=== PATIENT | female | born 1975 | race African-American/Black ===

== ENCOUNTER 2020-11-08 04:09 | Inpatient (IN) | payer MEDICARE, OTHER ==
[~2020-11-08] VITALS: Ht 165.1 cm; Wt 74.8 kg
[2020-11-08] VITALS (50 sets, daily range): BP systolic 61–110; BP diastolic 24–70
[~2020-11-08 04:09] MED LIST: PREDNISONE20 MG ORAL
[2020-11-08] MEDS ORDERED: Acetaminophen 650 MG SUPP RECTAL ONE (04:30)
[2020-11-08] MEDS ORDERED: Sodium Chloride 2,200 ML IVLG ONE (04:30)
--- NOTE | 2020-11-08 04:38 | Emergency Room Report ---
History of Present Illness General Chief Complaint: Altered Mental Status Source: Patient Present Illness HPI This a 44-year-old female who is a intermediate patient. She has history of multiple sclerosis and chronic pain syndrome. She presents with chief complaint of altered mental status. Onset tonight. Patient was unresponsive. She was very warm to the touch. Unable to get any other history from this patient. She has no cough or congestion. No nausea vomiting or diarrhea. Patient was positive for Covid in August. She was negative for Covid in September and had Covid vaccine already. 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: No COVID-19 Screening: Negative COVID-19 COVID-19 Testing Source: [facility] Patient History Past Medical History: see triage record, old chart reviewed Past Surgical History: other Pertinent Family History: none Social History: Denies: smoking Now: No Immunizations: other Reviewed Nursing Documentation: PMH: Agreed; PSxH: Agreed Nursing Documentation-PMH Hx Hypertension: Yes Hx Asthma: Yes Review of Systems Constitutional: Reports: malaise, weakness All Other Systems: limited - Secondary to condition Physical Exam Vital Signs Date Time Temp Pulse Resp B/P (MAP) Pulse Ox O2 Delivery O2 Flow Rate FiO2 11/08/20 04:12 99.1 126 28 87/52 (64) 98 Room Air Sp02 EP Interpretation: reviewed, normal General Appearance: Chronically Ill, Stupor Head: normocephalic, atraumatic Eyes: bilateral eye PERRL, bilateral eye EOMI ENT: normal pharynx Neck: full range of motion, supple, no meningismus Respiratory: chest non-tender, lungs clear, normal breath sounds Cardiovascular #1: regular rate, rhythm, no murmur Gastrointestinal: normal bowel sounds, non tender, no mass, no organomegaly, no bruit, non-distended Musculoskeletal: no lower extremity edema Psychiatric: other Skin: no rash Procedures Critical Care Time Critical Care Time Critical care is mandated in this patient who presented with sepsis and altered mental status. Patient require my urgent intervention to attenuate the risks of metabolic collapse which may lead to cardiovascular collapse and . Critical care time is 35 minutes excluding any reportable procedure. Critical care time included evaluation, multiple reevaluation, looking at old charts, interpreting laboratory and diagnostic data, discussing case with patient and family and consultants, and charting. Medical Decision Making Diagnostic Impression: Primary Impression: Sepsis Qualified Codes: A41.9 - Sepsis, unspecified organism; R65.20 - Severe sepsis without septic shock; G93.40 - Encephalopathy, unspecified Additional Impressions: Acute metabolic encephalopathy VALERIA (acute kidney injury) Anemia Qualified Codes: D64.9 - Anemia, unspecified UTI (urinary tract infection) Qualified Codes: N30.00 - Acute cystitis without hematuria ER Course This patient presents with altered mental status and fever. Her oxygenation was normal at 100% on room air. She had Covid in August and negative test in September. She also had her Covid vaccine done. This makes Covid less likely to be the cause of infection. Her chest x-ray is clear. CT scans unremarkable. She does have a high white count or lactic acid. Most likely source is urine. That still pending. IV antibiotics and IV fluids given. Patient will be admitted to the hospital. Contacted Dr. Koehler for admission. Urinalysis showed positive nitrites and leukocyte esterase. However only 0-2 WBC and few bacteria. I will go ahead and cover her with antibiotics. EKG Diagnostic Results Troponin ordered: Yes Rate: tachycardiac Rhythm: NSR ST Segments: no acute changes Rhythm Strip Diag. Results EP Interpretation: yes Rate: 120 Rhythm: NSR, no PVC's, no ectopy Chest X-Ray Diagnostic Results Chest X-Ray Diagnostic Results : Chest X-Ray Ordered: Yes # of Views/Limited/Complete: 1 View Indication: Other EP Interpretation: Yes Interpretation: no consolidation, no effusion, no pneumothorax, no acute cardiopulmonary disease Impression: No acute disease Electronically Signed by: Leroy Bird MD CT/MRI/US Diagnostic Results CT/MRI/US Diagnostic Results : Imaging Test Ordered: Ct head Impression Neg per radiologist Last Vital Signs Date Time Temp Pulse Resp B/P (MAP) Pulse Ox O2 Delivery O2 Flow Rate FiO2 11/08/20 04:12 99.1 126 28 87/52 (64) 98 Room Air Status: improved Disposition: ADMITTED INPATIENT Condition: Serious Referrals: ABHI VARGAS MD (PCP) Leroy Bird MD Nov 08, 2020 04:37
[2020-11-08 05:03] LABS: HEMATOCRIT 32.9 % (37.0-47.0); HEMOGLOBIN 9.8 G/DL (12.0-16.0); MEAN CORPUSCULAR VOLUME 89 FL (80-99); PLATELET COUNT 289 K/UL (150-450); RED BLOOD COUNT 3.68 M/UL (4.20-5.40); RED CELL DISTRIBUTION WIDTH 17.7 % (11.6-14.8)
[2020-11-08 05:09] LABS: WHITE BLOOD COUNT 26.3 K/UL (4.8-10.8)
[2020-11-08 05:36] LABS: ALANINE AMINOTRANSFERASE 50 U/L (12-78); ALBUMIN 2.3 G/DL (3.4-5.0); ALBUMIN/GLOBULIN RATIO 0.7 (1.0-2.7); ALKALINE PHOSPHATASE 73 U/L (46-116); ASPARTATE AMINO TRANSFERASE 34 U/L (15-37); BILIRUBIN,TOTAL 0.2 MG/DL (0.2-1.0); BLOOD UREA NITROGEN 48 mg/dL (7-18); CALCIUM 8.4 MG/DL (8.5-10.1); CARBON DIOXIDE 24 MMOL/L (21-32); CKMB < 0.5 NG/ML (0.0-3.6); CREATINE KINASE 14 U/L (26-308); CREATININE 1.6 MG/DL (0.55-1.30)
[2020-11-08 05:43] LABS: CHLORIDE 106 MMOL/L (98-107); POTASSIUM 3.6 MMOL/L (3.5-5.1); SODIUM 142 MMOL/L (136-145)
--- NOTE | 2020-11-08 05:43 | Diagnostic Imaging Report ---
EXAM: CT Head Without Intravenous Contrast CLINICAL HISTORY: AMS TECHNIQUE: Axial computed tomography images of the head/brain without intravenous contrast. CTDI is 53.40 mGy and DLP is 992.10 mGy-cm. One or more of the following dose reduction techniques were used: automated exposure control, adjustment of the mA and/or kV according to patient size, use of iterative reconstruction technique. COMPARISON: No relevant prior studies available. FINDINGS: No acute intracranial hemorrhage. No midline shift or mass effect. The territorial hassan-white matter differentiation is maintained throughout. The ventricles and sulci are commensurate with age. The visualized orbits appear grossly unremarkable. The calvarium is intact. The visualized paranasal sinuses and mastoid air cells are grossly clear. IMPRESSION: No acute intracranial hemorrhage, midline shift, or mass effect.
[2020-11-08] MEDS ORDERED: Cefepime HCl 1 GM in D5W 55 ML IVPB ONE (05:45)
[2020-11-08 05:48] LABS: APPEARANCE,URINE CLEAR; BILIRUBIN, URINE NEGATIVE (NEGATIVE); COLOR,URINE PALE YELLOW; GLUCOSE, URINE (UA) NEGATIVE (NEGATIVE); KETONES,URINE NEGATIVE (NEGATIVE); LEUKOCYTE ESTERASE ,URINE 1+ (NEGATIVE); NITRITE,URINE POSITIVE (NEGATIVE); PH,URINE 6 (4.5-8.0); PROTEIN,URINE 1+ (NEGATIVE); UROBILINOGEN,URINE NORMAL MG/DL (0.0-1.0)
[2020-11-08] MEDS ORDERED: Acetaminophen 650 MG SUPP RECTAL PRN ×2 (06:00→09:15)
[2020-11-08] MEDS ORDERED: Vancomycin 1.5gm/300ml Premix 300 ML IVPB ONE (06:00)
--- NOTE | 2020-11-08 06:12 | Emergency Room Report ---
Sepsis Event Note Evaluation Current Stage of Sepsis: Sepsis Possible Source: Unknown Focused Exam Allergies: Coded Allergies: No Known Allergies (Unverified , 11/08/20) Date Exam Occurred: Nov 08, 2020 Time Exam Occurred: 06:11 Laboratory Studies Laboratory Tests Test 11/08/20 04:30 11/08/20 04:54 Urine Color Pale yellow Urine Appearance Clear Urine pH 6 (4.5-8.0) Urine Specific [place] 1.010 (1.005-1.035) Urine Protein 1+ (NEGATIVE) H Urine Glucose (UA) Negative (NEGATIVE) Urine Ketones Negative (NEGATIVE) Urine Blood 2+ (NEGATIVE) H Urine Nitrite Positive (NEGATIVE) H Urine Bilirubin Negative (NEGATIVE) Urine Urobilinogen Normal MG/DL (0.0-1.0) Urine Leukocyte Esterase 1+ (NEGATIVE) H Urine RBC 2-4 /HPF (0 - 2) H Urine WBC 0-2 /HPF (0 - 2) Urine Squamous Epithelial Cells Few /LPF (NONE/OCC) Urine Bacteria Few /HPF (NONE) White Blood Count 26.3 K/UL (4.8-10.8) *H Red Blood Count 3.68 M/UL (4.20-5.40) L Hemoglobin 9.8 G/DL (12.0-16.0) L Hematocrit 32.9 % (37.0-47.0) L Mean Corpuscular Volume 89 FL (80-99) Mean Corpuscular Hemoglobin 26.7 PG (27.0-31.0) L Mean Corpuscular Hemoglobin Concent 29.8 G/DL (32.0-36.0) L Red Cell Distribution Width 17.7 % (11.6-14.8) H Platelet Count 289 K/UL (150-450) Mean Platelet Volume 7.1 FL (6.5-10.1) Neutrophils (%) (Auto) % (45.0-75.0) Lymphocytes (%) (Auto) % (20.0-45.0) Monocytes (%) (Auto) % (1.0-10.0) Eosinophils (%) (Auto) % (0.0-3.0) Basophils (%) (Auto) % (0.0-2.0) Differential Total Cells Counted 100 Neutrophils % (Manual) 90 % (45-75) H Lymphocytes % (Manual) 5 % (20-45) L Monocytes % (Manual) 2 % (1-10) Eosinophils % (Manual) 0 % (0-3) Basophils % (Manual) 0 % (0-2) Band Neutrophils 3 % (0-8) Platelet Estimate Adequate Platelet Morphology Normal Sodium Level 142 MMOL/L (136-145) Potassium Level 3.6 MMOL/L (3.5-5.1) Chloride Level 106 MMOL/L (98-107) Carbon Dioxide Level 24 MMOL/L (21-32) Blood Urea Nitrogen 48 mg/dL (7-18) H Creatinine 1.6 MG/DL (0.55-1.30) H Estimat Glomerular Filtration Rate 42.4 mL/min (>60) Glucose Level 95 MG/DL (74-106) Lactic Acid Level 3.20 mmol/L (0.4-2.0) H Calcium Level 8.4 MG/DL (8.5-10.1) L Total Bilirubin 0.2 MG/DL (0.2-1.0) Aspartate Amino Transf (AST/SGOT) 34 U/L (15-37) Alanine Aminotransferase (ALT/SGPT) 50 U/L (12-78) Alkaline Phosphatase 73 U/L (46-116) Total Creatine Kinase 14 U/L (26-308) L Creatine Kinase MB < 0.5 NG/ML (0.0-3.6) Creatine Kinase MB Relative Index 3.5 Troponin I 0.002 ng/mL (0.000-0.056) Total Protein 5.7 G/DL (6.4-8.2) L Albumin 2.3 G/DL (3.4-5.0) L Globulin 3.4 g/dL Albumin/Globulin Ratio 0.7 (1.0-2.7) L Vital Signs Last 24 Hour Vital Signs Date Time Temp Pulse Resp B/P (MAP) Pulse Ox O2 Delivery O2 Flow Rate FiO2 11/08/20 05:58 77 16 Room Air 98 11/08/20 04:12 99.1 126 28 87/52 (64) 98 Room Air Respiratory Exam: Clear Cardiovascular Exam: RRR Capillary Refill: Less Than 2 Seconds Peripheral Pulse: Strong Pulse Location: Radial Skin Exam: Normal Tur[place] Leroy Bird MD Nov 08, 2020 06:12
--- NOTE | 2020-11-08 12:25 | Consultation ---
Consult Note Consult Note Asked to eval at the request of Dr Cormier This a 44-year-old female who is a group home patient. She has history of multiple sclerosis and chronic pain syndrome. She presents with chief complaint of altered mental status. Onset tonight. Patient was unresponsive. She was very warm to the touch. Unable to get any other history from this patient. She has no cough or congestion. No nausea vomiting or diarrhea. Patient was positive for Covid in August. She was negative for Covid in September and had Covid vaccine already. 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 GENERAL: Patient is altered, unresponsive, cannot follow commands. HEAD AND NECK: Pupils are equal and reactive to light. Anicteric. Neck was supple. No JVD. LUNGS: Good air entry. No wheezing or rhonchi. Decreased air in the bases. HEART: S1, S2. No murmur or gallops. ABDOMEN: Soft, nondistended, nontender. Positive bowel sounds. EXTREMITIES: No cyanosis, clubbing, or edema. NEUROLOGIC: Very limited secondary to patient's status. Cannot follow commands. However, moving extremities spontaneously. SKIN: No rashes were identified. LABORATORY DATA: On admission from the emergency department ABG, pH of 7.305, pCO2 of 24, pO2 of 71, saturating 93%. WBC of 26, hemoglobin 9.8, hematocrit 32, platelets 289. Sodium 142, potassium 3.6, chloride 106, bicarb 24, BUN 48, creatinine 1.6, GFR is 42, glucose 95. Lactic acid 3.20, repeat 7.20. , 8.4. Total bilirubin of 0.2, AST 32, ALT of 50. First troponin 0.02. Albumin 0.7. UA is +1 protein, +2 blood, positive nitrite, +1 leukocytes, rbc 2.4, leukocyte +1. CT of the brain was done, no acute intracranial hemorrhage, midline shift, or mass effect. . Assessment/Plan Imp: Acute renal failure Sepsis, shock Acute metabolic encephalopathy Anemia UTI Sugg: ICU Pressors Hydrate Monitor renal parameters and electrolytes Anemia work-up Avoid nephrotoxic's Bridger Mari MD Nov 08, 2020 12:25
[2020-11-08] MEDS ORDERED: Lidocaine 1% MPF 10mg/ml 5ml INJ ONE (12:30)
[2020-11-08] MEDS: D5 1/2NS 1,000 ML IV SCH (12:30)
--- NOTE | 2020-11-08 13:16 | Consultation ---
History of Present Illness General Date patient seen: Nov 08, 2020 Reason for Hospitalization: Altered Mental Status Present Illness HPI 44-year-old female who is a [facility] patient with history of multiple sclerosis and chronic pain syndrome presents with chief complaint of altered mental status of onset just prior to admission. Patient was unresponsive. She was very warm to the touch. Unable to get any other history from this patient. She has no cough or congestion. No nausea vomiting or diarrhea. Patient was positive for Covid in August. She was negative for Covid in September and had Covid vaccine already. In emergency room patient identified to have leukocytosis lactic acidosis septic. Given altered status normal exam potential etiology and patient unable to provide information therefore surgical to evaluate assist with care patient seen patient chart reviewed Allergies: Coded Allergies: No Known Allergies (Unverified , 11/08/20) COVID-19 Screening Contact w/high risk pt: No Experienced COVID-19 symptoms?: No Medication History Scheduled Ascorbic Acid* (Ascorbic Acid*), 500 MG ORAL Q12HR, (Reported) Baclofen* (Baclofen*), 10 MG ORAL Q8HR, (Reported) Chlorhexidine Gluconate (Peridex), 15 ML MM BID, (Reported) Clonidine Hcl* (Catapres*), 0.1 MG ORAL EVERY 6 HOURS, (Reported) Docusate Sodium* (Colace*), 100 MG ORAL BID, (Reported) Duloxetine HCl (Duloxetine HCl*), 20 MG PO DAILY, (Reported) Enoxaparin Sodium (Enoxaparin Sodium*), 40 MG SUBQ DAILY, (Reported) Famotidine* (Pepcid 20mg tablet*), 20 MG ORAL Q12HR, (Reported) Gabapentin* (Gabapentin*), 600 MG ORAL Q8HR, (Reported) Multivitamin With Minerals (Multivitamins With Minerals*), 1 TAB ORAL DAILY, (Reported) Prednisone* (Prednisone*), 60 MG ORAL DAILY, (Reported) Tuberculin Ppd (Tubersol), 0.1 ML IDERMAL EVERY 365 DAYS, (Reported) Scheduled PRN Acetaminophen* (Acetaminophen 325MG Tablet*), 650 MG ORAL Q4H PRN for FEVER TEMP (>100.4), (Reported) Acetaminophen* (Acetaminophen 325MG Tablet*), 650 MG ORAL Q4HR PRN for MILD PAIN, (Reported) Diphenhydramine Hcl* (Diphenhydramine Hcl*), 25 MG ORAL Q4HR PRN for Itching, (Reported) Guaifenesin (Sabrina-Tussin), 200 MG PO Q4HR PRN for For Cough, (Reported) Ipratropium/Albuterol Sulfate (Iprat-Albut 0.5-3(2.5) Mg/3 Ml), 3 ML IH Q4HR PRN for SOB/WHEEZING, (Reported) Mag Hydrox/Aluminum Hyd/Simeth (Mylanta Maximum Strength Liq), 30 ML PO DAILY PRN for INDIGESTION, (Reported) Nitroglycerin 0.4MG table* (Nitroglycerin*), 0.4 MG SL .Q5MIN X 3 DOSES PRN for CHEST PAIN, (Reported) Ondansetron* (Zofran*), 4 MG ORAL Q6H PRN for Nausea & Vomiting, (Reported) Tramadol Hcl* (Ultram*), 50 MG ORAL Q6H PRN for MODERATE TO SEVERE PAIN, (Reported) Discontinued Medications Prednisone* (Prednisone*), 20 MG ORAL DAILY, (Reported) Discontinued Reason: Prescription changed Prednisone* (Prednisone*), 10 MG ORAL DAILY, (Reported) Discontinued Reason: Prescription changed Patient History Limited by: medical condition History Provided By: Medical Record, PMD Healthcare decision maker Resuscitation status Advanced Directive on File Past Medical/Surgical History Past Medical/Surgical History: (1) Anemia (2) UTI (urinary tract infection) (3) VALERIA (acute kidney injury) (4) Sepsis (5) Acute metabolic encephalopathy Review of Systems Review of Symptoms General ROS: no weight loss or fever Psychological ROS: no depression or mood changes, no memory loss Ophthalmic ROS: no visual changes or eye irritation ENT ROS: no nasal congestion, hearing loss, dizziness Allergy and Immunology ROS: no allergic symptoms or urticaria Hematological and Lymphatic ROS: no swollen glands, unusual bleeding or bruising Endocrine ROS: no polyuria, polydipsia, weight changes, temperature intolerance Respiratory ROS: no cough, shortness of breath, or wheezing Cardiovascular ROS: no chest pain or dyspnea on exertion Gastrointestinal ROS: denies abdominal pain, bright red blood in stool. Musculoskeletal ROS: no myalgias or arthralgias Neurological ROS: no TIA or stroke symptoms Dermatological ROS: no new or changing skin lesions, rashes or pruritis limited given medical condition Physical Exam Physical Exam Sp02 EP Interpretation: reviewed, normal General Appearance: Chronically Ill, Stupor Head: normocephalic, atraumatic Eyes: bilateral eye PERRL, bilateral eye EOMI ENT: normal pharynx Neck: full range of motion, supple, no meningismus Respiratory: chest non-tender, lungs clear, normal breath sounds Cardiovascular #1: regular rate, rhythm, no murmur Gastrointestinal: normal bowel sounds, non tender, no mass, no organomegaly, no bruit, non-distended Musculoskeletal: no lower extremity edema Psychiatric: other Skin: no rash Last 24 Hour Vital Signs Date Time Temp Pulse Resp B/P (MAP) Pulse Ox O2 Delivery O2 Flow Rate FiO2 11/08/20 10: 103.5 171 30 98/67 100 Room Air 11/08/20 05:58 100.5 77 16 110/68 98 Room Air 11/08/20 05:58 77 16 Room Air 98 11/08/20 05:00 100.5 11/08/20 04:12 99.1 126 28 87/52 (64) 98 Room Air Intake and Output 11/07/20 11/08/20 19:00 07:00 Intake Total 4000 ml Output Total 500 ml Balance 3500 ml Intake Oral 0 ml IV Total 4000 ml Output Urine Total 500 ml # Voids 1 # Bowel Movements 1 Laboratory Tests Test 11/08/20 04:30 11/08/20 04:54 11/08/20 09:01 11/08/20 09:03 Urine Color Pale yellow Urine Appearance Clear Urine pH 6 (4.5-8.0) Urine Specific [place] 1.010 (1.005-1.035) Urine Protein 1+ (NEGATIVE) H Urine Glucose (UA) Negative (NEGATIVE) Urine Ketones Negative (NEGATIVE) Urine Blood 2+ (NEGATIVE) H Urine Nitrite Positive (NEGATIVE) H Urine Bilirubin Negative (NEGATIVE) Urine Urobilinogen Normal MG/DL (0.0-1.0) Urine Leukocyte Esterase 1+ (NEGATIVE) H Urine RBC 2-4 /HPF (0 - 2) H Urine WBC 0-2 /HPF (0 - 2) Urine Squamous Epithelial Cells Few /LPF (NONE/OCC) Urine Bacteria Few /HPF (NONE) White Blood Count 26.3 K/UL (4.8-10.8) *H Red Blood Count 3.68 M/UL (4.20-5.40) L Hemoglobin 9.8 G/DL (12.0-16.0) L Hematocrit 32.9 % (37.0-47.0) L Mean Corpuscular Volume 89 FL (80-99) Mean Corpuscular Hemoglobin 26.7 PG (27.0-31.0) L Mean Corpuscular Hemoglobin Concent 29.8 G/DL (32.0-36.0) L Red Cell Distribution Width 17.7 % (11.6-14.8) H Platelet Count 289 K/UL (150-450) Mean Platelet Volume 7.1 FL (6.5-10.1) Neutrophils (%) (Auto) % (45.0-75.0) Lymphocytes (%) (Auto) % (20.0-45.0) Monocytes (%) (Auto) % (1.0-10.0) Eosinophils (%) (Auto) % (0.0-3.0) Basophils (%) (Auto) % (0.0-2.0) Differential Total Cells Counted 100 Neutrophils % (Manual) 90 % (45-75) H Lymphocytes % (Manual) 5 % (20-45) L Monocytes % (Manual) 2 % (1-10) Eosinophils % (Manual) 0 % (0-3) Basophils % (Manual) 0 % (0-2) Band Neutrophils 3 % (0-8) Platelet Estimate Adequate Platelet Morphology Normal Sodium Level 142 MMOL/L (136-145) Potassium Level 3.6 MMOL/L (3.5-5.1) Chloride Level 106 MMOL/L (98-107) Carbon Dioxide Level 24 MMOL/L (21-32) Blood Urea Nitrogen 48 mg/dL (7-18) H Creatinine 1.6 MG/DL (0.55-1.30) H Estimat Glomerular Filtration Rate 42.4 mL/min (>60) Glucose Level 95 MG/DL (74-106) Lactic Acid Level 3.20 mmol/L (0.4-2.0) H 7.20 mmol/L (0.66-2.22) H Calcium Level 8.4 MG/DL (8.5-10.1) L Total Bilirubin 0.2 MG/DL (0.2-1.0) Aspartate Amino Transf (AST/SGOT) 34 U/L (15-37) Alanine Aminotransferase (ALT/SGPT) 50 U/L (12-78) Alkaline Phosphatase 73 U/L (46-116) Total Creatine Kinase 14 U/L (26-308) L Creatine Kinase MB < 0.5 NG/ML (0.0-3.6) Creatine Kinase MB Relative Index 3.5 Troponin I 0.002 ng/mL (0.000-0.056) Total Protein 5.7 G/DL (6.4-8.2) L Albumin 2.3 G/DL (3.4-5.0) L Globulin 3.4 g/dL Albumin/Globulin Ratio 0.7 (1.0-2.7) L Arterial Blood pH 7.305 (7.350-7.450) Arterial Blood Partial Pressure CO2 24.3 mmHg (35.0-45.0) *L Arterial Blood Partial Pressure O2 71.4 mmHg (75.0-100.0) L Arterial Blood HCO3 11.8 mmol/L (22.0-26.0) *L Arterial Blood Oxygen Saturation 93.4 % (95-100) L Arterial Blood Base Excess -12.8 (-2-2) *L Jose Test Positive Height (Feet): 5 Height (Inches): 5.00 Weight (Pounds): 165 Medications Current Medications Medications (Trade) Dose Ordered Sig/Bunny Route PRN Reason Start Time Stop Time Status Last Admin Dose Admin Acetaminophen (Tylenol) 650 mg PRN PRN RECTAL TEMP>100.5 11/08/20 06:00 Acetaminophen (Tylenol) 650 mg Q4H PRN RECTAL Mild Pain (Pain Scale 1-3) 11/08/20 09:15 12/08/20 09:14 Albumin Human 50 ml @ 50 mls/hr ONCE IV 11/08/20 12:30 11/08/20 15:00 Dextrose/Sodium Chloride 1,000 ml @ 50 mls/hr Q20H IV 11/08/20 12:30 12/08/20 12:29 Metronidazole 100 ml @ 100 mls/hr ONCE ONCE IVPB 11/08/20 12:45 11/08/20 13:44 Norepinephrine Bitartrate 4 mg/ Dextrose 250 ml @ 0 mls/hr Q24H IV 11/08/20 12:30 11/11/20 12:29 Sodium Chloride 1,000 ml @ 999 mls/hr Q1H1M ONCE IV 11/08/20 12:30 11/08/20 13:30 Assessment/Plan Problem List: (1) Anemia ICD Codes: D64.9 - Anemia, unspecified SNOMED: [id number] Qualifiers: Qualified Codes: D64.9 - Anemia, unspecified (2) Sepsis Assessment & Plan: 44-year-old female with altered mental status, lactic acidosis, leukocytosis, sepsis. Vitals currently stable. Abdominal exam mild distention but limited. Will obtain imaging. Labs noted UTI on antibiotics fluid resuscitation trend labs we will follow with examination and recommendations. CT head reviewed. No acute intracranial hemorrhage. No midline shift or mass effect. The territorial hassan-white matter differentiation is maintained throughout. The ventricles and sulci are commensurate with age. The visualized orbits appear grossly unremarkable. The calvarium is intact. The visualized paranasal sinuses and mastoid air cells are grossly clear. ICD Codes: A41.9 - Sepsis, unspecified organism SNOMED: 69717299, [id number] Qualifiers: Qualified Codes: A41.9 - Sepsis, unspecified organism; R65.20 - Severe sepsis without septic shock; G93.40 - Encephalopathy, unspecified (3) UTI (urinary tract infection) ICD Codes: N39.0 - Urinary tract infection, site not specified SNOMED: 70151483 Qualifiers: Qualified Codes: N30.00 - Acute cystitis without hematuria (4) VALERIA (acute kidney injury) ICD Codes: N17.9 - Acute kidney failure, unspecified SNOMED: 53053015, 5750917 (5) Acute metabolic encephalopathy ICD Codes: G93.41 - Metabolic encephalopathy SNOMED: 96127599, [id number] Archie Saavedra Nov 08, 2020 13:16
[2020-11-08] MEDS ORDERED: Lidocaine 1% Plain 30 ml INJ ONE (13:41)
--- NOTE | 2020-11-08 13:54 | History & Physical ---
History and Physical History & Physicial Job # Kris Cormier MD Nov 08, 2020 13:54
[2020-11-08] MEDS ORDERED: Levophed 4mg/4mL Inj IV ONE (14:02)
--- NOTE | 2020-11-08 14:10 | Emergency Room Report ---
Physical Exam Please see the note from Dr. Bird. Also I have multiple addenda on that note with repeat evaluations and treatments initiated by me. Patient with history of multiple sclerosis[facility] Full review of systems unobtainable due to medical condition. Last 24 Hour Vital Signs Date Time Temp Pulse Resp B/P (MAP) Pulse Ox O2 Delivery O2 Flow Rate FiO2 11/08/20 10:21 103.5 171 30 98/67 100 Room Air 11/08/20 05:58 100.5 77 16 110/68 98 Room Air 11/08/20 05:58 77 16 Room Air 98 11/08/20 05:00 100.5 11/08/20 04:12 99.1 126 28 87/52 (64) 98 Room Air Sp02 EP Interpretation: reviewed, normal General Appearance: moderate distress, other - Warm to touch and toxic, Chronically Ill, Stupor Head: normocephalic, atraumatic Eyes: bilateral eye other - Eyes closed ENT: moist mucus membranes Neck: full range of motion, no meningismus Respiratory: lungs clear, normal breath sounds, other - Tachypnea Cardiovascular #1: tachycardia Cardiovascular #2: 2+ radial (R), 2+ femoral (R) Gastrointestinal: non tender - However patient with decreased responsiveness, decreased bowel sounds Rectal: other - Copious light brown stool Genitourinary: other - Duffy Neurologic: other - Lethargic but responds to pain Psychiatric: other - Lethargic Skin: no rash, other - Hot with cold extremities Critical Care Time Critical Care Time Total Critical Care Time: 65 min bedside evaluation and treatment excludes procedures (EKG, CVP). Reason for critical care: Severe sepsis, repeat evaluations, broadening of antibiotics, discussion with admitting physician, treatment of high fever Possible complications: hypotension, hypertension, MA, shock, arrhythmias, metabolic acidosis, end organ damage, respiratory failure. Interventions: Repeat boluses, Tylenol, cooling measures, repeat evaluations, broadening antibiotics, CVP, Levophed Course: Patient was signed out to me by Dr. Bird. Evidence of sepsis. Source not identified. Patient became tachycardic and tachypneic. Repeat temperature was 103.9. Patient was rebolused with fluids. Patient fluid responsive at that time. She remained tachycardic. Patient was having copious bouts of diarrhea. This was sent for C. difficile toxin. In addition antibiotics were broadened including Flagyl. After multiple fluid boluses patient still had bouts of hypotension. Central line was indicated and started. Repeat lactic acid was drawn by me. Blood gas was obtained due to tachypnea. There is evidence of compensated metabolic acidosis however the patient was oxygenating well. No further airway or breathing intervention indicated at that time. Levophed was begun. The patient's mentation was improving. Her temperature also was improved. The patient was upgraded to intensive care unit. The admitting physician came to evaluate the patient and her case was fully discussed. The patient's condition was improved but still critical. Consultations: nursing staff, previous emergency physician, respiratory therapy, admitting physician Performed by: Dr. Leyva Tolerated well condition = critical Central Line Central Line : Consent: Emergent Central Line Lumen: triple Maximal Sterile Barrier Tech: yes cap, yes mask, yes sterile gown, yes sterile gloves, yes large sterile sheet, yes hand hygiene, yes chlorhexidine pr ep Central Line Postion: femoral (R) Anesthesia: Lidocaine US Guided Line?: Yes Vessel visualized with U/S: Right Femoral Vein Ultrasound Findings: Collapsible Vessel, Vessel Patent, Color flow present, Visualize vessel puncture Complications: none Central Line Post Position: sutured, good blood return Attempts: One Patient Tolerated: Well Complications: None Progress 4 ml drawn for repeat lactate Medical Decision Making Diagnostic Impression: Primary Impression: Septic shock Additional Impressions: Anemia Qualified Codes: D64.9 - Anemia, unspecified Acute metabolic encephalopathy VALERIA (acute kidney injury) Diarrhea Qualified Codes: R19.7 - Diarrhea, unspecified Suspect C. difficile colitis Multiple sclerosis Escalating lactic acid ER Course Patient initially with fluid responsive sepsis. However she required multiple boluses. See addenda at the end of Dr. Bird's note. At one point she became febrile and tachycardic. Tylenol was repeated. Cooling measures were instituted. The patient was fully reevaluated by me at that time. The source of the sepsis was not determined initially. However the patient was having multiple bouts of watery and foul-smelling diarrhea. Start flagyl as copious diarrhea. Concern over possible c difficile. Persistent hypotension. Levophed indicated. Central line [address] Cormier 1400 the patient was fully discussed with Dr. Cormier Patient more responsive on Levophed with some vocalization. In addition heart rate although still tachycardic is improving. Her extremities were previously cool and clammy however at transfer to the ICU they were improving. Laboratory Tests Test 11/08/20 04:30 11/08/20 04:54 11/08/20 09:01 11/08/20 09:03 Urine Color Pale yellow Urine Appearance Clear Urine pH 6 (4.5-8.0) Urine Specific [place] 1.010 (1.005-1.035) Urine Protein 1+ (NEGATIVE) H Urine Glucose (UA) Negative (NEGATIVE) Urine Ketones Negative (NEGATIVE) Urine Blood 2+ (NEGATIVE) H Urine Nitrite Positive (NEGATIVE) H Urine Bilirubin Negative (NEGATIVE) Urine Urobilinogen Normal MG/DL (0.0-1.0) Urine Leukocyte Esterase 1+ (NEGATIVE) H Urine RBC 2-4 /HPF (0 - 2) H Urine WBC 0-2 /HPF (0 - 2) Urine Squamous Epithelial Cells Few /LPF (NONE/OCC) Urine Bacteria Few /HPF (NONE) White Blood Count 26.3 K/UL (4.8-10.8) *H Red Blood Count 3.68 M/UL (4.20-5.40) L Hemoglobin 9.8 G/DL (12.0-16.0) L Hematocrit 32.9 % (37.0-47.0) L Mean Corpuscular Volume 89 FL (80-99) Mean Corpuscular Hemoglobin 26.7 PG (27.0-31.0) L Mean Corpuscular Hemoglobin Concent 29.8 G/DL (32.0-36.0) L Red Cell Distribution Width 17.7 % (11.6-14.8) H Platelet Count 289 K/UL (150-450) Mean Platelet Volume 7.1 FL (6.5-10.1) Neutrophils (%) (Auto) % (45.0-75.0) Lymphocytes (%) (Auto) % (20.0-45.0) Monocytes (%) (Auto) % (1.0-10.0) Eosinophils (%) (Auto) % (0.0-3.0) Basophils (%) (Auto) % (0.0-2.0) Differential Total Cells Counted 100 Neutrophils % (Manual) 90 % (45-75) H Lymphocytes % (Manual) 5 % (20-45) L Monocytes % (Manual) 2 % (1-10) Eosinophils % (Manual) 0 % (0-3) Basophils % (Manual) 0 % (0-2) Band Neutrophils 3 % (0-8) Platelet Estimate Adequate Platelet Morphology Normal Sodium Level 142 MMOL/L (136-145) Potassium Level 3.6 MMOL/L (3.5-5.1) Chloride Level 106 MMOL/L (98-107) Carbon Dioxide Level 24 MMOL/L (21-32) Blood Urea Nitrogen 48 mg/dL (7-18) H Creatinine 1.6 MG/DL (0.55-1.30) H Estimated Glomerular Filtration Rate 42.4 mL/min (>60) Glucose Level 95 MG/DL (74-106) Lactic Acid Level 3.20 mmol/L (0.4-2.0) H 7.20 mmol/L (0.66-2.22) H Calcium Level 8.4 MG/DL (8.5-10.1) L Total Bilirubin 0.2 MG/DL (0.2-1.0) Aspartate Amino Transferase (AST) 34 U/L (15-37) Alanine Aminotransferase (ALT) 50 U/L (12-78) Alkaline Phosphatase 73 U/L (46-116) Total Creatine Kinase 14 U/L (26-308) L Creatine Kinase MB < 0.5 NG/ML (0.0-3.6) Creatine Kinase MB Relative Index 3.5 Troponin I 0.002 ng/mL (0.000-0.056) Total Protein 5.7 G/DL (6.4-8.2) L Albumin 2.3 G/DL (3.4-5.0) L Globulin 3.4 g/dL Albumin/Globulin Ratio 0.7 (1.0-2.7) L Arterial Blood pH 7.305 (7.350-7.450) Arterial Blood Partial Pressure CO2 24.3 mmHg (35.0-45.0) *L Arterial Blood Partial Pressure O2 71.4 mmHg (75.0-100.0) L Arterial Blood HCO3 11.8 mmol/L (22.0-26.0) *L Arterial Blood Oxygen Saturation 93.4 % (95-100) L Arterial Blood Base Excess -12.8 (-2-2) *L Jose Test Positive Test 11/08/20 14:00 11/08/20 21:15 Lactic Acid Level 7.20 mmol/L (0.4-2.0) H 11.00 mmol/L (0.4-2.0) H Rhythm Strip Diag. Results EP Interpretation: yes Rhythm: no PVC's, no ectopy, other - Tachycardia Chest X-Ray Diagnostic Results Chest X-Ray Diagnostic Results : Chest X-Ray Ordered: Yes # of Views/Limited/Complete: 1 View Indication: Other EP Interpretation: Yes Interpretation: no consolidation, no effusion, no pneumothorax Impression: No acute disease - Electronically signed by Joaquín Leyva MD CT/MRI/US Diagnostic Results CT/MRI/US Diagnostic Results : Imaging Test Ordered: Head Impression No intracranial pathology Last Vital Signs Date Time Temp Pulse Resp B/P (MAP) Pulse Ox O2 Delivery O2 Flow Rate FiO2 11/08/20 21:41 132 79/53 11/08/20 20:45 23 100 11/08/20 20:00 Room Air 11/08/20 20:00 98.4 11/08/20 05:58 98 Status: improved Disposition: ADMITTED INPATIENT Condition: Critical Referrals: ABHI VARGAS MD (PCP) Joaquín Leyva MD Nov 08, 2020 14:10
[2020-11-08] MEDS ORDERED: ZOFRAN4 M3 ORAL (14:32)
[2020-11-08] MEDS ORDERED: DULOXETINE HCL20 MG PO (14:32)
[2020-11-08] MEDS ORDERED: TRAMADOL HCL50 MG ORAL (14:32)
[2020-11-08] MEDS ORDERED: CATAPRES0.1 MG ORAL (14:32)
[2020-11-08] MEDS ORDERED: MULTIVITAMINS1 EAC8 ORAL (14:32)
[2020-11-08] MEDS ORDERED: ENOXAPARIN40 MG/0.4 SUBQ (14:32)
[2020-11-08] MEDS ORDERED: PREDNISONE20 MG ORAL (14:32)
[2020-11-08] MEDS ORDERED: NITRO0.4 SL (14:32)
[2020-11-08] MEDS ORDERED: MYLANTA MAXIMU355 ML PO (14:32)
[2020-11-08] MEDS ORDERED: ACETAMINOPHEN325 M1 ORAL (14:32)
[2020-11-08] MEDS ORDERED: BACLOFEN10 MG ORAL (14:32)
[2020-11-08] MEDS ORDERED: GABAPENTIN600 MG ORAL (14:32)
[2020-11-08] MEDS ORDERED: FAMOTIDINE20 MG ORAL (14:32)
[2020-11-08] MEDS ORDERED: COLACE100 MG ORAL (14:32)
[2020-11-08] MEDS ORDERED: ASCORBIC ACID500 MG ORAL (14:32)
[2020-11-08] MEDS: Norepinephrine Bitartrate 16 MG in D5W 500ml 550 ML IV SCH (15:48)
[2020-11-08] MEDS: Phenylephrine 50 MG in D5W 245 ML IV SCH ×2 (17:58→21:41)
[2020-11-08] MEDS: Vasopressin 100 UNITS in NS 95 ML IV SCH (19:52)
[2020-11-08] MEDS ORDERED: Meropenem 1 GM in NS 55 ML IVPB SCH (21:00)
[2020-11-08] MEDS: Cefepime HCl 1 GM in D5W 55 ML IVPB SCH (21:38)
[2020-11-08] MEDS: Hydrocortisone 100mg Inj IV SCH (21:38)
[2020-11-08] MEDS: Heparin 5000 units/ml inj SUBQ SCH (21:40)
[2020-11-08] MEDS: traMADol 50mg tab ORAL PRN (22:21)
--- NOTE | 2020-11-08 23:29 | History and Physical Report ---
DATE OF ADMISSION: 11/08/2020 CHIEF COMPLAINT: Altered mental status. HISTORY OF PRESENT ILLNESS: This is a 44-year-old female with past medical history significant for multiple sclerosis due to chronic pain syndrome who presented to the emergency department after was noted to have altered mental status starting last night. Patient was unresponsive, warm to touch, and history is very limited secondary to patient's status. History is mostly taken from the ER chart. No cough or congestion was reported. No nausea, vomiting, or diarrhea. Patient was recently positive COVID-19 in August 2020 and repeat one in September was negative and patient subsequently had a COVID-19 vaccination already. Shortly after initial evaluation in the emergency department, patient was noted to have a blood pressure of 87/52 and subsequently patient was admitted to ICU with septic shock, possible due to the urinary tract infection as well as acute kidney injury and dehydration. PAST MEDICAL HISTORY/PAST SURGICAL HISTORY: As above, history of COVID-19 recovered, multiple sclerosis, chronic pain syndrome. MEDICATIONS: At home, please refer to medication reconciliation. ALLERGIES: No known drug allergies. SOCIAL HISTORY: half-way resident. No smoking, alcohol, or drugs. FAMILY HISTORY: Noncontributory. REVIEW OF SYSTEMS: Very limited secondary to patient's status. No fever or chills. No nausea, vomiting, or diarrhea. Patient has weakness, malaise. PHYSICAL EXAMINATION: VITAL SIGNS: On admission, temperature 99.1, pulse of 126, respirations 28, blood pressure 87/52. GENERAL: Patient is altered, unresponsive, cannot follow commands. HEAD AND NECK: Pupils are equal and reactive to light. Anicteric. Neck was supple. No JVD. LUNGS: Good air entry. No wheezing or rhonchi. Decreased air in the bases. HEART: S1, S2. No murmur or gallops. ABDOMEN: Soft, nondistended, nontender. Positive bowel sounds. EXTREMITIES: No cyanosis, clubbing, or edema. NEUROLOGIC: Very limited secondary to patient's status. Cannot follow commands. However, moving extremities spontaneously. SKIN: No rashes were identified. LABORATORY DATA: On admission from the emergency department ABG, pH of 7.305, pCO2 of 24, pO2 of 71, saturating 93%. WBC of 26, hemoglobin 9.8, hematocrit 32, platelets 289. Sodium 142, potassium 3.6, chloride 106, bicarb 24, BUN 48, creatinine 1.6, GFR is 42, glucose 95. Lactic acid 3.20, repeat 7.20. 8.4. Total bilirubin of 0.2, AST 32, ALT of 50. First troponin 0.02. Albumin 0.7. UA is +1 protein, +2 blood, positive nitrite, +1 leukocytes, rbc 2.4, leukocyte +1. CT of the brain was done, no acute intracranial hemorrhage, midline shift, or mass effect. ASSESSMENT: 1. Septic shock. 2. Sepsis secondary to urinary tract infection. 3. Dehydration and hypokalemia. 4. Altered mental status, most likely secondary to toxic metabolic encephalopathy. 5. Acute kidney injury. 6. Anemia. 7. History of multiple sclerosis. PLAN: Admit patient to ICU. We will start patient on aggressive IV hydration. We will follow up laboratory. DVT prophylaxis with heparin subcutaneous. Follow up with the 2D echo. Code status is Full Code. At this time, broad-spectrum antibiotic with cefepime, Flagyl, and vancomycin. Start patient on hydrocortisone. Start the patient on multiple pressors including neomycin, Levophed, and vasopressor as needed to support the blood pressure. Follow up with Dr. Kline from Pulmonary Critical Care, Dr. Nat Courtney from ID, Dr. Grant from Cardiology, and Dr. Bridger Mari from Nephrology. Kris Cormier M.D. DR: MARVIN JOB#: [id number] CC:
[2020-11-09] VITALS (121 sets, daily range): BP systolic 73–145; BP diastolic 34–117
[2020-11-09] MEDS: Norepinephrine Bitartrate 16 MG in D5W 500ml 550 ML IV SCH ×3 (00:46→20:21)
[2020-11-09 01:19] LABS: HEMATOCRIT 32.8 % (37.0-47.0); HEMOGLOBIN 9.6 G/DL (12.0-16.0); MEAN CORPUSCULAR VOLUME 91 FL (80-99); PLATELET COUNT 192 K/UL (150-450); RED BLOOD COUNT 3.61 M/UL (4.20-5.40); RED CELL DISTRIBUTION WIDTH 18.1 % (11.6-14.8)
[2020-11-09 01:22] LABS: WHITE BLOOD COUNT 57.6 K/UL (4.8-10.8)
[2020-11-09 01:50] LABS: ALANINE AMINOTRANSFERASE 45 U/L (12-78); ALBUMIN 1.9 G/DL (3.4-5.0); ALBUMIN/GLOBULIN RATIO 0.5 (1.0-2.7); ALKALINE PHOSPHATASE 128 U/L (46-116); ANION GAP 18 mmol/L (5-15); ASPARTATE AMINO TRANSFERASE 60 U/L (15-37); BLOOD UREA NITROGEN 48 mg/dL (7-18); CALCIUM 6.4 MG/DL (8.5-10.1); CARBON DIOXIDE 12 MMOL/L (21-32); CHLORIDE 107 MMOL/L (98-107); CHOLESTEROL 125 MG/DL (< 200); CREATININE 2.3 MG/DL (0.55-1.30); FERRITIN 137 NG/ML (8-388); GAMMA GLUTAMYL TRANSPEPTIDASE 128 U/L (5-85); HDL CHOLESTEROL 60 MG/DL (40-60); SODIUM 137 MMOL/L (136-145); TRIGLYCERIDES 240 MG/DL (30-150)
[2020-11-09 02:18] LABS: % IRON SATURATION 3 % (15-50); IRON 8 ug/dL (50-175); TOTAL IRON BINDING CAPACITY 268 ug/dL (250-450)
[2020-11-09] MEDS: D5 1/2NS 1,000 ML IV SCH ×3 (03:54→19:40)
[2020-11-09] MEDS ORDERED: Vancomycin 1gm/D5W 275ml IVPB ONE ×2 (04:00)
[2020-11-09] MEDS: Heparin 5000 units/ml inj SUBQ SCH ×3 (05:09→20:44)
[2020-11-09] MEDS: Hydrocortisone 100mg Inj IV SCH ×3 (05:09→20:43)
[2020-11-09] MEDS: Phenylephrine 100 MG in D5W 240 ML IV SCH ×3 (08:30)
[2020-11-09] MEDS ORDERED: Pantoprazole Inj IVP SCH (09:00)
[2020-11-09] MEDS: Cefepime HCl 1 GM in D5W 55 ML IVPB SCH (09:00)
[2020-11-09] MEDS ORDERED: Sodium Bicarbonate 50ml Carp IV SCH (10:45)
--- NOTE | 2020-11-09 11:59 | Consultation ---
DATE OF CONSULTATION: 11/09/2020 PULMONARY CONSULTATION CONSULTING PHYSICIAN: Travis Kline MD. HISTORY OF PRESENT ILLNESS: This is a 44-year-old female with a history of multiple sclerosis and chronic pain. She is a retirement resident. She was brought from the facility with a complaint of altered mental status. The patient was markedly hypotensive. The patient has a history of being wheelchair-bound. She has full control of her upper extremities, but does not ambulate. The patient has had a COVID-19 vaccination and was even noted to be positive for COVID-19 in August 2020. The patient was admitted to ICU, initially on one pressor. Currently, she is on two pressors. A central line was placed in the right femoral vein. At this time, the patient is on three pressors. She is awake and responsive. She is on nonrebreather mask with ABG showing significant metabolic acidosis, but pO2 is 125. Her list of home medications were reviewed and reconciled in the chart. It is not known that the patient is on prednisone at home. The patient has received broad-spectrum antibiotics. I reviewed her POLST form Full Code. Upon review of outside records, a Duffy catheter was placed. The patient was also found to have copious brown stool as well. REVIEW OF SYSTEMS: Unreliable. PHYSICAL EXAMINATION: GENERAL: Reveals an obese female. HEENT: Unremarkable. LUNGS: Clear breath sounds bilaterally. ABDOMEN: Soft. EXTREMITIES: There is no edema. IMPRESSION: 1. Septic shock. 2. Hypotension. 3. Status post central line placement. 4. Multiple sclerosis. 5. Diarrhea, rule out C. difficile colitis. DISCUSSION: Admit to the hospital. Continue pressors. She has severe metabolic acidosis. We will initiate bicarb supplementation. We will start bicarb drip. Continue broad-spectrum antibiotics. Continue pressors. DVT prophylaxis. We will follow. Travis Kline M.D. DR: TYLER/MARY JOB#: [id number] CC:
--- NOTE | 2020-11-09 12:19 | Nephrology Progress Note ---
Assessment/Plan Problem List: (1) VALERIA (acute kidney injury) (2) Septic shock (3) Multiple sclerosis (4) Acute metabolic encephalopathy (5) Anemia (6) Electrolyte imbalance Assessment Acute renal failure Sepsis, shock Acute metabolic encephalopathy Anemia UTI Plan November 09: Low magnesium replaced. IV iron ordered. Labs reviewed. Albumin bolus given. Serum creatinine higher to 2.3. Continue current management. Patient full code. Previously: ICU Pressors Hydrate Monitor renal parameters and electrolytes Anemia work-up Avoid nephrotoxic's Subjective ROS Limited/Unobtainable: Yes Objective Objective Last 24 Hour Vital Signs Date Time Temp Pulse Resp B/P (MAP) Pulse Ox O2 Delivery O2 Flow Rate FiO2 11/09/20 11:15 117 24 145/117 (126) 11/09/20 11:11 118 23 112/90 (97) 73 11/09/20 11:00 118 21 11/09/20 10:53 112 23 96/78 (84) 41 11/09/20 10:45 115 18 95/80 (85) 11/09/20 10:30 120 24 101/63 (76) 61 11/09/20 10:28 119 24 97/65 (76) 11/09/20 10:00 117 21 77/44 (55) 11/09/20 10:00 117 21 77/44 (55) 11/09/20 09:55 Venturi Mask 14.0 55 11/09/20 09:45 110 23 73/50 (58) 11/09/20 09:30 118 20 88/62 (71) 11/09/20 09:15 115 20 84/59 (67) 11/09/20 09:00 112 21 91/65 (74) 11/09/20 09:00 112 21 11/09/20 08:45 112 24 88/68 (75) 11/09/20 08:30 115 77/49 11/09/20 08:30 104 11 95/78 (84) 11/09/20 08:25 115 8 89/61 (70) 11/09/20 08:15 116 26 76/34 (48) 11/09/20 08:00 129 11/09/20 08:00 120 25 94/61 (72) 87 11/09/20 08:00 Room Air 11/09/20 07:45 117 23 79/66 (70) 11/09/20 07:30 116 23 95/71 (79) 11/09/20 07:30 116 23 95/71 (79) 11/09/20 07:15 118 24 94/67 (76) 11/09/20 07:15 118 24 94/67 (76) 11/09/20 07:00 117 26 93/67 (76) 11/09/20 07:00 117 26 93/67 (76) 11/09/20 06:52 120 26 96/62 (73) 11/09/20 06:45 118 26 76/54 (61) 11/09/20 06:30 115 23 98/68 (78) 100 11/09/20 06:30 115 23 98/68 (78) 100 11/09/20 06:15 114 23 91/68 (76) 11/09/20 06:15 114 23 91/68 (76) 11/09/20 06:00 118 26 11/09/20 06:00 97.7 115 22 88/65 (73) 11/09/20 06:00 115 22 88/65 (73) 11/09/20 05:45 116 22 87/65 (72) 11/09/20 05:45 116 22 87/65 (72) 11/09/20 05:30 117 23 89/61 (70) 11/09/20 05:30 117 23 89/61 (70) 11/09/20 05:15 118 23 92/65 (74) 11/09/20 05:15 118 23 92/65 (74) 11/09/20 05:00 119 24 93/61 (72) 11/09/20 05:00 119 24 93/61 (72) 65 11/09/20 04:15 128 22 85/55 (65) 11/09/20 04:00 100.3 128 23 92/58 (69) 11/09/20 04:00 Room Air 11/09/20 04:00 129 11/09/20 03:45 127 28 113/93 (100) 11/09/20 03:30 126 27 97/62 (74) 11/09/20 03:15 127 28 86/55 (65) 11/09/20 03:00 123 27 89/62 (71) 11/09/20 02:45 124 27 85/62 (70) 11/09/20 02:30 123 26 96/65 (75) 11/09/20 02:15 127 28 87/61 (70) 11/09/20 02:00 127 29 91/54 (66) 11/09/20 01:30 126 27 85/60 (68) 97 11/09/20 01:15 127 28 86/59 (68) 97 11/09/20 01:00 132 21 86/52 (63) 97 11/09/20 01:00 86/52 11/09/20 00:46 89/63 11/09/20 00:45 129 27 89/63 (72) 75 11/09/20 00:30 130 30 94/53 (67) 75 11/09/20 00:29 131 25 80/61 (67) 72 11/09/20 00:15 129 29 87/59 (68) 72 11/09/20 00:00 Room Air 11/09/20 00:00 128 25 86/63 (71) 72 11/09/20 00:00 129 87/59 11/08/20 23:45 127 25 86/65 (72) 11/08/20 23:30 132 28 84/62 (69) 11/08/20 23:15 129 25 75/56 (62) 11/08/20 23:00 131 24 89/59 (69) 11/08/20 22:51 98.4 11/08/20 22:45 130 23 84/62 (69) 11/08/20 22:30 132 23 92/63 (73) 100 11/08/20 22:23 135 26 93/66 (75) 100 11/08/20 22:15 132 23 89/59 (69) 100 11/08/20 22:00 135 30 101/56 (71) 100 11/08/20 21:59 135 29 77/39 (52) 99 11/08/20 21:45 135 26 86/64 (71) 99 11/08/20 21:41 132 79/53 11/08/20 21:34 136 24 79/53 (62) 100 11/08/20 21:30 135 25 71/49 (56) 100 11/08/20 21:16 136 29 79/50 (60) 100 11/08/20 21:15 137 30 79/48 (58) 100 11/08/20 21:00 135 27 92/63 (73) 100 11/08/20 20:45 131 23 86/70 (75) 100 11/08/20 20:30 130 23 81/56 (64) 100 11/08/20 20:15 130 23 85/50 (62) 100 11/08/20 20:08 133 27 82/49 (60) 100 11/08/20 20:00 129 11/08/20 20:00 Room Air 11/08/20 20:00 98.4 131 27 86/53 (64) 100 11/08/20 19:45 131 19 83/57 (66) 100 11/08/20 19:30 130 22 93/50 (64) 100 11/08/20 19:15 126 21 93/49 (64) 100 11/08/20 19:00 126 21 87/55 (66) 100 11/08/20 18:21 125 22 87/44 (58) 100 11/08/20 18:11 125 24 83/44 (57) 100 11/08/20 18:02 126 22 76/51 (59) 100 11/08/20 18:00 76/51 11/08/20 18:00 98.6 126 23 76/47 (57) 100 11/08/20 17:58 128 63/53 11/08/20 17:56 127 23 72/46 (55) 100 11/08/20 17:45 128 23 63/53 (56) 100 11/08/20 17:30 128 22 70/49 (56) 100 11/08/20 17:00 68/42 11/08/20 17:00 130 23 78/43 (55) 98 11/08/20 16:45 130 23 74/40 (51) 98 11/08/20 16:30 130 23 77/42 (54) 99 11/08/20 16:15 129 24 77/25 (42) 98 11/08/20 16:00 77/25 11/08/20 16:00 Room Air 11/08/20 16:00 129 11/08/20 16:00 97.6 129 24 76/40 (52) 98 11/08/20 15:48 72/32 11/08/20 15:45 129 25 72/32 (45) 98 11/08/20 15:30 128 22 67/44 (52) 98 11/08/20 15:22 129 32 73/41 (52) 98 11/08/20 15:17 136 27 78/48 (58) 99 11/08/20 15:15 135 26 81/41 (54) 99 11/08/20 15:14 135 28 76/44 (55) 99 11/08/20 15:10 136 28 71/52 (58) 99 11/08/20 15:08 136 30 62/44 (50) 99 11/08/20 15:07 138 28 62/41 (48) 99 11/08/20 15:05 136 32 61/39 (46) 99 11/08/20 15:03 97.6 136 23 66/24 (38) 99 11/08/20 14:44 Room Air 11/08/20 14:25 99.0 130 20 80/50 100 Room Air Intake and Output 11/08/20 11/09/20 19:00 07:00 Intake Total 725.755 ml 2654.395 ml Output Total 125 ml 505 ml Balance 600.755 ml 2149.395 ml Intake Oral 200 ml 120 ml IV Total 525.755 ml 2534.395 ml Output Urine Total 125 ml 305 ml Stool Total 200 ml # Voids 40 Current Medications Medications (Trade) Dose Ordered Sig/Bunny Route PRN Reason Start Time Stop Time Status Last Admin Dose Admin Acetaminophen (Tylenol) 650 mg PRN PRN RECTAL TEMP>100.5 11/08/20 06:00 Acetaminophen (Tylenol) 650 mg Q4H PRN RECTAL Mild Pain (Pain Scale 1-3) 11/08/20 09:15 12/08/20 09:14 Cefepime HCl 1 gm/ Dextrose 55 ml @ 110 mls/hr EVERY 12 HOURS IVPB 11/08/20 21:00 11/15/20 20:59 11/09/20 09:00 Chlorhexidine Gluconate (Carmen-Hex 2%) 1 applic DAILY@2000 TOPIC 11/09/20 20:00 02/07/21 19:59 Dextrose/Sodium Chloride 1,000 ml @ 125 mls/hr Q8H IV 11/08/20 12:30 12/08/20 12:29 11/09/20 11:21 Heparin Sodium (Porcine) (Heparin 5000 units/ml) 5,000 units EVERY 8 HOURS SUBQ 11/08/20 22:00 12/23/20 21:59 11/09/20 05:09 Hydrocortisone (Solu-CORTEF) 100 mg EVERY 8 HOURS IV 11/08/20 22:00 02/06/21 21:59 11/09/20 05:09 Magnesium Sulfate 100 ml @ 100 mls/hr Q1H IVPB 11/09/20 11:30 11/09/20 13:29 Metronidazole 100 ml @ 100 mls/hr Q12HR IVPB 11/08/20 21:00 11/15/20 20:59 11/09/20 09:00 Norepinephrine Bitartrate 16 mg/ Dextrose 566 ml @ 0 mls/hr Q24H IV 11/08/20 15:15 11/11/20 15:14 11/09/20 00:46 Pantoprazole (Protonix) 40 mg DAILY IVP 11/09/20 09:00 12/09/20 08:59 11/09/20 09:00 Phenylephrine HCl 100 mg/Dextrose 250 ml @ 0 mls/hr Q24H IV 11/09/20 00:15 11/12/20 00:14 11/09/20 08:30 Tramadol HCl (Ultram) 50 mg Q6H PRN ORAL For Pain 11/08/20 22:15 11/15/20 22:14 11/08/20 22:21 Vancomycin HCl ([facility] pharmacy to dose) 1 ea DAILY PRN MISC Per rx protocol 11/08/20 17:45 12/08/20 17:44 Vasopressin 100 units/Sodium Chloride 100 ml @ 0.6 mls/hr Q24H IV 11/08/20 19:30 11/11/20 19:16 11/08/20 19:52 Laboratory Tests 11/08/20 14:00: Lactic Acid Level 7.20H 11/08/20 21:15: Lactic Acid Level 11.00H 11/09/20 00:50: Lactic Acid Level 4.80H, White Blood Count 57.6#*H, Red Blood Count 3.61L, Hemoglobin 9.6L, Hematocrit 32.8L, Mean Corpuscular Volume 91, Mean Corpuscular Hemoglobin 26.7L, Mean Corpuscular Hemoglobin Concent 29.4L, Red Cell Distribution Width 18.1H, Platelet Count 192, Mean Platelet Volume 8.6, Neutrophils (%) (Auto) , Lymphocytes (%) (Auto) , Monocytes (%) (Auto) , Eosinophils (%) (Auto) , Basophils (%) (Auto) , Differential Total Cells Counted 100, Neutrophils % (Manual) 89H, Lymphocytes % (Manual) 4L, Monocytes % (Manual) 2, Eosinophils % (Manual) 0, Basophils % (Manual) 0, Band Neutrophils 5, Platelet Estimate Adequate, Platelet Morphology Normal, Sodium Level 137, Potassium Level 4.0, Chloride Level 107, Carbon Dioxide Level 12L, Anion Gap 18H , Blood Urea Nitrogen 48H, Creatinine 2.3H, Estimat Glomerular Filtration Rate 27.9, Glucose Level 172H, Hemoglobin A1c 5.3, Uric Acid 7.2, Calcium Level 6.4#L , Phosphorus Level 5.0H, Magnesium Level 1.3L, Iron Level 8L, Total Iron Binding Capacity 268, Percent Iron Saturation 3L, Unsaturated Iron Binding 260, Ferritin 137, Total Bilirubin 1.0, Gamma Glutamyl Transpeptidase 128H, Aspartate Amino Transf (AST/SGOT) 60H, Alanine Aminotransferase (ALT/SGPT) 45, Alkaline Phosphatase 128H, Lactate Dehydrogenase 373H, Troponin I 0.231H, C-Reactive Protein, Quantitative 28.8H, Pro-B-Type Natriuretic Peptide [id number], Total Protein 5.4L, Albumin 1.9L, Globulin 3.5, Albumin/Globulin Ratio 0.5L, Triglycerides Level 240H, Cholesterol Level 125, LDL Cholesterol 30, HDL Cholesterol 60, Cholesterol/HDL Ratio 2.1L, Vitamin B12 Level 1406H, Folate 18.3, Thyroid Stimulating Hormone (TSH) 0.661, Cortisol [Pending], Random Vancomycin Level 15.6 11/09/20 01:10: Arterial Blood pH 7.226*L, Arterial Blood Partial Pressure CO2 24.8*L, Arterial Blood Partial Pressure O2 191.7H, Arterial Blood HCO3 10.1*L, Arterial Blood Oxygen Saturation 98.9, Arterial Blood Base Excess -15.9*L, Jose Test Positive 11/09/20 04:40: Lactic Acid Level 8.70H 11/09/20 09:36: Arterial Blood pH 7.198*L, Arterial Blood Partial Pressure CO2 26.3L, Arterial Blood Partial Pressure O2 160.8H, Arterial Blood HCO3 10.0*L, Arterial Blood Oxygen Saturation 98.8, Arterial Blood Base Excess -16.6*L, Jose Test Positive Height (Feet): 5 Height (Inches): 5.00 Weight (Pounds): 165 General Appearance: mild distress Cardiovascular: tachycardia Respiratory/Chest: decreased breath sounds Abdomen: distended Bridger Mari MD Nov 09, 2020 12:19
--- NOTE | 2020-11-09 12:41 | Infectious Diseases Prog Note ---
Assessment/Plan Assessment/Plan Full consult dictated: A) 1) sepsis, shock, gram neg bacteremia 2) ? GI source, urinalysis not c/w uti 3) ? c.diff. 4) fevers, leukocytosis P) 1) vancomycin, meropenem, amikacin, iv flagyl 2) f/u on cultures, labs, chest x-ray, c.diff., kub 3) CT scan abdomen and pelvis once stable to go to CT 4) will f/u 5) thank you Subjective Allergies: Coded Allergies: No Known Allergies (Unverified , 11/08/20) Objective Last 24 Hour Vital Signs Date Time Temp Pulse Resp B/P (MAP) Pulse Ox O2 Delivery O2 Flow Rate FiO2 11/09/20 12:00 Room Air 11/09/20 12:00 119 24 96/64 (75) 87 11/09/20 12:00 129 11/09/20 11:45 118 24 95/82 (86) 92 11/09/20 11:30 120 21 103/75 (84) 11/09/20 11:15 117 24 145/117 (126) 11/09/20 11:15 117 24 145/117 (126) 11/09/20 11:11 118 23 112/90 (97) 73 11/09/20 11:11 118 23 112/90 (97) 73 11/09/20 11:00 118 21 11/09/20 11:00 118 21 11/09/20 10:53 112 23 96/78 (84) 41 11/09/20 10:45 115 18 95/80 (85) 11/09/20 10:30 120 24 101/63 (76) 61 11/09/20 10:28 119 24 97/65 (76) 11/09/20 10:00 117 21 77/44 (55) 11/09/20 10:00 117 21 77/44 (55) 11/09/20 09:55 Venturi Mask 14.0 55 11/09/20 09:45 110 23 73/50 (58) 11/09/20 09:30 118 20 88/62 (71) 11/09/20 09:15 115 20 84/59 (67) 11/09/20 09:00 112 21 91/65 (74) 11/09/20 09:00 112 21 11/09/20 08:45 112 24 88/68 (75) 11/09/20 08:30 115 77/49 11/09/20 08:30 104 11 95/78 (84) 11/09/20 08:25 115 8 89/61 (70) 11/09/20 08:15 116 26 76/34 (48) 11/09/20 08:00 129 11/09/20 08:00 120 25 94/61 (72) 87 11/09/20 08:00 Room Air 11/09/20 07:45 117 23 79/66 (70) 11/09/20 07:30 116 23 95/71 (79) 11/09/20 07:30 116 23 95/71 (79) 11/09/20 07:15 118 24 94/67 (76) 11/09/20 07:15 118 24 94/67 (76) 11/09/20 07:00 117 26 93/67 (76) 11/09/20 07:00 117 26 93/67 (76) 11/09/20 06:52 120 26 96/62 (73) 11/09/20 06:45 118 26 76/54 (61) 11/09/20 06:30 115 23 98/68 (78) 100 11/09/20 06:30 115 23 98/68 (78) 100 11/09/20 06:15 114 23 91/68 (76) 11/09/20 06:15 114 23 91/68 (76) 11/09/20 06:00 118 26 11/09/20 06:00 97.7 115 22 88/65 (73) 11/09/20 06:00 115 22 88/65 (73) 11/09/20 05:45 116 22 87/65 (72) 11/09/20 05:45 116 22 87/65 (72) 11/09/20 05:30 117 23 89/61 (70) 11/09/20 05:30 117 23 89/61 (70) 11/09/20 05:15 118 23 92/65 (74) 11/09/20 05:15 118 23 92/65 (74) 11/09/20 05:00 119 24 93/61 (72) 11/09/20 05:00 119 24 93/61 (72) 65 11/09/20 04:15 128 22 85/55 (65) 11/09/20 04:00 100.3 128 23 92/58 (69) 11/09/20 04:00 Room Air 11/09/20 04:00 129 11/09/20 03:45 127 28 113/93 (100) 11/09/20 03:30 126 27 97/62 (74) 11/09/20 03:15 127 28 86/55 (65) 11/09/20 03:00 123 27 89/62 (71) 11/09/20 02:45 124 27 85/62 (70) 11/09/20 02:30 123 26 96/65 (75) 11/09/20 02:15 127 28 87/61 (70) 11/09/20 02:00 127 29 91/54 (66) 11/09/20 01:30 126 27 85/60 (68) 97 11/09/20 01:15 127 28 86/59 (68) 97 11/09/20 01:00 132 21 86/52 (63) 97 11/09/20 01:00 86/52 11/09/20 00:46 89/63 11/09/20 00:45 129 27 89/63 (72) 75 11/09/20 00:30 130 30 94/53 (67) 75 11/09/20 00:29 131 25 80/61 (67) 72 11/09/20 00:15 129 29 87/59 (68) 72 11/09/20 00:00 Room Air 11/09/20 00:00 128 25 86/63 (71) 72 11/09/20 00:00 129 87/59 11/08/20 23:45 127 25 86/65 (72) 11/08/20 23:30 132 28 84/62 (69) 11/08/20 23:15 129 25 75/56 (62) 11/08/20 23:00 131 24 89/59 (69) 11/08/20 22:51 98.4 11/08/20 22:45 130 23 84/62 (69) 11/08/20 22:30 132 23 92/63 (73) 100 11/08/20 22:23 135 26 93/66 (75) 100 11/08/20 22:15 132 23 89/59 (69) 100 11/08/20 22:00 135 30 101/56 (71) 100 11/08/20 21:59 135 29 77/39 (52) 99 11/08/20 21:45 135 26 86/64 (71) 99 11/08/20 21:41 132 79/53 11/08/20 21:34 136 24 79/53 (62) 100 11/08/20 21:30 135 25 71/49 (56) 100 11/08/20 21:16 136 29 79/50 (60) 100 11/08/20 21:15 137 30 79/48 (58) 100 11/08/20 21:00 135 27 92/63 (73) 100 11/08/20 20:45 131 23 86/70 (75) 100 11/08/20 20:30 130 23 81/56 (64) 100 11/08/20 20:15 130 23 85/50 (62) 100 11/08/20 20:08 133 27 82/49 (60) 100 11/08/20 20:00 129 11/08/20 20:00 Room Air 11/08/20 20:00 98.4 131 27 86/53 (64) 100 11/08/20 19:45 131 19 83/57 (66) 100 11/08/20 19:30 130 22 93/50 (64) 100 11/08/20 19:15 126 21 93/49 (64) 100 11/08/20 19:00 126 21 87/55 (66) 100 11/08/20 18:21 125 22 87/44 (58) 100 11/08/20 18:11 125 24 83/44 (57) 100 11/08/20 18:02 126 22 76/51 (59) 100 11/08/20 18:00 76/51 11/08/20 18:00 98.6 126 23 76/47 (57) 100 11/08/20 17:58 128 63/53 11/08/20 17:56 127 23 72/46 (55) 100 11/08/20 17:45 128 23 63/53 (56) 100 11/08/20 17:30 128 22 70/49 (56) 100 11/08/20 17:00 68/42 11/08/20 17:00 130 23 78/43 (55) 98 11/08/20 16:45 130 23 74/40 (51) 98 11/08/20 16:30 130 23 77/42 (54) 99 11/08/20 16:15 129 24 77/25 (42) 98 11/08/20 16:00 77/25 11/08/20 16:00 Room Air 11/08/20 16:00 129 11/08/20 16:00 97.6 129 24 76/40 (52) 98 11/08/20 15:48 72/32 11/08/20 15:45 129 25 72/32 (45) 98 11/08/20 15:30 128 22 67/44 (52) 98 11/08/20 15:22 129 32 73/41 (52) 98 11/08/20 15:17 136 27 78/48 (58) 99 11/08/20 15:15 135 26 81/41 (54) 99 11/08/20 15:14 135 28 76/44 (55) 99 11/08/20 15:10 136 28 71/52 (58) 99 11/08/20 15:08 136 30 62/44 (50) 99 11/08/20 15:07 138 28 62/41 (48) 99 11/08/20 15:05 136 32 61/39 (46) 99 11/08/20 15:03 97.6 136 23 66/24 (38) 99 11/08/20 14:44 Room Air 11/08/20 14:25 99.0 130 20 80/50 100 Room Air Height (Feet): 5 Height (Inches): 5.00 Weight (Pounds): 165 Microbiology Date/Time Source Procedure Growth Status 11/08/20 14:15 Blood Blood Culture - Preliminary Resulted 11/08/20 14:00 Blood Blood Culture - Preliminary Resulted Laboratory Tests Test 11/08/20 14:00 11/08/20 21:15 11/09/20 00:50 11/09/20 01:10 Lactic Acid Level 7.20 mmol/L (0.4-2.0) H 11.00 mmol/L (0.4-2.0) H 4.80 mmol/L (0.4-2.0) H White Blood Count 57.6 K/UL (4.8-10.8) #*H Red Blood Count 3.61 M/UL (4.20-5.40) L Hemoglobin 9.6 G/DL (12.0-16.0) L Hematocrit 32.8 % (37.0-47.0) L Mean Corpuscular Volume 91 FL (80-99) Mean Corpuscular Hemoglobin 26.7 PG (27.0-31.0) L Mean Corpuscular Hemoglobin Concent 29.4 G/DL (32.0-36.0) L Red Cell Distribution Width 18.1 % (11.6-14.8) H Platelet Count 192 K/UL (150-450) Mean Platelet Volume 8.6 FL (6.5-10.1) Neutrophils (%) (Auto) % (45.0-75.0) Lymphocytes (%) (Auto) % (20.0-45.0) Monocytes (%) (Auto) % (1.0-10.0) Eosinophils (%) (Auto) % (0.0-3.0) Basophils (%) (Auto) % (0.0-2.0) Differential Total Cells Counted 100 Neutrophils % (Manual) 89 % (45-75) H Lymphocytes % (Manual) 4 % (20-45) L Monocytes % (Manual) 2 % (1-10) Eosinophils % (Manual) 0 % (0-3) Basophils % (Manual) 0 % (0-2) Band Neutrophils 5 % (0-8) Platelet Estimate Adequate Platelet Morphology Normal Sodium Level 137 MMOL/L (136-145) Potassium Level 4.0 MMOL/L (3.5-5.1) Chloride Level 107 MMOL/L (98-107) Carbon Dioxide Level 12 MMOL/L (21-32) L Anion Gap 18 mmol/L (5-15) H Blood Urea Nitrogen 48 mg/dL (7-18) H Creatinine 2.3 MG/DL (0.55-1.30) H Estimat Glomerular Filtration Rate 27.9 mL/min (>60) Glucose Level 172 MG/DL (74-106) H Hemoglobin A1c 5.3 % (4.3-6.0) Uric Acid 7.2 MG/DL (2.6-7.2) Calcium Level 6.4 MG/DL (8.5-10.1) #L Phosphorus Level 5.0 MG/DL (2.5-4.9) H Magnesium Level 1.3 MG/DL (1.8-2.4) L Iron Level 8 ug/dL (50-175) L Total Iron Binding Capacity 268 ug/dL (250-450) Percent Iron Saturation 3 % (15-50) L Unsaturated Iron Binding 260 ug/dL (112-346) Ferritin 137 NG/ML (8-388) Total Bilirubin 1.0 MG/DL (0.2-1.0) Gamma Glutamyl Transpeptidase 128 U/L (5-85) H Aspartate Amino Transf (AST/SGOT) 60 U/L (15-37) H Alanine Aminotransferase (ALT/SGPT) 45 U/L (12-78) Alkaline Phosphatase 128 U/L (46-116) H Lactate Dehydrogenase 373 U/L (81-234) H Troponin I 0.231 ng/mL (0.000-0.056) C-Reactive Protein, Quantitative 28.8 mg/dL (0.00-0.90) H Pro-B-Type Natriuretic Peptide 99745 pg/mL (0-125) H Total Protein 5.4 G/DL (6.4-8.2) L Albumin 1.9 G/DL (3.4-5.0) L Globulin 3.5 g/dL Albumin/Globulin Ratio 0.5 (1.0-2.7) L Triglycerides Level 240 MG/DL (30-150) H Cholesterol Level 125 MG/DL (< 200) LDL Cholesterol 30 mg/dL (<100) HDL Cholesterol 60 MG/DL (40-60) Cholesterol/HDL Ratio 2.1 (3.3-4.4) L Vitamin B12 Level 1406 PG/ML (193-986) H Folate 18.3 NG/ML (8.6-58.9) Thyroid Stimulating Hormone (TSH) 0.661 uiU/mL (0.358-3.740) Cortisol Pending Random Vancomycin Level 15.6 ug/mL Arterial Blood pH 7.226 (7.350-7.450) Arterial Blood Partial Pressure CO2 24.8 mmHg (35.0-45.0) *L Arterial Blood Partial Pressure O2 191.7 mmHg (75.0-100.0) H Arterial Blood HCO3 10.1 mmol/L (22.0-26.0) *L Arterial Blood Oxygen Saturation 98.9 % (95-100) Arterial Blood Base Excess -15.9 (-2-2) *L Jose Test Positive Test 11/09/20 04:40 11/09/20 09:36 Lactic Acid Level 8.70 mmol/L (0.66-2.22) H Arterial Blood pH 7.198 (7.350-7.450) Arterial Blood Partial Pressure CO2 26.3 mmHg (35.0-45.0) L Arterial Blood Partial Pressure O2 160.8 mmHg (75.0-100.0) H Arterial Blood HCO3 10.0 mmol/L (22.0-26.0) *L Arterial Blood Oxygen Saturation 98.8 % (95-100) Arterial Blood Base Excess -16.6 (-2-2) *L Jose Test Positive Current Medications Medications (Trade) Dose Ordered Sig/Bunny Route PRN Reason Start Time Stop Time Status Last Admin Dose Admin Acetaminophen (Tylenol) 650 mg PRN PRN RECTAL TEMP>100.5 11/08/20 06:00 Acetaminophen (Tylenol) 650 mg Q4H PRN RECTAL Mild Pain (Pain Scale 1-3) 11/08/20 09:15 12/08/20 09:14 Cefepime HCl 1 gm/ Dextrose 55 ml @ 110 mls/hr EVERY 12 HOURS IVPB 11/08/20 21:00 11/15/20 20:59 11/09/20 09:00 Chlorhexidine Gluconate (Carmen-Hex 2%) 1 applic DAILY@2000 TOPIC 11/09/20 20:00 02/07/21 19:59 Dextrose/Sodium Chloride 1,000 ml @ 125 mls/hr Q8H IV 11/08/20 12:30 12/08/20 12:29 11/09/20 11:21 Heparin Sodium (Porcine) (Heparin 5000 units/ml) 5,000 units EVERY 8 HOURS SUBQ 11/08/20 22:00 12/23/20 21:59 11/09/20 05:09 Hydrocortisone (Solu-CORTEF) 100 mg EVERY 8 HOURS IV 11/08/20 22:00 02/06/21 21:59 11/09/20 05:09 Iron Sucrose 100 mg/Sodium Chloride 60 ml @ 240 mls/hr BEDTIME IVPB 11/10/20 21:00 11/14/20 21:14 Iron Sucrose 200 mg/Sodium Chloride 120 ml @ 240 mls/hr ONCE IVPB 11/09/20 14:00 11/09/20 16:00 Magnesium Sulfate 100 ml @ 100 mls/hr Q1H IVPB 11/09/20 11:30 11/09/20 13:29 Metronidazole 100 ml @ 100 mls/hr Q12HR IVPB 11/08/20 21:00 11/15/20 20:59 11/09/20 09:00 Norepinephrine Bitartrate 16 mg/ Dextrose 566 ml @ 0 mls/hr Q24H IV 11/08/20 15:15 11/11/20 15:14 11/09/20 00:46 Pantoprazole (Protonix) 40 mg Q12HR IVP 11/09/20 21:00 12/09/20 08:59 Phenylephrine HCl 100 mg/Dextrose 250 ml @ 0 mls/hr Q24H IV 11/09/20 00:15 11/12/20 00:14 11/09/20 08:30 Tramadol HCl (Ultram) 50 mg Q6H PRN ORAL For Pain 11/08/20 22:15 11/15/20 22:14 11/08/20 22:21 Vancomycin HCl ([facility] pharmacy to dose) 1 ea DAILY PRN MISC Per rx protocol 11/08/20 17:45 12/08/20 17:44 Vasopressin 100 units/Sodium Chloride 100 ml @ 0.6 mls/hr Q24H IV 11/08/20 19:30 11/11/20 19:16 11/08/20 19:52 Nat Courtney MD Nov 09, 2020 12:41
[2020-11-09] MEDS ORDERED: Amikacin Rx to dose MISC PRN (12:45)
--- NOTE | 2020-11-09 13:19 | Diagnostic Imaging Report ---
Indication: Cough Technique: One view of the chest Comparison: 11/08/2020 Findings: Inspiration is suboptimal, resulting in crowding of the bronchovascular markings. There are new or increased bilateral streaky infiltrates. The pleural spaces are clear. The heart size is normal. Impression: New or increased bilateral streaky infiltrates, suspicious for bilateral pneumonia. Correlate with clinical findings
--- NOTE | 2020-11-09 13:19 | Diagnostic Imaging Report ---
Indication: Shortness of breath Technique: One view of the chest Comparison: none Findings: Lungs and pleural spaces are clear. Heart size is normal. Impression: No acute process
--- NOTE | 2020-11-09 13:19 | Diagnostic Imaging Report ---
Indication: Abdominal pain Technique: Supine view of the abdomen Comparison: none Findings: Gas is seen within the stomach and within a few central mildly dilated small bowel loops. Lack of bowel gas is demonstrated elsewhere. Groundglass opacity of the abdomen raises possibility of ascites There is what appears to be a rectal tube. There is a right groin central venous catheter Impression: Gas-filled stomach and mildly dilated proximal small bowel loops, lack of bowel gas elsewhere. Findings could represent early small bowel obstruction. Correlate with clinical findings, consider CT if clinically indicated. Questionable generalized groundglass abdominal opacity, raises possibility of ascites
--- NOTE | 2020-11-09 13:20 | Internal Med Progress Note ---
Subjective Physician Name Kris Cormier Attending Physician Kris Cormier MD Current Medications Medications (Trade) Dose Ordered Sig/Bunny Route PRN Reason Start Time Stop Time Status Last Admin Dose Admin Acetaminophen (Tylenol) 650 mg PRN PRN RECTAL TEMP>100.5 11/08/20 06:00 Acetaminophen (Tylenol) 650 mg Q4H PRN RECTAL Mild Pain (Pain Scale 1-3) 11/08/20 09:15 12/08/20 09:14 Amikacin Protocol (Amikacin pharmacy to dose) 1 ea DAILY PRN MISC Per rx protocol 11/09/20 12:45 12/09/20 12:44 Amikacin Sulfate 1000 mg/Sodium Chloride 114 ml @ 114 mls/hr Q48H IV 11/09/20 17:00 11/16/20 16:59 Chlorhexidine Gluconate (Carmen-Hex 2%) 1 applic DAILY@2000 TOPIC 11/09/20 20:00 02/07/21 19:59 Dextrose/Sodium Chloride 1,000 ml @ 125 mls/hr Q8H IV 11/08/20 12:30 12/08/20 12:29 11/09/20 11:21 Heparin Sodium (Porcine) (Heparin 5000 units/ml) 5,000 units EVERY 8 HOURS SUBQ 11/08/20 22:00 12/23/20 21:59 11/09/20 05:09 Hydrocortisone (Solu-CORTEF) 100 mg EVERY 8 HOURS IV 11/08/20 22:00 02/06/21 21:59 11/09/20 05:09 Iron Sucrose 100 mg/Sodium Chloride 60 ml @ 240 mls/hr BEDTIME IVPB 11/10/20 21:00 11/14/20 21:14 Iron Sucrose 200 mg/Sodium Chloride 120 ml @ 240 mls/hr ONCE IVPB 11/09/20 14:00 11/09/20 16:00 Magnesium Sulfate 100 ml @ 100 mls/hr Q1H IVPB 11/09/20 11:30 11/09/20 13:29 11/09/20 12:37 Meropenem 1 gm/ Sodium Chloride 100 ml @ 200 mls/hr Q12H IVPB 11/09/20 16:00 11/14/20 15:59 Metronidazole 100 ml @ 100 mls/hr Q8HR IVPB 11/09/20 14:00 11/16/20 13:59 Norepinephrine Bitartrate 16 mg/ Dextrose 566 ml @ 0 mls/hr Q24H IV 11/08/20 15:15 11/11/20 15:14 11/09/20 00:46 Pantoprazole (Protonix) 40 mg Q12HR IVP 11/09/20 21:00 12/09/20 08:59 Phenylephrine HCl 100 mg/Dextrose 250 ml @ 0 mls/hr Q24H IV 11/09/20 00:15 11/12/20 00:14 11/09/20 08:30 Tramadol HCl (Ultram) 50 mg Q6H PRN ORAL For Pain 11/08/20 22:15 11/15/20 22:14 11/08/20 22:21 Vancomycin HCl ([facility] pharmacy to dose) 1 ea DAILY PRN MISC Per rx protocol 11/08/20 17:45 12/08/20 17:44 Vasopressin 100 units/Sodium Chloride 100 ml @ 0.6 mls/hr Q24H IV 11/08/20 19:30 11/11/20 19:16 11/08/20 19:52 Allergies: Coded Allergies: No Known Allergies (Unverified , 11/08/20) Subjective In MICU, More responsive but still alter, on multiple pressors, WBC: 57.6, Cr: 2.3 worsening renal function, Mg.1.3. Objective Last Vital Signs Date Time Temp Pulse Resp B/P (MAP) Pulse Ox O2 Delivery O2 Flow Rate FiO2 11/09/20 12:00 Room Air 11/09/20 12:00 119 24 96/64 (75) 87 11/09/20 09:55 14.0 55 11/09/20 06:00 97.7 Laboratory Tests Test 11/08/20 14:00 11/08/20 21:15 11/09/20 00:50 11/09/20 01:10 Lactic Acid Level 7.20 mmol/L (0.4-2.0) H 11.00 mmol/L (0.4-2.0) H 4.80 mmol/L (0.4-2.0) H White Blood Count 57.6 K/UL (4.8-10.8) #*H Red Blood Count 3.61 M/UL (4.20-5.40) L Hemoglobin 9.6 G/DL (12.0-16.0) L Hematocrit 32.8 % (37.0-47.0) L Mean Corpuscular Volume 91 FL (80-99) Mean Corpuscular Hemoglobin 26.7 PG (27.0-31.0) L Mean Corpuscular Hemoglobin Concent 29.4 G/DL (32.0-36.0) L Red Cell Distribution Width 18.1 % (11.6-14.8) H Platelet Count 192 K/UL (150-450) Mean Platelet Volume 8.6 FL (6.5-10.1) Neutrophils (%) (Auto) % (45.0-75.0) Lymphocytes (%) (Auto) % (20.0-45.0) Monocytes (%) (Auto) % (1.0-10.0) Eosinophils (%) (Auto) % (0.0-3.0) Basophils (%) (Auto) % (0.0-2.0) Differential Total Cells Counted 100 Neutrophils % (Manual) 89 % (45-75) H Lymphocytes % (Manual) 4 % (20-45) L Monocytes % (Manual) 2 % (1-10) Eosinophils % (Manual) 0 % (0-3) Basophils % (Manual) 0 % (0-2) Band Neutrophils 5 % (0-8) Platelet Estimate Adequate Platelet Morphology Normal Sodium Level 137 MMOL/L (136-145) Potassium Level 4.0 MMOL/L (3.5-5.1) Chloride Level 107 MMOL/L (98-107) Carbon Dioxide Level 12 MMOL/L (21-32) L Anion Gap 18 mmol/L (5-15) H Blood Urea Nitrogen 48 mg/dL (7-18) H Creatinine 2.3 MG/DL (0.55-1.30) H Estimat Glomerular Filtration Rate 27.9 mL/min (>60) Glucose Level 172 MG/DL (74-106) H Hemoglobin A1c 5.3 % (4.3-6.0) Uric Acid 7.2 MG/DL (2.6-7.2) Calcium Level 6.4 MG/DL (8.5-10.1) #L Phosphorus Level 5.0 MG/DL (2.5-4.9) H Magnesium Level 1.3 MG/DL (1.8-2.4) L Iron Level 8 ug/dL (50-175) L Total Iron Binding Capacity 268 ug/dL (250-450) Percent Iron Saturation 3 % (15-50) L Unsaturated Iron Binding 260 ug/dL (112-346) Ferritin 137 NG/ML (8-388) Total Bilirubin 1.0 MG/DL (0.2-1.0) Gamma Glutamyl Transpeptidase 128 U/L (5-85) H Aspartate Amino Transf (AST/SGOT) 60 U/L (15-37) H Alanine Aminotransferase (ALT/SGPT) 45 U/L (12-78) Alkaline Phosphatase 128 U/L (46-116) H Lactate Dehydrogenase 373 U/L (81-234) H Troponin I 0.231 ng/mL (0.000-0.056) C-Reactive Protein, Quantitative 28.8 mg/dL (0.00-0.90) H Pro-B-Type Natriuretic Peptide 06978 pg/mL (0-125) H Total Protein 5.4 G/DL (6.4-8.2) L Albumin 1.9 G/DL (3.4-5.0) L Globulin 3.5 g/dL Albumin/Globulin Ratio 0.5 (1.0-2.7) L Triglycerides Level 240 MG/DL (30-150) H Cholesterol Level 125 MG/DL (< 200) LDL Cholesterol 30 mg/dL (<100) HDL Cholesterol 60 MG/DL (40-60) Cholesterol/HDL Ratio 2.1 (3.3-4.4) L Vitamin B12 Level 1406 PG/ML (193-986) H Folate 18.3 NG/ML (8.6-58.9) Thyroid Stimulating Hormone (TSH) 0.661 uiU/mL (0.358-3.740) Cortisol Pending Random Vancomycin Level 15.6 ug/mL Arterial Blood pH 7.226 (7.350-7.450) Arterial Blood Partial Pressure CO2 24.8 mmHg (35.0-45.0) *L Arterial Blood Partial Pressure O2 191.7 mmHg (75.0-100.0) H Arterial Blood HCO3 10.1 mmol/L (22.0-26.0) *L Arterial Blood Oxygen Saturation 98.9 % (95-100) Arterial Blood Base Excess -15.9 (-2-2) *L Jose Test Positive Test 11/09/20 04:40 11/09/20 09:36 Lactic Acid Level 8.70 mmol/L (0.66-2.22) H Arterial Blood pH 7.198 (7.350-7.450) Arterial Blood Partial Pressure CO2 26.3 mmHg (35.0-45.0) L Arterial Blood Partial Pressure O2 160.8 mmHg (75.0-100.0) H Arterial Blood HCO3 10.0 mmol/L (22.0-26.0) *L Arterial Blood Oxygen Saturation 98.8 % (95-100) Arterial Blood Base Excess -16.6 (-2-2) *L Jose Test Positive Microbiology Date/Time Source Procedure Growth Status 11/08/20 14:15 Blood Blood Culture - Preliminary Resulted 11/08/20 14:00 Blood Blood Culture - Preliminary Resulted Intake and Output 11/08/20 11/09/20 19:00 07:00 Intake Total 725.755 ml 2654.395 ml Output Total 125 ml 505 ml Balance 600.755 ml 2149.395 ml Intake Oral 200 ml 120 ml IV Total 525.755 ml 2534.395 ml Output Urine Total 125 ml 305 ml Stool Total 200 ml # Voids 40 Objective GENERAL: altered but more responsive than yesterday, Follow up with simple commands. HEAD AND NECK: Pupils are equal and reactive to light. Anicteric. Neck was supple. No JVD. LUNGS: Fair inspiratory affords, No wheezing or rhonchi. Decreased air in the bases. HEART: S1, S2 RR. No murmur or gallops. ABDOMEN: Soft, nondistended, nontender. Positive bowel sounds, Obesity. EXTREMITIES: No cyanosis, clubbing, +2 LE's edema. NEUROLOGIC: Very limited secondary to patient's status. Moving upper extremities but unable to move lower extremities. SKIN: No rashes were identified. Assessment/Plan Assessment/Plan 1. Septic shock. 2. Sepsis secondary to urinary tract infection, but can not R/O intraabdominal infection yet. 3. Dehydration and hypokalemia. 4. Altered mental status, most likely secondary to toxic metabolic encephalopathy. 5. Acute kidney injury. 6. Anemia. 7. History of multiple sclerosis. PLAN: In ICU. IV hydration. Monitor laboratory and cultures. DVT prophylaxis: heparin subcutaneous. 2D echo. Code status: Full Code. Abx: Meropenem IV, Flagyl, and Amikacin On hydrocortisone IV. Pressors: Phenylephrine , Levophed, and Vasopressor Dr. Kline from [facility], Dr. Nat Courtney from ID, Dr. Grant from Cardiology, and Dr. Bridger Mari from Nephrology. Kris Cormier MD Nov 09, 2020 13:20
[2020-11-09] MEDS ORDERED: Iron Sucrose 200 MG in NS 110 ML IVPB SCH (14:00)
--- NOTE | 2020-11-09 14:50 | Cardiology Report ---
APPROVED REPORT EXAM: Two-dimensional and M-mode echocardiogram with Doppler and color Doppler. INDICATION Altered LOC M-Mode DIMENSIONS IVSd0.9 (0.7-1.1cm)Left Atrium (MM)3.6 (1.6-4.0cm) LVDd5.5 (3.5-5.6cm)Aortic Root2.3 (2.0-3.7cm) PWd0.8 (0.7-1.1cm)Aortic Cusp Exc.1.6 (1.5-2.0cm) IVSs1.2 cmEPSS0.6 (>1.0cm) LVDs4.6 (2.5-4.0cm) PWs1.2 cm Other Information Technically limited study due to pt's combative and strong resistance. <Conclusion> Normal left ventricular chamber size, systolic function and wall motion to extent visualized. Left ventricular ejection fraction estimated to be 50-55 %. No evidence of left ventricular hypertrophy. No evidence of pericardial effusion. All other cardiac chamber sizes are within normal limits. Focal aortic valve sclerosis with adequate cusp excursion. Thickened mitral valve leaflets with normal excursion. Mitral annulus and aortic root calcification. Normal pulmonic valve structure. Normal tricuspid valve structure. IVC dilated at 2.6 cm with slight physiologic collapse suggestive of increased RA pressure. A color flow and spectral Doppler study was performed and revealed: Trace aortic regurgitation. Mild mitral regurgitation. Mitral inflow indicate normal left ventricular diastolic function. Mild tricuspid regurgitation. Tricuspid systolic velocities suggests peak right ventricular systolic pressure of 31 mmHg. No pulmonic regurgitation present.
[2020-11-09] MEDS ORDERED: ACETAMINOPHEN325 M1 ORAL (15:01)
[2020-11-09] MEDS ORDERED: DIPHENHYDRAMINE25 M1 ORAL (15:02)
[2020-11-09] MEDS ORDERED: PREDNISONE10 MG ORAL (15:10)
[2020-11-09] MEDS ORDERED: TUBERSOL (PPD)0.1 ML IDERMAL (15:15)
[2020-11-09] MEDS ORDERED: IPRAT-ALBUT 0.5-3 ML IH (15:19)
[2020-11-09] MEDS ORDERED: PERIDEX15 ML MM (15:19)
[2020-11-09] MEDS ORDERED: GERI-TUSSI100 MG/5 M PO (15:19)
[2020-11-09] MEDS ORDERED: Amikacin 1,000 MG in NS 110 ML IV SCH (17:00)
--- NOTE | 2020-11-09 18:37 | Surgery Progress Note ---
Surgery Progress Note Subjective Additional Comments more alert and responsive today comfortable appearing no n/v labs noted abd exam same kub noted Objective Last 24 Hour Vital Signs Date Time Temp Pulse Resp B/P (MAP) Pulse Ox O2 Delivery O2 Flow Rate FiO2 11/09/20 16:15 128 23 110/61 (77) 11/09/20 16:12 129 25 114/62 (79) 91 11/09/20 16:00 128 11/09/20 16:00 Room Air 11/09/20 16:00 127 24 116/66 (83) 11/09/20 16:00 129 11/09/20 15:45 124 21 118/76 (90) 11/09/20 15:30 127 23 122/94 (103) 88 11/09/20 15:30 129 26 118/76 (90) 88 11/09/20 15:15 124 25 119/65 (83) 11/09/20 15:00 123 24 108/71 (83) 11/09/20 15:00 120 26 101/77 (85) 11/09/20 14:45 120 24 118/76 (90) 11/09/20 14:30 120 26 101/77 (85) 11/09/20 14:30 120 26 101/77 (85) 11/09/20 14:15 120 24 114/59 (77) 87 11/09/20 14:15 120 24 114/59 (77) 87 11/09/20 14:00 107 23 104/78 (87) 11/09/20 14:00 107 23 104/78 (87) 11/09/20 13:45 116 25 101/70 (80) 11/09/20 13:30 116 22 85/66 (72) 11/09/20 13:15 117 24 99/76 (84) 87 11/09/20 13:00 118 23 101/75 (84) 81 11/09/20 13:00 118 23 101/75 (84) 81 11/09/20 12:45 118 19 102/82 (89) 88 11/09/20 12:45 118 19 102/82 (89) 88 11/09/20 12:30 119 27 101/85 (90) 93 11/09/20 12:30 119 27 101/85 (90) 93 11/09/20 12:15 118 26 91/49 (63) 88 11/09/20 12:15 118 26 91/49 (63) 88 11/09/20 12:00 Room Air 11/09/20 12:00 119 24 96/64 (75) 87 11/09/20 12:00 119 24 96/64 (75) 87 11/09/20 12:00 119 24 96/64 (75) 87 11/09/20 12:00 129 11/09/20 11:45 118 24 95/82 (86) 92 11/09/20 11:45 99/63 11/09/20 11:30 120 21 103/75 (84) 11/09/20 11:15 117 24 145/117 (126) 11/09/20 11:15 117 24 145/117 (126) 11/09/20 11:11 118 23 112/90 (97) 73 11/09/20 11:11 118 23 112/90 (97) 73 11/09/20 11:00 118 21 11/09/20 11:00 118 21 11/09/20 10:53 112 23 96/78 (84) 41 11/09/20 10:45 115 18 95/80 (85) 11/09/20 10:30 120 24 101/63 (76) 61 11/09/20 10:28 119 24 97/65 (76) 11/09/20 10:00 117 21 77/44 (55) 11/09/20 10:00 117 21 77/44 (55) 11/09/20 09:55 Venturi Mask 14.0 55 11/09/20 09:45 110 23 73/50 (58) 11/09/20 09:30 118 20 88/62 (71) 11/09/20 09:15 115 20 84/59 (67) 11/09/20 09:00 112 21 91/65 (74) 11/09/20 09:00 112 21 11/09/20 08:45 112 24 88/68 (75) 11/09/20 08:30 115 77/49 11/09/20 08:30 104 11 95/78 (84) 11/09/20 08:25 115 8 89/61 (70) 11/09/20 08:15 116 26 76/34 (48) 11/09/20 08:00 129 11/09/20 08:00 120 25 94/61 (72) 87 11/09/20 08:00 Room Air 11/09/20 07:45 117 23 79/66 (70) 11/09/20 07:30 116 23 95/71 (79) 11/09/20 07:30 116 23 95/71 (79) 11/09/20 07:15 118 24 94/67 (76) 11/09/20 07:15 118 24 94/67 (76) 11/09/20 07:00 117 26 93/67 (76) 11/09/20 07:00 117 26 93/67 (76) 11/09/20 06:52 120 26 96/62 (73) 11/09/20 06:45 118 26 76/54 (61) 11/09/20 06:30 115 23 98/68 (78) 100 11/09/20 06:30 115 23 98/68 (78) 100 11/09/20 06:15 114 23 91/68 (76) 11/09/20 06:15 114 23 91/68 (76) 11/09/20 06:00 118 26 11/09/20 06:00 97.7 115 22 88/65 (73) 11/09/20 06:00 115 22 88/65 (73) 11/09/20 05:45 116 22 87/65 (72) 11/09/20 05:45 116 22 87/65 (72) 11/09/20 05:30 117 23 89/61 (70) 11/09/20 05:30 117 23 89/61 (70) 11/09/20 05:15 118 23 92/65 (74) 11/09/20 05:15 118 23 92/65 (74) 11/09/20 05:00 119 24 93/61 (72) 11/09/20 05:00 119 24 93/61 (72) 65 11/09/20 04:15 128 22 85/55 (65) 11/09/20 04:00 100.3 128 23 92/58 (69) 11/09/20 04:00 Room Air 11/09/20 04:00 129 11/09/20 03:45 127 28 113/93 (100) 11/09/20 03:30 126 27 97/62 (74) 11/09/20 03:15 127 28 86/55 (65) 11/09/20 03:00 123 27 89/62 (71) 11/09/20 02:45 124 27 85/62 (70) 11/09/20 02:30 123 26 96/65 (75) 11/09/20 02:15 127 28 87/61 (70) 11/09/20 02:00 127 29 91/54 (66) 11/09/20 01:30 126 27 85/60 (68) 97 11/09/20 01:15 127 28 86/59 (68) 97 11/09/20 01:00 132 21 86/52 (63) 97 11/09/20 01:00 86/52 11/09/20 00:46 89/63 11/09/20 00:45 129 27 89/63 (72) 75 11/09/20 00:30 130 30 94/53 (67) 75 11/09/20 00:29 131 25 80/61 (67) 72 11/09/20 00:15 129 29 87/59 (68) 72 11/09/20 00:00 Room Air 11/09/20 00:00 128 25 86/63 (71) 72 11/09/20 00:00 129 87/59 11/08/20 23:45 127 25 86/65 (72) 11/08/20 23:30 132 28 84/62 (69) 11/08/20 23:15 129 25 75/56 (62) 11/08/20 23:00 131 24 89/59 (69) 11/08/20 22:51 98.4 11/08/20 22:45 130 23 84/62 (69) 11/08/20 22:30 132 23 92/63 (73) 100 11/08/20 22:23 135 26 93/66 (75) 100 11/08/20 22:15 132 23 89/59 (69) 100 11/08/20 22:00 135 30 101/56 (71) 100 11/08/20 21:59 135 29 77/39 (52) 99 11/08/20 21:45 135 26 86/64 (71) 99 11/08/20 21:41 132 79/53 11/08/20 21:34 136 24 79/53 (62) 100 11/08/20 21:30 135 25 71/49 (56) 100 11/08/20 21:16 136 29 79/50 (60) 100 11/08/20 21:15 137 30 79/48 (58) 100 11/08/20 21:00 135 27 92/63 (73) 100 11/08/20 20:45 131 23 86/70 (75) 100 11/08/20 20:30 130 23 81/56 (64) 100 11/08/20 20:15 130 23 85/50 (62) 100 11/08/20 20:08 133 27 82/49 (60) 100 11/08/20 20:00 129 11/08/20 20:00 Room Air 11/08/20 20:00 98.4 131 27 86/53 (64) 100 11/08/20 19:45 131 19 83/57 (66) 100 11/08/20 19:30 130 22 93/50 (64) 100 11/08/20 19:15 126 21 93/49 (64) 100 11/08/20 19:00 126 21 87/55 (66) 100 I&O Intake and Output 11/08/20 11/09/20 19:00 07:00 Intake Total 725.755 ml 2654.395 ml Output Total 125 ml 505 ml Balance 600.755 ml 2149.395 ml Intake Oral 200 ml 120 ml IV Total 525.755 ml 2534.395 ml Output Urine Total 125 ml 305 ml Stool Total 200 ml # Voids 40 Dressing: saturated Cardiovascular: RSR Respiratory: decreased breath sounds Abdomen: soft, non-tender, present bowel sounds, non-distended Extremities: no edema, no tenderness, no cyanosis Laboratory Tests Test 11/08/20 21:15 11/09/20 00:50 11/09/20 01:10 11/09/20 04:40 Lactic Acid Level 11.00 mmol/L (0.4-2.0) H 4.80 mmol/L (0.4-2.0) H 8.70 mmol/L (0.66-2.22) H White Blood Count 57.6 K/UL (4.8-10.8) #*H Red Blood Count 3.61 M/UL (4.20-5.40) L Hemoglobin 9.6 G/DL (12.0-16.0) L Hematocrit 32.8 % (37.0-47.0) L Mean Corpuscular Volume 91 FL (80-99) Mean Corpuscular Hemoglobin 26.7 PG (27.0-31.0) L Mean Corpuscular Hemoglobin Concent 29.4 G/DL (32.0-36.0) L Red Cell Distribution Width 18.1 % (11.6-14.8) H Platelet Count 192 K/UL (150-450) Mean Platelet Volume 8.6 FL (6.5-10.1) Neutrophils (%) (Auto) % (45.0-75.0) Lymphocytes (%) (Auto) % (20.0-45.0) Monocytes (%) (Auto) % (1.0-10.0) Eosinophils (%) (Auto) % (0.0-3.0) Basophils (%) (Auto) % (0.0-2.0) Differential Total Cells Counted 100 Neutrophils % (Manual) 89 % (45-75) H Lymphocytes % (Manual) 4 % (20-45) L Monocytes % (Manual) 2 % (1-10) Eosinophils % (Manual) 0 % (0-3) Basophils % (Manual) 0 % (0-2) Band Neutrophils 5 % (0-8) Platelet Estimate Adequate Platelet Morphology Normal Sodium Level 137 MMOL/L (136-145) Potassium Level 4.0 MMOL/L (3.5-5.1) Chloride Level 107 MMOL/L (98-107) Carbon Dioxide Level 12 MMOL/L (21-32) L Anion Gap 18 mmol/L (5-15) H Blood Urea Nitrogen 48 mg/dL (7-18) H Creatinine 2.3 MG/DL (0.55-1.30) H Estimat Glomerular Filtration Rate 27.9 mL/min (>60) Glucose Level 172 MG/DL (74-106) H Hemoglobin A1c 5.3 % (4.3-6.0) Uric Acid 7.2 MG/DL (2.6-7.2) Calcium Level 6.4 MG/DL (8.5-10.1) #L Phosphorus Level 5.0 MG/DL (2.5-4.9) H Magnesium Level 1.3 MG/DL (1.8-2.4) L Iron Level 8 ug/dL (50-175) L Total Iron Binding Capacity 268 ug/dL (250-450) Percent Iron Saturation 3 % (15-50) L Unsaturated Iron Binding 260 ug/dL (112-346) Ferritin 137 NG/ML (8-388) Total Bilirubin 1.0 MG/DL (0.2-1.0) Gamma Glutamyl Transpeptidase 128 U/L (5-85) H Aspartate Amino Transf (AST/SGOT) 60 U/L (15-37) H Alanine Aminotransferase (ALT/SGPT) 45 U/L (12-78) Alkaline Phosphatase 128 U/L (46-116) H Lactate Dehydrogenase 373 U/L (81-234) H Troponin I 0.231 ng/mL (0.000-0.056) C-Reactive Protein, Quantitative 28.8 mg/dL (0.00-0.90) H Pro-B-Type Natriuretic Peptide 50345 pg/mL (0-125) H Total Protein 5.4 G/DL (6.4-8.2) L Albumin 1.9 G/DL (3.4-5.0) L Globulin 3.5 g/dL Albumin/Globulin Ratio 0.5 (1.0-2.7) L Triglycerides Level 240 MG/DL (30-150) H Cholesterol Level 125 MG/DL (< 200) LDL Cholesterol 30 mg/dL (<100) HDL Cholesterol 60 MG/DL (40-60) Cholesterol/HDL Ratio 2.1 (3.3-4.4) L Vitamin B12 Level 1406 PG/ML (193-986) H Folate 18.3 NG/ML (8.6-58.9) Thyroid Stimulating Hormone (TSH) 0.661 uiU/mL (0.358-3.740) Cortisol Pending Random Vancomycin Level 15.6 ug/mL Arterial Blood pH 7.226 (7.350-7.450) Arterial Blood Partial Pressure CO2 24.8 mmHg (35.0-45.0) *L Arterial Blood Partial Pressure O2 191.7 mmHg (75.0-100.0) H Arterial Blood HCO3 10.1 mmol/L (22.0-26.0) *L Arterial Blood Oxygen Saturation 98.9 % (95-100) Arterial Blood Base Excess -15.9 (-2-2) *L Jose Test Positive Test 11/09/20 09:36 Arterial Blood pH 7.198 (7.350-7.450) Arterial Blood Partial Pressure CO2 26.3 mmHg (35.0-45.0) L Arterial Blood Partial Pressure O2 160.8 mmHg (75.0-100.0) H Arterial Blood HCO3 10.0 mmol/L (22.0-26.0) *L Arterial Blood Oxygen Saturation 98.8 % (95-100) Arterial Blood Base Excess -16.6 (-2-2) *L Jose Test Positive Plan Problems: (1) Anemia (2) Sepsis Assessment & Plan: 44-year-old female with altered mental status, lactic acidosis, leukocytosis, sepsis. Vitals currently stable. Abdominal exam mild distention but limited. Will obtain imaging. Labs noted UTI on antibiotics fluid resuscitation trend labs we will follow with examination and recommendations. CT head reviewed. kub noted likely ileus will monitor Gas is seen within the stomach and within a few central mildly dilated small bowel loops. Lack of bowel gas is demonstrated elsewhere. Groundglass opacity of the abdomen raises possibility of ascites There is what appears to be a rectal tube. There is a right groin central venous catheter Impression: Gas-filled stomach and mildly dilated proximal small bowel loops, lack of bowel gas elsewhere. Findings could represent early small bowel obstruction. Correlate with clinical findings, consider CT if clinically indicated. Questionable generalized groundglass abdominal opacity, raises possibility of ascites No acute intracranial hemorrhage. No midline shift or mass effect. The territorial hassan-white matter differentiation is maintained throughout. The ventricles and sulci are commensurate with age. The visualized orbits appear grossly unremarkable. The calvarium is intact. The visualized paranasal sinuses and mastoid air cells are grossly clear. (3) UTI (urinary tract infection) (4) VALERIA (acute kidney injury) (5) Acute metabolic encephalopathy Archie Saavedra Nov 09, 2020 18:37
--- NOTE | 2020-11-09 19:18 | Cardiology Progress Note ---
Assessment/Plan Assessment/Plan [id number] bacteremic gnr setic shock lactic acidosis irondef anemia abn torp due to demand adn arf arf pressor abx bolus of ns Objective Last 24 Hour Vital Signs Date Time Temp Pulse Resp B/P (MAP) Pulse Ox O2 Delivery O2 Flow Rate FiO2 11/09/20 18:00 105 21 108/65 (79) 97 11/09/20 17:30 108 23 108/72 (84) 97 11/09/20 17:00 105 23 108/50 (69) 97 11/09/20 16:15 128 23 110/61 (77) 11/09/20 16:12 129 25 114/62 (79) 91 11/09/20 16:00 128 11/09/20 16:00 Room Air 11/09/20 16:00 127 24 116/66 (83) 11/09/20 16:00 129 11/09/20 15:45 124 21 118/76 (90) 11/09/20 15:30 127 23 122/94 (103) 88 11/09/20 15:30 129 26 118/76 (90) 88 11/09/20 15:15 124 25 119/65 (83) 11/09/20 15:00 123 24 108/71 (83) 11/09/20 15:00 120 26 101/77 (85) 11/09/20 14:45 120 24 118/76 (90) 11/09/20 14:30 120 26 101/77 (85) 11/09/20 14:30 120 26 101/77 (85) 11/09/20 14:15 120 24 114/59 (77) 87 11/09/20 14:15 120 24 114/59 (77) 87 11/09/20 14:00 107 23 104/78 (87) 11/09/20 14:00 107 23 104/78 (87) 11/09/20 13:45 116 25 101/70 (80) 11/09/20 13:30 116 22 85/66 (72) 11/09/20 13:15 117 24 99/76 (84) 87 11/09/20 13:00 118 23 101/75 (84) 81 11/09/20 13:00 118 23 101/75 (84) 81 11/09/20 12:45 118 19 102/82 (89) 88 11/09/20 12:45 118 19 102/82 (89) 88 11/09/20 12:30 119 27 101/85 (90) 93 11/09/20 12:30 119 27 101/85 (90) 93 11/09/20 12:15 118 26 91/49 (63) 88 11/09/20 12:15 118 26 91/49 (63) 88 11/09/20 12:00 Room Air 11/09/20 12:00 119 24 96/64 (75) 87 11/09/20 12:00 119 24 96/64 (75) 87 11/09/20 12:00 119 24 96/64 (75) 87 11/09/20 12:00 129 11/09/20 11:45 118 24 95/82 (86) 92 11/09/20 11:45 99/63 11/09/20 11:30 120 21 103/75 (84) 11/09/20 11:15 117 24 145/117 (126) 11/09/20 11:15 117 24 145/117 (126) 11/09/20 11:11 118 23 112/90 (97) 73 11/09/20 11:11 118 23 112/90 (97) 73 11/09/20 11:00 118 21 11/09/20 11:00 118 21 11/09/20 10:53 112 23 96/78 (84) 41 11/09/20 10:45 115 18 95/80 (85) 11/09/20 10:30 120 24 101/63 (76) 61 11/09/20 10:28 119 24 97/65 (76) 11/09/20 10:00 117 21 77/44 (55) 11/09/20 10:00 117 21 77/44 (55) 11/09/20 09:55 Venturi Mask 14.0 55 11/09/20 09:45 110 23 73/50 (58) 11/09/20 09:30 118 20 88/62 (71) 11/09/20 09:15 115 20 84/59 (67) 11/09/20 09:00 112 21 91/65 (74) 11/09/20 09:00 112 21 11/09/20 08:45 112 24 88/68 (75) 11/09/20 08:30 115 77/49 11/09/20 08:30 104 11 95/78 (84) 11/09/20 08:25 115 8 89/61 (70) 11/09/20 08:15 116 26 76/34 (48) 11/09/20 08:00 129 11/09/20 08:00 120 25 94/61 (72) 87 11/09/20 08:00 Room Air 11/09/20 07:45 117 23 79/66 (70) 11/09/20 07:30 116 23 95/71 (79) 11/09/20 07:30 116 23 95/71 (79) 11/09/20 07:15 118 24 94/67 (76) 11/09/20 07:15 118 24 94/67 (76) 11/09/20 07:00 117 26 93/67 (76) 11/09/20 07:00 117 26 93/67 (76) 11/09/20 06:52 120 26 96/62 (73) 11/09/20 06:45 118 26 76/54 (61) 11/09/20 06:30 115 23 98/68 (78) 100 11/09/20 06:30 115 23 98/68 (78) 100 11/09/20 06:15 114 23 91/68 (76) 11/09/20 06:15 114 23 91/68 (76) 11/09/20 06:00 118 26 11/09/20 06:00 97.7 115 22 88/65 (73) 11/09/20 06:00 115 22 88/65 (73) 11/09/20 05:45 116 22 87/65 (72) 11/09/20 05:45 116 22 87/65 (72) 11/09/20 05:30 117 23 89/61 (70) 11/09/20 05:30 117 23 89/61 (70) 11/09/20 05:15 118 23 92/65 (74) 11/09/20 05:15 118 23 92/65 (74) 11/09/20 05:00 119 24 93/61 (72) 11/09/20 05:00 119 24 93/61 (72) 65 11/09/20 04:15 128 22 85/55 (65) 11/09/20 04:00 100.3 128 23 92/58 (69) 11/09/20 04:00 Room Air 11/09/20 04:00 129 11/09/20 03:45 127 28 113/93 (100) 11/09/20 03:30 126 27 97/62 (74) 11/09/20 03:15 127 28 86/55 (65) 11/09/20 03:00 123 27 89/62 (71) 11/09/20 02:45 124 27 85/62 (70) 11/09/20 02:30 123 26 96/65 (75) 11/09/20 02:15 127 28 87/61 (70) 11/09/20 02:00 127 29 91/54 (66) 11/09/20 01:30 126 27 85/60 (68) 97 11/09/20 01:15 127 28 86/59 (68) 97 11/09/20 01:00 132 21 86/52 (63) 97 11/09/20 01:00 86/52 11/09/20 00:46 89/63 11/09/20 00:45 129 27 89/63 (72) 75 11/09/20 00:30 130 30 94/53 (67) 75 11/09/20 00:29 131 25 80/61 (67) 72 11/09/20 00:15 129 29 87/59 (68) 72 11/09/20 00:00 Room Air 11/09/20 00:00 128 25 86/63 (71) 72 11/09/20 00:00 129 87/59 11/08/20 23:45 127 25 86/65 (72) 11/08/20 23:30 132 28 84/62 (69) 11/08/20 23:15 129 25 75/56 (62) 11/08/20 23:00 131 24 89/59 (69) 11/08/20 22:51 98.4 11/08/20 22:45 130 23 84/62 (69) 11/08/20 22:30 132 23 92/63 (73) 100 11/08/20 22:23 135 26 93/66 (75) 100 11/08/20 22:15 132 23 89/59 (69) 100 11/08/20 22:00 135 30 101/56 (71) 100 11/08/20 21:59 135 29 77/39 (52) 99 11/08/20 21:45 135 26 86/64 (71) 99 11/08/20 21:41 132 79/53 11/08/20 21:34 136 24 79/53 (62) 100 11/08/20 21:30 135 25 71/49 (56) 100 11/08/20 21:16 136 29 79/50 (60) 100 11/08/20 21:15 137 30 79/48 (58) 100 11/08/20 21:00 135 27 92/63 (73) 100 11/08/20 20:45 131 23 86/70 (75) 100 11/08/20 20:30 130 23 81/56 (64) 100 11/08/20 20:15 130 23 85/50 (62) 100 11/08/20 20:08 133 27 82/49 (60) 100 11/08/20 20:00 129 11/08/20 20:00 Room Air 11/08/20 20:00 98.4 131 27 86/53 (64) 100 11/08/20 19:45 131 19 83/57 (66) 100 11/08/20 19:30 130 22 93/50 (64) 100 Intake and Output 11/08/20 11/09/20 19:00 07:00 Intake Total 725.755 ml 2654.395 ml Output Total 125 ml 505 ml Balance 600.755 ml 2149.395 ml Intake Oral 200 ml 120 ml IV Total 525.755 ml 2534.395 ml Output Urine Total 125 ml 305 ml Stool Total 200 ml # Voids 40 Laboratory Tests Test 11/08/20 21:15 11/09/20 00:50 11/09/20 01:10 11/09/20 04:40 Lactic Acid Level 11.00 mmol/L (0.4-2.0) H 4.80 mmol/L (0.4-2.0) H 8.70 mmol/L (0.66-2.22) H White Blood Count 57.6 K/UL (4.8-10.8) #*H Red Blood Count 3.61 M/UL (4.20-5.40) L Hemoglobin 9.6 G/DL (12.0-16.0) L Hematocrit 32.8 % (37.0-47.0) L Mean Corpuscular Volume 91 FL (80-99) Mean Corpuscular Hemoglobin 26.7 PG (27.0-31.0) L Mean Corpuscular Hemoglobin Concent 29.4 G/DL (32.0-36.0) L Red Cell Distribution Width 18.1 % (11.6-14.8) H Platelet Count 192 K/UL (150-450) Mean Platelet Volume 8.6 FL (6.5-10.1) Neutrophils (%) (Auto) % (45.0-75.0) Lymphocytes (%) (Auto) % (20.0-45.0) Monocytes (%) (Auto) % (1.0-10.0) Eosinophils (%) (Auto) % (0.0-3.0) Basophils (%) (Auto) % (0.0-2.0) Differential Total Cells Counted 100 Neutrophils % (Manual) 89 % (45-75) H Lymphocytes % (Manual) 4 % (20-45) L Monocytes % (Manual) 2 % (1-10) Eosinophils % (Manual) 0 % (0-3) Basophils % (Manual) 0 % (0-2) Band Neutrophils 5 % (0-8) Platelet Estimate Adequate Platelet Morphology Normal Sodium Level 137 MMOL/L (136-145) Potassium Level 4.0 MMOL/L (3.5-5.1) Chloride Level 107 MMOL/L (98-107) Carbon Dioxide Level 12 MMOL/L (21-32) L Anion Gap 18 mmol/L (5-15) H Blood Urea Nitrogen 48 mg/dL (7-18) H Creatinine 2.3 MG/DL (0.55-1.30) H Estimat Glomerular Filtration Rate 27.9 mL/min (>60) Glucose Level 172 MG/DL (74-106) H Hemoglobin A1c 5.3 % (4.3-6.0) Uric Acid 7.2 MG/DL (2.6-7.2) Calcium Level 6.4 MG/DL (8.5-10.1) #L Phosphorus Level 5.0 MG/DL (2.5-4.9) H Magnesium Level 1.3 MG/DL (1.8-2.4) L Iron Level 8 ug/dL (50-175) L Total Iron Binding Capacity 268 ug/dL (250-450) Percent Iron Saturation 3 % (15-50) L Unsaturated Iron Binding 260 ug/dL (112-346) Ferritin 137 NG/ML (8-388) Total Bilirubin 1.0 MG/DL (0.2-1.0) Gamma Glutamyl Transpeptidase 128 U/L (5-85) H Aspartate Amino Transf (AST/SGOT) 60 U/L (15-37) H Alanine Aminotransferase (ALT/SGPT) 45 U/L (12-78) Alkaline Phosphatase 128 U/L (46-116) H Lactate Dehydrogenase 373 U/L (81-234) H Troponin I 0.231 ng/mL (0.000-0.056) C-Reactive Protein, Quantitative 28.8 mg/dL (0.00-0.90) H Pro-B-Type Natriuretic Peptide 63188 pg/mL (0-125) H Total Protein 5.4 G/DL (6.4-8.2) L Albumin 1.9 G/DL (3.4-5.0) L Globulin 3.5 g/dL Albumin/Globulin Ratio 0.5 (1.0-2.7) L Triglycerides Level 240 MG/DL (30-150) H Cholesterol Level 125 MG/DL (< 200) LDL Cholesterol 30 mg/dL (<100) HDL Cholesterol 60 MG/DL (40-60) Cholesterol/HDL Ratio 2.1 (3.3-4.4) L Vitamin B12 Level 1406 PG/ML (193-986) H Folate 18.3 NG/ML (8.6-58.9) Thyroid Stimulating Hormone (TSH) 0.661 uiU/mL (0.358-3.740) Cortisol Pending Random Vancomycin Level 15.6 ug/mL Arterial Blood pH 7.226 (7.350-7.450) Arterial Blood Partial Pressure CO2 24.8 mmHg (35.0-45.0) *L Arterial Blood Partial Pressure O2 191.7 mmHg (75.0-100.0) H Arterial Blood HCO3 10.1 mmol/L (22.0-26.0) *L Arterial Blood Oxygen Saturation 98.9 % (95-100) Arterial Blood Base Excess -15.9 (-2-2) *L Jose Test Positive Test 11/09/20 09:36 Arterial Blood pH 7.198 (7.350-7.450) Arterial Blood Partial Pressure CO2 26.3 mmHg (35.0-45.0) L Arterial Blood Partial Pressure O2 160.8 mmHg (75.0-100.0) H Arterial Blood HCO3 10.0 mmol/L (22.0-26.0) *L Arterial Blood Oxygen Saturation 98.8 % (95-100) Arterial Blood Base Excess -16.6 (-2-2) *L Ojse Test Positive Microbiology Date/Time Source Procedure Growth Status 11/08/20 14:15 Blood Blood Culture - Preliminary Gram Negative Domo Resulted 11/08/20 14:00 Blood Blood Culture - Preliminary Gram Negative Domo Resulted 11/08/20 04:49 Nasal Nares MRSA Culture - Final NO METHICILLIN RESISTANT STAPH AUREUS... Complete Neno Grant MD Nov 09, 2020 19:18
[2020-11-09] MEDS: traMADol 50mg tab ORAL PRN (19:27)
[2020-11-09] MEDS ORDERED: NS 250 ML IVPB ONE (19:30)
[2020-11-09] MEDS: Vasopressin 100 UNITS in NS 95 ML IV SCH (19:30)
[2020-11-09] MEDS ORDERED: Albuterol/Ipratropium 3ml neb HHN SCH (20:30)
[2020-11-09] MEDS: Pantoprazole Inj IVP SCH (20:43)
[2020-11-09] MEDS: Dyna-Hex 2% Top Sol 2oz TOPIC SCH (20:44)
[2020-11-10] VITALS (82 sets, daily range): BP systolic 95–124; BP diastolic 51–76
[2020-11-10] MEDS: D5 1/2NS 1,000 ML IV SCH ×2 (04:46→11:26)
[2020-11-10] MEDS: Norepinephrine Bitartrate 16 MG in D5W 500ml 550 ML IV SCH (04:48)
[2020-11-10 05:13] LABS: HEMATOCRIT 28.1 % (37.0-47.0); HEMOGLOBIN 8.7 G/DL (12.0-16.0); MEAN CORPUSCULAR VOLUME 89 FL (80-99); PLATELET COUNT 92 K/UL (150-450); RED BLOOD COUNT 3.14 M/UL (4.20-5.40); RED CELL DISTRIBUTION WIDTH 18.3 % (11.6-14.8)
[2020-11-10] MEDS ORDERED: Acetaminophen 650mg/20.3ml NG PRN (05:15)
[2020-11-10] MEDS: Hydrocortisone 100mg Inj IV SCH ×3 (05:19→20:15)
[2020-11-10] MEDS: Heparin 5000 units/ml inj SUBQ SCH ×3 (05:20→20:16)
[2020-11-10 05:38] LABS: WHITE BLOOD COUNT 55.8 K/UL (4.8-10.8)
[2020-11-10 05:52] LABS: ALANINE AMINOTRANSFERASE 38 U/L (12-78); ALBUMIN/GLOBULIN RATIO 0.6 (1.0-2.7); ALKALINE PHOSPHATASE 176 U/L (46-116); ANION GAP 16 mmol/L (5-15); ASPARTATE AMINO TRANSFERASE 47 U/L (15-37); BILIRUBIN,TOTAL 1.9 MG/DL (0.2-1.0); BLOOD UREA NITROGEN 43 mg/dL (7-18); CALCIUM 6.3 MG/DL (8.5-10.1); CARBON DIOXIDE 14 MMOL/L (21-32); CHLORIDE 106 MMOL/L (98-107); PHOSPHORUS 6.4 MG/DL (2.5-4.9); POTASSIUM 3.5 MMOL/L (3.5-5.1); SODIUM 136 MMOL/L (136-145)
[2020-11-10 06:03] LABS: BILIRUBIN,DIRECT 1.5 MG/DL (0.0-0.3)
--- NOTE | 2020-11-10 07:29 | Consultation ---
DATE OF CONSULTATION: 11/09/2020 CARDIOLOGY CONSULTATION CONSULTING PHYSICIAN: Neno Grant MD REFERRING PHYSICIAN: Kris Cormier MD REASON FOR REFERRAL: Hypertension. HISTORY OF PRESENT ILLNESS: This is a very unfortunate 44-year-old female who is a resident of a convalescent facility with history of multiple sclerosis and chronic pain syndrome. The patient is noted to be more altered than before and was felt to be very warm to touch and reportedly had COVID in August 2019. In either case, the patient went to the hospital and the history is that the patient was negative for COVID in September and had a COVID vaccine already. She presents because of altered mentation as well as fevers. In the emergency room, she had bouts of significant diarrhea and was hypotensive and required intravenous fluid administration. Stool samples have been sent for C. diff already. Given that the patient had a drop in her blood pressure requiring several boluses in the emergency room and subsequently transferred to the ICU, she was placed on pressors and eventually 2 pressors have been started. The patient is being septic and found to be today. PAST MEDICAL HISTORY: Positive for history of COVID-19, history of multiple sclerosis, protein-calorie malnutrition, essential hypertension, depression, gastroesophageal reflux disease, generalized weakness, muscle atrophy, and chronic pain syndrome. ALLERGIES: Patient is not allergic to any medications. MEDICATIONS: Her medications at [facility] are listed as follows: Tylenol, she is on baclofen, vitamin C, clonidine every 6 hours as needed for hypertension, Benadryl, Colace, Cymbalta, Lovenox 40 mg daily, Pepcid 20 mg, gabapentin 600 mg every 8 hours, DuoNeb treatment. She received some prednisone therapy back in September and . It is not clear to me why she has been on steroid therapy, but appears actually probably because of multiple sclerosis. Nevertheless, she is otherwise not noted to have any other major issues. She has been having diarrhea as mentioned above. PHYSICAL EXAMINATION: As per the emergency room physician, the patient chronically appeared stuporous range of motion. She is able to move her head from [id number]. CHEST: Apparently . Normal breath sounds. CARDIOVASCULAR: Regular rhythm. Tachycardic. ABDOMEN: Soft, nontender. No masses. No organomegaly. LABORATORY AND DIAGNOSTIC DATA: White count of 26,000 up to 57,000 with hemoglobin 9.6 and platelet count of 192. The pH is 7.198, pCO2 of 26, pO2 of 106, bicarb of 10, and oxygen saturation of 98%. Her troponin of 0.231 earlier today. Lactic acid of 8.7 and cortisol level was pending. LDH is 373. Sodium 137, potassium 4.0, chloride 107, bicarb 12, BUN of 48, creatinine 2.3, and glucose of 172. A1c of 7.3. Phosphorus of 5, magnesium of 1.3, iron of saturation. Liver function tests are relatively normal. CRP of 28. ProBNP of 29,000. Albumin of 5.4. Total cholesterol 125 with LDL of 38, HDL of 60. TSH is 0.66. Vitamin B12 of 1400. Urinalysis 2 to 4 rbc's, 0 to 2 wbc's. IMAGING: Chest x-ray was performed and shows new increased bilateral streaky infiltrates, suspicious for bilateral pneumonia. An abdominal x-ray performed with gas-filled stomach with a mildly dilated proximal loops of bowel. Concern about possible early small bowel obstruction was being raised. An echocardiogram was performed showing ejection fraction of 50 to 55%. No significant valvular regurgitation and tricuspid with PA pressure of 31. The patient's electrocardiogram shows sinus tachycardia at a rate of 135, no significant ST or T-wave abnormalities otherwise. ASSESSMENT AND PLAN: 1. Septic shock. 2. Bacteremia, gram-negative rods. 3. Renal failure. 4. Lactic acidosis. 5. Renal failure, probably acute. 6. Profound iron deficiency. 7. Leukemoid reaction. 8. Anemia. Dr. Cormier, patient was seen in cardiac consultation. The patient's cardiac function appears to be okay. EKG does show any ST or T-wave abnormalities. Patient is septic and leukemoid reaction suggestive of sepsis syndrome. The etiology of that being worked up. Infectious Disease antibiotics were restarted. Patient should be treated with a course of IV fluids as well as pressors as needed. Her most recent blood pressure of 108/65 with heart rates as well as 105. Her last temperature of 100.3 earlier today at 4 o'clock in the morning. Pressors will be continued and further cardiac enzymes will be ordered as well as EKG for tomorrow morning. However, I suspect that any abnormality in the cardiac enzymes at this point related to demand and renal insufficiency rather than an acute coronary syndrome. As such, I do not favor administration of any antiplatelet agents. Pressors will be continued as needed titrated down as necessary post hydration. The IV fluids that the patient is receiving at this time includes albumin and D5 one-half NS at 125 mL an hour. A bolus of 500 mL of normal saline was administered in hopes of possibly titrating of her pressors. Neno Grant M.D. DR: KATHERINE JOB#: [id number] CC:
--- NOTE | 2020-11-10 09:27 | Diagnostic Imaging Report ---
EXAM: XR Abdomen, 2 Views CLINICAL HISTORY: NGT TECHNIQUE: Frontal view of the abdomen/pelvis with upright view of the abdomen. COMPARISON: No relevant prior studies available. FINDINGS: Intraperitoneal space: No free air. Gastrointestinal tract: The bowel gas pattern is nonspecific. No obstruction is identified. Bones/joints: Unremarkable. Tubes, lines and devices: There is a placement of an NG tube with its tip in the region of the first portion of the duodenum. This should be withdrawn approximately 9 cm. IMPRESSION: There is a placement of an NG tube with its tip in the region of the first portion of the duodenum. This should be withdrawn approximately 9 cm.
[2020-11-10] MEDS: Pantoprazole Inj IVP SCH ×2 (09:59→20:15)
--- NOTE | 2020-11-10 10:10 | Pulmonology Progress Note ---
Subjective ROS Limited/Unobtainable: Yes Interval Events: Saturating well on low flow O2 Constitutional: Reports: no symptoms HEENT: Repors: no symptoms Respiratory: Reports: no symptoms Cardiovascular: Reports: no symptoms Gastrointestinal/Abdominal: Reports: no symptoms Allergies: Coded Allergies: No Known Allergies (Unverified , 11/08/20) Objective Last 24 Hour Vital Signs Date Time Temp Pulse Resp B/P (MAP) Pulse Ox O2 Delivery O2 Flow Rate FiO2 11/10/20 09:00 97/53 11/10/20 08:45 118 30 97 11/10/20 08:30 114 28 108/57 (74) 96 11/10/20 08:15 115 31 96 11/10/20 08:00 100.9 115 29 108/59 (75) 96 11/10/20 08:00 103/62 11/10/20 08:00 114 11/10/20 07:45 114 29 96 11/10/20 07:30 115 30 103/59 (74) 95 11/10/20 07:15 115 30 95 11/10/20 07:00 107/58 11/10/20 07:00 115 30 107/58 (74) 95 11/10/20 06:15 28 104/58 (73) 94 11/10/20 06:00 115 29 102/59 (73) 95 11/10/20 06:00 102/59 11/10/20 05:45 Nasal Cannula 2.0 11/10/20 05:45 116 29 106/61 (76) 94 11/10/20 05:30 116 28 95/59 (71) 95 11/10/20 05:15 115 29 110/57 (74) 94 11/10/20 05:00 115 30 115/61 (79) 89 11/10/20 05:00 115/61 11/10/20 04:48 113/64 11/10/20 04:45 115 31 113/64 (80) 89 11/10/20 04:30 115 30 115/62 (79) 89 11/10/20 04:15 114 29 104/63 (77) 89 11/10/20 04:00 115 11/10/20 04:00 101.7 114 29 110/62 (78) 90 11/10/20 04:00 Nasal Cannula 2.0 2/13/21 04:00 110/62 11/10/20 03:30 115 29 114/62 (79) 91 11/10/20 03:00 115/63 11/10/20 03:00 115 30 115/63 (80) 92 11/10/20 02:30 114 29 115/65 (82) 11/10/20 02:15 114 29 115/66 (82) 11/10/20 02:00 112/70 11/10/20 02:00 111 29 114/66 (82) 95 11/10/20 01:55 110 29 115/65 (82) 97 11/10/20 01:50 106 29 112/65 (81) 96 11/10/20 01:45 106 29 110/62 (78) 95 11/10/20 01:40 105 29 114/58 (76) 95 11/10/20 01:35 104 28 117/59 (78) 96 11/10/20 01:30 104 29 110/64 (79) 97 11/10/20 01:25 102 28 111/64 (80) 96 11/10/20 01:20 103 28 114/67 (83) 95 11/10/20 01:15 102 28 115/66 (82) 95 11/10/20 01:10 102 29 111/64 (80) 96 11/10/20 01:05 102 29 112/63 (79) 100 11/10/20 01:00 114/67 11/10/20 01:00 102 29 113/62 (79) 97 11/10/20 00:45 102 29 116/63 (80) 99 11/10/20 00:40 102 27 117/61 (79) 96 11/10/20 00:35 102 29 120/60 (80) 97 11/10/20 00:30 102 28 112/65 (81) 90 11/10/20 00:25 102 29 117/61 (79) 95 11/10/20 00:20 101 27 112/65 (81) 95 11/10/20 00:15 102 27 118/64 (82) 94 11/10/20 00:10 101 29 113/66 (82) 96 11/10/20 00:05 102 28 110/62 (78) 97 11/10/20 00:00 99.2 101 28 115/62 (79) 92 11/10/20 00:00 115/68 11/10/20 00:00 114 11/10/20 00:00 Room Air 11/09/20 23:55 103 28 121/62 (81) 94 11/09/20 23:50 103 27 119/63 (81) 100 11/09/20 23:45 102 27 117/67 (84) 97 11/09/20 23:40 102 28 116/71 (86) 98 11/09/20 23:35 101 29 120/64 (82) 100 11/09/20 23:30 102 27 119/67 (84) 93 11/09/20 23:25 102 26 116/65 (82) 95 11/09/20 23:20 102 28 118/65 (82) 94 11/09/20 23:15 102 28 114/64 (81) 95 11/09/20 23:10 102 27 118/70 (86) 11/09/20 23:05 102 27 116/65 (82) 11/09/20 23:00 116/62 11/09/20 23:00 102 26 116/62 (80) 96 11/09/20 22:55 101 26 116/64 (81) 11/09/20 22:50 102 27 116/63 (80) 11/09/20 22:45 102 27 113/65 (81) 52 11/09/20 22:40 102 28 114/60 (78) 11/09/20 22:35 102 27 114/65 (81) 94 11/09/20 22:30 102 27 113/62 (79) 11/09/20 22:25 102 27 114/63 (80) 99 11/09/20 22:20 101 27 115/64 (81) 11/09/20 22:15 102 26 112/63 (79) 11/09/20 22:10 102 26 112/64 (80) 11/09/20 22:05 102 26 114/61 (78) 11/09/20 22:00 102 27 115/65 (82) 11/09/20 22:00 115/65 11/09/20 21:55 102 26 115/66 (82) 95 11/09/20 21:50 102 25 113/64 (80) 98 11/09/20 21:45 102 26 112/69 (83) 96 11/09/20 21:40 103 26 115/67 (83) 97 11/09/20 21:35 102 27 115/64 (81) 95 11/09/20 21:30 101 25 116/64 (81) 96 11/09/20 21:25 102 25 114/62 (79) 96 11/09/20 21:20 103 25 114/62 (79) 98 11/09/20 21:15 102 26 116/63 (80) 94 11/09/20 21:00 107/66 11/09/20 21:00 102 25 107/66 (80) 96 11/09/20 20:55 103 24 106/65 (79) 96 11/09/20 20:50 103 25 109/65 (80) 96 11/09/20 20:45 102 25 107/60 (76) 98 11/09/20 20:40 102 24 99/56 (70) 94 11/09/20 20:35 102 25 101/56 (71) 94 11/09/20 20:31 92 22 100 Room Air 21 88 24 96 11/09/20 20:30 103 24 93/58 (70) 94 11/09/20 20:25 103 24 91/55 (67) 93 11/09/20 20:21 91/53 11/09/20 20:20 103 24 91/53 (66) 92 11/09/20 20:15 104 25 101/57 (72) 92 11/09/20 20:10 105 25 100/57 (71) 93 11/09/20 20:05 106 25 110/58 (75) 92 11/09/20 20:04 Room Air 21 11/09/20 20:00 99.1 106 24 119/59 (79) 93 11/09/20 20:00 119/59 11/09/20 20:00 116 11/09/20 20:00 Room Air 11/09/20 19:45 106 22 118/69 (85) 91 11/09/20 19:30 106 23 120/68 (85) 92 11/09/20 19:15 105 21 121/69 (86) 92 11/09/20 19:00 103 24 118/64 (82) 95 11/09/20 18:00 105 21 108/65 (79) 97 11/09/20 17:30 108 23 108/72 (84) 97 11/09/20 17:00 105 23 108/50 (69) 97 11/09/20 16:15 128 23 110/61 (77) 11/09/20 16:12 129 25 114/62 (79) 91 11/09/20 16:00 128 11/09/20 16:00 Room Air 11/09/20 16:00 127 24 116/66 (83) 11/09/20 16:00 129 11/09/20 15:45 124 21 118/76 (90) 11/09/20 15:30 127 23 122/94 (103) 88 11/09/20 15:30 129 26 118/76 (90) 88 11/09/20 15:15 124 25 119/65 (83) 11/09/20 15:00 123 24 108/71 (83) 11/09/20 15:00 120 26 101/77 (85) 11/09/20 14:45 120 24 118/76 (90) 11/09/20 14:30 120 26 101/77 (85) 11/09/20 14:30 120 26 101/77 (85) 11/09/20 14:15 120 24 114/59 (77) 87 11/09/20 14:15 120 24 114/59 (77) 87 11/09/20 14:00 107 23 104/78 (87) 11/09/20 14:00 107 23 104/78 (87) 11/09/20 13:45 116 25 101/70 (80) 11/09/20 13:30 116 22 85/66 (72) 11/09/20 13:15 117 24 99/76 (84) 87 11/09/20 13:00 118 23 101/75 (84) 81 11/09/20 13:00 118 23 101/75 (84) 81 11/09/20 12:45 118 19 102/82 (89) 88 11/09/20 12:45 118 19 102/82 (89) 88 11/09/20 12:30 119 27 101/85 (90) 93 11/09/20 12:30 119 27 101/85 (90) 93 11/09/20 12:15 118 26 91/49 (63) 88 11/09/20 12:15 118 26 91/49 (63) 88 11/09/20 12:00 Room Air 11/09/20 12:00 119 24 96/64 (75) 87 11/09/20 12:00 119 24 96/64 (75) 87 11/09/20 12:00 119 24 96/64 (75) 87 11/09/20 12:00 129 11/09/20 11:45 118 24 95/82 (86) 92 11/09/20 11:45 99/63 11/09/20 11:30 120 21 103/75 (84) 11/09/20 11:15 117 24 145/117 (126) 11/09/20 11:15 117 24 145/117 (126) 11/09/20 11:11 118 23 112/90 (97) 73 11/09/20 11:11 118 23 112/90 (97) 73 11/09/20 11:00 118 21 11/09/20 11:00 118 21 11/09/20 10:53 112 23 96/78 (84) 41 11/09/20 10:45 115 18 95/80 (85) 11/09/20 10:30 120 24 101/63 (76) 61 11/09/20 10:28 119 24 97/65 (76) Intake and Output 11/09/20 11/10/20 19:00 07:00 Intake Total 2911.070 ml 1991.836 ml Output Total 1920 ml 2115 ml Balance 991.070 ml -123.164 ml IV Total 2911.070 ml 1991.836 ml Output Urine Total 1920 ml 1515 ml Stool Total 300 ml Gastric Drainage Total 300 ml # Bowel Movements 11 General Appearance: WD/WN HEENT: normocephalic Respiratory: chest wall non-tender Cardiovascular: normal peripheral pulses Abdomen: soft, non tender Microbiology Date/Time Source Procedure Growth Status 11/09/20 23:45 Stool Clostridium difficile Toxin Assay - Final Complete 11/08/20 14:15 Blood Blood Culture - Preliminary Gram Negative Domo Resulted 11/08/20 14:00 Blood Blood Culture - Preliminary Gram Negative Domo Resulted 11/08/20 04:49 Nasal Nares MRSA Culture - Final NO METHICILLIN RESISTANT STAPH AUREUS... Complete Laboratory Tests 11/10/20 05:00: White Blood Count 55.8*H, Red Blood Count 3.14L, Hemoglobin 8.7L, Hematocrit 28.1L, Mean Corpuscular Volume 89, Mean Corpuscular Hemoglobin 27.7, Mean Corpuscular Hemoglobin Concent 30.9L, Red Cell Distribution Width 18.3H, Platelet Count 92#L, Mean Platelet Volume 9.3, Neutrophils (%) (Auto) , Lymphocytes (%) (Auto) , Monocytes (%) (Auto) , Eosinophils (%) (Auto) , Basophils (%) (Auto) , Differential Total Cells Counted 100, Neutrophils % (Manual) 89H, Lymphocytes % (Manual) 1L, Monocytes % (Manual) 5, Eosinophils % (Manual) 0, Basophils % (Manual) 0, Band Neutrophils 5, Platelet Estimate DecreasedL, Platelet Morphology Normal, Hypochromasia 1+, Anisocytosis 1+, Sodium Level 136, Potassium Level 3.5, Chloride Level 106, Carbon Dioxide Level 14L, Anion Gap 16H, Blood Urea Nitrogen 43H, Creatinine 2.0H, Estimat Glomerular Filtration Rate 32.8, Glucose Level 116H, Lactic Acid Level 2.60H, Uric Acid 7.7H, Calcium Level 6.3L, Phosphorus Level 6.4H, Magnesium Level 1.9, Total Bilirubin 1.9H, Direct Bilirubin 1.5H, Aspartate Amino Transf (AST/SGOT) 47H, Alanine Aminotransferase (ALT/SGPT) 38, Alkaline Phosphatase 176H, Troponin I 0.483H, C-Reactive Protein, Quantitative 39.9H, Pro-B-Type Natriuretic Peptide > 41014R, Total Protein 5.6L, Albumin 2.0L, Globulin 3.6, Albumin/Globulin Ratio 0.6L, Vitamin D 25-Hydroxy [Pending], 25-Hydroxy Vitamin D2 [Pending], 25- Hydroxy Vitamin D3 [Pending], Random Amikacin Level [Pending] 11/10/20 07:51: Arterial Blood pH 7.214*L, Arterial Blood Partial Pressure CO2 33.8L, Arterial Blood Partial Pressure O2 70.2L, Arterial Blood HCO3 13.3*L, Arterial Blood Oxygen Saturation 92.1L, Arterial Blood Base Excess -13.4*L, Jose Test Positive Current Medications Medications (Trade) Dose Ordered Sig/Bunny Route PRN Reason Start Time Stop Time Status Last Admin Dose Admin Acetaminophen (Tylenol) 650 mg PRN PRN RECTAL TEMP>100.5 11/08/20 06:00 Acetaminophen (Tylenol) 650 mg Q4H PRN NG Temp >100.5 11/10/20 05:15 12/10/20 05:14 11/10/20 05:21 Acetaminophen (Tylenol) 650 mg Q4H PRN RECTAL Mild Pain (Pain Scale 1-3) 11/08/20 09:15 12/08/20 09:14 Amikacin Protocol (Amikacin pharmacy to dose) 1 ea DAILY PRN MISC Per rx protocol 11/09/20 12:45 12/09/20 12:44 Amikacin Sulfate 1000 mg/Sodium Chloride 114 ml @ 114 mls/hr Q48H IV 11/09/20 17:00 11/16/20 16:59 11/09/20 19:46 Barium Sulfate (Readi-Cat 2) 450 ml NOW PRN ORAL Radiology Procedure 11/09/20 18:45 11/11/20 18:44 Chlorhexidine Gluconate (Carmen-Hex 2%) 1 applic DAILY@2000 TOPIC 11/09/20 20:00 02/07/21 19:59 11/09/20 20:44 Dextrose/Sodium Chloride 1,000 ml @ 125 mls/hr Q8H IV 11/08/20 12:30 12/08/20 12:29 11/10/20 04:46 Heparin Sodium (Porcine) (Heparin 5000 units/ml) 5,000 units EVERY 8 HOURS SUBQ 11/08/20 22:00 12/23/20 21:59 11/10/20 05:20 Hydrocortisone (Solu-CORTEF) 100 mg EVERY 8 HOURS IV 11/08/20 22:00 02/06/21 21:59 11/10/20 05:19 Iron Sucrose 100 mg/Sodium Chloride 60 ml @ 240 mls/hr BEDTIME IVPB 11/10/20 21:00 11/14/20 21:14 Meropenem 1 gm/ Sodium Chloride 100 ml @ 200 mls/hr Q12H IVPB 11/09/20 16:00 11/14/20 15:59 11/10/20 04:48 Metronidazole 100 ml @ 100 mls/hr Q8HR IVPB 11/09/20 14:00 11/16/20 13:59 11/10/20 05:19 Norepinephrine Bitartrate 16 mg/ Dextrose 566 ml @ 0 mls/hr Q24H IV 11/08/20 15:15 11/11/20 15:14 11/10/20 04:48 Pantoprazole (Protonix) 40 mg Q12HR IVP 11/09/20 21:00 12/09/20 08:59 11/10/20 09:59 Phenylephrine HCl 100 mg/Dextrose 250 ml @ 0 mls/hr Q24H IV 11/09/20 00:15 11/12/20 00:14 11/09/20 08:30 Tramadol HCl (Ultram) 50 mg Q6H PRN ORAL For Pain 11/08/20 22:15 11/15/20 22:14 11/09/20 19:27 Vancomycin HCl (Vanco pharmacy to dose) 1 ea DAILY PRN MISC Per rx protocol 11/08/20 17:45 12/08/20 17:44 Vasopressin 100 units/Sodium Chloride 100 ml @ 0.6 mls/hr Q24H IV 11/08/20 19:30 11/11/20 19:16 11/08/20 19:52 Assessment/Plan Assessment/Plan IMPRESSION: 1. Septic shock. 2. Hypotension. 3. Status post central line placement. 4. Multiple sclerosis. 5. Diarrhea, rule out C. difficile colitis. DISCUSSION: Continue pressors. Continue bicarb supplementation. Continue broad-spectrum antibiotics. Continue pressors. DVT prophylaxis. Susan Vigil Omar Syed MD Nov 10, 2020 10:10
--- NOTE | 2020-11-10 11:22 | Diagnostic Imaging Report ---
EXAM: XR Abdomen, 1 View CLINICAL HISTORY: NGT TECHNIQUE: Frontal supine view of the abdomen/pelvis. COMPARISON: No relevant prior studies available. FINDINGS: Lower thorax: Suspect bilateral pleural effusions. Retrocardiac atelectasis/consolidation. Gastrointestinal tract: Unremarkable. Bones/joints: No acute fracture. Tubes, lines and devices: Enteric tube in the stomach. Other findings: 11/10/20 at 1049. IMPRESSION: Enteric tube in the stomach.
[2020-11-10] MEDS: Sodium Bicarbonate 50 ML in D5W 1000ml 1,000 ML IV SCH (11:47)
--- NOTE | 2020-11-10 12:37 | Surgery Progress Note ---
Surgery Progress Note Subjective Additional Comments wbc unchanged abd exam stable lactic acid decreased Objective Last 24 Hour Vital Signs Date Time Temp Pulse Resp B/P (MAP) Pulse Ox O2 Delivery O2 Flow Rate FiO2 11/10/20 10:20 117 28 101/55 (70) 98 11/10/20 10:00 114 28 101/52 (68) 97 11/10/20 10:00 116 28 99/55 (70) 100 11/10/20 09:30 117 28 101/55 (70) 97 11/10/20 09:30 116 30 99/51 (67) 98 11/10/20 09:00 117 29 102/53 (69) 96 11/10/20 09:00 97/53 11/10/20 08:45 118 30 97 11/10/20 08:30 114 28 108/57 (74) 96 11/10/20 08:15 115 31 96 11/10/20 08:00 100.9 115 29 108/59 (75) 96 11/10/20 08:00 103/62 11/10/20 08:00 114 11/10/20 07:45 114 29 96 11/10/20 07:30 115 30 103/59 (74) 95 11/10/20 07:15 115 30 95 11/10/20 07:00 107/58 11/10/20 07:00 115 30 107/58 (74) 95 11/10/20 06:15 28 104/58 (73) 94 11/10/20 06:00 115 29 102/59 (73) 95 11/10/20 06:00 102/59 11/10/20 05:45 Nasal Cannula 2.0 11/10/20 05:45 116 29 106/61 (76) 94 11/10/20 05:30 116 28 95/59 (71) 95 11/10/20 05:15 115 29 110/57 (74) 94 11/10/20 05:00 115 30 115/61 (79) 89 11/10/20 05:00 115/61 11/10/20 04:48 113/64 11/10/20 04:45 115 31 113/64 (80) 89 11/10/20 04:30 115 30 115/62 (79) 89 11/10/20 04:15 114 29 104/63 (77) 89 11/10/20 04:00 115 11/10/20 04:00 101.7 114 29 110/62 (78) 90 11/10/20 04:00 Nasal Cannula 2.0 11/10/20 04:00 110/62 11/10/20 03:30 115 29 114/62 (79) 91 11/10/20 03:00 115/63 11/10/20 03:00 115 30 115/63 (80) 92 11/10/20 02:30 114 29 115/65 (82) 11/10/20 02:15 114 29 115/66 (82) 11/10/20 02:00 112/70 11/10/20 02:00 111 29 114/66 (82) 95 11/10/20 01:55 110 29 115/65 (82) 97 11/10/20 01:50 106 29 112/65 (81) 96 11/10/20 01:45 106 29 110/62 (78) 95 11/10/20 01:40 105 29 114/58 (76) 95 11/10/20 01:35 104 28 117/59 (78) 96 11/10/20 01:30 104 29 110/64 (79) 97 11/10/20 01:25 102 28 111/64 (80) 96 11/10/20 01:20 103 28 114/67 (83) 95 11/10/20 01:15 102 28 115/66 (82) 95 11/10/20 01:10 102 29 111/64 (80) 96 11/10/20 01:05 102 29 112/63 (79) 100 11/10/20 01:00 114/67 11/10/20 01:00 102 29 113/62 (79) 97 11/10/20 00:45 102 29 116/63 (80) 99 11/10/20 00:40 102 27 117/61 (79) 96 11/10/20 00:35 102 29 120/60 (80) 97 11/10/20 00:30 102 28 112/65 (81) 90 11/10/20 00:25 102 29 117/61 (79) 95 11/10/20 00:20 101 27 112/65 (81) 95 11/10/20 00:15 102 27 118/64 (82) 94 11/10/20 00:10 101 29 113/66 (82) 96 11/10/20 00:05 102 28 110/62 (78) 97 11/10/20 00:00 99.2 101 28 115/62 (79) 92 11/10/20 00:00 115/68 11/10/20 00:00 114 11/10/20 00:00 Room Air 11/09/20 23:55 103 28 121/62 (81) 94 11/09/20 23:50 103 27 119/63 (81) 100 11/09/20 23:45 102 27 117/67 (84) 97 11/09/20 23:40 102 28 116/71 (86) 98 11/09/20 23:35 101 29 120/64 (82) 100 11/09/20 23:30 102 27 119/67 (84) 93 11/09/20 23:25 102 26 116/65 (82) 95 11/09/20 23:20 102 28 118/65 (82) 94 11/09/20 23:15 102 28 114/64 (81) 95 11/09/20 23:10 102 27 118/70 (86) 11/09/20 23:05 102 27 116/65 (82) 11/09/20 23:00 116/62 11/09/20 23:00 102 26 116/62 (80) 96 11/09/20 22:55 101 26 116/64 (81) 11/09/20 22:50 102 27 116/63 (80) 11/09/20 22:45 102 27 113/65 (81) 52 11/09/20 22:40 102 28 114/60 (78) 11/09/20 22:35 102 27 114/65 (81) 94 11/09/20 22:30 102 27 113/62 (79) 11/09/20 22:25 102 27 114/63 (80) 99 11/09/20 22:20 101 27 115/64 (81) 11/09/20 22:15 102 26 112/63 (79) 11/09/20 22:10 102 26 112/64 (80) 11/09/20 22:05 102 26 114/61 (78) 11/09/20 22:00 102 27 115/65 (82) 11/09/20 22:00 115/65 11/09/20 21:55 102 26 115/66 (82) 95 2/12/21 21:50 102 25 113/64 (80) 98 11/09/20 21:45 102 26 112/69 (83) 96 11/09/20 21:40 103 26 115/67 (83) 97 11/09/20 21:35 102 27 115/64 (81) 95 11/09/20 21:30 101 25 116/64 (81) 96 11/09/20 21:25 102 25 114/62 (79) 96 11/09/20 21:20 103 25 114/62 (79) 98 11/09/20 21:15 102 26 116/63 (80) 94 11/09/20 21:00 107/66 11/09/20 21:00 102 25 107/66 (80) 96 11/09/20 20:55 103 24 106/65 (79) 96 11/09/20 20:50 103 25 109/65 (80) 96 11/09/20 20:45 102 25 107/60 (76) 98 11/09/20 20:40 102 24 99/56 (70) 94 11/09/20 20:35 102 25 101/56 (71) 94 11/09/20 20:31 92 22 100 Room Air 21 88 24 96 11/09/20 20:30 103 24 93/58 (70) 94 11/09/20 20:25 103 24 91/55 (67) 93 11/09/20 20:21 91/53 11/09/20 20:20 103 24 91/53 (66) 92 11/09/20 20:15 104 25 101/57 (72) 92 11/09/20 20:10 105 25 100/57 (71) 93 11/09/20 20:05 106 25 110/58 (75) 92 11/09/20 20:04 Room Air 21 11/09/20 20:00 99.1 106 24 119/59 (79) 93 11/09/20 20:00 119/59 11/09/20 20:00 116 11/09/20 20:00 Room Air 11/09/20 19:45 106 22 118/69 (85) 91 11/09/20 19:30 106 23 120/68 (85) 92 11/09/20 19:15 105 21 121/69 (86) 92 11/09/20 19:00 103 24 118/64 (82) 95 11/09/20 18:00 105 21 108/65 (79) 97 11/09/20 17:30 108 23 108/72 (84) 97 11/09/20 17:00 105 23 108/50 (69) 97 11/09/20 16:15 128 23 110/61 (77) 11/09/20 16:12 129 25 114/62 (79) 91 11/09/20 16:00 128 11/09/20 16:00 Room Air 11/09/20 16:00 127 24 116/66 (83) 11/09/20 16:00 129 11/09/20 15:45 124 21 118/76 (90) 11/09/20 15:30 127 23 122/94 (103) 88 11/09/20 15:30 129 26 118/76 (90) 88 11/09/20 15:15 124 25 119/65 (83) 11/09/20 15:00 123 24 108/71 (83) 11/09/20 15:00 120 26 101/77 (85) 11/09/20 14:45 120 24 118/76 (90) 11/09/20 14:30 120 26 101/77 (85) 11/09/20 14:30 120 26 101/77 (85) 11/09/20 14:15 120 24 114/59 (77) 87 11/09/20 14:15 120 24 114/59 (77) 87 11/09/20 14:00 107 23 104/78 (87) 11/09/20 14:00 107 23 104/78 (87) 11/09/20 13:45 116 25 101/70 (80) 11/09/20 13:30 116 22 85/66 (72) 11/09/20 13:15 117 24 99/76 (84) 87 11/09/20 13:00 118 23 101/75 (84) 81 11/09/20 13:00 118 23 101/75 (84) 81 11/09/20 12:45 118 19 102/82 (89) 88 11/09/20 12:45 118 19 102/82 (89) 88 I&O Intake and Output 0 11/09/20 11/10/20 19:00 07:00 Intake Total 2911.070 ml 1991.836 ml Output Total 1920 ml 2115 ml Balance 991.070 ml -123.164 ml IV Total 2911.070 ml 1991.836 ml Output Urine Total 1920 ml 1515 ml Stool Total 300 ml Gastric Drainage Total 300 ml # Bowel Movements 11 Cardiovascular: RSR Respiratory: decreased breath sounds Abdomen: soft, distended, non-tender Extremities: no edema, no tenderness, no cyanosis Laboratory Tests Test 11/10/20 05:00 11/10/20 07:51 White Blood Count 55.8 K/UL (4.8-10.8) *H Red Blood Count 3.14 M/UL (4.20-5.40) L Hemoglobin 8.7 G/DL (12.0-16.0) L Hematocrit 28.1 % (37.0-47.0) L Mean Corpuscular Volume 89 FL (80-99) Mean Corpuscular Hemoglobin 27.7 PG (27.0-31.0) Mean Corpuscular Hemoglobin Concent 30.9 G/DL (32.0-36.0) L Red Cell Distribution Width 18.3 % (11.6-14.8) H Platelet Count 92 K/UL (150-450) #L Mean Platelet Volume 9.3 FL (6.5-10.1) Neutrophils (%) (Auto) % (45.0-75.0) Lymphocytes (%) (Auto) % (20.0-45.0) Monocytes (%) (Auto) % (1.0-10.0) Eosinophils (%) (Auto) % (0.0-3.0) Basophils (%) (Auto) % (0.0-2.0) Differential Total Cells Counted 100 Neutrophils % (Manual) 89 % (45-75) H Lymphocytes % (Manual) 1 % (20-45) L Monocytes % (Manual) 5 % (1-10) Eosinophils % (Manual) 0 % (0-3) Basophils % (Manual) 0 % (0-2) Band Neutrophils 5 % (0-8) Platelet Estimate Decreased L Platelet Morphology Normal Hypochromasia 1+ Anisocytosis 1+ Sodium Level 136 MMOL/L (136-145) Potassium Level 3.5 MMOL/L (3.5-5.1) Chloride Level 106 MMOL/L (98-107) Carbon Dioxide Level 14 MMOL/L (21-32) L Anion Gap 16 mmol/L (5-15) H Blood Urea Nitrogen 43 mg/dL (7-18) H Creatinine 2.0 MG/DL (0.55-1.30) H Estimat Glomerular Filtration Rate 32.8 mL/min (>60) Glucose Level 116 MG/DL (74-106) H Lactic Acid Level 2.60 mmol/L (0.4-2.0) H Uric Acid 7.7 MG/DL (2.6-7.2) H Calcium Level 6.3 MG/DL (8.5-10.1) L Phosphorus Level 6.4 MG/DL (2.5-4.9) H Magnesium Level 1.9 MG/DL (1.8-2.4) Total Bilirubin 1.9 MG/DL (0.2-1.0) H Direct Bilirubin 1.5 MG/DL (0.0-0.3) H Aspartate Amino Transf (AST/SGOT) 47 U/L (15-37) H Alanine Aminotransferase (ALT/SGPT) 38 U/L (12-78) Alkaline Phosphatase 176 U/L (46-116) H Troponin I 0.483 ng/mL (0.000-0.056) C-Reactive Protein, Quantitative 39.9 mg/dL (0.00-0.90) H Pro-B-Type Natriuretic Peptide > 36548 pg/mL (0-125) H Total Protein 5.6 G/DL (6.4-8.2) L Albumin 2.0 G/DL (3.4-5.0) L Globulin 3.6 g/dL Albumin/Globulin Ratio 0.6 (1.0-2.7) L Vitamin D 25-Hydroxy Pending 25-Hydroxy Vitamin D2 Pending 25-Hydroxy Vitamin D3 Pending Random Amikacin Level Pending Arterial Blood pH 7.214 (7.350-7.450) Arterial Blood Partial Pressure CO2 33.8 mmHg (35.0-45.0) L Arterial Blood Partial Pressure O2 70.2 mmHg (75.0-100.0) L Arterial Blood HCO3 13.3 mmol/L (22.0-26.0) *L Arterial Blood Oxygen Saturation 92.1 % (95-100) L Arterial Blood Base Excess -13.4 (-2-2) *L Jose Test Positive Plan Problems: (1) Anemia (2) Sepsis Assessment & Plan: 44-year-old female with altered mental status, lactic acidosis, leukocytosis, sepsis. Vitals currently stable. Abdominal exam mild distention but limited. Will obtain imaging. Labs noted UTI on antibiotics fluid resuscitation trend labs we will follow with examination and recommendations. CT head reviewed. No acute intracranial hemorrhage. No midline shift or mass effect. The territorial hassan-white matter differentiation is maintained throughout. The ventricles and sulci are commensurate with age. The visualized orbits appear grossly unremarkable. The calvarium is intact. The visualized paranasal sinuses and mastoid air cells are grossly clear. (3) UTI (urinary tract infection) (4) VALERIA (acute kidney injury) (5) Acute metabolic encephalopathy Archie Saavedra Nov 10, 2020 12:37
--- NOTE | 2020-11-10 12:38 | Nephrology Progress Note ---
Assessment/Plan Problem List: (1) VALERIA (acute kidney injury) (2) Septic shock (3) Multiple sclerosis (4) Acute metabolic encephalopathy (5) Anemia (6) Electrolyte imbalance Assessment Acute renal failure Sepsis, shock Acute metabolic encephalopathy Anemia UTI Plan November 10 labs reviewed. Serum creatinine 2. Patient more lethargic today. NG tube and feeding through NG to be initiated. Patient full code. Continue to monitor renal parameters. November 09: Low magnesium replaced. IV iron ordered. Labs reviewed. Albumin bolus given. Serum creatinine higher to 2.3. Continue current management. Patient full code. Previously: ICU Pressors Hydrate Monitor renal parameters and electrolytes Anemia work-up Avoid nephrotoxic's Subjective ROS Limited/Unobtainable: Yes Objective Objective Last 24 Hour Vital Signs Date Time Temp Pulse Resp B/P (MAP) Pulse Ox O2 Delivery O2 Flow Rate FiO2 11/10/20 10:20 117 28 101/55 (70) 98 11/10/20 10:00 114 28 101/52 (68) 97 11/10/20 10:00 116 28 99/55 (70) 100 11/10/20 09:30 117 28 101/55 (70) 97 11/10/20 09:30 116 30 99/51 (67) 98 11/10/20 09:00 117 29 102/53 (69) 96 11/10/20 09:00 97/53 11/10/20 08:45 118 30 97 11/10/20 08:30 114 28 108/57 (74) 96 11/10/20 08:15 115 31 96 11/10/20 08:00 100.9 115 29 108/59 (75) 96 11/10/20 08:00 103/62 11/10/20 08:00 114 11/10/20 07:45 114 29 96 11/10/20 07:30 115 30 103/59 (74) 95 11/10/20 07:15 115 30 95 11/10/20 07:00 107/58 11/10/20 07:00 115 30 107/58 (74) 95 11/10/20 06:15 28 104/58 (73) 94 11/10/20 06:00 115 29 102/59 (73) 95 11/10/20 06:00 102/59 11/10/20 05:45 Nasal Cannula 2.0 11/10/20 05:45 116 29 106/61 (76) 94 11/10/20 05:30 116 28 95/59 (71) 95 11/10/20 05:15 115 29 110/57 (74) 94 11/10/20 05:00 115 30 115/61 (79) 89 11/10/20 05:00 115/61 11/10/20 04:48 113/64 11/10/20 04:45 115 31 113/64 (80) 89 11/10/20 04:30 115 30 115/62 (79) 89 11/10/20 04:15 114 29 104/63 (77) 89 11/10/20 04:00 115 11/10/20 04:00 101.7 114 29 110/62 (78) 90 11/10/20 04:00 Nasal Cannula 2.0 11/10/20 04:00 110/62 11/10/20 03:30 115 29 114/62 (79) 91 11/10/20 03:00 115/63 11/10/20 03:00 115 30 115/63 (80) 92 11/10/20 02:30 114 29 115/65 (82) 11/10/20 02:15 114 29 115/66 (82) 11/10/20 02:00 112/70 11/10/20 02:00 111 29 114/66 (82) 95 11/10/20 01:55 110 29 115/65 (82) 97 11/10/20 01:50 106 29 112/65 (81) 96 11/10/20 01:45 106 29 110/62 (78) 95 11/10/20 01:40 105 29 114/58 (76) 95 11/10/20 01:35 104 28 117/59 (78) 96 11/10/20 01:30 104 29 110/64 (79) 97 11/10/20 01:25 102 28 111/64 (80) 96 11/10/20 01:20 103 28 114/67 (83) 95 11/10/20 01:15 102 28 115/66 (82) 95 11/10/20 01:10 102 29 111/64 (80) 96 11/10/20 01:05 102 29 112/63 (79) 100 11/10/20 01:00 114/67 11/10/20 01:00 102 29 113/62 (79) 97 11/10/20 00:45 102 29 116/63 (80) 99 11/10/20 00:40 102 27 117/61 (79) 96 11/10/20 00:35 102 29 120/60 (80) 97 11/10/20 00:30 102 28 112/65 (81) 90 11/10/20 00:25 102 29 117/61 (79) 95 11/10/20 00:20 101 27 112/65 (81) 95 11/10/20 00:15 102 27 118/64 (82) 94 11/10/20 00:10 101 29 113/66 (82) 96 11/10/20 00:05 102 28 110/62 (78) 97 11/10/20 00:00 99.2 101 28 115/62 (79) 92 11/10/20 00:00 115/68 11/10/20 00:00 114 11/10/20 00:00 Room Air 11/09/20 23:55 103 28 121/62 (81) 94 11/09/20 23:50 103 27 119/63 (81) 100 11/09/20 23:45 102 27 117/67 (84) 97 11/09/20 23:40 102 28 116/71 (86) 98 11/09/20 23:35 101 29 120/64 (82) 100 11/09/20 23:30 102 27 119/67 (84) 93 11/09/20 23:25 102 26 116/65 (82) 95 11/09/20 23:20 102 28 118/65 (82) 94 11/09/20 23:15 102 28 114/64 (81) 95 11/09/20 23:10 102 27 118/70 (86) 11/09/20 23:05 102 27 116/65 (82) 11/09/20 23:00 116/62 11/09/20 23:00 102 26 116/62 (80) 96 11/09/20 22:55 101 26 116/64 (81) 11/09/20 22:50 102 27 116/63 (80) 11/09/20 22:45 102 27 113/65 (81) 52 11/09/20 22:40 102 28 114/60 (78) 11/09/20 22:35 102 27 114/65 (81) 94 11/09/20 22:30 102 27 113/62 (79) 11/09/20 22:25 102 27 114/63 (80) 99 11/09/20 22:20 101 27 115/64 (81) 11/09/20 22:15 102 26 112/63 (79) 11/09/20 22:10 102 26 112/64 (80) 11/09/20 22:05 102 26 114/61 (78) 11/09/20 22:00 102 27 115/65 (82) 11/09/20 22:00 115/65 11/09/20 21:55 102 26 115/66 (82) 95 11/09/20 21:50 102 25 113/64 (80) 98 11/09/20 21:45 102 26 112/69 (83) 96 11/09/20 21:40 103 26 115/67 (83) 97 11/09/20 21:35 102 27 115/64 (81) 95 11/09/20 21:30 101 25 116/64 (81) 96 11/09/20 21:25 102 25 114/62 (79) 96 11/09/20 21:20 103 25 114/62 (79) 98 11/09/20 21:15 102 26 116/63 (80) 94 11/09/20 21:00 107/66 11/09/20 21:00 102 25 107/66 (80) 96 11/09/20 20:55 103 24 106/65 (79) 96 11/09/20 20:50 103 25 109/65 (80) 96 11/09/20 20:45 102 25 107/60 (76) 98 11/09/20 20:40 102 24 99/56 (70) 94 11/09/20 20:35 102 25 101/56 (71) 94 11/09/20 20:31 92 22 100 Room Air 21 88 24 96 11/09/20 20:30 103 24 93/58 (70) 94 11/09/20 20:25 103 24 91/55 (67) 93 11/09/20 20:21 91/53 11/09/20 20:20 103 24 91/53 (66) 92 11/09/20 20:15 104 25 101/57 (72) 92 11/09/20 20:10 105 25 100/57 (71) 93 11/09/20 20:05 106 25 110/58 (75) 92 11/09/20 20:04 Room Air 21 11/09/20 20:00 99.1 106 24 119/59 (79) 93 11/09/20 20:00 119/59 11/09/20 20:00 116 11/09/20 20:00 Room Air 11/09/20 19:45 106 22 118/69 (85) 91 11/09/20 19:30 106 23 120/68 (85) 92 11/09/20 19:15 105 21 121/69 (86) 92 11/09/20 19:00 103 24 118/64 (82) 95 11/09/20 18:00 105 21 108/65 (79) 97 11/09/20 17:30 108 23 108/72 (84) 97 11/09/20 17:00 105 23 108/50 (69) 97 11/09/20 16:15 128 23 110/61 (77) 11/09/20 16:12 129 25 114/62 (79) 91 11/09/20 16:00 128 11/09/20 16:00 Room Air 11/09/20 16:00 127 24 116/66 (83) 11/09/20 16:00 129 11/09/20 15:45 124 21 118/76 (90) 11/09/20 15:30 127 23 122/94 (103) 88 11/09/20 15:30 129 26 118/76 (90) 88 11/09/20 15:15 124 25 119/65 (83) 11/09/20 15:00 123 24 108/71 (83) 11/09/20 15:00 120 26 101/77 (85) 11/09/20 14:45 120 24 118/76 (90) 11/09/20 14:30 120 26 101/77 (85) 11/09/20 14:30 120 26 101/77 (85) 11/09/20 14:15 120 24 114/59 (77) 87 11/09/20 14:15 120 24 114/59 (77) 87 11/09/20 14:00 107 23 104/78 (87) 11/09/20 14:00 107 23 104/78 (87) 11/09/20 13:45 116 25 101/70 (80) 11/09/20 13:30 116 22 85/66 (72) 11/09/20 13:15 117 24 99/76 (84) 87 11/09/20 13:00 118 23 101/75 (84) 81 11/09/20 13:00 118 23 101/75 (84) 81 11/09/20 12:45 118 19 102/82 (89) 88 11/09/20 12:45 118 19 102/82 (89) 88 Intake and Output 11/09/20 11/10/20 19:00 07:00 Intake Total 2911.070 ml 1991.836 ml Output Total 1920 ml 2115 ml Balance 991.070 ml -123.164 ml IV Total 2911.070 ml 1991.836 ml Output Urine Total 1920 ml 1515 ml Stool Total 300 ml Gastric Drainage Total 300 ml # Bowel Movements 11 Current Medications Medications (Trade) Dose Ordered Sig/Bunny Route PRN Reason Start Time Stop Time Status Last Admin Dose Admin Acetaminophen (Tylenol) 650 mg PRN PRN RECTAL TEMP>100.5 11/08/20 06:00 Acetaminophen (Tylenol) 650 mg Q4H PRN NG Temp >100.5 11/10/20 05:15 12/10/20 05:14 11/10/20 05:21 Acetaminophen (Tylenol) 650 mg Q4H PRN RECTAL Mild Pain (Pain Scale 1-3) 11/08/20 09:15 12/08/20 09:14 Amikacin Protocol (Amikacin pharmacy to dose) 1 ea DAILY PRN MISC Per rx protocol 11/09/20 12:45 12/09/20 12:44 Amikacin Sulfate 1000 mg/Sodium Chloride 114 ml @ 114 mls/hr Q48H IV 11/09/20 17:00 11/16/20 16:59 11/09/20 19:46 Barium Sulfate (Readi-Cat 2) 450 ml NOW PRN ORAL Radiology Procedure 11/09/20 18:45 11/11/20 18:44 Chlorhexidine Gluconate (Carmen-Hex 2%) 1 applic DAILY@2000 TOPIC 11/09/20 20:00 02/07/21 19:59 11/09/20 20:44 Heparin Sodium (Porcine) (Heparin 5000 units/ml) 5,000 units EVERY 8 HOURS SUBQ 11/08/20 22:00 12/23/20 21:59 11/10/20 05:20 Hydrocortisone (Solu-CORTEF) 100 mg EVERY 8 HOURS IV 11/08/20 22:00 02/06/21 21:59 11/10/20 05:19 Iron Sucrose 100 mg/Sodium Chloride 60 ml @ 240 mls/hr BEDTIME IVPB 11/10/20 21:00 11/14/20 21:14 Meropenem 1 gm/ Sodium Chloride 100 ml @ 200 mls/hr Q12H IVPB 11/09/20 16:00 11/14/20 15:59 11/10/20 04:48 Metronidazole 100 ml @ 100 mls/hr Q8HR IVPB 11/09/20 14:00 11/16/20 13:59 11/10/20 05:19 Norepinephrine Bitartrate 16 mg/ Dextrose 566 ml @ 0 mls/hr Q24H IV 11/08/20 15:15 11/11/20 15:14 11/10/20 04:48 Pantoprazole (Protonix) 40 mg Q12HR IVP 11/09/20 21:00 12/09/20 08:59 11/10/20 09:59 Phenylephrine HCl 100 mg/Dextrose 250 ml @ 0 mls/hr Q24H IV 11/09/20 00:15 11/12/20 00:14 11/09/20 08:30 Sodium Bicarbonate 50 ml/ Dextrose 1,050 ml @ 50 mls/hr Q21H IV 11/10/20 12:00 12/10/20 11:59 11/10/20 11:47 Tramadol HCl (Ultram) 50 mg Q6H PRN ORAL For Pain 11/08/20 22:15 11/15/20 22:14 11/09/20 19:27 Vancomycin HCl (Vanco pharmacy to dose) 1 ea DAILY PRN MISC Per rx protocol 11/08/20 17:45 12/08/20 17:44 Vasopressin 100 units/Sodium Chloride 100 ml @ 0.6 mls/hr Q24H IV 11/08/20 19:30 11/11/20 19:16 11/08/20 19:52 Laboratory Tests 11/10/20 05:00: White Blood Count 55.8*H, Red Blood Count 3.14L, Hemoglobin 8.7L, Hematocrit 28.1L, Mean Corpuscular Volume 89, Mean Corpuscular Hemoglobin 27.7, Mean Corpuscular Hemoglobin Concent 30.9L, Red Cell Distribution Width 18.3H, Platelet Count 92#L, Mean Platelet Volume 9.3, Neutrophils (%) (Auto) , Lymphocytes (%) (Auto) , Monocytes (%) (Auto) , Eosinophils (%) (Auto) , Basophils (%) (Auto) , Differential Total Cells Counted 100, Neutrophils % (Manual) 89H, Lymphocytes % (Manual) 1L, Monocytes % (Manual) 5, Eosinophils % (Manual) 0, Basophils % (Manual) 0, Band Neutrophils 5, Platelet Estimate DecreasedL, Platelet Morphology Normal, Hypochromasia 1+, Anisocytosis 1+, Sodium Level 136, Potassium Level 3.5, Chloride Level 106, Carbon Dioxide Level 14L, Anion Gap 16H, Blood Urea Nitrogen 43H, Creatinine 2.0H, Estimat Glomerular Filtration Rate 32.8, Glucose Level 116H, Lactic Acid Level 2.60H, Uric Acid 7.7H, Calcium Level 6.3L, Phosphorus Level 6.4H, Magnesium Level 1.9, Total Bilirubin 1.9H, Direct Bilirubin 1.5H, Aspartate Amino Transf (AST/SGOT) 47H, Alanine Aminotransferase (ALT/SGPT) 38, Alkaline Phosphatase 176H, Troponin I 0.483H, C-Reactive Protein, Quantitative 39.9H, Pro-B-Type Natriuretic Peptide > [id number], Total Protein 5.6L, Albumin 2.0L, Globulin 3.6, Albumin/Globulin Ratio 0.6L, Vitamin D 25-Hydroxy [Pending], 25-Hydroxy Vitamin D2 [Pending], 25- Hydroxy Vitamin D3 [Pending], Random Amikacin Level [Pending] 11/10/20 07:51: Arterial Blood pH 7.214*L, Arterial Blood Partial Pressure CO2 33.8L, Arterial Blood Partial Pressure O2 70.2L, Arterial Blood HCO3 13.3*L, Arterial Blood Oxygen Saturation 92.1L, Arterial Blood Base Excess -13.4*L, Jose Test Positive Height (Feet): 5 Height (Inches): 5.00 Weight (Pounds): 165 General Appearance: no apparent distress, lethargic Cardiovascular: tachycardia Respiratory/Chest: decreased breath sounds Abdomen: distended Bridger Mari MD Nov 10, 2020 12:38
--- NOTE | 2020-11-10 14:14 | Diagnostic Imaging Report ---
EXAM: CT Abdomen and Pelvis Without Intravenous Contrast CLINICAL HISTORY: ABD DIST TECHNIQUE: Axial computed tomography images of the abdomen and pelvis without intravenous contrast. CTDI is 12.60 mGy and DLP is 704.20 mGy-cm. One or more of the following dose reduction techniques were used: automated exposure control, adjustment of the mA and/or kV according to patient size, use of iterative reconstruction technique. COMPARISON: No relevant prior studies available. FINDINGS: Limitations: Limited noncontrast study. Lung bases: Bibasilar consolidation. Pleural space: Bilateral pleural effusions. ABDOMEN: Liver: Unremarkable Gallbladder and bile ducts: Cholelithiasis and nonspecific gallbladder wall edema in light of the third spacing. Pancreas: Stranding around the pancreas, could be from pancreatitis or the third spacing. Correlate with amylase or lipase values as clinically appropriate. Spleen: Unremarkable. Adrenals: Unremarkable. Kidneys and ureters: Right nephrolithiasis. Stomach and bowel: Nonspecific bowel gas pattern. Nonspecific thickening of the GI tract in light of the third spacing. PELVIS: Appendix: No findings to suggest acute appendicitis. Bladder: Duffy catheter. Reproductive: Exophytic fibroid versus complex left adnexal lesion measuring approximately 4.1 cm. Subperitoneal space: Presacral edema. ABDOMEN and PELVIS: Intraperitoneal space: Edema throughout the peritoneal cavity. Small amounts of fluid in the peritoneal cavity. Bones/joints: No acute fracture. Soft tissues: Anasarca Vasculature: Unremarkable. No abdominal aortic aneurysm. Lymph nodes: No enlarged lymph nodes. Tubes, lines and devices: Rectal tube. Right femoral central line. Enteric tube in the stomach. IMPRESSION: 1. Cholelithiasis and nonspecific gallbladder wall edema in light of the third spacing. 2. Nonspecific bowel gas pattern.
[2020-11-10] MEDS ORDERED: D5W IV SCH (17:00)
[2020-11-10] MEDS ORDERED: AMIKACIN IV SCH (17:00)
--- NOTE | 2020-11-10 17:03 | Internal Med Progress Note ---
Subjective Date of Service: Nov 10, 2020 Physician Name Jad Sarabai Attending Physician Kris Cormier MD Current Medications Medications (Trade) Dose Ordered Sig/Bunny Route PRN Reason Start Time Stop Time Status Last Admin Dose Admin Acetaminophen (Tylenol) 650 mg PRN PRN RECTAL TEMP>100.5 11/08/20 06:00 Acetaminophen (Tylenol) 650 mg Q4H PRN NG Temp >100.5 11/10/20 05:15 12/10/20 05:14 11/10/20 05:21 Acetaminophen (Tylenol) 650 mg Q4H PRN RECTAL Mild Pain (Pain Scale 1-3) 11/08/20 09:15 12/08/20 09:14 Amikacin Protocol (Amikacin pharmacy to dose) 1 ea DAILY PRN MISC Per rx protocol 11/09/20 12:45 12/09/20 12:44 Amikacin Sulfate 350 mg/Dextrose 51.4 ml @ 102.8 mls/ hr Q12H IV 11/10/20 17:00 11/17/20 16:59 Barium Sulfate (Readi-Cat 2) 450 ml NOW PRN ORAL Radiology Procedure 11/09/20 18:45 11/11/20 18:44 Chlorhexidine Gluconate (Carmen-Hex 2%) 1 applic DAILY@2000 TOPIC 11/09/20 20:00 02/07/21 19:59 11/09/20 20:44 Heparin Sodium (Porcine) (Heparin 5000 units/ml) 5,000 units EVERY 8 HOURS SUBQ 11/08/20 22:00 12/23/20 21:59 11/10/20 05:20 Hydrocortisone (Solu-CORTEF) 100 mg EVERY 8 HOURS IV 11/08/20 22:00 02/06/21 21:59 11/10/20 14:54 Iron Sucrose 100 mg/Sodium Chloride 60 ml @ 240 mls/hr BEDTIME IVPB 11/10/20 21:00 11/14/20 21:14 Meropenem 1 gm/ Sodium Chloride 100 ml @ 200 mls/hr Q12H IVPB 11/09/20 16:00 11/14/20 15:59 11/10/20 16:19 Metronidazole 100 ml @ 100 mls/hr Q8HR IVPB 11/09/20 14:00 11/16/20 13:59 11/10/20 14:53 Norepinephrine Bitartrate 16 mg/ Dextrose 566 ml @ 0 mls/hr Q24H IV 11/08/20 15:15 11/11/20 15:14 11/10/20 04:48 Pantoprazole (Protonix) 40 mg Q12HR IVP 11/09/20 21:00 12/09/20 08:59 11/10/20 09:59 Phenylephrine HCl 100 mg/Dextrose 250 ml @ 0 mls/hr Q24H IV 11/09/20 00:15 11/12/20 00:14 11/09/20 08:30 Sodium Bicarbonate 50 ml/ Dextrose 1,050 ml @ 50 mls/hr Q21H IV 11/10/20 12:00 12/10/20 11:59 11/10/20 11:47 Tramadol HCl (Ultram) 50 mg Q6H PRN ORAL For Pain 11/08/20 22:15 11/15/20 22:14 11/09/20 19:27 Vancomycin HCl ([facility] pharmacy to dose) 1 ea DAILY PRN MISC Per rx protocol 11/08/20 17:45 12/08/20 17:44 Vasopressin 100 units/Sodium Chloride 100 ml @ 0.6 mls/hr Q24H IV 11/08/20 19:30 11/11/20 19:16 11/08/20 19:52 Allergies: Coded Allergies: No Known Allergies (Unverified , 11/08/20) ROS Limited/Unobtainable: Yes Subjective 44 YO F admitted with altered mental status. Now sepsis. Cover for Int Med-DR Cormier. ICU Objective Last Vital Signs Date Time Temp Pulse Resp B/P (MAP) Pulse Ox O2 Delivery O2 Flow Rate FiO2 11/10/20 16:30 115 28 113/72 (86) 98 11/10/20 16:00 98.6 11/10/20 16:00 Nasal Cannula 2.0 11/09/20 20:31 21 Laboratory Tests Test 11/10/20 05:00 11/10/20 07:51 11/10/20 12:44 White Blood Count 55.8 K/UL (4.8-10.8) *H Red Blood Count 3.14 M/UL (4.20-5.40) L Hemoglobin 8.7 G/DL (12.0-16.0) L Hematocrit 28.1 % (37.0-47.0) L Mean Corpuscular Volume 89 FL (80-99) Mean Corpuscular Hemoglobin 27.7 PG (27.0-31.0) Mean Corpuscular Hemoglobin Concent 30.9 G/DL (32.0-36.0) L Red Cell Distribution Width 18.3 % (11.6-14.8) H Platelet Count 92 K/UL (150-450) #L Mean Platelet Volume 9.3 FL (6.5-10.1) Neutrophils (%) (Auto) % (45.0-75.0) Lymphocytes (%) (Auto) % (20.0-45.0) Monocytes (%) (Auto) % (1.0-10.0) Eosinophils (%) (Auto) % (0.0-3.0) Basophils (%) (Auto) % (0.0-2.0) Differential Total Cells Counted 100 Neutrophils % (Manual) 89 % (45-75) H Lymphocytes % (Manual) 1 % (20-45) L Monocytes % (Manual) 5 % (1-10) Eosinophils % (Manual) 0 % (0-3) Basophils % (Manual) 0 % (0-2) Band Neutrophils 5 % (0-8) Platelet Estimate Decreased L Platelet Morphology Normal Hypochromasia 1+ Anisocytosis 1+ Sodium Level 136 MMOL/L (136-145) Potassium Level 3.5 MMOL/L (3.5-5.1) Chloride Level 106 MMOL/L (98-107) Carbon Dioxide Level 14 MMOL/L (21-32) L Anion Gap 16 mmol/L (5-15) H Blood Urea Nitrogen 43 mg/dL (7-18) H Creatinine 2.0 MG/DL (0.55-1.30) H Estimat Glomerular Filtration Rate 32.8 mL/min (>60) Glucose Level 116 MG/DL (74-106) H Lactic Acid Level 2.60 mmol/L (0.4-2.0) H 3.00 mmol/L (0.66-2.22) H Uric Acid 7.7 MG/DL (2.6-7.2) H Calcium Level 6.3 MG/DL (8.5-10.1) L Phosphorus Level 6.4 MG/DL (2.5-4.9) H Magnesium Level 1.9 MG/DL (1.8-2.4) Total Bilirubin 1.9 MG/DL (0.2-1.0) H Direct Bilirubin 1.5 MG/DL (0.0-0.3) H Aspartate Amino Transf (AST/SGOT) 47 U/L (15-37) H Alanine Aminotransferase (ALT/SGPT) 38 U/L (12-78) Alkaline Phosphatase 176 U/L (46-116) H Troponin I 0.483 ng/mL (0.000-0.056) C-Reactive Protein, Quantitative 39.9 mg/dL (0.00-0.90) H Pro-B-Type Natriuretic Peptide > 01102 pg/mL (0-125) H Total Protein 5.6 G/DL (6.4-8.2) L Albumin 2.0 G/DL (3.4-5.0) L Globulin 3.6 g/dL Albumin/Globulin Ratio 0.6 (1.0-2.7) L Vitamin D 25-Hydroxy Pending 25-Hydroxy Vitamin D2 Pending 25-Hydroxy Vitamin D3 Pending Random Amikacin Level 20.8 MG/L Arterial Blood pH 7.214 (7.350-7.450) Arterial Blood Partial Pressure CO2 33.8 mmHg (35.0-45.0) L Arterial Blood Partial Pressure O2 70.2 mmHg (75.0-100.0) L Arterial Blood HCO3 13.3 mmol/L (22.0-26.0) *L Arterial Blood Oxygen Saturation 92.1 % (95-100) L Arterial Blood Base Excess -13.4 (-2-2) *L Jose Test Positive Microbiology Date/Time Source Procedure Growth Status 11/09/20 23:45 Stool Clostridium difficile Toxin Assay - Final Complete 11/08/20 14:15 Blood Blood Culture - Final Escherichia Coli - Esbl Complete 11/08/20 14:00 Blood Blood Culture - Final Escherichia Coli - Esbl Complete 11/08/20 04:49 Nasal Nares MRSA Culture - Final NO METHICILLIN RESISTANT STAPH AUREUS... Complete 11/08/20 04:30 Nasopharynx Coronavirus COVID-19 PCR ([facility]) - Final Complete Intake and Output 11/09/20 11/10/20 19:00 07:00 Intake Total 2911.070 ml 1991.836 ml Output Total 1920 ml 2115 ml Balance 991.070 ml -123.164 ml IV Total 2911.070 ml 1991.836 ml Output Urine Total 1920 ml 1515 ml Stool Total 300 ml Gastric Drainage Total 300 ml # Bowel Movements 11 Objective PHYSICAL EXAMINATION: GENERAL: Patient is altered, unresponsive, cannot follow commands. HEAD AND NECK: Pupils are equal and reactive to light. Anicteric. Neck was supple. No JVD. LUNGS: Good air entry. No wheezing or rhonchi. Decreased air in the bases. HEART: S1, S2. No murmur or gallops. ABDOMEN: Soft, nondistended, nontender. Positive bowel sounds. EXTREMITIES: No cyanosis, clubbing, or edema. NEUROLOGIC: Very limited secondary to patient's status. Cannot follow commands. However, moving extremities spontaneously. SKIN: No rashes were identified. Assessment/Plan Assessment/Plan Assessment/Plan Assessment/Plan 1. Septic shock=ESBL E. coli 2. Sepsis secondary to urinary tract infection, but can not R/O intraabdominal infection yet. 3. Dehydration and hypokalemia. 4. Altered mental status, most likely secondary to toxic metabolic encephalopathy. 5. Acute kidney injury. 6. Anemia. 7. History of multiple sclerosis. PLAN: In ICU. IV hydration. Monitor laboratory and cultures. DVT prophylaxis: heparin subcutaneous. 2D echo. Code status: Full Code. Abx: Meropenem IV, Flagyl, and Amikacin On hydrocortisone IV. Pressors: Phenylephrine , Levophed, and Vasopressor Dr. Kline from [facility], Dr. Nat Courtney from ID, Dr. Grant from Cardiology, and Dr. Bridger Mari from Nephrology. Jad Sarabia MD Nov 10, 2020 17:03
--- NOTE | 2020-11-10 17:06 | Cardiology Progress Note ---
Assessment/Plan Assessment/Plan sepsis, elevated WBC, ? ci dif? or perforation Subjective Subjective the patient is lethargic Objective Last 24 Hour Vital Signs Date Time Temp Pulse Resp B/P (MAP) Pulse Ox O2 Delivery O2 Flow Rate FiO2 11/10/20 16:30 115 28 113/72 (86) 98 11/10/20 16:00 115 11/10/20 16:00 113/72 11/10/20 16:00 98.6 113 28 116/70 (85) 98 113 11/10/20 16:00 Nasal Cannula 2.0 11/10/20 15:30 112 27 114/70 (85) 98 112 11/10/20 15:00 116 26 115/70 (85) 98 116 11/10/20 15:00 116/72 11/10/20 14:30 118 28 118/69 (85) 98 118 11/10/20 14:00 113/64 11/10/20 14:00 125 28 113/64 (80) 99 11/10/20 13:50 114/58 (76) 11/10/20 13:00 115/67 11/10/20 13:00 113 29 117/69 (85) 100 11/10/20 12:30 112 28 113/65 (81) 100 11/10/20 12:00 113 11/10/20 12:00 121/70 11/10/20 12:00 99.0 111 29 110/68 (82) 100 11/10/20 12:00 114 27 117/69 (85) 100 11/10/20 12:00 Nasal Cannula 2.0 11/10/20 11:30 116 30 115/68 (84) 100 11/10/20 11:00 116 24 118/68 (85) 100 11/10/20 11:00 118/68 11/10/20 10:30 116 28 105/55 (72) 99 11/10/20 10:20 117 28 101/55 (70) 98 11/10/20 10:00 114 28 101/52 (68) 97 11/10/20 10:00 98/55 11/10/20 10:00 116 28 99/55 (70) 100 11/10/20 09:30 117 28 101/55 (70) 97 11/10/20 09:30 116 30 99/51 (67) 98 11/10/20 09:00 117 29 102/53 (69) 96 11/10/20 09:00 97/53 11/10/20 08:45 118 30 97 11/10/20 08:30 114 28 108/57 (74) 96 11/10/20 08:15 115 31 96 11/10/20 08:00 100.9 115 29 108/59 (75) 96 11/10/20 08:00 103/62 11/10/20 08:00 Nasal Cannula 2.0 11/10/20 08:00 114 11/10/20 07:45 114 29 96 11/10/20 07:30 115 30 103/59 (74) 95 11/10/20 07:15 115 30 95 11/10/20 07:00 107/58 11/10/20 07:00 115 30 107/58 (74) 95 11/10/20 06:15 28 104/58 (73) 94 11/10/20 06:00 115 29 102/59 (73) 95 11/10/20 06:00 102/59 11/10/20 05:45 Nasal Cannula 2.0 11/10/20 05:45 116 29 106/61 (76) 94 11/10/20 05:30 116 28 95/59 (71) 95 11/10/20 05:15 115 29 110/57 (74) 94 11/10/20 05:00 115 30 115/61 (79) 89 11/10/20 05:00 115/61 11/10/20 04:48 113/64 11/10/20 04:45 115 31 113/64 (80) 89 11/10/20 04:30 115 30 115/62 (79) 89 11/10/20 04:15 114 29 104/63 (77) 89 11/10/20 04:00 115 11/10/20 04:00 101.7 114 29 110/62 (78) 90 11/10/20 04:00 Nasal Cannula 2.0 11/10/20 04:00 110/62 11/10/20 03:30 115 29 114/62 (79) 91 11/10/20 03:00 115/63 11/10/20 03:00 115 30 115/63 (80) 92 11/10/20 02:30 114 29 115/65 (82) 11/10/20 02:15 114 29 115/66 (82) 11/10/20 02:00 112/70 11/10/20 02:00 111 29 114/66 (82) 95 11/10/20 01:55 110 29 115/65 (82) 97 11/10/20 01:50 106 29 112/65 (81) 96 11/10/20 01:45 106 29 110/62 (78) 95 11/10/20 01:40 105 29 114/58 (76) 95 11/10/20 01:35 104 28 117/59 (78) 96 11/10/20 01:30 104 29 110/64 (79) 97 11/10/20 01:25 102 28 111/64 (80) 96 11/10/20 01:20 103 28 114/67 (83) 95 11/10/20 01:15 102 28 115/66 (82) 95 11/10/20 01:10 102 29 111/64 (80) 96 11/10/20 01:05 102 29 112/63 (79) 100 11/10/20 01:00 114/67 11/10/20 01:00 102 29 113/62 (79) 97 11/10/20 00:45 102 29 116/63 (80) 99 11/10/20 00:40 102 27 117/61 (79) 96 11/10/20 00:35 102 29 120/60 (80) 97 11/10/20 00:30 102 28 112/65 (81) 90 11/10/20 00:25 102 29 117/61 (79) 95 11/10/20 00:20 101 27 112/65 (81) 95 11/10/20 00:15 102 27 118/64 (82) 94 11/10/20 00:10 101 29 113/66 (82) 96 11/10/20 00:05 102 28 110/62 (78) 97 11/10/20 00:00 99.2 101 28 115/62 (79) 92 11/10/20 00:00 115/68 11/10/20 00:00 114 11/10/20 00:00 Room Air 11/09/20 23:55 103 28 121/62 (81) 94 11/09/20 23:50 103 27 119/63 (81) 100 11/09/20 23:45 102 27 117/67 (84) 97 11/09/20 23:40 102 28 116/71 (86) 98 11/09/20 23:35 101 29 120/64 (82) 100 11/09/20 23:30 102 27 119/67 (84) 93 11/09/20 23:25 102 26 116/65 (82) 95 11/09/20 23:20 102 28 118/65 (82) 94 11/09/20 23:15 102 28 114/64 (81) 95 11/09/20 23:10 102 27 118/70 (86) 11/09/20 23:05 102 27 116/65 (82) 11/09/20 23:00 116/62 11/09/20 23:00 102 26 116/62 (80) 96 11/09/20 22:55 101 26 116/64 (81) 11/09/20 22:50 102 27 116/63 (80) 11/09/20 22:45 102 27 113/65 (81) 52 11/09/20 22:40 102 28 114/60 (78) 11/09/20 22:35 102 27 114/65 (81) 94 11/09/20 22:30 102 27 113/62 (79) 11/09/20 22:25 102 27 114/63 (80) 99 11/09/20 22:20 101 27 115/64 (81) 11/09/20 22:15 102 26 112/63 (79) 11/09/20 22:10 102 26 112/64 (80) 11/09/20 22:05 102 26 114/61 (78) 11/09/20 22:00 102 27 115/65 (82) 11/09/20 22:00 115/65 11/09/20 21:55 102 26 115/66 (82) 95 11/09/20 21:50 102 25 113/64 (80) 98 11/09/20 21:45 102 26 112/69 (83) 96 11/09/20 21:40 103 26 115/67 (83) 97 11/09/20 21:35 102 27 115/64 (81) 95 11/09/20 21:30 101 25 116/64 (81) 96 11/09/20 21:25 102 25 114/62 (79) 96 11/09/20 21:20 103 25 114/62 (79) 98 11/09/20 21:15 102 26 116/63 (80) 94 11/09/20 21:00 107/66 11/09/20 21:00 102 25 107/66 (80) 96 11/09/20 20:55 103 24 106/65 (79) 96 11/09/20 20:50 103 25 109/65 (80) 96 11/09/20 20:45 102 25 107/60 (76) 98 11/09/20 20:40 102 24 99/56 (70) 94 11/09/20 20:35 102 25 101/56 (71) 94 11/09/20 20:31 92 22 100 Room Air 21 88 24 96 11/09/20 20:30 103 24 93/58 (70) 94 11/09/20 20:25 103 24 91/55 (67) 93 11/09/20 20:21 91/53 11/09/20 20:20 103 24 91/53 (66) 92 11/09/20 20:15 104 25 101/57 (72) 92 11/09/20 20:10 105 25 100/57 (71) 93 11/09/20 20:05 106 25 110/58 (75) 92 11/09/20 20:04 Room Air 21 11/09/20 20:00 99.1 106 24 119/59 (79) 93 11/09/20 20:00 119/59 11/09/20 20:00 116 11/09/20 20:00 Room Air 11/09/20 19:45 106 22 118/69 (85) 91 11/09/20 19:30 106 23 120/68 (85) 92 11/09/20 19:15 105 21 121/69 (86) 92 11/09/20 19:00 103 24 118/64 (82) 95 11/09/20 18:00 105 21 108/65 (79) 97 11/09/20 17:30 108 23 108/72 (84) 97 General Appearance: other - in severe distress looks very ill EENT: PERRL/EOMI Neck: supple Cardiovascular: regular rhythm, systolic murmur Respiratory/Chest: rhonchi - left Abdomen: distended, rebound Intake and Output 11/09/20 11/10/20 19:00 07:00 Intake Total 2911.070 ml 1991.836 ml Output Total 1920 ml 2115 ml Balance 991.070 ml -123.164 ml IV Total 2911.070 ml 1991.836 ml Output Urine Total 1920 ml 1515 ml Stool Total 300 ml Gastric Drainage Total 300 ml # Bowel Movements 11 Laboratory Tests Test 11/10/20 05:00 11/10/20 07:51 11/10/20 12:44 White Blood Count 55.8 K/UL (4.8-10.8) *H Red Blood Count 3.14 M/UL (4.20-5.40) L Hemoglobin 8.7 G/DL (12.0-16.0) L Hematocrit 28.1 % (37.0-47.0) L Mean Corpuscular Volume 89 FL (80-99) Mean Corpuscular Hemoglobin 27.7 PG (27.0-31.0) Mean Corpuscular Hemoglobin Concent 30.9 G/DL (32.0-36.0) L Red Cell Distribution Width 18.3 % (11.6-14.8) H Platelet Count 92 K/UL (150-450) #L Mean Platelet Volume 9.3 FL (6.5-10.1) Neutrophils (%) (Auto) % (45.0-75.0) Lymphocytes (%) (Auto) % (20.0-45.0) Monocytes (%) (Auto) % (1.0-10.0) Eosinophils (%) (Auto) % (0.0-3.0) Basophils (%) (Auto) % (0.0-2.0) Differential Total Cells Counted 100 Neutrophils % (Manual) 89 % (45-75) H Lymphocytes % (Manual) 1 % (20-45) L Monocytes % (Manual) 5 % (1-10) Eosinophils % (Manual) 0 % (0-3) Basophils % (Manual) 0 % (0-2) Band Neutrophils 5 % (0-8) Platelet Estimate Decreased L Platelet Morphology Normal Hypochromasia 1+ Anisocytosis 1+ Sodium Level 136 MMOL/L (136-145) Potassium Level 3.5 MMOL/L (3.5-5.1) Chloride Level 106 MMOL/L (98-107) Carbon Dioxide Level 14 MMOL/L (21-32) L Anion Gap 16 mmol/L (5-15) H Blood Urea Nitrogen 43 mg/dL (7-18) H Creatinine 2.0 MG/DL (0.55-1.30) H Estimat Glomerular Filtration Rate 32.8 mL/min (>60) Glucose Level 116 MG/DL (74-106) H Lactic Acid Level 2.60 mmol/L (0.4-2.0) H 3.00 mmol/L (0.66-2.22) H Uric Acid 7.7 MG/DL (2.6-7.2) H Calcium Level 6.3 MG/DL (8.5-10.1) L Phosphorus Level 6.4 MG/DL (2.5-4.9) H Magnesium Level 1.9 MG/DL (1.8-2.4) Total Bilirubin 1.9 MG/DL (0.2-1.0) H Direct Bilirubin 1.5 MG/DL (0.0-0.3) H Aspartate Amino Transf (AST/SGOT) 47 U/L (15-37) H Alanine Aminotransferase (ALT/SGPT) 38 U/L (12-78) Alkaline Phosphatase 176 U/L (46-116) H Troponin I 0.483 ng/mL (0.000-0.056) C-Reactive Protein, Quantitative 39.9 mg/dL (0.00-0.90) H Pro-B-Type Natriuretic Peptide > 65849 pg/mL (0-125) H Total Protein 5.6 G/DL (6.4-8.2) L Albumin 2.0 G/DL (3.4-5.0) L Globulin 3.6 g/dL Albumin/Globulin Ratio 0.6 (1.0-2.7) L Vitamin D 25-Hydroxy Pending 25-Hydroxy Vitamin D2 Pending 25-Hydroxy Vitamin D3 Pending Random Amikacin Level 20.8 MG/L Arterial Blood pH 7.214 (7.350-7.450) Arterial Blood Partial Pressure CO2 33.8 mmHg (35.0-45.0) L Arterial Blood Partial Pressure O2 70.2 mmHg (75.0-100.0) L Arterial Blood HCO3 13.3 mmol/L (22.0-26.0) *L Arterial Blood Oxygen Saturation 92.1 % (95-100) L Arterial Blood Base Excess -13.4 (-2-2) *L Jose Test Positive Microbiology Date/Time Source Procedure Growth Status 11/09/20 23:45 Stool Clostridium difficile Toxin Assay - Final Complete 11/08/20 14:15 Blood Blood Culture - Final Escherichia Coli - Esbl Complete 11/08/20 14:00 Blood Blood Culture - Final Escherichia Coli - Esbl Complete 11/08/20 04:49 Nasal Nares MRSA Culture - Final NO METHICILLIN RESISTANT STAPH AUREUS... Complete 11/08/20 04:30 Nasopharynx Coronavirus COVID-19 PCR ([facility]) - Final Complete Jessica Lema MD Nov 10, 2020 17:06
[2020-11-10] MEDS: Vasopressin 100 UNITS in NS 95 ML IV SCH (19:30)
--- NOTE | 2020-11-10 19:30 | Infectious Diseases Prog Note ---
Assessment/Plan Assessment/Plan Full consult dictated: A) 1) sepsis, shock, e.coli bacteremia 2) ? GI source, urinalysis not c/w uti, ? cholecystitis, CT abdomen noted 3) covid-19 + with pna, ? HCAP/CAP pna, hypoxia 4) fevers, leukocytosis, sirs, VALERIA 5) c.diff. - negative P) 1) vancomycin, meropenem, on steroids, not a good candidate for remdesivir with VALERIA - cr - 2.0 2) f/u on cultures, labs, chest x-ray 3) abdominal US, surgery f/u 4) will f/u 5) icu care Subjective Allergies: Coded Allergies: No Known Allergies (Unverified , 11/08/20) Objective Last 24 Hour Vital Signs Date Time Temp Pulse Resp B/P (MAP) Pulse Ox O2 Delivery O2 Flow Rate FiO2 11/10/20 18:30 112 28 108/64 (79) 100 11/10/20 18:00 115 27 117/72 (87) 99 11/10/20 17:30 117/72 11/10/20 17:30 114 29 112/72 (85) 99 11/10/20 17:00 112/72 11/10/20 17:00 114 31 112/72 (85) 98 11/10/20 16:30 115 28 113/72 (86) 98 11/10/20 16:30 113/72 11/10/20 16:00 115 11/10/20 16:00 113/72 11/10/20 16:00 98.6 113 28 116/70 (85) 98 113 11/10/20 16:00 Nasal Cannula 2.0 11/10/20 15:30 112 27 114/70 (85) 98 112 11/10/20 15:00 116 26 115/70 (85) 98 116 11/10/20 15:00 116/72 11/10/20 14:30 118 28 118/69 (85) 98 118 11/10/20 14:00 113/64 11/10/20 14:00 125 28 113/64 (80) 99 11/10/20 13:50 114/58 (76) 11/10/20 13:00 115/67 11/10/20 13:00 113 29 117/69 (85) 100 2/13/21 12:30 112 28 113/65 (81) 100 11/10/20 12:00 113 11/10/20 12:00 121/70 11/10/20 12:00 99.0 111 29 110/68 (82) 100 11/10/20 12:00 114 27 117/69 (85) 100 11/10/20 12:00 Nasal Cannula 2.0 11/10/20 11:30 116 30 115/68 (84) 100 11/10/20 11:00 116 24 118/68 (85) 100 11/10/20 11:00 118/68 11/10/20 10:30 116 28 105/55 (72) 99 11/10/20 10:20 117 28 101/55 (70) 98 11/10/20 10:00 114 28 101/52 (68) 97 11/10/20 10:00 98/55 11/10/20 10:00 116 28 99/55 (70) 100 11/10/20 09:30 117 28 101/55 (70) 97 11/10/20 09:30 116 30 99/51 (67) 98 11/10/20 09:00 117 29 102/53 (69) 96 11/10/20 09:00 97/53 11/10/20 08:45 118 30 97 11/10/20 08:30 114 28 108/57 (74) 96 11/10/20 08:15 115 31 96 11/10/20 08:00 100.9 115 29 108/59 (75) 96 11/10/20 08:00 103/62 11/10/20 08:00 Nasal Cannula 2.0 11/10/20 08:00 114 11/10/20 07:45 114 29 96 11/10/20 07:30 115 30 103/59 (74) 95 11/10/20 07:15 115 30 95 11/10/20 07:00 107/58 11/10/20 07:00 115 30 107/58 (74) 95 11/10/20 06:15 28 104/58 (73) 94 11/10/20 06:00 115 29 102/59 (73) 95 11/10/20 06:00 102/59 11/10/20 05:45 Nasal Cannula 2.0 11/10/20 05:45 116 29 106/61 (76) 94 11/10/20 05:30 116 28 95/59 (71) 95 11/10/20 05:15 115 29 110/57 (74) 94 11/10/20 05:00 115 30 115/61 (79) 89 11/10/20 05:00 115/61 11/10/20 04:48 113/64 11/10/20 04:45 115 31 113/64 (80) 89 11/10/20 04:30 115 30 115/62 (79) 89 11/10/20 04:15 114 29 104/63 (77) 89 11/10/20 04:00 115 11/10/20 04:00 101.7 114 29 110/62 (78) 90 11/10/20 04:00 Nasal Cannula 2.0 11/10/20 04:00 110/62 11/10/20 03:30 115 29 114/62 (79) 91 11/10/20 03:00 115/63 11/10/20 03:00 115 30 115/63 (80) 92 11/10/20 02:30 114 29 115/65 (82) 11/10/20 02:15 114 29 115/66 (82) 11/10/20 02:00 112/70 11/10/20 02:00 111 29 114/66 (82) 95 11/10/20 01:55 110 29 115/65 (82) 97 11/10/20 01:50 106 29 112/65 (81) 96 11/10/20 01:45 106 29 110/62 (78) 95 11/10/20 01:40 105 29 114/58 (76) 95 11/10/20 01:35 104 28 117/59 (78) 96 11/10/20 01:30 104 29 110/64 (79) 97 11/10/20 01:25 102 28 111/64 (80) 96 11/10/20 01:20 103 28 114/67 (83) 95 11/10/20 01:15 102 28 115/66 (82) 95 11/10/20 01:10 102 29 111/64 (80) 96 11/10/20 01:05 102 29 112/63 (79) 100 11/10/20 01:00 114/67 11/10/20 01:00 102 29 113/62 (79) 97 11/10/20 00:45 102 29 116/63 (80) 99 11/10/20 00:40 102 27 117/61 (79) 96 11/10/20 00:35 102 29 120/60 (80) 97 11/10/20 00:30 102 28 112/65 (81) 90 11/10/20 00:25 102 29 117/61 (79) 95 11/10/20 00:20 101 27 112/65 (81) 95 11/10/20 00:15 102 27 118/64 (82) 94 11/10/20 00:10 101 29 113/66 (82) 96 11/10/20 00:05 102 28 110/62 (78) 97 11/10/20 00:00 99.2 101 28 115/62 (79) 92 11/10/20 00:00 115/68 11/10/20 00:00 114 11/10/20 00:00 Room Air 11/09/20 23:55 103 28 121/62 (81) 94 11/09/20 23:50 103 27 119/63 (81) 100 11/09/20 23:45 102 27 117/67 (84) 97 11/09/20 23:40 102 28 116/71 (86) 98 11/09/20 23:35 101 29 120/64 (82) 100 11/09/20 23:30 102 27 119/67 (84) 93 11/09/20 23:25 102 26 116/65 (82) 95 11/09/20 23:20 102 28 118/65 (82) 94 11/09/20 23:15 102 28 114/64 (81) 95 11/09/20 23:10 102 27 118/70 (86) 11/09/20 23:05 102 27 116/65 (82) 11/09/20 23:00 116/62 11/09/20 23:00 102 26 116/62 (80) 96 11/09/20 22:55 101 26 116/64 (81) 11/09/20 22:50 102 27 116/63 (80) 11/09/20 22:45 102 27 113/65 (81) 52 11/09/20 22:40 102 28 114/60 (78) 11/09/20 22:35 102 27 114/65 (81) 94 11/09/20 22:30 102 27 113/62 (79) 11/09/20 22:25 102 27 114/63 (80) 99 11/09/20 22:20 101 27 115/64 (81) 11/09/20 22:15 102 26 112/63 (79) 11/09/20 22:10 102 26 112/64 (80) 11/09/20 22:05 102 26 114/61 (78) 11/09/20 22:00 102 27 115/65 (82) 11/09/20 22:00 115/65 11/09/20 21:55 102 26 115/66 (82) 95 11/09/20 21:50 102 25 113/64 (80) 98 11/09/20 21:45 102 26 112/69 (83) 96 11/09/20 21:40 103 26 115/67 (83) 97 11/09/20 21:35 102 27 115/64 (81) 95 11/09/20 21:30 101 25 116/64 (81) 96 11/09/20 21:25 102 25 114/62 (79) 96 11/09/20 21:20 103 25 114/62 (79) 98 11/09/20 21:15 102 26 116/63 (80) 94 11/09/20 21:00 107/66 11/09/20 21:00 102 25 107/66 (80) 96 11/09/20 20:55 103 24 106/65 (79) 96 11/09/20 20:50 103 25 109/65 (80) 96 11/09/20 20:45 102 25 107/60 (76) 98 11/09/20 20:40 102 24 99/56 (70) 94 11/09/20 20:35 102 25 101/56 (71) 94 11/09/20 20:31 92 22 100 Room Air 21 88 24 96 11/09/20 20:30 103 24 93/58 (70) 94 11/09/20 20:25 103 24 91/55 (67) 93 11/09/20 20:21 91/53 11/09/20 20:20 103 24 91/53 (66) 92 11/09/20 20:15 104 25 101/57 (72) 92 11/09/20 20:10 105 25 100/57 (71) 93 11/09/20 20:05 106 25 110/58 (75) 92 11/09/20 20:04 Room Air 21 11/09/20 20:00 99.1 106 24 119/59 (79) 93 11/09/20 20:00 119/59 11/09/20 20:00 116 11/09/20 20:00 Room Air 11/09/20 19:45 106 22 118/69 (85) 91 11/09/20 19:30 106 23 120/68 (85) 92 Height (Feet): 5 Height (Inches): 5.00 Weight (Pounds): 165 Microbiology Date/Time Source Procedure Growth Status 11/09/20 23:45 Stool Clostridium difficile Toxin Assay - Final Complete 11/08/20 14:15 Blood Blood Culture - Final Escherichia Coli - Esbl Complete 11/08/20 14:00 Blood Blood Culture - Final Escherichia Coli - Esbl Complete 11/08/20 04:49 Nasal Nares MRSA Culture - Final NO METHICILLIN RESISTANT STAPH AUREUS... Complete 11/08/20 04:30 Nasopharynx Coronavirus COVID-19 PCR (VANIA) - Final Complete Laboratory Tests Test 11/10/20 05:00 11/10/20 07:51 11/10/20 12:44 White Blood Count 55.8 K/UL (4.8-10.8) *H Red Blood Count 3.14 M/UL (4.20-5.40) L Hemoglobin 8.7 G/DL (12.0-16.0) L Hematocrit 28.1 % (37.0-47.0) L Mean Corpuscular Volume 89 FL (80-99) Mean Corpuscular Hemoglobin 27.7 PG (27.0-31.0) Mean Corpuscular Hemoglobin Concent 30.9 G/DL (32.0-36.0) L Red Cell Distribution Width 18.3 % (11.6-14.8) H Platelet Count 92 K/UL (150-450) #L Mean Platelet Volume 9.3 FL (6.5-10.1) Neutrophils (%) (Auto) % (45.0-75.0) Lymphocytes (%) (Auto) % (20.0-45.0) Monocytes (%) (Auto) % (1.0-10.0) Eosinophils (%) (Auto) % (0.0-3.0) Basophils (%) (Auto) % (0.0-2.0) Differential Total Cells Counted 100 Neutrophils % (Manual) 89 % (45-75) H Lymphocytes % (Manual) 1 % (20-45) L Monocytes % (Manual) 5 % (1-10) Eosinophils % (Manual) 0 % (0-3) Basophils % (Manual) 0 % (0-2) Band Neutrophils 5 % (0-8) Platelet Estimate Decreased L Platelet Morphology Normal Hypochromasia 1+ Anisocytosis 1+ Sodium Level 136 MMOL/L (136-145) Potassium Level 3.5 MMOL/L (3.5-5.1) Chloride Level 106 MMOL/L (98-107) Carbon Dioxide Level 14 MMOL/L (21-32) L Anion Gap 16 mmol/L (5-15) H Blood Urea Nitrogen 43 mg/dL (7-18) H Creatinine 2.0 MG/DL (0.55-1.30) H Estimat Glomerular Filtration Rate 32.8 mL/min (>60) Glucose Level 116 MG/DL (74-106) H Lactic Acid Level 2.60 mmol/L (0.4-2.0) H 3.00 mmol/L (0.66-2.22) H Uric Acid 7.7 MG/DL (2.6-7.2) H Calcium Level 6.3 MG/DL (8.5-10.1) L Phosphorus Level 6.4 MG/DL (2.5-4.9) H Magnesium Level 1.9 MG/DL (1.8-2.4) Total Bilirubin 1.9 MG/DL (0.2-1.0) H Direct Bilirubin 1.5 MG/DL (0.0-0.3) H Aspartate Amino Transf (AST/SGOT) 47 U/L (15-37) H Alanine Aminotransferase (ALT/SGPT) 38 U/L (12-78) Alkaline Phosphatase 176 U/L (46-116) H Troponin I 0.483 ng/mL (0.000-0.056) C-Reactive Protein, Quantitative 39.9 mg/dL (0.00-0.90) H Pro-B-Type Natriuretic Peptide > 80348 pg/mL (0-125) H Total Protein 5.6 G/DL (6.4-8.2) L Albumin 2.0 G/DL (3.4-5.0) L Globulin 3.6 g/dL Albumin/Globulin Ratio 0.6 (1.0-2.7) L Vitamin D 25-Hydroxy Pending 25-Hydroxy Vitamin D2 Pending 25-Hydroxy Vitamin D3 Pending Random Amikacin Level 20.8 MG/L Arterial Blood pH 7.214 (7.350-7.450) Arterial Blood Partial Pressure CO2 33.8 mmHg (35.0-45.0) L Arterial Blood Partial Pressure O2 70.2 mmHg (75.0-100.0) L Arterial Blood HCO3 13.3 mmol/L (22.0-26.0) *L Arterial Blood Oxygen Saturation 92.1 % (95-100) L Arterial Blood Base Excess -13.4 (-2-2) *L Jose Test Positive Current Medications Medications (Trade) Dose Ordered Sig/Bunny Route PRN Reason Start Time Stop Time Status Last Admin Dose Admin Acetaminophen (Tylenol) 650 mg PRN PRN RECTAL TEMP>100.5 11/08/20 06:00 Acetaminophen (Tylenol) 650 mg Q4H PRN NG Temp >100.5 11/10/20 05:15 12/10/20 05:14 11/10/20 05:21 Acetaminophen (Tylenol) 650 mg Q4H PRN RECTAL Mild Pain (Pain Scale 1-3) 11/08/20 09:15 12/08/20 09:14 Amikacin Protocol (Amikacin pharmacy to dose) 1 ea DAILY PRN MISC Per rx protocol 11/09/20 12:45 12/09/20 12:44 Amikacin Sulfate 350 mg/Dextrose 51.4 ml @ 102.8 mls/ hr Q12H IV 11/10/20 17:00 11/17/20 16:59 11/10/20 17:41 Barium Sulfate (Readi-Cat 2) 450 ml NOW PRN ORAL Radiology Procedure 11/09/20 18:45 11/11/20 18:44 Chlorhexidine Gluconate (Carmen-Hex 2%) 1 applic DAILY@2000 TOPIC 11/09/20 20:00 02/07/21 19:59 11/09/20 20:44 Heparin Sodium (Porcine) (Heparin 5000 units/ml) 5,000 units EVERY 8 HOURS SUBQ 11/08/20 22:00 12/23/20 21:59 11/10/20 05:20 Hydrocortisone (Solu-CORTEF) 100 mg EVERY 8 HOURS IV 11/08/20 22:00 02/06/21 21:59 11/10/20 14:54 Iron Sucrose 100 mg/Sodium Chloride 60 ml @ 240 mls/hr BEDTIME IVPB 11/10/20 21:00 11/14/20 21:14 Meropenem 1 gm/ Sodium Chloride 100 ml @ 200 mls/hr Q12H IVPB 11/09/20 16:00 11/14/20 15:59 11/10/20 16:19 Metronidazole 100 ml @ 100 mls/hr Q8HR IVPB 11/09/20 14:00 11/16/20 13:59 11/10/20 14:53 Norepinephrine Bitartrate 16 mg/ Dextrose 566 ml @ 0 mls/hr Q24H IV 11/08/20 15:15 11/11/20 15:14 11/10/20 04:48 Pantoprazole (Protonix) 40 mg Q12HR IVP 11/09/20 21:00 12/09/20 08:59 11/10/20 09:59 Phenylephrine HCl 100 mg/Dextrose 250 ml @ 0 mls/hr Q24H IV 11/09/20 00:15 11/12/20 00:14 11/09/20 08:30 Sodium Bicarbonate 50 ml/ Dextrose 1,050 ml @ 50 mls/hr Q21H IV 11/10/20 12:00 12/10/20 11:59 11/10/20 11:47 Tramadol HCl (Ultram) 50 mg Q6H PRN ORAL For Pain 11/08/20 22:15 11/15/20 22:14 11/09/20 19:27 Vancomycin HCl (Vanco pharmacy to dose) 1 ea DAILY PRN MISC Per rx protocol 11/08/20 17:45 12/08/20 17:44 Vasopressin 100 units/Sodium Chloride 100 ml @ 0.6 mls/hr Q24H IV 11/08/20 19:30 11/11/20 19:16 11/08/20 19:52 Nat Courtney MD Nov 10, 2020 19:30
[2020-11-10] MEDS: traMADol 50mg tab ORAL PRN (20:00)
[2020-11-10] MEDS: Dyna-Hex 2% Top Sol 2oz TOPIC SCH (20:15)
[2020-11-10] MEDS: Iron Sucrose 100 MG in NS 55 ML IVPB SCH (20:15)
[2020-11-10] MEDS: Doxycycline Hyclate 100 MG in D5W 110 ML IV SCH (20:16)
--- NOTE | 2020-11-10 22:29 | Consultation ---
DATE OF CONSULTATION: 11/10/2020 INFECTIOUS DISEASE CONSULTATION CONSULTING PHYSICIAN: Nat Courtney MD ATTENDING PHYSICIAN: Kris Cormier MD REFERRING PHYSICIAN: Kris Cormier MD REASON FOR CONSULTATION: E. coli bacteremia, septic shock, leukocytosis, fevers, COVID-19 infection, pneumonia, hypoxia, possible cholecystitis, and biliary sepsis. CHIEF COMPLAINT: The patient's chief complaint coming in the hospital is septic shock, pneumonia, and shortness of breath. HISTORY OF PRESENT ILLNESS: This is a 44-year-old female who has a history of multiple sclerosis. The patient presented to [facility] with septic shock. The patient was noted to have altered mental status and was unresponsive. I believe the patient comes from [facility], I believe [facility]. The patient's workup shows that she has E coli bacteremia and ESBL. The patient's C. diff is negative. White count was as high as 57,000. COVID nasopharyngeal molecular testing was positive or COVID testing was positive. The patient on chest x-ray has pneumonia. Initial one was negative; however, followup chest x-ray shows bilateral infiltrates. The patient is high risk for aspiration healthcare-acquired pneumonia versus community-acquired pneumonia. I saw the patient yesterday and put on multiple antibiotics including meropenem, amikacin, and vancomycin. The patient will be continued on meropenem, vanco, and the patient is on steroids. The patient also has acute renal failure, limited use of remdesivir at this time. The patient currently is in COVID isolation. The patient's urinalysis is unremarkable for UTI. CT scan of the abdomen and pelvis was noted and will be discussed. REVIEW OF SYSTEMS: CONSTITUTIONAL: The patient was on pressors yesterday. She was febrile on admission. She is not a very good historian because of her sepsis. Otherwise, she is in COVID isolation. Generalized fatigue. Weakness noted. Fevers on admission. She was on pressors yesterday, not on pressors. She is currently not on a vent. HEAD AND NECK: No obvious head pain and neck pain. CARDIAC: No pressors. GASTROINTESTINAL: No nausea, vomiting, or diarrhea. GENITOURINARY: She has a Duffy. PULMONARY: Mild shortness of breath with cough, congestion. SKIN: No rash. EXTREMITIES: No leg or joint pain that is obvious. NEUROLOGIC: No seizure activity. PAST MEDICAL HISTORY: The patient has a past medical history of multiple sclerosis, hypertension, acute kidney injury, anemia, and as discussed COVID infection in August and has had vaccinations. Consider COVID recovered in the past. ALLERGIES: The patient has no known drug allergies. No antibiotic allergies. SOCIAL HISTORY: Negative for smoking, alcohol, or drug abuse. FAMILY HISTORY: Negative for tuberculosis or cancer. MEDICATIONS: Upon reviewing the MAR, she is on following medications. She was on amikacin, which I discontinued. She is currently on vanco and meropenem. She is also on steroids. Other medications, she on IV fluids. She was on Flagyl that was discontinued. I am going to start her on doxycycline. She was on pressors and tramadol. She is on hydrocortisone. She was on vasopressin, I believe it was discontinued; norepinephrine, discontinued; acetaminophen; and antibiotics. Currently we will place her on vanco, meropenem, and doxycycline, and again she is on steroids. Outside medications were noted and reconciliated. PHYSICAL EXAMINATION: VITAL SIGNS: Currently temperature 98.6, pulse rate 112, respiratory 28, blood pressure 108/64, and saturation 100% on 2 liters. She was on pressors. She is off pressors. Her maximum temperature was 103.5. GENERAL: Weak, responsive. HEAD AND NECK: Oral exam, no thrush. Eye exam, no icterus. Normocephalic. Neck is supple. No JVD. HEART: Regular. No obvious gallop or murmur. ABDOMEN: Soft. Positive bowel sounds. Some distention. No rebound. LUNGS: Bilateral rhonchi and rales. SKIN: No rash or dermatitis. MUSCULOSKELETAL: No effusions. Legs are without cellulitis. PERIPHERAL VASCULAR: No cyanosis or gangrene. GENITOURINARY: She has a Duffy. Urine is clear. LINE SITES: Without phlebitis. NEUROLOGIC: Generalized weakness and responsive. LABORATORY DATA: Laboratory data as follows: White count 55.8 and hemoglobin 8.7. White count yesterday 57.6. Creatinine 2.0. LFTs were noted. AST 47, ALT 38, total bilirubin 1.9, alkaline phosphatase 176. Lactic acid as high as 11.0, now 3.0. MRSA screen negative. COVID testing positive by nasopharyngeal molecular testing. C. diff negative. Blood cultures with ESBL E. coli. The ESBL E. coli and blood cultures sensitive to meropenem. IMAGING STUDIES: Initial chest x-ray showed no acute disease. Followup chest x-ray showed new increased bilateral streaky infiltrates. CT scan of the abdomen and pelvis showed cholelithiasis with nonspecific gallbladder wall edema. ASSESSMENT AND PLAN: 1. The patient has septic shock. Most likely reason for septic shock is E. coli bacteremia. The patient has severe sepsis with elevated white count over 50,000, fevers, SIRS criteria. With regard to the source of the E. coli bacteremia, it is unclear at this time. UA with leukocyte esterase negative with only 1+ leukocyte esterase, 0 to 2 white cells. Nitrite was positive. Unclear if biliary source such as cholecystitis even though it is not clear on CT scan and pelvis with abdominal ultrasound. Again, the patient could have UTI with positive nitrite and positive leukocyte esterase. At this time, the patient also could have aspiration healthcare-acquired pneumonia versus community-acquired pneumonia. We will continue antibiotics, vanco, and meropenem for MRSA and gram-negative coverage. Continue doxycycline for atypical coverage. Continue vanco and meropenem and doxycycline for E. coli bacteremia, possible aspiration healthcare-acquired pneumonia versus community-acquired pneumonia, for possible cholecystitis, for possible UTI, for septic shock, leukocytosis, and fevers secondary to E. coli bacteremia. Continue antibiotics. Check cultures, labs, chest x-ray. Check surveillance blood cultures. Check urine culture. 2. COVID infection in the past. The patient has positive COVID testing at this time. The patient is on steroids. Not a candidate for remdesivir, especially she has had old COVID and in addition, she has elevated creatinine. Continue steroids for now. Continue COVID isolation. Monitor the patient's hypoxia. Check followup labs and chest x-ray. Continue proper PPE and isolation for COVID infection. 3. Multiple sclerosis. 4. Weakness. 5. Acute kidney injury, elevated creatinine. 6. Hypertension. 7. Anemia. 8. Steroids. 9. No history of diabetes. 10. Continue treatment with primary consultants. 11. No known drug allergies. 12. Social history negative. 13. Family history is noncontributory. 14. MAR is noted. 15. Case was discussed with RN. 16. ICU care. 17. Skin care protocol. 18. Currently off pressors. 19. No vent currently. Nat Courtney M.D. DR: Marcus JOB#: [id number] CC:
[2020-11-10] MEDS: Phenylephrine 100 MG in D5W 240 ML IV SCH (23:16)
[2020-11-11] VITALS (69 sets, daily range): BP systolic 112–153; BP diastolic 71–105
[2020-11-11] MEDS: Heparin 5000 units/ml inj SUBQ SCH ×2 (05:34→14:00)
[2020-11-11] MEDS: Hydrocortisone 100mg Inj IV SCH ×3 (05:34→21:20)
[2020-11-11 06:57] LABS: HEMATOCRIT 26.5 % (37.0-47.0); MEAN CORPUSCULAR VOLUME 87 FL (80-99); PLATELET COUNT 58 K/UL (150-450); RED BLOOD COUNT 3.03 M/UL (4.20-5.40); RED CELL DISTRIBUTION WIDTH 17.9 % (11.6-14.8)
[2020-11-11 07:09] LABS: WHITE BLOOD COUNT 40.9 K/UL (4.8-10.8)
[2020-11-11 07:31] LABS: AMYLASE 60 U/L (25-115)
[2020-11-11 07:37] LABS: ALBUMIN 1.9 G/DL (3.4-5.0); ALBUMIN/GLOBULIN RATIO 0.5 (1.0-2.7); BILIRUBIN,TOTAL 1.8 MG/DL (0.2-1.0); CREATININE 1.9 MG/DL (0.55-1.30)
[2020-11-11 07:48] LABS: POTASSIUM 2.4 MMOL/L (3.5-5.1)
[2020-11-11 07:49] LABS: BILIRUBIN,DIRECT 1.3 MG/DL (0.0-0.3)
--- NOTE | 2020-11-11 08:00 | Pulmonology Progress Note ---
Subjective ROS Limited/Unobtainable: Yes Interval Events: Saturating well on low flow O2 Constitutional: Reports: no symptoms HEENT: Repors: no symptoms Respiratory: Reports: no symptoms Cardiovascular: Reports: no symptoms Gastrointestinal/Abdominal: Reports: no symptoms Allergies: Coded Allergies: No Known Allergies (Unverified , 11/08/20) Objective Last 24 Hour Vital Signs Date Time Temp Pulse Resp B/P (MAP) Pulse Ox O2 Delivery O2 Flow Rate FiO2 11/11/20 06:30 102 29 112/74 (87) 100 11/11/20 06:15 102 26 115/74 (88) 100 11/11/20 06:00 105 27 118/78 (91) 100 11/11/20 05:45 106 24 116/71 (86) 99 11/11/20 05:30 107 39 115/75 (88) 100 11/11/20 05:15 109 29 116/83 (94) 100 11/11/20 05:00 110 26 121/73 (89) 100 11/11/20 04:45 116 26 131/84 (100) 97 11/11/20 04:30 107 28 126/81 (96) 97 11/11/20 04:15 107 26 121/79 (93) 91 11/11/20 04:00 Nasal Cannula 2.0 11/11/20 04:00 98.2 103 25 123/82 (96) 96 11/11/20 03:45 109 11/11/20 03:45 109 28 125/78 (94) 94 11/11/20 03:30 108 27 130/77 (94) 97 11/11/20 03:15 107 27 127/76 (93) 94 11/11/20 03:00 105 24 125/79 (94) 96 11/11/20 02:45 104 25 122/78 (93) 99 11/11/20 02:30 107 26 125/77 (93) 99 11/11/20 02:15 103 26 123/78 (93) 100 11/11/20 02:00 108 27 120/86 (97) 100 11/11/20 01:45 107 26 112/87 (95) 99 11/11/20 01:30 108 27 120/80 (93) 98 11/11/20 01:15 109 26 120/78 (92) 98 11/11/20 01:00 111 30 125/81 (96) 97 11/11/20 00:45 112 29 125/75 (92) 98 11/11/20 00:30 113 27 124/78 (93) 97 11/11/20 00:15 114 26 129/78 (95) 96 11/11/20 00:00 Nasal Cannula 2.0 11/11/20 00:00 98.0 111 23 119/75 (90) 99 11/10/20 23:45 109 28 116/75 (89) 99 11/10/20 23:30 108 26 114/71 (85) 100 11/10/20 23:16 105 115/72 11/10/20 23:15 106 25 115/72 (86) 100 11/10/20 23:13 105 11/10/20 23:00 106 27 117/72 (87) 99 11/10/20 22:45 105 25 108/72 (84) 99 11/10/20 22:30 107 28 117/73 (88) 99 11/10/20 22:15 109 28 115/73 (87) 99 11/10/20 22:00 109 27 124/76 (92) 98 11/10/20 21:45 25 114/74 (87) 99 11/10/20 21:30 25 116/70 (85) 98 11/10/20 21:15 24 119/68 (85) 99 11/10/20 21:00 28 112/71 (85) 99 11/10/20 20:45 26 119/71 (87) 100 11/10/20 20:30 25 108/64 (79) 100 11/10/20 20:15 26 108/65 (79) 100 11/10/20 20:00 Nasal Cannula 2.0 11/10/20 20:00 98.0 27 119/65 (83) 100 11/10/20 19:45 26 106/65 (79) 100 11/10/20 19:30 26 112/63 (79) 100 11/10/20 19:21 110 11/10/20 19:15 25 107/60 (76) 100 11/10/20 19:00 26 103/62 (76) 100 11/10/20 18:30 112 28 108/64 (79) 100 11/10/20 18:00 115 27 117/72 (87) 99 11/10/20 17:30 117/72 11/10/20 17:30 114 29 112/72 (85) 99 11/10/20 17:00 112/72 11/10/20 17:00 114 31 112/72 (85) 98 11/10/20 16:30 115 28 113/72 (86) 98 11/10/20 16:30 113/72 11/10/20 16:00 115 11/10/20 16:00 113/72 11/10/20 16:00 98.6 113 28 116/70 (85) 98 113 11/10/20 16:00 Nasal Cannula 2.0 11/10/20 15:30 112 27 114/70 (85) 98 112 11/10/20 15:00 116 26 115/70 (85) 98 116 11/10/20 15:00 116/72 11/10/20 14:30 118 28 118/69 (85) 98 118 11/10/20 14:00 113/64 11/10/20 14:00 125 28 113/64 (80) 99 11/10/20 13:50 114/58 (76) 11/10/20 13:00 115/67 11/10/20 13:00 113 29 117/69 (85) 100 11/10/20 12:30 112 28 113/65 (81) 100 11/10/20 12:00 113 11/10/20 12:00 121/70 11/10/20 12:00 99.0 111 29 110/68 (82) 100 11/10/20 12:00 114 27 117/69 (85) 100 11/10/20 12:00 Nasal Cannula 2.0 11/10/20 11:30 116 30 115/68 (84) 100 11/10/20 11:00 116 24 118/68 (85) 100 11/10/20 11:00 118/68 11/10/20 10:30 116 28 105/55 (72) 99 11/10/20 10:20 117 28 101/55 (70) 98 11/10/20 10:00 114 28 101/52 (68) 97 11/10/20 10:00 98/55 11/10/20 10:00 116 28 99/55 (70) 100 11/10/20 09:30 117 28 101/55 (70) 97 11/10/20 09:30 116 30 99/51 (67) 98 11/10/20 09:00 117 29 102/53 (69) 96 11/10/20 09:00 97/53 11/10/20 08:45 118 30 97 11/10/20 08:30 114 28 108/57 (74) 96 11/10/20 08:15 115 31 96 11/10/20 08:00 100.9 115 29 108/59 (75) 96 11/10/20 08:00 103/62 11/10/20 08:00 Nasal Cannula 2.0 11/10/20 08:00 114 Intake and Output 11/10/20 11/11/20 19:00 07:00 Intake Total 1249.680 ml 895 ml Output Total 2800 ml 1385 ml Balance -1550.320 ml -490 ml Intake Oral 400 ml IV Total 789.680 ml 550 ml Tube Feeding 60 ml 345 ml Output Urine Total 2400 ml 1385 ml Stool Total 400 ml # Bowel Movements 4 15 General Appearance: WD/WN HEENT: normocephalic Respiratory: chest wall non-tender Cardiovascular: normal peripheral pulses Abdomen: soft, non tender Microbiology Date/Time Source Procedure Growth Status 11/10/20 05:09 Blood Blood Culture - Preliminary Resulted 11/10/20 05:00 Blood Blood Culture - Preliminary Resulted 11/09/20 23:45 Stool Clostridium difficile Toxin Assay - Final Complete 11/08/20 14:15 Blood Blood Culture - Final Escherichia Coli - Esbl Complete 11/08/20 14:00 Blood Blood Culture - Final Escherichia Coli - Esbl Complete Laboratory Tests 11/10/20 12:44: Lactic Acid Level 3.00H 11/11/20 05:45: Lactic Acid Level 2.00, White Blood Count 40.9*H, Red Blood Count 3.03L, Hemoglobin 8.0L, Hematocrit 26.5L, Mean Corpuscular Volume 87, Mean Corpuscular Hemoglobin 26.2L, Mean Corpuscular Hemoglobin Concent 30.0L, Red Cell Distribution Width 17.9H, Platelet Count 58L, Mean Platelet Volume 12.5H, Neutrophils (%) (Auto) , Lymphocytes (%) (Auto) , Monocytes (%) (Auto) , Eosinophils (%) (Auto) , Basophils (%) (Auto) , Neutrophils % (Manual) [Pending], Lymphocytes % (Manual) [Pending], Platelet Estimate [Pending], Platelet Morphology [Pending], Erythrocyte Sedimentation Rate [Pending], Sodium Level 144, Potassium Level 2.4*L, Chloride Level 110H, Carbon Dioxide Level 17L, Anion Gap 17H, Blood Urea Nitrogen 38H, Creatinine 1.9H, Estimat Glomerular Filtration Rate 34.8, Glucose Level 87, Uric Acid [Pending], Calcium Level 7.0L, Phosphorus Level 5.0H, Magnesium Level 1.9, Total Bilirubin 1.8H, Direct Bilirubin 1.3H, Aspartate Amino Transf (AST/SGOT) 48H, Alanine Aminotransferase (ALT/SGPT) 40, Alkaline Phosphatase 228H, C-Reactive Protein, Quantitative 37.2H , Pro-B-Type Natriuretic Peptide > 78477P, Total Protein 5.8L, Albumin 1.9L, Globulin 3.9, Albumin/Globulin Ratio 0.5L, Amylase Level 60, Lipase 160, Random Vancomycin Level 11.6 Current Medications Medications (Trade) Dose Ordered Sig/Bunny Route PRN Reason Start Time Stop Time Status Last Admin Dose Admin Acetaminophen (Tylenol) 650 mg PRN PRN RECTAL TEMP>100.5 11/08/20 06:00 Acetaminophen (Tylenol) 650 mg Q4H PRN NG Temp >100.5 11/10/20 05:15 12/10/20 05:14 11/10/20 05:21 Acetaminophen (Tylenol) 650 mg Q4H PRN RECTAL Mild Pain (Pain Scale 1-3) 11/08/20 09:15 12/08/20 09:14 Barium Sulfate (Readi-Cat 2) 450 ml NOW PRN ORAL Radiology Procedure 11/09/20 18:45 11/11/20 18:44 Chlorhexidine Gluconate (Carmen-Hex 2%) 1 applic DAILY@2000 TOPIC 11/09/20 20:00 02/07/21 19:59 11/10/20 20:15 Dextrose (Dextrose 50%) 25 ml Q30M PRN IV Hypoglycemia 11/10/20 23:45 02/08/21 23:44 Dextrose (Dextrose 50%) 50 ml Q30M PRN IV Hypoglycemia 11/10/20 23:45 02/08/21 23:44 Doxycycline Hyclate 100 mg/ Dextrose 110 ml @ 110 mls/hr Q12HR IV 11/10/20 21:00 11/17/20 20:59 11/10/20 20:16 Heparin Sodium (Porcine) (Heparin 5000 units/ml) 5,000 units EVERY 8 HOURS SUBQ 11/08/20 22:00 12/23/20 21:59 11/10/20 05:20 Hydrocortisone (Solu-CORTEF) 100 mg EVERY 8 HOURS IV 11/08/20 22:00 02/06/21 21:59 11/11/20 05:34 Iron Sucrose 100 mg/Sodium Chloride 60 ml @ 240 mls/hr BEDTIME IVPB 11/10/20 21:00 11/14/20 21:14 11/10/20 20:15 Meropenem 1 gm/ Sodium Chloride 100 ml @ 200 mls/hr Q12H IVPB 11/09/20 16:00 11/14/20 15:59 11/11/20 04:20 Norepinephrine Bitartrate 16 mg/ Dextrose 566 ml @ 0 mls/hr Q24H IV 11/08/20 15:15 11/11/20 15:14 11/10/20 04:48 Pantoprazole (Protonix) 40 mg Q12HR IVP 11/09/20 21:00 12/09/20 08:59 11/10/20 20:15 Phenylephrine HCl 100 mg/Dextrose 250 ml @ 0 mls/hr Q24H IV 11/09/20 00:15 11/12/20 00:14 11/09/20 08:30 Sodium Bicarbonate 50 ml/ Dextrose 1,050 ml @ 50 mls/hr Q21H IV 11/10/20 12:00 12/10/20 11:59 11/10/20 11:47 Tramadol HCl (Ultram) 50 mg Q6H PRN ORAL For Pain 11/08/20 22:15 11/15/20 22:14 11/10/20 20:00 Vancomycin HCl ([facility] pharmacy to dose) 1 ea DAILY PRN MISC Per rx protocol 11/08/20 17:45 12/08/20 17:44 Vancomycin HCl 1 gm/Sodium Chloride 275 ml @ 183.708 mls/hr ONCE ONCE IVPB 11/11/20 10:00 11/11/20 11:29 Vasopressin 100 units/Sodium Chloride 100 ml @ 0.6 mls/hr Q24H IV 11/08/20 19:30 11/11/20 19:16 11/08/20 19:52 Assessment/Plan Assessment/Plan IMPRESSION: 1. Septic shock. 2. Hypotension. 3. Status post central line placement. 4. Multiple sclerosis. 5. Diarrhea, ruled out for C. difficile colitis. 6. E. coli bacteremia; on Meropenem DISCUSSION: Continue pressors. Continue bicarb supplementation. Continue broad-spectrum antibiotics. Continue pressors. DVT prophylaxis. Travis Kline M.D. Travis Kline MD Nov 11, 2020 08:00
--- NOTE | 2020-11-11 08:20 | Diagnostic Imaging Report ---
EXAM: XR Abdomen CLINICAL HISTORY: F/U TECHNIQUE: Frontal view of the abdomen/pelvis. COMPARISON: November 10, 2020 FINDINGS: The distal tip of the enteric tube and first side-port well within the stomach. Gaseous distention of bowel loops in the abdomen and pelvis. Suboptimal evaluation for free air on this supine radiograph. Suspected small bilateral pleural effusions. Distal tip of right groin central vascular catheter projected over the sacroiliac joint. IMPRESSION: Distal tip of enteric tube within stomach. Suboptimal evaluation for free air on this supine radiograph. Distended bowel loops, obstructive process not excluded. Consider CT followup as indicated.
[2020-11-11] MEDS: Pantoprazole Inj IVP SCH ×2 (08:29→21:20)
[2020-11-11] MEDS: Doxycycline Hyclate 100 MG in D5W 110 ML IV SCH ×2 (08:29→21:21)
[2020-11-11] MEDS: Sodium Bicarbonate 50 ML in D5W 1000ml 1,000 ML IV SCH (08:29)
[2020-11-11] MEDS ORDERED: Vancomycin 1 GM in NS 275 ML IVPB ONE (10:00)
--- NOTE | 2020-11-11 11:04 | Surgery Progress Note ---
Surgery Progress Note Subjective Symptoms: improved, pain absent, voiding well, passing flatus Additional Comments doing well. no complaints no n/v comfortable responsive denies abd pain Objective Last 24 Hour Vital Signs Date Time Temp Pulse Resp B/P (MAP) Pulse Ox O2 Delivery O2 Flow Rate FiO2 11/11/20 10:30 108 22 126/71 (89) 100 11/11/20 10:00 109 26 119/76 (90) 100 11/11/20 09:30 105 27 114/73 (87) 99 11/11/20 09:00 106 23 115/75 (88) 98 11/11/20 08:30 110 17 117/73 (88) 96 11/11/20 08:00 110 11/11/20 08:00 Nasal Cannula 2.0 11/11/20 08:00 98.4 110 24 114/75 (88) 95 11/11/20 07:30 108 24 120/74 (89) 100 11/11/20 07:00 104 26 120/76 (91) 100 11/11/20 06:30 102 29 112/74 (87) 100 11/11/20 06:15 102 26 115/74 (88) 100 11/11/20 06:00 105 27 118/78 (91) 100 11/11/20 05:45 106 24 116/71 (86) 99 11/11/20 05:30 107 39 115/75 (88) 100 11/11/20 05:15 109 29 116/83 (94) 100 11/11/20 05:00 110 26 121/73 (89) 100 11/11/20 04:45 116 26 131/84 (100) 97 11/11/20 04:30 107 28 126/81 (96) 97 11/11/20 04:15 107 26 121/79 (93) 91 11/11/20 04:00 Nasal Cannula 2.0 11/11/20 04:00 98.2 103 25 123/82 (96) 96 11/11/20 03:45 109 11/11/20 03:45 109 28 125/78 (94) 94 11/11/20 03:30 108 27 130/77 (94) 97 11/11/20 03:15 107 27 127/76 (93) 94 11/11/20 03:00 105 24 125/79 (94) 96 11/11/20 02:45 104 25 122/78 (93) 99 11/11/20 02:30 107 26 125/77 (93) 99 11/11/20 02:15 103 26 123/78 (93) 100 11/11/20 02:00 108 27 120/86 (97) 100 11/11/20 01:45 107 26 112/87 (95) 99 11/11/20 01:30 108 27 120/80 (93) 98 11/11/20 01:15 109 26 120/78 (92) 98 11/11/20 01:00 111 30 125/81 (96) 97 11/11/20 00:45 112 29 125/75 (92) 98 11/11/20 00:30 113 27 124/78 (93) 97 11/11/20 00:15 114 26 129/78 (95) 96 11/11/20 00:00 Nasal Cannula 2.0 11/11/20 00:00 98.0 111 23 119/75 (90) 99 11/10/20 23:45 109 28 116/75 (89) 99 11/10/20 23:30 108 26 114/71 (85) 100 11/10/20 23:16 105 115/72 11/10/20 23:15 106 25 115/72 (86) 100 11/10/20 23:13 105 11/10/20 23:00 106 27 117/72 (87) 99 11/10/20 22:45 105 25 108/72 (84) 99 11/10/20 22:30 107 28 117/73 (88) 99 11/10/20 22:15 109 28 115/73 (87) 99 11/10/20 22:00 109 27 124/76 (92) 98 11/10/20 21:45 25 114/74 (87) 99 11/10/20 21:30 25 116/70 (85) 98 11/10/20 21:15 24 119/68 (85) 99 11/10/20 21:00 28 112/71 (85) 99 11/10/20 20:45 26 119/71 (87) 100 11/10/20 20:30 25 108/64 (79) 100 11/10/20 20:15 26 108/65 (79) 100 11/10/20 20:00 Nasal Cannula 2.0 11/10/20 20:00 98.0 27 119/65 (83) 100 11/10/20 19:45 26 106/65 (79) 100 11/10/20 19:30 26 112/63 (79) 100 11/10/20 19:21 110 11/10/20 19:15 25 107/60 (76) 100 11/10/20 19:00 26 103/62 (76) 100 11/10/20 18:30 112 28 108/64 (79) 100 11/10/20 18:00 115 27 117/72 (87) 99 11/10/20 17:30 117/72 11/10/20 17:30 114 29 112/72 (85) 99 11/10/20 17:00 112/72 11/10/20 17:00 114 31 112/72 (85) 98 11/10/20 16:30 115 28 113/72 (86) 98 11/10/20 16:30 113/72 11/10/20 16:00 115 11/10/20 16:00 113/72 11/10/20 16:00 98.6 113 28 116/70 (85) 98 113 11/10/20 16:00 Nasal Cannula 2.0 11/10/20 15:30 112 27 114/70 (85) 98 112 11/10/20 15:00 116 26 115/70 (85) 98 116 11/10/20 15:00 116/72 11/10/20 14:30 118 28 118/69 (85) 98 118 11/10/20 14:00 113/64 11/10/20 14:00 125 28 113/64 (80) 99 11/10/20 13:50 114/58 (76) 11/10/20 13:00 115/67 11/10/20 13:00 113 29 117/69 (85) 100 11/10/20 12:30 112 28 113/65 (81) 100 11/10/20 12:00 113 11/10/20 12:00 121/70 11/10/20 12:00 99.0 111 29 110/68 (82) 100 11/10/20 12:00 114 27 117/69 (85) 100 11/10/20 12:00 Nasal Cannula 2.0 11/10/20 11:30 116 30 115/68 (84) 100 I&O Intake and Output 11/10/20 11/11/20 19:00 07:00 Intake Total 1249.680 ml 975 ml Output Total 2800 ml 1585 ml Balance -1550.320 ml -610 ml Intake Oral 400 ml IV Total 789.680 ml 600 ml Tube Feeding 60 ml 375 ml Output Urine Total 2400 ml 1585 ml Stool Total 400 ml # Bowel Movements 4 15 Dressing: dry Wound: clean Cardiovascular: RSR Respiratory: clear Abdomen: soft, flat, non-tender, present bowel sounds Extremities: no edema, no tenderness, no cyanosis Laboratory Tests Test 11/10/20 12:44 11/11/20 05:45 11/11/20 08:16 Lactic Acid Level 3.00 mmol/L (0.66-2.22) H 2.00 mmol/L (0.4-2.0) White Blood Count 40.9 K/UL (4.8-10.8) *H Red Blood Count 3.03 M/UL (4.20-5.40) L Hemoglobin 8.0 G/DL (12.0-16.0) L Hematocrit 26.5 % (37.0-47.0) L Mean Corpuscular Volume 87 FL (80-99) Mean Corpuscular Hemoglobin 26.2 PG (27.0-31.0) L Mean Corpuscular Hemoglobin Concent 30.0 G/DL (32.0-36.0) L Red Cell Distribution Width 17.9 % (11.6-14.8) H Platelet Count 58 K/UL (150-450) L Mean Platelet Volume 12.5 FL (6.5-10.1) H Neutrophils (%) (Auto) % (45.0-75.0) Lymphocytes (%) (Auto) % (20.0-45.0) Monocytes (%) (Auto) % (1.0-10.0) Eosinophils (%) (Auto) % (0.0-3.0) Basophils (%) (Auto) % (0.0-2.0) Differential Total Cells Counted 100 Neutrophils % (Manual) 92 % (45-75) H Lymphocytes % (Manual) 2 % (20-45) L Monocytes % (Manual) 1 % (1-10) Eosinophils % (Manual) 0 % (0-3) Basophils % (Manual) 0 % (0-2) Band Neutrophils 5 % (0-8) Platelet Estimate Decreased L Platelet Morphology Normal Hypochromasia 1+ Anisocytosis 1+ Erythrocyte Sedimentation Rate 120 MM/HR (0-20) H Sodium Level 144 MMOL/L (136-145) Potassium Level 2.4 MMOL/L (3.5-5.1) *L Chloride Level 110 MMOL/L (98-107) H Carbon Dioxide Level 17 MMOL/L (21-32) L Anion Gap 17 mmol/L (5-15) H Blood Urea Nitrogen 38 mg/dL (7-18) H Creatinine 1.9 MG/DL (0.55-1.30) H Estimat Glomerular Filtration Rate 34.8 mL/min (>60) Glucose Level 87 MG/DL (74-106) Uric Acid 8.7 MG/DL (2.6-7.2) H Calcium Level 7.0 MG/DL (8.5-10.1) L Phosphorus Level 5.0 MG/DL (2.5-4.9) H Magnesium Level 1.9 MG/DL (1.8-2.4) Total Bilirubin 1.8 MG/DL (0.2-1.0) H Direct Bilirubin 1.3 MG/DL (0.0-0.3) H Aspartate Amino Transf (AST/SGOT) 48 U/L (15-37) H Alanine Aminotransferase (ALT/SGPT) 40 U/L (12-78) Alkaline Phosphatase 228 U/L (46-116) H C-Reactive Protein, Quantitative 37.2 mg/dL (0.00-0.90) H Pro-B-Type Natriuretic Peptide > 95256 pg/mL (0-125) H Total Protein 5.8 G/DL (6.4-8.2) L Albumin 1.9 G/DL (3.4-5.0) L Globulin 3.9 g/dL Albumin/Globulin Ratio 0.5 (1.0-2.7) L Amylase Level 60 U/L (25-115) Lipase 160 U/L (73-393) Random Vancomycin Level 11.6 ug/mL Arterial Blood pH 7.359 (7.350-7.450) Arterial Blood Partial Pressure CO2 28.1 mmHg (35.0-45.0) L Arterial Blood Partial Pressure O2 64.1 mmHg (75.0-100.0) L Arterial Blood HCO3 15.5 mmol/L (22.0-26.0) *L Arterial Blood Oxygen Saturation 92.4 % (95-100) L Arterial Blood Base Excess -8.9 (-2-2) L Jose Test Positive Plan Problems: (1) Anemia (2) Sepsis Assessment & Plan: 44-year-old female with altered mental status, lactic acidosis, leukocytosis, sepsis. Vitals currently stable. Abdominal exam mild distention but limited. Will obtain imaging. Labs noted UTI on antibiotics fluid resuscitation trend labs we will follow with examination and recommendations. CT head reviewed. much improved now responsive states well no abd symptoms okay for diet labs noted exam stable diet as tolerated trend labs iv fluids No acute intracranial hemorrhage. No midline shift or mass effect. The territorial hassan-white matter differentiation is maintained throughout. The ventricles and sulci are commensurate with age. The visualized orbits appear grossly unremarkable. The calvarium is intact. The visualized paranasal sinuses and mastoid air cells are grossly clear. (3) UTI (urinary tract infection) (4) VALERIA (acute kidney injury) (5) Acute metabolic encephalopathy Archie Saavedra Nov 11, 2020 11:04
--- NOTE | 2020-11-11 14:00 | Nephrology Progress Note ---
Assessment/Plan Problem List: (1) VALERIA (acute kidney injury) (2) Septic shock (3) Multiple sclerosis (4) Acute metabolic encephalopathy (5) Anemia (6) Electrolyte imbalance Assessment Acute renal failure Sepsis, shock Acute metabolic encephalopathy Anemia UTI Plan November 11: Labs reviewed. Low potassium replaced. Serum creatinine 1.9. Patient full code. On nasal cannula. Discussed with RN. Continue per consultants. Continue to monitor renal parameters November 10 labs reviewed. Serum creatinine 2. Patient more lethargic today. NG tube and feeding through NG to be initiated. Patient full code. Continue to monitor renal parameters. November 09: Low magnesium replaced. IV iron ordered. Labs reviewed. Albumin bolus given. Serum creatinine higher to 2.3. Continue current management. Patient full code. Previously: ICU Pressors Hydrate Monitor renal parameters and electrolytes Anemia work-up Avoid nephrotoxic's Subjective ROS Limited/Unobtainable: Yes Constitutional: Reports: malaise Objective Objective Last 24 Hour Vital Signs Date Time Temp Pulse Resp B/P (MAP) Pulse Ox O2 Delivery O2 Flow Rate FiO2 11/11/20 13:30 107 4 125/77 (93) 100 11/11/20 13:00 108 28 120/77 (91) 100 11/11/20 12:30 108 30 123/76 (92) 99 11/11/20 12:00 98.6 108 27 120/77 (91) 100 11/11/20 12:00 Nasal Cannula 2.0 11/11/20 12:00 108 11/11/20 11:30 107 29 126/89 (101) 99 11/11/20 11:00 109 30 120/77 (91) 100 11/11/20 10:30 108 22 126/71 (89) 100 11/11/20 10:00 109 26 119/76 (90) 100 11/11/20 09:30 105 27 114/73 (87) 99 11/11/20 09:00 106 23 115/75 (88) 98 11/11/20 08:30 110 17 117/73 (88) 96 11/11/20 08:00 110 11/11/20 08:00 Nasal Cannula 2.0 11/11/20 08:00 98.4 110 24 114/75 (88) 95 11/11/20 07:30 108 24 120/74 (89) 100 11/11/20 07:00 104 26 120/76 (91) 100 11/11/20 06:30 102 29 112/74 (87) 100 11/11/20 06:15 102 26 115/74 (88) 100 11/11/20 06:00 105 27 118/78 (91) 100 11/11/20 05:45 106 24 116/71 (86) 99 11/11/20 05:30 107 39 115/75 (88) 100 11/11/20 05:15 109 29 116/83 (94) 100 11/11/20 05:00 110 26 121/73 (89) 100 11/11/20 04:45 116 26 131/84 (100) 97 11/11/20 04:30 107 28 126/81 (96) 97 11/11/20 04:15 107 26 121/79 (93) 91 11/11/20 04:00 Nasal Cannula 2.0 11/11/20 04:00 98.2 103 25 123/82 (96) 96 11/11/20 03:45 109 11/11/20 03:45 109 28 125/78 (94) 94 11/11/20 03:30 108 27 130/77 (94) 97 11/11/20 03:15 107 27 127/76 (93) 94 11/11/20 03:00 105 24 125/79 (94) 96 11/11/20 02:45 104 25 122/78 (93) 99 11/11/20 02:30 107 26 125/77 (93) 99 11/11/20 02:15 103 26 123/78 (93) 100 11/11/20 02:00 108 27 120/86 (97) 100 11/11/20 01:45 107 26 112/87 (95) 99 11/11/20 01:30 108 27 120/80 (93) 98 11/11/20 01:15 109 26 120/78 (92) 98 11/11/20 01:00 111 30 125/81 (96) 97 11/11/20 00:45 112 29 125/75 (92) 98 11/11/20 00:30 113 27 124/78 (93) 97 11/11/20 00:15 114 26 129/78 (95) 96 11/11/20 00:00 Nasal Cannula 2.0 11/11/20 00:00 98.0 111 23 119/75 (90) 99 11/10/20 23:45 109 28 116/75 (89) 99 11/10/20 23:30 108 26 114/71 (85) 100 11/10/20 23:16 105 115/72 11/10/20 23:15 106 25 115/72 (86) 100 11/10/20 23:13 105 11/10/20 23:00 106 27 117/72 (87) 99 11/10/20 22:45 105 25 108/72 (84) 99 11/10/20 22:30 107 28 117/73 (88) 99 11/10/20 22:15 109 28 115/73 (87) 99 11/10/20 22:00 109 27 124/76 (92) 98 11/10/20 21:45 25 114/74 (87) 99 11/10/20 21:30 25 116/70 (85) 98 11/10/20 21:15 24 119/68 (85) 99 11/10/20 21:00 28 112/71 (85) 99 11/10/20 20:45 26 119/71 (87) 100 11/10/20 20:30 25 108/64 (79) 100 11/10/20 20:15 26 108/65 (79) 100 11/10/20 20:00 Nasal Cannula 2.0 11/10/20 20:00 98.0 27 119/65 (83) 100 11/10/20 19:45 26 106/65 (79) 100 11/10/20 19:30 26 112/63 (79) 100 11/10/20 19:21 110 11/10/20 19:15 25 107/60 (76) 100 11/10/20 19:00 26 103/62 (76) 100 11/10/20 18:30 112 28 108/64 (79) 100 11/10/20 18:00 115 27 117/72 (87) 99 11/10/20 17:30 117/72 11/10/20 17:30 114 29 112/72 (85) 99 11/10/20 17:00 112/72 11/10/20 17:00 114 31 112/72 (85) 98 11/10/20 16:30 115 28 113/72 (86) 98 11/10/20 16:30 113/72 11/10/20 16:00 115 11/10/20 16:00 113/72 11/10/20 16:00 98.6 113 28 116/70 (85) 98 113 11/10/20 16:00 Nasal Cannula 2.0 11/10/20 15:30 112 27 114/70 (85) 98 112 11/10/20 15:00 116 26 115/70 (85) 98 116 11/10/20 15:00 116/72 11/10/20 14:30 118 28 118/69 (85) 98 118 11/10/20 14:00 113/64 11/10/20 14:00 125 28 113/64 (80) 99 Intake and Output 11/10/20 11/11/20 19:00 07:00 Intake Total 1249.680 ml 975 ml Output Total 2800 ml 1585 ml Balance -1550.320 ml -610 ml Intake Oral 400 ml IV Total 789.680 ml 600 ml Tube Feeding 60 ml 375 ml Output Urine Total 2400 ml 1585 ml Stool Total 400 ml # Bowel Movements 4 15 Current Medications Medications (Trade) Dose Ordered Sig/Bunny Route PRN Reason Start Time Stop Time Status Last Admin Dose Admin Acetaminophen (Tylenol) 650 mg Q4H PRN NG Temp >100.5 11/10/20 05:15 12/10/20 05:14 11/10/20 05:21 Barium Sulfate (Readi-Cat 2) 450 ml NOW PRN ORAL Radiology Procedure 11/09/20 18:45 11/11/20 18:44 Chlorhexidine Gluconate (Carmen-Hex 2%) 1 applic DAILY@2000 TOPIC 11/09/20 20:00 02/07/21 19:59 11/10/20 20:15 Dextrose (Dextrose 50%) 25 ml Q30M PRN IV Hypoglycemia 11/10/20 23:45 02/08/21 23:44 Dextrose (Dextrose 50%) 50 ml Q30M PRN IV Hypoglycemia 11/10/20 23:45 02/08/21 23:44 Doxycycline Hyclate 100 mg/ Dextrose 110 ml @ 110 mls/hr Q12HR IV 11/10/20 21:00 11/17/20 20:59 11/11/20 08:29 Heparin Sodium (Porcine) (Heparin 5000 units/ml) 5,000 units EVERY 8 HOURS SUBQ 11/08/20 22:00 12/23/20 21:59 11/10/20 05:20 Hydrocortisone (Solu-CORTEF) 100 mg EVERY 8 HOURS IV 11/08/20 22:00 02/06/21 21:59 11/11/20 05:34 Iron Sucrose 100 mg/Sodium Chloride 60 ml @ 240 mls/hr BEDTIME IVPB 11/10/20 21:00 11/14/20 21:14 11/10/20 20:15 Meropenem 1 gm/ Sodium Chloride 100 ml @ 200 mls/hr Q12H IVPB 11/09/20 16:00 11/14/20 15:59 11/11/20 04:20 Norepinephrine Bitartrate 16 mg/ Dextrose 566 ml @ 0 mls/hr Q24H IV 11/08/20 15:15 11/11/20 15:14 11/10/20 04:48 Pantoprazole (Protonix) 40 mg Q12HR IVP 11/09/20 21:00 12/09/20 08:59 11/11/20 08:29 Phenylephrine HCl 100 mg/Dextrose 250 ml @ 0 mls/hr Q24H IV 11/09/20 00:15 11/12/20 00:14 11/09/20 08:30 Potassium Chloride 100 ml @ 50 mls/hr Q2HR IVPB 11/11/20 14:00 11/11/20 17:59 Sodium Bicarbonate 50 ml/ Dextrose 1,050 ml @ 50 mls/hr Q21H IV 11/10/20 12:00 12/10/20 11:59 11/11/20 08:29 Sodium Citrate (Bicitra) 30 ml EVERY 6 HOURS NG 11/11/20 18:00 12/11/20 17:59 Tramadol HCl (Ultram) 50 mg Q6H PRN ORAL For Pain 11/08/20 22:15 11/15/20 22:14 11/10/20 20:00 Vancomycin HCl ([facility] pharmacy to dose) 1 ea DAILY PRN MISC Per rx protocol 11/08/20 17:45 12/08/20 17:44 Vasopressin 100 units/Sodium Chloride 100 ml @ 0.6 mls/hr Q24H IV 11/08/20 19:30 11/11/20 19:16 11/08/20 19:52 Laboratory Tests 11/11/20 05:45: White Blood Count 40.9*H, Red Blood Count 3.03L, Hemoglobin 8.0L, Hematocrit 26.5L, Mean Corpuscular Volume 87, Mean Corpuscular Hemoglobin 26.2L, Mean Corpuscular Hemoglobin Concent 30.0L, Red Cell Distribution Width 17.9H, Platelet Count 58L, Mean Platelet Volume 12.5H, Neutrophils (%) (Auto) , Lymphocytes (%) (Auto) , Monocytes (%) (Auto) , Eosinophils (%) (Auto) , Basophils (%) (Auto) , Differential Total Cells Counted 100, Neutrophils % (Manual) 92H, Lymphocytes % (Manual) 2L, Monocytes % (Manual) 1, Eosinophils % (Manual) 0, Basophils % (Manual) 0, Band Neutrophils 5, Platelet Estimate DecreasedL, Platelet Morphology Normal, Hypochromasia 1+, Anisocytosis 1+, Erythrocyte Sedimentation Rate 120H, Sodium Level 144, Potassium Level 2.4*L, Chloride Level 110H, Carbon Dioxide Level 17L, Anion Gap 17H, Blood Urea Nitrogen 38H, Creatinine 1.9H, Estimat Glomerular Filtration Rate 34.8, Glucose Level 87, Lactic Acid Level 2.00, Uric Acid 8.7H, Calcium Level 7.0L, Phosphorus Level 5.0H, Magnesium Level 1.9, Total Bilirubin 1.8H, Direct Bilirubin 1.3H, Aspartate Amino Transf (AST/SGOT) 48H, Alanine Aminotransferase (ALT/SGPT) 40, Alkaline Phosphatase 228H, C-Reactive Protein, Quantitative 37.2H, Pro-B-Type Natriuretic Peptide > [id number], Total Protein 5.8L, Albumin 1.9L, Globulin 3.9, Albumin/Globulin Ratio 0.5L, Amylase Level 60, Lipase 160, Random Vancomycin Level 11.6 11/11/20 08:16: Arterial Blood pH 7.359, Arterial Blood Partial Pressure CO2 28.1L, Arterial Blood Partial Pressure O2 64.1L, Arterial Blood HCO3 15.5*L, Arterial Blood Oxygen Saturation 92.4L, Arterial Blood Base Excess -8.9L, Jose Test Positive Height (Feet): 5 Height (Inches): 5.00 Weight (Pounds): 165 General Appearance: no apparent distress, lethargic Cardiovascular: tachycardia Respiratory/Chest: decreased breath sounds Abdomen: distended Fouladian,Bridger MD Nov 11, 2020 14:00
--- NOTE | 2020-11-11 15:25 | Internal Med Progress Note ---
Subjective Date of Service: Nov 11, 2020 Physician Name SarabiaJad Attending Physician Kris Cormier MD Current Medications Medications (Trade) Dose Ordered Sig/Bunny Route PRN Reason Start Time Stop Time Status Last Admin Dose Admin Acetaminophen (Tylenol) 650 mg Q4H PRN NG Temp >100.5 11/10/20 05:15 12/10/20 05:14 11/10/20 05:21 Barium Sulfate (Readi-Cat 2) 450 ml NOW PRN ORAL Radiology Procedure 11/09/20 18:45 11/11/20 18:44 Chlorhexidine Gluconate (Carmen-Hex 2%) 1 applic DAILY@2000 TOPIC 11/09/20 20:00 02/07/21 19:59 11/10/20 20:15 Dextrose (Dextrose 50%) 25 ml Q30M PRN IV Hypoglycemia 11/10/20 23:45 02/08/21 23:44 Dextrose (Dextrose 50%) 50 ml Q30M PRN IV Hypoglycemia 11/10/20 23:45 02/08/21 23:44 Dextrose/ Electrolytes 1,000 ml @ 75 mls/hr [id number] IV 11/11/20 15:00 12/11/20 14:59 Doxycycline Hyclate 100 mg/ Dextrose 110 ml @ 110 mls/hr Q12HR IV 11/10/20 21:00 11/17/20 20:59 11/11/20 08:29 Heparin Sodium (Porcine) (Heparin 5000 units/ml) 5,000 units EVERY 8 HOURS SUBQ 11/08/20 22:00 12/23/20 21:59 11/10/20 05:20 Hydrocortisone (Solu-CORTEF) 100 mg EVERY 8 HOURS IV 11/08/20 22:00 02/06/21 21:59 11/11/20 13:59 Iron Sucrose 100 mg/Sodium Chloride 60 ml @ 240 mls/hr BEDTIME IVPB 11/10/20 21:00 11/14/20 21:14 11/10/20 20:15 Meropenem 1 gm/ Sodium Chloride 100 ml @ 200 mls/hr Q12H IVPB 11/09/20 16:00 11/14/20 15:59 11/11/20 04:20 Pantoprazole (Protonix) 40 mg Q12HR IVP 11/09/20 21:00 12/09/20 08:59 11/11/20 08:29 Phenylephrine HCl 100 mg/Dextrose 250 ml @ 0 mls/hr Q24H IV 11/09/20 00:15 11/12/20 00:14 11/09/20 08:30 Potassium Chloride 100 ml @ 50 mls/hr Q2HR IVPB 11/11/20 14:00 11/11/20 17:59 11/11/20 14:00 Sodium Citrate (Bicitra) 30 ml EVERY 6 HOURS NG 11/11/20 18:00 12/11/20 17:59 Tramadol HCl (Ultram) 50 mg Q6H PRN ORAL For Pain 11/08/20 22:15 11/15/20 22:14 11/10/20 20:00 Vancomycin HCl ([facility] pharmacy to dose) 1 ea DAILY PRN MISC Per rx protocol 11/08/20 17:45 12/08/20 17:44 Vasopressin 100 units/Sodium Chloride 100 ml @ 0.6 mls/hr Q24H IV 11/08/20 19:30 11/11/20 19:16 11/08/20 19:52 Allergies: Coded Allergies: No Known Allergies (Unverified , 11/08/20) ROS Limited/Unobtainable: No Constitutional: Reports: no symptoms HEENT: Reports: no symptoms Cardiovascular: Reports: no symptoms Respiratory: Reports: no symptoms Gastrointestinal/Abdominal: Reports: no symptoms Genitourinary: Reports: no symptoms Neurologic/Psychiatric: Reports: no symptoms Subjective 44 YO F admitted with altered mental status. Now sepsis. Cover for Int Kody-DR Cormier. ICU Objective Last Vital Signs Date Time Temp Pulse Resp B/P (MAP) Pulse Ox O2 Delivery O2 Flow Rate FiO2 11/11/20 14:00 107 25 125/77 (93) 99 11/11/20 12:00 98.6 11/11/20 12:00 Nasal Cannula 2.0 11/09/20 20:31 21 Laboratory Tests Test 11/11/20 05:45 11/11/20 08:16 White Blood Count 40.9 K/UL (4.8-10.8) *H Red Blood Count 3.03 M/UL (4.20-5.40) L Hemoglobin 8.0 G/DL (12.0-16.0) L Hematocrit 26.5 % (37.0-47.0) L Mean Corpuscular Volume 87 FL (80-99) Mean Corpuscular Hemoglobin 26.2 PG (27.0-31.0) L Mean Corpuscular Hemoglobin Concent 30.0 G/DL (32.0-36.0) L Red Cell Distribution Width 17.9 % (11.6-14.8) H Platelet Count 58 K/UL (150-450) L Mean Platelet Volume 12.5 FL (6.5-10.1) H Neutrophils (%) (Auto) % (45.0-75.0) Lymphocytes (%) (Auto) % (20.0-45.0) Monocytes (%) (Auto) % (1.0-10.0) Eosinophils (%) (Auto) % (0.0-3.0) Basophils (%) (Auto) % (0.0-2.0) Differential Total Cells Counted 100 Neutrophils % (Manual) 92 % (45-75) H Lymphocytes % (Manual) 2 % (20-45) L Monocytes % (Manual) 1 % (1-10) Eosinophils % (Manual) 0 % (0-3) Basophils % (Manual) 0 % (0-2) Band Neutrophils 5 % (0-8) Platelet Estimate Decreased L Platelet Morphology Normal Hypochromasia 1+ Anisocytosis 1+ Erythrocyte Sedimentation Rate 120 MM/HR (0-20) H Sodium Level 144 MMOL/L (136-145) Potassium Level 2.4 MMOL/L (3.5-5.1) *L Chloride Level 110 MMOL/L (98-107) H Carbon Dioxide Level 17 MMOL/L (21-32) L Anion Gap 17 mmol/L (5-15) H Blood Urea Nitrogen 38 mg/dL (7-18) H Creatinine 1.9 MG/DL (0.55-1.30) H Estimat Glomerular Filtration Rate 34.8 mL/min (>60) Glucose Level 87 MG/DL (74-106) Lactic Acid Level 2.00 mmol/L (0.4-2.0) Uric Acid 8.7 MG/DL (2.6-7.2) H Calcium Level 7.0 MG/DL (8.5-10.1) L Phosphorus Level 5.0 MG/DL (2.5-4.9) H Magnesium Level 1.9 MG/DL (1.8-2.4) Total Bilirubin 1.8 MG/DL (0.2-1.0) H Direct Bilirubin 1.3 MG/DL (0.0-0.3) H Aspartate Amino Transf (AST/SGOT) 48 U/L (15-37) H Alanine Aminotransferase (ALT/SGPT) 40 U/L (12-78) Alkaline Phosphatase 228 U/L (46-116) H C-Reactive Protein, Quantitative 37.2 mg/dL (0.00-0.90) H Pro-B-Type Natriuretic Peptide > 48546 pg/mL (0-125) H Total Protein 5.8 G/DL (6.4-8.2) L Albumin 1.9 G/DL (3.4-5.0) L Globulin 3.9 g/dL Albumin/Globulin Ratio 0.5 (1.0-2.7) L Amylase Level 60 U/L (25-115) Lipase 160 U/L (73-393) Random Vancomycin Level 11.6 ug/mL Arterial Blood pH 7.359 (7.350-7.450) Arterial Blood Partial Pressure CO2 28.1 mmHg (35.0-45.0) L Arterial Blood Partial Pressure O2 64.1 mmHg (75.0-100.0) L Arterial Blood HCO3 15.5 mmol/L (22.0-26.0) *L Arterial Blood Oxygen Saturation 92.4 % (95-100) L Arterial Blood Base Excess -8.9 (-2-2) L Jose Test Positive Microbiology Date/Time Source Procedure Growth Status 11/10/20 05:09 Blood Blood Culture - Preliminary Resulted 11/10/20 05:00 Blood Blood Culture - Preliminary Resulted 11/09/20 23:45 Stool Clostridium difficile Toxin Assay - Final Complete Intake and Output 11/10/20 11/11/20 19:00 07:00 Intake Total 1249.680 ml 975 ml Output Total 2800 ml 1585 ml Balance -1550.320 ml -610 ml Intake Oral 400 ml IV Total 789.680 ml 600 ml Tube Feeding 60 ml 375 ml Output Urine Total 2400 ml 1585 ml Stool Total 400 ml # Bowel Movements 4 15 Objective PHYSICAL EXAMINATION: GENERAL: Patient is altered, unresponsive, cannot follow commands. HEAD AND NECK: Pupils are equal and reactive to light. Anicteric. Neck was supple. No JVD. LUNGS: Good air entry. No wheezing or rhonchi. Decreased air in the bases. HEART: S1, S2. No murmur or gallops. ABDOMEN: Soft, nondistended, nontender. Positive bowel sounds. EXTREMITIES: No cyanosis, clubbing, or edema. NEUROLOGIC: Very limited secondary to patient's status. Cannot follow commands. However, moving extremities spontaneously. SKIN: No rashes were identified. Assessment/Plan Assessment/Plan Assessment/Plan Assessment/Plan 1. Septic shock=ESBL E. coli 2. Sepsis secondary to urinary tract infection, but can not R/O intraabdominal infection yet. 3. Dehydration and hypokalemia. 4. Altered mental status, most likely secondary to toxic metabolic encephalopathy. 5. Acute kidney injury. 6. Anemia. 7. History of multiple sclerosis. 8. COVID 19 pos-H/O COVID POS in Aug 2020. Repeat testing 11/08/20=positive. ?repeat infection? PLAN: In ICU. IV hydration. Monitor laboratory and cultures. DVT prophylaxis: heparin subcutaneous. 2D echo. Code status: Full Code. Abx: Meropenem IV, Flagyl, and Amikacin On hydrocortisone IV. Pressors: Phenylephrine , Levophed, and Vasopressor Dr. Kline from [facility], Dr. Nat Courtney from ID, Dr. Grant from Cardiology Dr. Bridger Mari from Nephrology. Repeat COVID 19 ?false positive? Jad Sarabia MD Nov 11, 2020 15:25
[2020-11-11] MEDS: D5 1/2NS w/KCl 40meq 1000ml 1,000 ML IV SCH (15:32)
[2020-11-11] MEDS: Sodium Citrate 30ml NG SCH (18:06)
--- NOTE | 2020-11-11 20:06 | Cardiology Progress Note ---
Assessment/Plan Assessment/Plan the patient has severely distended abdomen, her issues are not cardiac, d/w ICU team Subjective Subjective the patient is lethargic Objective Last 24 Hour Vital Signs Date Time Temp Pulse Resp B/P (MAP) Pulse Ox O2 Delivery O2 Flow Rate FiO2 11/11/20 18:00 108 34 135/83 (100) 100 11/11/20 17:00 104 31 124/79 (94) 100 11/11/20 16:30 107 31 129/77 (94) 100 11/11/20 16:00 Nasal Cannula 2.0 11/11/20 16:00 107 11/11/20 16:00 97.9 104 30 127/76 (93) 99 11/11/20 15:30 107 27 125/80 (95) 99 11/11/20 15:00 105 30 121/77 (92) 99 11/11/20 14:30 106 27 122/76 (91) 100 11/11/20 14:00 107 25 125/77 (93) 99 11/11/20 13:30 107 4 125/77 (93) 100 11/11/20 13:00 108 28 120/77 (91) 100 11/11/20 12:30 108 30 123/76 (92) 99 11/11/20 12:00 98.6 108 27 120/77 (91) 100 11/11/20 12:00 Nasal Cannula 2.0 11/11/20 12:00 108 11/11/20 11:30 107 29 126/89 (101) 99 11/11/20 11:00 109 30 120/77 (91) 100 11/11/20 10:30 108 22 126/71 (89) 100 11/11/20 10:00 109 26 119/76 (90) 100 11/11/20 09:30 105 27 114/73 (87) 99 11/11/20 09:00 106 23 115/75 (88) 98 11/11/20 08:30 110 17 117/73 (88) 96 11/11/20 08:00 110 11/11/20 08:00 Nasal Cannula 2.0 11/11/20 08:00 98.4 110 24 114/75 (88) 95 11/11/20 07:30 108 24 120/74 (89) 100 11/11/20 07:00 104 26 120/76 (91) 100 11/11/20 06:30 102 29 112/74 (87) 100 11/11/20 06:15 102 26 115/74 (88) 100 11/11/20 06:00 105 27 118/78 (91) 100 11/11/20 05:45 106 24 116/71 (86) 99 11/11/20 05:30 107 39 115/75 (88) 100 11/11/20 05:15 109 29 116/83 (94) 100 11/11/20 05:00 110 26 121/73 (89) 100 11/11/20 04:45 116 26 131/84 (100) 97 11/11/20 04:30 107 28 126/81 (96) 97 11/11/20 04:15 107 26 121/79 (93) 91 11/11/20 04:00 Nasal Cannula 2.0 11/11/20 04:00 98.2 103 25 123/82 (96) 96 11/11/20 03:45 109 11/11/20 03:45 109 28 125/78 (94) 94 11/11/20 03:30 108 27 130/77 (94) 97 11/11/20 03:15 107 27 127/76 (93) 94 11/11/20 03:00 105 24 125/79 (94) 96 11/11/20 02:45 104 25 122/78 (93) 99 11/11/20 02:30 107 26 125/77 (93) 99 11/11/20 02:15 103 26 123/78 (93) 100 11/11/20 02:00 108 27 120/86 (97) 100 11/11/20 01:45 107 26 112/87 (95) 99 11/11/20 01:30 108 27 120/80 (93) 98 11/11/20 01:15 109 26 120/78 (92) 98 11/11/20 01:00 111 30 125/81 (96) 97 11/11/20 00:45 112 29 125/75 (92) 98 11/11/20 00:30 113 27 124/78 (93) 97 11/11/20 00:15 114 26 129/78 (95) 96 11/11/20 00:00 Nasal Cannula 2.0 11/11/20 00:00 98.0 111 23 119/75 (90) 99 11/10/20 23:45 109 28 116/75 (89) 99 11/10/20 23:30 108 26 114/71 (85) 100 11/10/20 23:16 105 115/72 11/10/20 23:15 106 25 115/72 (86) 100 11/10/20 23:13 105 11/10/20 23:00 106 27 117/72 (87) 99 11/10/20 22:45 105 25 108/72 (84) 99 11/10/20 22:30 107 28 117/73 (88) 99 11/10/20 22:15 109 28 115/73 (87) 99 11/10/20 22:00 109 27 124/76 (92) 98 11/10/20 21:45 25 114/74 (87) 99 11/10/20 21:30 25 116/70 (85) 98 11/10/20 21:15 24 119/68 (85) 99 11/10/20 21:00 28 112/71 (85) 99 11/10/20 20:45 26 119/71 (87) 100 11/10/20 20:30 25 108/64 (79) 100 11/10/20 20:15 26 108/65 (79) 100 General Appearance: other - looks very ill EENT: PERRL/EOMI Rhythm: ST Cardiovascular: tachycardia, systolic murmur Respiratory/Chest: decreased breath sounds Abdomen: hypoactive bowel sounds, distended, guarding Extremities: other Intake and Output 11/10/20 11/11/20 19:00 07:00 Intake Total 1249.680 ml 975 ml Output Total 2800 ml 1585 ml Balance -1550.320 ml -610 ml Intake Oral 400 ml IV Total 789.680 ml 600 ml Tube Feeding 60 ml 375 ml Output Urine Total 2400 ml 1585 ml Stool Total 400 ml # Bowel Movements 4 15 Laboratory Tests Test 11/11/20 05:45 11/11/20 08:16 White Blood Count 40.9 K/UL (4.8-10.8) *H Red Blood Count 3.03 M/UL (4.20-5.40) L Hemoglobin 8.0 G/DL (12.0-16.0) L Hematocrit 26.5 % (37.0-47.0) L Mean Corpuscular Volume 87 FL (80-99) Mean Corpuscular Hemoglobin 26.2 PG (27.0-31.0) L Mean Corpuscular Hemoglobin Concent 30.0 G/DL (32.0-36.0) L Red Cell Distribution Width 17.9 % (11.6-14.8) H Platelet Count 58 K/UL (150-450) L Mean Platelet Volume 12.5 FL (6.5-10.1) H Neutrophils (%) (Auto) % (45.0-75.0) Lymphocytes (%) (Auto) % (20.0-45.0) Monocytes (%) (Auto) % (1.0-10.0) Eosinophils (%) (Auto) % (0.0-3.0) Basophils (%) (Auto) % (0.0-2.0) Differential Total Cells Counted 100 Neutrophils % (Manual) 92 % (45-75) H Lymphocytes % (Manual) 2 % (20-45) L Monocytes % (Manual) 1 % (1-10) Eosinophils % (Manual) 0 % (0-3) Basophils % (Manual) 0 % (0-2) Band Neutrophils 5 % (0-8) Platelet Estimate Decreased L Platelet Morphology Normal Hypochromasia 1+ Anisocytosis 1+ Erythrocyte Sedimentation Rate 120 MM/HR (0-20) H Sodium Level 144 MMOL/L (136-145) Potassium Level 2.4 MMOL/L (3.5-5.1) *L Chloride Level 110 MMOL/L (98-107) H Carbon Dioxide Level 17 MMOL/L (21-32) L Anion Gap 17 mmol/L (5-15) H Blood Urea Nitrogen 38 mg/dL (7-18) H Creatinine 1.9 MG/DL (0.55-1.30) H Estimat Glomerular Filtration Rate 34.8 mL/min (>60) Glucose Level 87 MG/DL (74-106) Lactic Acid Level 2.00 mmol/L (0.4-2.0) Uric Acid 8.7 MG/DL (2.6-7.2) H Calcium Level 7.0 MG/DL (8.5-10.1) L Phosphorus Level 5.0 MG/DL (2.5-4.9) H Magnesium Level 1.9 MG/DL (1.8-2.4) Total Bilirubin 1.8 MG/DL (0.2-1.0) H Direct Bilirubin 1.3 MG/DL (0.0-0.3) H Aspartate Amino Transf (AST/SGOT) 48 U/L (15-37) H Alanine Aminotransferase (ALT/SGPT) 40 U/L (12-78) Alkaline Phosphatase 228 U/L (46-116) H C-Reactive Protein, Quantitative 37.2 mg/dL (0.00-0.90) H Pro-B-Type Natriuretic Peptide > 31386 pg/mL (0-125) H Total Protein 5.8 G/DL (6.4-8.2) L Albumin 1.9 G/DL (3.4-5.0) L Globulin 3.9 g/dL Albumin/Globulin Ratio 0.5 (1.0-2.7) L Amylase Level 60 U/L (25-115) Lipase 160 U/L (73-393) Random Vancomycin Level 11.6 ug/mL Arterial Blood pH 7.359 (7.350-7.450) Arterial Blood Partial Pressure CO2 28.1 mmHg (35.0-45.0) L Arterial Blood Partial Pressure O2 64.1 mmHg (75.0-100.0) L Arterial Blood HCO3 15.5 mmol/L (22.0-26.0) *L Arterial Blood Oxygen Saturation 92.4 % (95-100) L Arterial Blood Base Excess -8.9 (-2-2) L Jose Test Positive Microbiology Date/Time Source Procedure Growth Status 11/10/20 05:09 Blood Blood Culture - Preliminary Resulted 11/10/20 05:00 Blood Blood Culture - Preliminary Gram Negative Domo Resulted 11/09/20 23:45 Stool Clostridium difficile Toxin Assay - Final Complete Jessica Lema MD Nov 11, 2020 20:06
[2020-11-11] MEDS: Iron Sucrose 100 MG in NS 55 ML IVPB SCH (21:20)
[2020-11-11] MEDS: Dyna-Hex 2% Top Sol 2oz TOPIC SCH (21:21)
[2020-11-12] VITALS (42 sets, daily range): BP systolic 119–137; BP diastolic 63–91
[2020-11-12] MEDS: Sodium Citrate 30ml NG SCH ×4 (00:05→17:43)
[2020-11-12] MEDS: D5 1/2NS w/KCl 40meq 1000ml 1,000 ML IV SCH ×2 (04:16→17:43)
[2020-11-12] MEDS: Hydrocortisone 100mg Inj IV SCH ×3 (05:28→22:29)
[2020-11-12 06:54] LABS: HEMOGLOBIN 7.7 G/DL (12.0-16.0); MEAN CORPUSCULAR VOLUME 86 FL (80-99); PLATELET COUNT 48 K/UL (150-450); RED CELL DISTRIBUTION WIDTH 17.6 % (11.6-14.8)
[2020-11-12 07:00] LABS: WHITE BLOOD COUNT 40.9 K/UL (4.8-10.8)
[2020-11-12 07:38] LABS: AMMONIA 20 umol/L (11-32)
[2020-11-12 07:45] LABS: ALANINE AMINOTRANSFERASE 33 U/L (12-78); ALBUMIN 1.7 G/DL (3.4-5.0); ALBUMIN/GLOBULIN RATIO 0.4 (1.0-2.7); ALKALINE PHOSPHATASE 167 U/L (46-116); ANION GAP 15 mmol/L (5-15); ASPARTATE AMINO TRANSFERASE 27 U/L (15-37); BILIRUBIN,TOTAL 0.8 MG/DL (0.2-1.0); BLOOD UREA NITROGEN 34 mg/dL (7-18); CALCIUM 7.5 MG/DL (8.5-10.1); CARBON DIOXIDE 18 MMOL/L (21-32); CHLORIDE 116 MMOL/L (98-107); CREATININE 1.6 MG/DL (0.55-1.30); PHOSPHORUS 2.2 MG/DL (2.5-4.9); SODIUM 149 MMOL/L (136-145)
[2020-11-12 07:46] LABS: POTASSIUM 2.2 MMOL/L (3.5-5.1)
[2020-11-12] MEDS: Doxycycline Hyclate 100 MG in D5W 110 ML IV SCH ×2 (09:10→20:35)
[2020-11-12] MEDS: Pantoprazole Inj IVP SCH ×2 (09:10→20:35)
[2020-11-12] MEDS ORDERED: Potassium Phosphate 20 MM in NS 275 ML IV SCH (10:00)
--- NOTE | 2020-11-12 10:36 | Cardiology Progress Note ---
Assessment/Plan Assessment/Plan 1. Septic shock. 2. Bacteremia, gram-negative rods. 3. Renal failure/ hypokalemic 4. Lactic acidosis. 5. Renal failure, probably acute. 6. Profound iron deficiency. 7. Leukemoid reaction. 8. Anemia. 9. Covid 19 infection 10. abnormal trop demand vs covid related 11. Thrombocytopenia wbc still sig elevated but improved bcx remain + desptie abx, id following ct noted surgery following echo showed normal lv systolic function will repeat ekg and trop in am off anticoagulation du to profound thrombocytopenia bp seems fine and is afebrile no new xray to day tele reviewed: sinus cv seem stable Subjective Subjective per rn Pt more alert this am and requested to drink some juice. Patient drank apple juice and orange juice without difficulties, however, did require a bit of time to catch her breath in between containers. VSS will continue to monitor the patient. Pt remains stable. Requested the TV be turned on. Obliged patient. She remains confused and unable to answer simple questions. Continues to be repetitive in her statements. Patient does not follow simple commands of "open your legs" so this RN can assess Rectal tube and clear for output. Rectal tube remains in place and is draining stool at this time. Will continue to monitor. Objective Last 24 Hour Vital Signs Date Time Temp Pulse Resp B/P (MAP) Pulse Ox O2 Delivery O2 Flow Rate FiO2 11/12/20 08:00 88 11/12/20 08:00 Room Air 11/12/20 08:00 98.0 91 29 122/74 (90) 100 11/12/20 07:00 92 29 131/78 (95) 100 11/12/20 06:00 97.8 96 34 130/72 (91) 99 11/12/20 05:45 94 33 135/82 (99) 91 11/12/20 05:30 96 33 129/76 (93) 100 11/12/20 05:15 95 32 128/73 (91) 99 11/12/20 05:00 95 30 125/73 (90) 100 11/12/20 04:45 107 30 127/63 (84) 92 11/12/20 04:30 101 32 136/78 (97) 99 11/12/20 04:15 99.0 87 27 126/72 (90) 100 11/12/20 04:00 89 27 125/77 (93) 100 11/12/20 04:00 Room Air 11/12/20 03:56 80 11/12/20 03:45 94 28 129/78 (95) 99 11/12/20 03:30 93 28 128/73 (91) 99 11/12/20 03:15 87 26 127/72 (90) 100 11/12/20 03:00 95 27 125/79 (94) 100 11/12/20 02:45 92 28 132/77 (95) 99 11/12/20 02:30 93 27 131/77 (95) 99 11/12/20 02:15 88 26 132/77 (95) 100 11/12/20 02:00 90 26 129/77 (94) 100 11/12/20 01:45 102 32 128/77 (94) 100 11/12/20 01:30 106 29 134/91 (105) 99 11/12/20 01:15 100 29 130/77 (94) 100 11/12/20 01:00 101 32 129/75 (93) 100 11/12/20 00:45 104 29 137/77 (97) 100 11/12/20 00:30 98 29 128/81 (97) 100 11/12/20 00:15 101 30 128/79 (95) 100 11/12/20 00:00 Nasal Cannula 2.0 11/12/20 00:00 98.6 104 28 134/84 (101) 100 11/11/20 23:48 108 11/11/20 23:45 101 26 153/81 (105) 100 11/11/20 23:30 100 26 132/74 (93) 100 11/11/20 23:15 100 25 129/76 (93) 100 11/11/20 23:00 102 26 129/85 (100) 100 11/11/20 22:45 102 26 130/74 (92) 100 11/11/20 22:30 102 25 130/76 (94) 100 11/11/20 22:15 102 26 135/78 (97) 100 11/11/20 22:00 101 28 132/74 (93) 100 11/11/20 21:45 103 28 133/81 (98) 100 11/11/20 21:30 104 29 138/83 (101) 100 11/11/20 21:15 104 30 134/78 (96) 100 11/11/20 21:00 106 31 133/82 (99) 100 11/11/20 20:45 105 32 137/105 (116) 100 11/11/20 20:30 106 32 132/84 (100) 100 11/11/20 20:15 107 33 134/84 (101) 100 11/11/20 20:00 Nasal Cannula 2.0 11/11/20 20:00 98.7 108 31 142/86 (104) 100 11/11/20 19:45 102 27 138/82 (100) 100 11/11/20 19:35 99 11/11/20 19:30 101 26 136/82 (100) 100 11/11/20 19:15 103 29 136/84 (101) 100 11/11/20 19:00 107 30 135/82 (99) 100 11/11/20 18:00 108 34 135/83 (100) 100 11/11/20 17:00 104 31 124/79 (94) 100 11/11/20 16:30 107 31 129/77 (94) 100 11/11/20 16:00 Nasal Cannula 2.0 11/11/20 16:00 107 11/11/20 16:00 97.9 104 30 127/76 (93) 99 11/11/20 15:30 107 27 125/80 (95) 99 11/11/20 15:00 105 30 121/77 (92) 99 11/11/20 14:30 106 27 122/76 (91) 100 11/11/20 14:00 107 25 125/77 (93) 99 11/11/20 13:30 107 4 125/77 (93) 100 11/11/20 13:00 108 28 120/77 (91) 100 11/11/20 12:30 108 30 123/76 (92) 99 11/11/20 12:00 98.6 108 27 120/77 (91) 100 11/11/20 12:00 Nasal Cannula 2.0 11/11/20 12:00 108 11/11/20 11:30 107 29 126/89 (101) 99 11/11/20 11:00 109 30 120/77 (91) 100 General Appearance: no apparent distress, patient on isolation, isolation precautions Extremities: no swelling Intake and Output 11/11/20 11/12/20 19:00 07:00 Intake Total 1122 ml 1785 ml Output Total 1550 ml 1060 ml Balance -428 ml 725 ml Intake Oral 350 ml Free Water 150 ml 250 ml IV Total 612 ml 825 ml Tube Feeding 360 ml 360 ml Output Urine Total 1510 ml 960 ml Stool Total 40 ml 100 ml # Bowel Movements 3 3 Laboratory Tests Test 11/12/20 06:11 White Blood Count 40.9 K/UL (4.8-10.8) *H Red Blood Count 2.90 M/UL (4.20-5.40) L Hemoglobin 7.7 G/DL (12.0-16.0) L Hematocrit 25.0 % (37.0-47.0) L Mean Corpuscular Volume 86 FL (80-99) Mean Corpuscular Hemoglobin 26.5 PG (27.0-31.0) L Mean Corpuscular Hemoglobin Concent 30.7 G/DL (32.0-36.0) L Red Cell Distribution Width 17.6 % (11.6-14.8) H Platelet Count 48 K/UL (150-450) L Mean Platelet Volume 10.0 FL (6.5-10.1) Neutrophils (%) (Auto) % (45.0-75.0) Lymphocytes (%) (Auto) % (20.0-45.0) Monocytes (%) (Auto) % (1.0-10.0) Eosinophils (%) (Auto) % (0.0-3.0) Basophils (%) (Auto) % (0.0-2.0) Differential Total Cells Counted 100 Neutrophils % (Manual) 89 % (45-75) H Lymphocytes % (Manual) 1 % (20-45) L Monocytes % (Manual) 3 % (1-10) Eosinophils % (Manual) 0 % (0-3) Basophils % (Manual) 0 % (0-2) Band Neutrophils 7 % (0-8) Platelet Estimate Decreased L Platelet Morphology Normal Hypochromasia 1+ Anisocytosis 1+ Schistocytes Rare Sodium Level 149 MMOL/L (136-145) H Potassium Level 2.2 MMOL/L (3.5-5.1) *L Chloride Level 116 MMOL/L (98-107) H Carbon Dioxide Level 18 MMOL/L (21-32) L Anion Gap 15 mmol/L (5-15) Blood Urea Nitrogen 34 mg/dL (7-18) H Creatinine 1.6 MG/DL (0.55-1.30) H Estimat Glomerular Filtration Rate 42.4 mL/min (>60) Glucose Level 121 MG/DL (74-106) H Uric Acid 8.6 MG/DL (2.6-7.2) H Calcium Level 7.5 MG/DL (8.5-10.1) L Phosphorus Level 2.2 MG/DL (2.5-4.9) L Magnesium Level 1.9 MG/DL (1.8-2.4) Total Bilirubin 0.8 MG/DL (0.2-1.0) Aspartate Amino Transf (AST/SGOT) 27 U/L (15-37) Alanine Aminotransferase (ALT/SGPT) 33 U/L (12-78) Alkaline Phosphatase 167 U/L (46-116) H Ammonia 20 umol/L (11-32) C-Reactive Protein, Quantitative 32.1 mg/dL (0.00-0.90) H Pro-B-Type Natriuretic Peptide > 09145 pg/mL (0-125) H Total Protein 5.5 G/DL (6.4-8.2) L Albumin 1.7 G/DL (3.4-5.0) L Globulin 3.8 g/dL Albumin/Globulin Ratio 0.4 (1.0-2.7) L Microbiology Date/Time Source Procedure Growth Status 11/10/20 05:09 Blood Blood Culture - Final Escherichia Coli Complete 11/10/20 05:00 Blood Blood Culture - Final Escherichia Coli Complete 11/09/20 23:45 Stool Clostridium difficile Toxin Assay - Final Complete Objective pt with acute covid infection , inorder tominimize chance of tranmission examination is limited to observation form outside the room and review of other physician notes who may have seen pt Neno Grant MD Nov 12, 2020 10:36
--- NOTE | 2020-11-12 10:45 | Pulmonology Progress Note ---
Subjective ROS Limited/Unobtainable: No Interval Events: Saturating well on low flow O2 Constitutional: Reports: no symptoms HEENT: Repors: no symptoms Respiratory: Reports: no symptoms Cardiovascular: Reports: no symptoms Gastrointestinal/Abdominal: Reports: no symptoms Allergies: Coded Allergies: No Known Allergies (Unverified , 11/08/20) Objective Last 24 Hour Vital Signs Date Time Temp Pulse Resp B/P (MAP) Pulse Ox O2 Delivery O2 Flow Rate FiO2 11/12/20 08:00 88 11/12/20 08:00 Room Air 11/12/20 08:00 98.0 91 29 122/74 (90) 100 11/12/20 07:00 92 29 131/78 (95) 100 11/12/20 06:00 97.8 96 34 130/72 (91) 99 11/12/20 05:45 94 33 135/82 (99) 91 11/12/20 05:30 96 33 129/76 (93) 100 11/12/20 05:15 95 32 128/73 (91) 99 11/12/20 05:00 95 30 125/73 (90) 100 11/12/20 04:45 107 30 127/63 (84) 92 11/12/20 04:30 101 32 136/78 (97) 99 11/12/20 04:15 99.0 87 27 126/72 (90) 100 11/12/20 04:00 89 27 125/77 (93) 100 11/12/20 04:00 Room Air 11/12/20 03:56 80 11/12/20 03:45 94 28 129/78 (95) 99 11/12/20 03:30 93 28 128/73 (91) 99 11/12/20 03:15 87 26 127/72 (90) 100 11/12/20 03:00 95 27 125/79 (94) 100 11/12/20 02:45 92 28 132/77 (95) 99 11/12/20 02:30 93 27 131/77 (95) 99 11/12/20 02:15 88 26 132/77 (95) 100 11/12/20 02:00 90 26 129/77 (94) 100 11/12/20 01:45 102 32 128/77 (94) 100 11/12/20 01:30 106 29 134/91 (105) 99 11/12/20 01:15 100 29 130/77 (94) 100 11/12/20 01:00 101 32 129/75 (93) 100 11/12/20 00:45 104 29 137/77 (97) 100 11/12/20 00:30 98 29 128/81 (97) 100 11/12/20 00:15 101 30 128/79 (95) 100 11/12/20 00:00 Nasal Cannula 2.0 11/12/20 00:00 98.6 104 28 134/84 (101) 100 11/11/20 23:48 108 11/11/20 23:45 101 26 153/81 (105) 100 11/11/20 23:30 100 26 132/74 (93) 100 11/11/20 23:15 100 25 129/76 (93) 100 11/11/20 23:00 102 26 129/85 (100) 100 11/11/20 22:45 102 26 130/74 (92) 100 11/11/20 22:30 102 25 130/76 (94) 100 11/11/20 22:15 102 26 135/78 (97) 100 11/11/20 22:00 101 28 132/74 (93) 100 11/11/20 21:45 103 28 133/81 (98) 100 11/11/20 21:30 104 29 138/83 (101) 100 11/11/20 21:15 104 30 134/78 (96) 100 11/11/20 21:00 106 31 133/82 (99) 100 11/11/20 20:45 105 32 137/105 (116) 100 11/11/20 20:30 106 32 132/84 (100) 100 11/11/20 20:15 107 33 134/84 (101) 100 11/11/20 20:00 Nasal Cannula 2.0 11/11/20 20:00 98.7 108 31 142/86 (104) 100 11/11/20 19:45 102 27 138/82 (100) 100 11/11/20 19:35 99 11/11/20 19:30 101 26 136/82 (100) 100 11/11/20 19:15 103 29 136/84 (101) 100 11/11/20 19:00 107 30 135/82 (99) 100 11/11/20 18:00 108 34 135/83 (100) 100 11/11/20 17:00 104 31 124/79 (94) 100 11/11/20 16:30 107 31 129/77 (94) 100 11/11/20 16:00 Nasal Cannula 2.0 11/11/20 16:00 107 11/11/20 16:00 97.9 104 30 127/76 (93) 99 11/11/20 15:30 107 27 125/80 (95) 99 11/11/20 15:00 105 30 121/77 (92) 99 11/11/20 14:30 106 27 122/76 (91) 100 11/11/20 14:00 107 25 125/77 (93) 99 11/11/20 13:30 107 4 125/77 (93) 100 11/11/20 13:00 108 28 120/77 (91) 100 11/11/20 12:30 108 30 123/76 (92) 99 11/11/20 12:00 98.6 108 27 120/77 (91) 100 11/11/20 12:00 Nasal Cannula 2.0 11/11/20 12:00 108 11/11/20 11:30 107 29 126/89 (101) 99 11/11/20 11:00 109 30 120/77 (91) 100 Intake and Output 11/11/20 11/12/20 19:00 07:00 Intake Total 1122 ml 1785 ml Output Total 1550 ml 1060 ml Balance -428 ml 725 ml Intake Oral 350 ml Free Water 150 ml 250 ml IV Total 612 ml 825 ml Tube Feeding 360 ml 360 ml Output Urine Total 1510 ml 960 ml Stool Total 40 ml 100 ml # Bowel Movements 3 3 General Appearance: WD/WN HEENT: normocephalic Respiratory: chest wall non-tender Cardiovascular: normal peripheral pulses Abdomen: soft, non tender Microbiology Date/Time Source Procedure Growth Status 11/10/20 05:09 Blood Blood Culture - Final Escherichia Coli Complete 11/10/20 05:00 Blood Blood Culture - Final Escherichia Coli Complete 11/09/20 23:45 Stool Clostridium difficile Toxin Assay - Final Complete Laboratory Tests 11/12/20 06:11: White Blood Count 40.9*H, Red Blood Count 2.90L, Hemoglobin 7.7L, Hematocrit 25.0L, Mean Corpuscular Volume 86, Mean Corpuscular Hemoglobin 26.5L, Mean Corpuscular Hemoglobin Concent 30.7L, Red Cell Distribution Width 17.6H, Platelet Count 48L, Mean Platelet Volume 10.0, Neutrophils (%) (Auto) , Lymphocytes (%) (Auto) , Monocytes (%) (Auto) , Eosinophils (%) (Auto) , Basophils (%) (Auto) , Differential Total Cells Counted 100, Neutrophils % (Manual) 89H, Lymphocytes % (Manual) 1L, Monocytes % (Manual) 3, Eosinophils % (Manual) 0, Basophils % (Manual) 0, Band Neutrophils 7, Platelet Estimate DecreasedL, Platelet Morphology Normal, Hypochromasia 1+, Anisocytosis 1+, Schistocytes Rare, Sodium Level 149H, Potassium Level 2.2*L, Chloride Level 116H , Carbon Dioxide Level 18L, Anion Gap 15, Blood Urea Nitrogen 34H, Creatinine 1.6H, Estimat Glomerular Filtration Rate 42.4, Glucose Level 121H, Uric Acid 8.6H, Calcium Level 7.5L, Phosphorus Level 2.2L, Magnesium Level 1.9, Total Bilirubin 0.8, Aspartate Amino Transf (AST/SGOT) 27, Alanine Aminotransferase (ALT/SGPT) 33, Alkaline Phosphatase 167H, Ammonia 20, C-Reactive Protein, Quantitative 32.1H, Pro-B-Type Natriuretic Peptide > 88260S, Total Protein 5.5L, Albumin 1.7L, Globulin 3.8, Albumin/Globulin Ratio 0.4L Current Medications Medications (Trade) Dose Ordered Sig/Bunny Route PRN Reason Start Time Stop Time Status Last Admin Dose Admin Acetaminophen (Tylenol) 650 mg Q4H PRN NG Temp >100.5 11/10/20 05:15 12/10/20 05:14 11/10/20 05:21 Chlorhexidine Gluconate (Carmen-Hex 2%) 1 applic DAILY@2000 TOPIC 11/09/20 20:00 02/07/21 19:59 11/11/20 21:21 Dextrose (Dextrose 50%) 25 ml Q30M PRN IV Hypoglycemia 11/10/20 23:45 02/08/21 23:44 Dextrose (Dextrose 50%) 50 ml Q30M PRN IV Hypoglycemia 11/10/20 23:45 02/08/21 23:44 Dextrose/ Electrolytes 1,000 ml @ 75 mls/hr [id number] IV 11/11/20 15:00 12/11/20 14:59 11/12/20 04:16 Doxycycline Hyclate 100 mg/ Dextrose 110 ml @ 110 mls/hr Q12HR IV 11/10/20 21:00 11/17/20 20:59 11/12/20 09:10 Hydrocortisone (Solu-CORTEF) 100 mg EVERY 8 HOURS IV 11/08/20 22:00 02/06/21 21:59 11/12/20 05:28 Iron Sucrose 100 mg/Sodium Chloride 60 ml @ 240 mls/hr BEDTIME IVPB 11/10/20 21:00 11/14/20 21:14 11/11/20 21:20 Meropenem 1 gm/ Sodium Chloride 100 ml @ 200 mls/hr Q12H IVPB 11/09/20 16:00 11/14/20 15:59 11/12/20 04:15 Pantoprazole (Protonix) 40 mg Q12HR IVP 11/09/20 21:00 12/09/20 08:59 11/12/20 09:10 Potassium Phosphate 20 mm/ Sodium Chloride 281.6667 ml @ 46.944 m... ONCE IV 11/12/20 10:00 11/12/20 11:00 11/12/20 10:27 Potassium Chloride 100 ml @ 100 mls/hr Q1H IVPB 11/12/20 09:30 11/12/20 15:29 11/12/20 10:26 Sodium Citrate (Bicitra) 30 ml EVERY 6 HOURS NG 11/11/20 18:00 12/11/20 17:59 11/12/20 05:28 Tramadol HCl (Ultram) 50 mg Q6H PRN ORAL For Pain 11/08/20 22:15 11/15/20 22:14 11/10/20 20:00 Vancomycin HCl ([facility] pharmacy to dose) 1 ea DAILY PRN MISC Per rx protocol 11/08/20 17:45 12/08/20 17:44 Assessment/Plan Assessment/Plan IMPRESSION: 1. Septic shock. Resolved 2. Hypotension. 3. Status post central line placement. 4. Multiple sclerosis. 5. Diarrhea, ruled out for C. difficile colitis. 6. E. coli bacteremia; on Meropenem DISCUSSION: Now off pressors. Will dc bicarb supplementation. Continue broad-spectrum antibiotics. DVT prophylaxis. Susan Vigil Omar Syed MD Nov 12, 2020 10:45
--- NOTE | 2020-11-12 11:53 | Nephrology Progress Note ---
Assessment/Plan Problem List: (1) VALERIA (acute kidney injury) (2) Septic shock (3) Multiple sclerosis (4) Acute metabolic encephalopathy (5) Anemia (6) Electrolyte imbalance Assessment Acute renal failure Sepsis, shock Acute metabolic encephalopathy Anemia UTI Plan November 12: Labs reviewed. Potassium 2.2, replacement ordered. Serum creatinine down to 1.6. Discussed with RN. Continue per consultants. Renal parameters. November 11: Labs reviewed. Low potassium replaced. Serum creatinine 1.9. Patient full code. On nasal cannula. Discussed with RN. Continue per consultants. Continue to monitor renal parameters November 10 labs reviewed. Serum creatinine 2. Patient more lethargic today. NG tube and feeding through NG to be initiated. Patient full code. Continue to monitor renal parameters. November 09: Low magnesium replaced. IV iron ordered. Labs reviewed. Albumin bolus given. Serum creatinine higher to 2.3. Continue current management. Patient full code. Previously: ICU Pressors Hydrate Monitor renal parameters and electrolytes Anemia work-up Avoid nephrotoxic's Subjective ROS Limited/Unobtainable: No Constitutional: Reports: malaise, weakness Objective Objective Last 24 Hour Vital Signs Date Time Temp Pulse Resp B/P (MAP) Pulse Ox O2 Delivery O2 Flow Rate FiO2 11/12/20 11:00 73 28 131/79 (96) 100 11/12/20 10:00 90 31 128/75 (92) 100 11/12/20 09:00 99 32 135/83 (100) 99 11/12/20 08:00 88 11/12/20 08:00 Room Air 11/12/20 08:00 98.0 91 29 122/74 (90) 100 11/12/20 07:00 92 29 131/78 (95) 100 11/12/20 06:00 97.8 96 34 130/72 (91) 99 11/12/20 05:45 94 33 135/82 (99) 91 11/12/20 05:30 96 33 129/76 (93) 100 11/12/20 05:15 95 32 128/73 (91) 99 11/12/20 05:00 95 30 125/73 (90) 100 11/12/20 04:45 107 30 127/63 (84) 92 11/12/20 04:30 101 32 136/78 (97) 99 11/12/20 04:15 99.0 87 27 126/72 (90) 100 11/12/20 04:00 89 27 125/77 (93) 100 11/12/20 04:00 Room Air 11/12/20 03:56 80 11/12/20 03:45 94 28 129/78 (95) 99 11/12/20 03:30 93 28 128/73 (91) 99 11/12/20 03:15 87 26 127/72 (90) 100 11/12/20 03:00 95 27 125/79 (94) 100 11/12/20 02:45 92 28 132/77 (95) 99 11/12/20 02:30 93 27 131/77 (95) 99 11/12/20 02:15 88 26 132/77 (95) 100 11/12/20 02:00 90 26 129/77 (94) 100 11/12/20 01:45 102 32 128/77 (94) 100 11/12/20 01:30 106 29 134/91 (105) 99 11/12/20 01:15 100 29 130/77 (94) 100 11/12/20 01:00 101 32 129/75 (93) 100 11/12/20 00:45 104 29 137/77 (97) 100 11/12/20 00:30 98 29 128/81 (97) 100 11/12/20 00:15 101 30 128/79 (95) 100 11/12/20 00:00 Nasal Cannula 2.0 11/12/20 00:00 98.6 104 28 134/84 (101) 100 11/11/20 23:48 108 11/11/20 23:45 101 26 153/81 (105) 100 11/11/20 23:30 100 26 132/74 (93) 100 11/11/20 23:15 100 25 129/76 (93) 100 11/11/20 23:00 102 26 129/85 (100) 100 11/11/20 22:45 102 26 130/74 (92) 100 11/11/20 22:30 102 25 130/76 (94) 100 11/11/20 22:15 102 26 135/78 (97) 100 11/11/20 22:00 101 28 132/74 (93) 100 11/11/20 21:45 103 28 133/81 (98) 100 11/11/20 21:30 104 29 138/83 (101) 100 11/11/20 21:15 104 30 134/78 (96) 100 11/11/20 21:00 106 31 133/82 (99) 100 11/11/20 20:45 105 32 137/105 (116) 100 11/11/20 20:30 106 32 132/84 (100) 100 11/11/20 20:15 107 33 134/84 (101) 100 11/11/20 20:00 Nasal Cannula 2.0 11/11/20 20:00 98.7 108 31 142/86 (104) 100 11/11/20 19:45 102 27 138/82 (100) 100 11/11/20 19:35 99 11/11/20 19:30 101 26 136/82 (100) 100 11/11/20 19:15 103 29 136/84 (101) 100 11/11/20 19:00 107 30 135/82 (99) 100 11/11/20 18:00 108 34 135/83 (100) 100 11/11/20 17:00 104 31 124/79 (94) 100 11/11/20 16:30 107 31 129/77 (94) 100 11/11/20 16:00 Nasal Cannula 2.0 11/11/20 16:00 107 11/11/20 16:00 97.9 104 30 127/76 (93) 99 11/11/20 15:30 107 27 125/80 (95) 99 11/11/20 15:00 105 30 121/77 (92) 99 11/11/20 14:30 106 27 122/76 (91) 100 11/11/20 14:00 107 25 125/77 (93) 99 11/11/20 13:30 107 4 125/77 (93) 100 11/11/20 13:00 108 28 120/77 (91) 100 11/11/20 12:30 108 30 123/76 (92) 99 11/11/20 12:00 98.6 108 27 120/77 (91) 100 11/11/20 12:00 Nasal Cannula 2.0 11/11/20 12:00 108 Intake and Output 11/11/20 11/12/20 19:00 07:00 Intake Total 1122 ml 1860 ml Output Total 1550 ml 1060 ml Balance -428 ml 800 ml Intake Oral 350 ml Free Water 150 ml 250 ml IV Total 612 ml 900 ml Tube Feeding 360 ml 360 ml Output Urine Total 1510 ml 960 ml Stool Total 40 ml 100 ml # Bowel Movements 3 3 Current Medications Medications (Trade) Dose Ordered Sig/Bunny Route PRN Reason Start Time Stop Time Status Last Admin Dose Admin Acetaminophen (Tylenol) 650 mg Q4H PRN NG Temp >100.5 11/10/20 05:15 12/10/20 05:14 11/10/20 05:21 Chlorhexidine Gluconate (Carmen-Hex 2%) 1 applic DAILY@2000 TOPIC 11/09/20 20:00 02/07/21 19:59 11/11/20 21:21 Dextrose (Dextrose 50%) 25 ml Q30M PRN IV Hypoglycemia 11/10/20 23:45 02/08/21 23:44 Dextrose (Dextrose 50%) 50 ml Q30M PRN IV Hypoglycemia 11/10/20 23:45 02/08/21 23:44 Dextrose/ Electrolytes 1,000 ml @ 75 mls/hr [id number] IV 11/11/20 15:00 12/11/20 14:59 11/12/20 04:16 Doxycycline Hyclate 100 mg/ Dextrose 110 ml @ 110 mls/hr Q12HR IV 11/10/20 21:00 11/17/20 20:59 11/12/20 09:10 Hydrocortisone (Solu-CORTEF) 100 mg EVERY 8 HOURS IV 11/08/20 22:00 02/06/21 21:59 11/12/20 05:28 Iron Sucrose 100 mg/Sodium Chloride 60 ml @ 240 mls/hr BEDTIME IVPB 11/10/20 21:00 11/14/20 21:14 11/11/20 21:20 Meropenem 1 gm/ Sodium Chloride 100 ml @ 200 mls/hr Q12H IVPB 11/09/20 16:00 11/14/20 15:59 11/12/20 04:15 Pantoprazole (Protonix) 40 mg Q12HR IVP 11/09/20 21:00 12/09/20 08:59 11/12/20 09:10 Potassium Chloride 100 ml @ 50 mls/hr Q2H IVPB 11/12/20 11:00 11/12/20 14:59 11/12/20 11:21 Sodium Citrate (Bicitra) 30 ml EVERY 6 HOURS NG 11/11/20 18:00 12/11/20 17:59 11/12/20 11:21 Tramadol HCl (Ultram) 50 mg Q6H PRN ORAL For Pain 11/08/20 22:15 11/15/20 22:14 11/10/20 20:00 [facility]comycin [facility] ([facility]) 1 ea DAILY PRN MISC Per rx protocol 11/08/20 17:45 12/08/20 17:44 Laboratory Tests 11/12/20 06:11: White Blood Count 40.9*H, Red Blood Count 2.90L, Hemoglobin 7.7L, Hematocrit 25.0L, Mean Corpuscular Volume 86, Mean Corpuscular Hemoglobin 26.5L, Mean Corpuscular Hemoglobin Concent 30.7L, Red Cell Distribution Width 17.6H, Platelet Count 48L, Mean Platelet Volume 10.0, Neutrophils (%) (Auto) , Lym phocytes (%) (Auto) , Monocytes (%) (Auto) , Eosinophils (%) (Auto) , Basophils (%) (Auto) , Differential Total Cells Counted 100, Neutrophils % (Manual) 89H, Lymphocytes % (Manual) 1L, Monocytes % (Manual) 3, Eosinophils % (Manual) 0, Basophils % (Manual) 0, Band Neutrophils 7, Platelet Estimate DecreasedL, Platelet Morphology Normal, Hypochromasia 1+, Anisocytosis 1+, Schistocytes Rare, Sodium Level 149H, Potassium Level 2.2*L, Chloride Level 116H, Carbon Dioxide Level 18L, Anion Gap 15, Blood Urea Nitrogen 34H, Creatinine 1.6H, Estimat Glomerular Filtration Rate 42.4, Glucose Level 121H, Uric Acid 8.6H, Calcium Level 7.5L, Phosphorus Level 2.2L, Magnesium Level 1.9, Total Bilirubin 0.8, Aspartate Amino Transf (AST/SGOT) 27, Alanine Aminotransferase (ALT/SGPT) 33, Alkaline Phosphatase 167H, Ammonia 20, C-Reactive Protein, Quantitative 32.1H, Pro-B-Type Natriuretic Peptide > 59870D, Total Protein 5.5L, Albumin 1.7L , Globulin 3.8, Albumin/Globulin Ratio 0.4L Height (Feet): 5 Height (Inches): 5.00 Weight (Pounds): 165 General Appearance: no apparent distress, lethargic EENT: other - Has NG tube Cardiovascular: tachycardia Respiratory/Chest: decreased breath sounds Abdomen: distended Bridger Mari MD Nov 12, 2020 11:53
--- NOTE | 2020-11-12 13:17 | Surgery Progress Note ---
Surgery Progress Note Subjective Additional Comments labs noted no n/v looks well overall electrolytes being replaced Objective Last 24 Hour Vital Signs Date Time Temp Pulse Resp B/P (MAP) Pulse Ox O2 Delivery O2 Flow Rate FiO2 11/12/20 12:00 Room Air 11/12/20 12:00 97.8 88 26 123/71 (88) 100 11/12/20 12:00 102 11/12/20 11:00 73 28 131/79 (96) 100 11/12/20 10:00 90 31 128/75 (92) 100 11/12/20 09:00 99 32 135/83 (100) 99 11/12/20 08:00 88 11/12/20 08:00 Room Air 11/12/20 08:00 98.0 91 29 122/74 (90) 100 11/12/20 07:00 92 29 131/78 (95) 100 11/12/20 06:00 97.8 96 34 130/72 (91) 99 11/12/20 05:45 94 33 135/82 (99) 91 11/12/20 05:30 96 33 129/76 (93) 100 11/12/20 05:15 95 32 128/73 (91) 99 11/12/20 05:00 95 30 125/73 (90) 100 11/12/20 04:45 107 30 127/63 (84) 92 11/12/20 04:30 101 32 136/78 (97) 99 11/12/20 04:15 99.0 87 27 126/72 (90) 100 11/12/20 04:00 89 27 125/77 (93) 100 11/12/20 04:00 Room Air 11/12/20 03:56 80 11/12/20 03:45 94 28 129/78 (95) 99 11/12/20 03:30 93 28 128/73 (91) 99 11/12/20 03:15 87 26 127/72 (90) 100 11/12/20 03:00 95 27 125/79 (94) 100 11/12/20 02:45 92 28 132/77 (95) 99 11/12/20 02:30 93 27 131/77 (95) 99 11/12/20 02:15 88 26 132/77 (95) 100 11/12/20 02:00 90 26 129/77 (94) 100 11/12/20 01:45 102 32 128/77 (94) 100 11/12/20 01:30 106 29 134/91 (105) 99 11/12/20 01:15 100 29 130/77 (94) 100 11/12/20 01:00 101 32 129/75 (93) 100 11/12/20 00:45 104 29 137/77 (97) 100 11/12/20 00:30 98 29 128/81 (97) 100 11/12/20 00:15 101 30 128/79 (95) 100 11/12/20 00:00 Nasal Cannula 2.0 11/12/20 00:00 98.6 104 28 134/84 (101) 100 11/11/20 23:48 108 11/11/20 23:45 101 26 153/81 (105) 100 11/11/20 23:30 100 26 132/74 (93) 100 11/11/20 23:15 100 25 129/76 (93) 100 11/11/20 23:00 102 26 129/85 (100) 100 11/11/20 22:45 102 26 130/74 (92) 100 11/11/20 22:30 102 25 130/76 (94) 100 11/11/20 22:15 102 26 135/78 (97) 100 11/11/20 22:00 101 28 132/74 (93) 100 11/11/20 21:45 103 28 133/81 (98) 100 11/11/20 21:30 104 29 138/83 (101) 100 11/11/20 21:15 104 30 134/78 (96) 100 11/11/20 21:00 106 31 133/82 (99) 100 11/11/20 20:45 105 32 137/105 (116) 100 11/11/20 20:30 106 32 132/84 (100) 100 11/11/20 20:15 107 33 134/84 (101) 100 11/11/20 20:00 Nasal Cannula 2.0 11/11/20 20:00 98.7 108 31 142/86 (104) 100 11/11/20 19:45 102 27 138/82 (100) 100 11/11/20 19:35 99 11/11/20 19:30 101 26 136/82 (100) 100 11/11/20 19:15 103 29 136/84 (101) 100 11/11/20 19:00 107 30 135/82 (99) 100 11/11/20 18:00 108 34 135/83 (100) 100 11/11/20 17:00 104 31 124/79 (94) 100 11/11/20 16:30 107 31 129/77 (94) 100 11/11/20 16:00 Nasal Cannula 2.0 11/11/20 16:00 107 11/11/20 16:00 97.9 104 30 127/76 (93) 99 11/11/20 15:30 107 27 125/80 (95) 99 11/11/20 15:00 105 30 121/77 (92) 99 11/11/20 14:30 106 27 122/76 (91) 100 11/11/20 14:00 107 25 125/77 (93) 99 11/11/20 13:30 107 4 125/77 (93) 100 I&O Intake and Output 11/11/20 11/12/20 19:00 07:00 Intake Total 1122 ml 1860 ml Output Total 1550 ml 1060 ml Balance -428 ml 800 ml Intake Oral 350 ml Free Water 150 ml 250 ml IV Total 612 ml 900 ml Tube Feeding 360 ml 360 ml Output Urine Total 1510 ml 960 ml Stool Total 40 ml 100 ml # Bowel Movements 3 3 Cardiovascular: RSR Respiratory: clear Abdomen: soft, non-tender, present bowel sounds, non-distended Extremities: no edema, no tenderness, no cyanosis Laboratory Tests Test 11/12/20 06:11 White Blood Count 40.9 K/UL (4.8-10.8) *H Red Blood Count 2.90 M/UL (4.20-5.40) L Hemoglobin 7.7 G/DL (12.0-16.0) L Hematocrit 25.0 % (37.0-47.0) L Mean Corpuscular Volume 86 FL (80-99) Mean Corpuscular Hemoglobin 26.5 PG (27.0-31.0) L Mean Corpuscular Hemoglobin Concent 30.7 G/DL (32.0-36.0) L Red Cell Distribution Width 17.6 % (11.6-14.8) H Platelet Count 48 K/UL (150-450) L Mean Platelet Volume 10.0 FL (6.5-10.1) Neutrophils (%) (Auto) % (45.0-75.0) Lymphocytes (%) (Auto) % (20.0-45.0) Monocytes (%) (Auto) % (1.0-10.0) Eosinophils (%) (Auto) % (0.0-3.0) Basophils (%) (Auto) % (0.0-2.0) Differential Total Cells Counted 100 Neutrophils % (Manual) 89 % (45-75) H Lymphocytes % (Manual) 1 % (20-45) L Monocytes % (Manual) 3 % (1-10) Eosinophils % (Manual) 0 % (0-3) Basophils % (Manual) 0 % (0-2) Band Neutrophils 7 % (0-8) Platelet Estimate Decreased L Platelet Morphology Normal Hypochromasia 1+ Anisocytosis 1+ Schistocytes Rare Sodium Level 149 MMOL/L (136-145) H Potassium Level 2.2 MMOL/L (3.5-5.1) *L Chloride Level 116 MMOL/L (98-107) H Carbon Dioxide Level 18 MMOL/L (21-32) L Anion Gap 15 mmol/L (5-15) Blood Urea Nitrogen 34 mg/dL (7-18) H Creatinine 1.6 MG/DL (0.55-1.30) H Estimat Glomerular Filtration Rate 42.4 mL/min (>60) Glucose Level 121 MG/DL (74-106) H Uric Acid 8.6 MG/DL (2.6-7.2) H Calcium Level 7.5 MG/DL (8.5-10.1) L Phosphorus Level 2.2 MG/DL (2.5-4.9) L Magnesium Level 1.9 MG/DL (1.8-2.4) Total Bilirubin 0.8 MG/DL (0.2-1.0) Aspartate Amino Transf (AST/SGOT) 27 U/L (15-37) Alanine Aminotransferase (ALT/SGPT) 33 U/L (12-78) Alkaline Phosphatase 167 U/L (46-116) H Ammonia 20 umol/L (11-32) C-Reactive Protein, Quantitative 32.1 mg/dL (0.00-0.90) H Pro-B-Type Natriuretic Peptide > 66281 pg/mL (0-125) H Total Protein 5.5 G/DL (6.4-8.2) L Albumin 1.7 G/DL (3.4-5.0) L Globulin 3.8 g/dL Albumin/Globulin Ratio 0.4 (1.0-2.7) L Plan Problems: (1) Anemia (2) Sepsis Assessment & Plan: 44-year-old female with altered mental status, lactic acidosis, leukocytosis, sepsis. Vitals currently stable. Abdominal exam mild distention but limited. Will obtain imaging. Labs noted UTI on antibiotics fluid resuscitation trend labs we will follow with examination and recommendations. CT head reviewed. much improved now responsive states well no abd symptoms okay for diet labs noted exam stable diet as tolerated trend labs iv fluids No acute intracranial hemorrhage. No midline shift or mass effect. The territorial hassan-white matter differentiation is maintained throughout. The ventricles and sulci are commensurate with age. The visualized orbits appear grossly unremarkable. The calvarium is intact. The visualized paranasal sinuses and mastoid air cells are grossly clear. CT noted Liver: Unremarkable Gallbladder and bile ducts: Cholelithiasis and nonspecific gallbladder wall edema in light of the third spacing. Pancreas: Stranding around the pancreas, could be from pancreatitis or the third spacing. Correlate with amylase or lipase values as clinically appropriate. Spleen: Unremarkable. Adrenals: Unremarkable. Kidneys and ureters: Right nephrolithiasis. Stomach and bowel: Nonspecific bowel gas pattern. Nonspecific thickening of the GI tract in light of the third spacing. PELVIS: Appendix: No findings to suggest acute appendicitis. Bladder: Duffy catheter. Reproductive: Exophytic fibroid versus complex left adnexal lesion measuring approximately 4.1 cm. Subperitoneal space: Presacral edema. ABDOMEN and PELVIS: Intraperitoneal space: Edema throughout the peritoneal cavity. Small amounts of fluid in the peritoneal cavity. Bones/joints: No acute fracture. Soft tissues: Anasarca Vasculature: Unremarkable. No abdominal aortic aneurysm. Lymph nodes: No enlarged lymph nodes. Tubes, lines and devices: Rectal tube. Right femoral central line. Enteric tube in the stomach. IMPRESSION: 1. Cholelithiasis and nonspecific gallbladder wall edema in light of the third spacing. 2. Nonspecific bowel gas pattern. (3) UTI (urinary tract infection) (4) VALERIA (acute kidney injury) (5) Acute metabolic encephalopathy Archie Saavedra Nov 12, 2020 13:17
--- NOTE | 2020-11-12 13:45 | Internal Med Progress Note ---
Subjective Date of Service: Nov 12, 2020 Physician Name Jad Sarabia Attending Physician Kris Cormier MD Current Medications Medications (Trade) Dose Ordered Sig/Bunny Route PRN Reason Start Time Stop Time Status Last Admin Dose Admin Acetaminophen (Tylenol) 650 mg Q4H PRN NG Temp >100.5 11/10/20 05:15 12/10/20 05:14 11/10/20 05:21 Chlorhexidine Gluconate (Carmen-Hex 2%) 1 applic DAILY@2000 TOPIC 11/09/20 20:00 02/07/21 19:59 11/11/20 21:21 Dextrose (Dextrose 50%) 25 ml Q30M PRN IV Hypoglycemia 11/10/20 23:45 02/08/21 23:44 Dextrose (Dextrose 50%) 50 ml Q30M PRN IV Hypoglycemia 11/10/20 23:45 02/08/21 23:44 Dextrose/ Electrolytes 1,000 ml @ 75 mls/hr [id number] IV 11/11/20 15:00 12/11/20 14:59 11/12/20 04:16 Doxycycline Hyclate 100 mg/ Dextrose 110 ml @ 110 mls/hr Q12HR IV 11/10/20 21:00 11/17/20 20:59 11/12/20 09:10 Hydrocortisone (Solu-CORTEF) 100 mg EVERY 8 HOURS IV 11/08/20 22:00 02/06/21 21:59 11/12/20 13:18 Iron Sucrose 100 mg/Sodium Chloride 60 ml @ 240 mls/hr BEDTIME IVPB 11/10/20 21:00 11/14/20 21:14 11/11/20 21:20 Meropenem 1 gm/ Sodium Chloride 100 ml @ 200 mls/hr Q12H IVPB 11/09/20 16:00 11/14/20 15:59 11/12/20 04:15 Pantoprazole (Protonix) 40 mg Q12HR IVP 11/09/20 21:00 12/09/20 08:59 11/12/20 09:10 Potassium Chloride 100 ml @ 50 mls/hr Q2H IVPB 11/12/20 11:00 11/12/20 14:59 11/12/20 13:18 Sodium Citrate (Bicitra) 30 ml EVERY 6 HOURS NG 11/11/20 18:00 12/11/20 17:59 11/12/20 11:21 Tramadol HCl (Ultram) 50 mg Q6H PRN ORAL For Pain 11/08/20 22:15 11/15/20 22:14 11/10/20 20:00 Vancomycin HCl (Vanco pharmacy to dose) 1 ea DAILY PRN MISC Per rx protocol 11/08/20 17:45 12/08/20 17:44 Allergies: Coded Allergies: No Known Allergies (Unverified , 11/08/20) ROS Limited/Unobtainable: No Constitutional: Reports: no symptoms HEENT: Reports: no symptoms Cardiovascular: Reports: no symptoms Respiratory: Reports: no symptoms Gastrointestinal/Abdominal: Reports: no symptoms Genitourinary: Reports: no symptoms Neurologic/Psychiatric: Reports: no symptoms Subjective 44 YO F admitted with altered mental status. Now sepsis. Cover for Int Med-DR Cormier. ICU Objective Last Vital Signs Date Time Temp Pulse Resp B/P (MAP) Pulse Ox O2 Delivery O2 Flow Rate FiO2 11/12/20 13:00 73 23 126/78 (94) 100 11/12/20 12:00 Room Air 11/12/20 12:00 97.8 11/12/20 00:00 2.0 11/09/20 20:31 21 Laboratory Tests Test 11/12/20 06:11 White Blood Count 40.9 K/UL (4.8-10.8) *H Red Blood Count 2.90 M/UL (4.20-5.40) L Hemoglobin 7.7 G/DL (12.0-16.0) L Hematocrit 25.0 % (37.0-47.0) L Mean Corpuscular Volume 86 FL (80-99) Mean Corpuscular Hemoglobin 26.5 PG (27.0-31.0) L Mean Corpuscular Hemoglobin Concent 30.7 G/DL (32.0-36.0) L Red Cell Distribution Width 17.6 % (11.6-14.8) H Platelet Count 48 K/UL (150-450) L Mean Platelet Volume 10.0 FL (6.5-10.1) Neutrophils (%) (Auto) % (45.0-75.0) Lymphocytes (%) (Auto) % (20.0-45.0) Monocytes (%) (Auto) % (1.0-10.0) Eosinophils (%) (Auto) % (0.0-3.0) Basophils (%) (Auto) % (0.0-2.0) Differential Total Cells Counted 100 Neutrophils % (Manual) 89 % (45-75) H Lymphocytes % (Manual) 1 % (20-45) L Monocytes % (Manual) 3 % (1-10) Eosinophils % (Manual) 0 % (0-3) Basophils % (Manual) 0 % (0-2) Band Neutrophils 7 % (0-8) Platelet Estimate Decreased L Platelet Morphology Normal Hypochromasia 1+ Anisocytosis 1+ Schistocytes Rare Sodium Level 149 MMOL/L (136-145) H Potassium Level 2.2 MMOL/L (3.5-5.1) *L Chloride Level 116 MMOL/L (98-107) H Carbon Dioxide Level 18 MMOL/L (21-32) L Anion Gap 15 mmol/L (5-15) Blood Urea Nitrogen 34 mg/dL (7-18) H Creatinine 1.6 MG/DL (0.55-1.30) H Estimat Glomerular Filtration Rate 42.4 mL/min (>60) Glucose Level 121 MG/DL (74-106) H Uric Acid 8.6 MG/DL (2.6-7.2) H Calcium Level 7.5 MG/DL (8.5-10.1) L Phosphorus Level 2.2 MG/DL (2.5-4.9) L Magnesium Level 1.9 MG/DL (1.8-2.4) Total Bilirubin 0.8 MG/DL (0.2-1.0) Aspartate Amino Transf (AST/SGOT) 27 U/L (15-37) Alanine Aminotransferase (ALT/SGPT) 33 U/L (12-78) Alkaline Phosphatase 167 U/L (46-116) H Ammonia 20 umol/L (11-32) C-Reactive Protein, Quantitative 32.1 mg/dL (0.00-0.90) H Pro-B-Type Natriuretic Peptide > 59217 pg/mL (0-125) H Total Protein 5.5 G/DL (6.4-8.2) L Albumin 1.7 G/DL (3.4-5.0) L Globulin 3.8 g/dL Albumin/Globulin Ratio 0.4 (1.0-2.7) L Microbiology Date/Time Source Procedure Growth Status 11/10/20 05:09 Blood Blood Culture - Final Escherichia Coli Complete 11/10/20 05:00 Blood Blood Culture - Final Escherichia Coli Complete 11/09/20 23:45 Stool Clostridium difficile Toxin Assay - Final Complete Intake and Output 11/11/20 11/12/20 19:00 07:00 Intake Total 1122 ml 1860 ml Output Total 1550 ml 1060 ml Balance -428 ml 800 ml Intake Oral 350 ml Free Water 150 ml 250 ml IV Total 612 ml 900 ml Tube Feeding 360 ml 360 ml Output Urine Total 1510 ml 960 ml Stool Total 40 ml 100 ml # Bowel Movements 3 3 Objective PHYSICAL EXAMINATION: GENERAL: Patient is altered, unresponsive, cannot follow commands. HEAD AND NECK: Pupils are equal and reactive to light. Anicteric. Neck was supple. No JVD. LUNGS: Good air entry. No wheezing or rhonchi. Decreased air in the bases. HEART: S1, S2. No murmur or gallops. ABDOMEN: Soft, nondistended, nontender. Positive bowel sounds. EXTREMITIES: No cyanosis, clubbing, or edema. NEUROLOGIC: Very limited secondary to patient's status. Cannot follow commands. However, moving extremities spontaneously. SKIN: No rashes were identified. Assessment/Plan Assessment/Plan Assessment/Plan Assessment/Plan 1. Septic shock=ESBL E. coli 2. Sepsis secondary to urinary tract infection, but can not R/O intraabdominal infection yet. 3. Dehydration and hypokalemia. 4. Altered mental status, most likely secondary to toxic metabolic encephalopat hy. 5. Acute kidney injury. 6. Anemia. 7. History of multiple sclerosis. 8. COVID 19 pos-H/O COVID POS in Aug 2020. Repeat testing 11/08/20=positive. ?repeat infection? 9. Hypokalemia PLAN: In ICU. IV hydration. Monitor laboratory and cultures. DVT prophylaxis: heparin subcutaneous. 2D echo. Code status: Full Code. Abx: Meropenem IV, Flagyl, and Amikacin On hydrocortisone IV. Pressors: Phenylephrine , Levophed, and Vasopressor Dr. Kline from [facility], Dr. Nat Courtney from ID, Dr. Grant from Cardiology Dr. Bridger Mari from Nephrology. Repeat COVID 19 ?false positive? Replace KCL IV Jad Sarabia MD Nov 12, 2020 13:45
--- NOTE | 2020-11-12 14:01 | Diagnostic Imaging Report ---
Indication: Shortness of breath Technique: One view of the chest Comparison: 11/09/2020 Findings: Bilateral streaky and patchy infiltrates are unchanged or progressed slightly increased. There is suggestion of small bilateral pleural effusions, not evident previously. Impression: Stable slightly increased bilateral infiltrates versus edema Satisfactory nasogastric intubation New bilateral small pleural effusions
--- NOTE | 2020-11-12 16:39 | Diagnostic Imaging Report ---
Indication: Abnormal liver function tests Technique: Hull-scale and duplex images of the upper abdomen were obtained Comparison: 11/10/2020 CT scan. No comparison sonograms Findings: There is a small amount of pleural fluid bilaterally. Gallbladder is unremarkable, without stones, wall thickening. There is trace pericholecystic Fluid. Sonographic Fregoso's sign is negative. Common bile duct measures 3 mm in diameter. No intrahepatic biliary ductal dilatation. Liver demonstrates normal echogenicity, no focal abnormality. Portal vein and hepatic veins are patent. Pancreas is unremarkable. Spleen is unremarkable. Left kidney measures 10.6 cm in length. Right kidney measures 10 cm length. Both kidneys demonstrate normal echogenicity. There is no hydronephrosis. There is a small right renal cyst. Echogenic focus in the right kidney likely represents one of the calculi demonstrated on recent CT scan . Abdominal aorta is partially obscured by bowel gas, visualized portions are non-aneurysmal . Impression: Negative for gallstones or dilated bile ducts. Trace pericholecystic fluid probably represents free intraperitoneal fluid. Bilateral pleural effusions Nonobstructive right renal calculus, also reported on recent CT scan. Incidental finding small right renal cyst But incomplete visualization of the abdominal aorta
--- NOTE | 2020-11-12 16:50 | Infectious Diseases Prog Note ---
Assessment/Plan Assessment/Plan ASSESSMENT AND PLAN: 1. e.coli bacteremia, sepsis, shock, pna, hx covid-19 infection/recovered, ? aspiration pna, hcap, ? cap, uti, c.diff. negative, leukocytosis, fevers, sirs, ? GI source, ? cholecystitis - meropenem, vancomycin and doxycycline - on hydrocortisone - monitor clinically, labs and chest x-ray, f/u US, f/u on surveillance blood cultures - clinically improved - d/w RN 2. COVID infection in the past. The patient has positive COVID testing at this time. The patient is on steroids. Not a candidate for remdesivir, especially she has had old COVID and in addition, she has elevated creatinine. Continue steroids for now. Continue COVID isolation. Monitor the patient's hypoxia. Check followup labs and chest x-ray. Continue proper PPE and isolation for COVID infection. 3. Multiple sclerosis. 4. Weakness. 5. Acute kidney injury, elevated creatinine. 6. Hypertension. 7. Anemia. 8. Steroids. 9. No history of diabetes. 10. Continue treatment with primary consultants. 11. No known drug allergies. 12. Social history negative. 13. Family history is noncontributory. 14. MAR is noted. 15. Case was discussed with RN. 16. ICU care. 17. Skin care protocol. 18. Currently off pressors. 19. No vent currently. Subjective Constitutional: Reports: fatigue, other - off pressors ; Denies: fever HEENT: Reports: congestion - less Respiratory: Reports: shortness of breath - less Cardiovascular: Reports: other - no pressors ; Denies: chest pain Gastrointestinal/Abdominal: Reports: diarrhea - less; Denies: nausea, vomiting Genitourinary: Reports: other - + harrison Neurologic: Reports: weakness, other - responsive Psychiatric: Reports: other - NA Skin: Denies: rash Hematologic: Denies: bleeding Musculoskeletal: Reports: other - NA Allergies: Coded Allergies: No Known Allergies (Unverified , 11/08/20) Objective Last 24 Hour Vital Signs Date Time Temp Pulse Resp B/P (MAP) Pulse Ox O2 Delivery O2 Flow Rate FiO2 11/12/20 15:00 91 31 127/86 (100) 98 11/12/20 14:00 88 36 119/77 (91) 99 11/12/20 13:00 73 23 126/78 (94) 100 11/12/20 12:00 Room Air 11/12/20 12:00 97.8 88 26 123/71 (88) 100 11/12/20 12:00 102 11/12/20 11:00 73 28 131/79 (96) 100 11/12/20 10:00 90 31 128/75 (92) 100 11/12/20 09:00 99 32 135/83 (100) 99 11/12/20 08:00 88 11/12/20 08:00 Room Air 11/12/20 08:00 98.0 91 29 122/74 (90) 100 11/12/20 07:25 Room Air 21 11/12/20 07:00 92 29 131/78 (95) 100 11/12/20 06:00 97.8 96 34 130/72 (91) 99 11/12/20 05:45 94 33 135/82 (99) 91 11/12/20 05:30 96 33 129/76 (93) 100 11/12/20 05:15 95 32 128/73 (91) 99 11/12/20 05:00 95 30 125/73 (90) 100 11/12/20 04:45 107 30 127/63 (84) 92 11/12/20 04:30 101 32 136/78 (97) 99 11/12/20 04:15 99.0 87 27 126/72 (90) 100 11/12/20 04:00 89 27 125/77 (93) 100 11/12/20 04:00 Room Air 11/12/20 03:56 80 11/12/20 03:45 94 28 129/78 (95) 99 11/12/20 03:30 93 28 128/73 (91) 99 11/12/20 03:15 87 26 127/72 (90) 100 11/12/20 03:00 95 27 125/79 (94) 100 11/12/20 02:45 92 28 132/77 (95) 99 11/12/20 02:30 93 27 131/77 (95) 99 11/12/20 02:15 88 26 132/77 (95) 100 11/12/20 02:00 90 26 129/77 (94) 100 11/12/20 01:45 102 32 128/77 (94) 100 11/12/20 01:30 106 29 134/91 (105) 99 11/12/20 01:15 100 29 130/77 (94) 100 11/12/20 01:00 101 32 129/75 (93) 100 11/12/20 00:45 104 29 137/77 (97) 100 11/12/20 00:30 98 29 128/81 (97) 100 11/12/20 00:15 101 30 128/79 (95) 100 11/12/20 00:00 Nasal Cannula 2.0 11/12/20 00:00 98.6 104 28 134/84 (101) 100 11/11/20 23:48 108 11/11/20 23:45 101 26 153/81 (105) 100 11/11/20 23:30 100 26 132/74 (93) 100 11/11/20 23:15 100 25 129/76 (93) 100 11/11/20 23:00 102 26 129/85 (100) 100 11/11/20 22:45 102 26 130/74 (92) 100 11/11/20 22:30 102 25 130/76 (94) 100 11/11/20 22:15 102 26 135/78 (97) 100 11/11/20 22:00 101 28 132/74 (93) 100 11/11/20 21:45 103 28 133/81 (98) 100 11/11/20 21:30 104 29 138/83 (101) 100 11/11/20 21:15 104 30 134/78 (96) 100 11/11/20 21:00 106 31 133/82 (99) 100 11/11/20 20:45 105 32 137/105 (116) 100 11/11/20 20:30 106 32 132/84 (100) 100 11/11/20 20:15 107 33 134/84 (101) 100 11/11/20 20:00 Nasal Cannula 2.0 11/11/20 20:00 98.7 108 31 142/86 (104) 100 11/11/20 19:45 102 27 138/82 (100) 100 11/11/20 19:35 99 11/11/20 19:30 101 26 136/82 (100) 100 11/11/20 19:15 103 29 136/84 (101) 100 11/11/20 19:00 107 30 135/82 (99) 100 11/11/20 18:00 108 34 135/83 (100) 100 11/11/20 17:00 104 31 124/79 (94) 100 Height (Feet): 5 Height (Inches): 5.00 Weight (Pounds): 165 General Appearance: no acute distress HEENT: normocephalic, atraumatic, anicteric, mucous membranes moist Respiratory/Chest: no respiratory distress, no accessory muscle use, crackles/rales, rhonchi - bilaterally Cardiovascular: normal rate, regular rhythm, no gallop/murmur Abdomen: normal bowel sounds, soft, non tender, no organomegaly, non distended Genitourinary: other - + harrison - urine clear Extremities: no cyanosis Skin: no rash Neurologic/Psychiatric: stevedore hold II-XII grossly normal, alert, responsive Lymphatic: no neck adenopathy Musculoskeletal: no effusion Chest x-ray - 11/12/20 - Procedure: XRAY Chest 1v Indication: Shortness of breath Technique: One view of the chest Comparison: 11/09/2020 Findings: Bilateral streaky and patchy infiltrates are unchanged or progressed slightly increased. There is suggestion of small bilateral pleural effusions, not evident previously. Impression: Stable slightly increased bilateral infiltrates versus edema Satisfactory nasogastric intubation New bilateral small pleural effusions Microbiology Date/Time Source Procedure Growth Status 11/10/20 05:09 Blood Blood Culture - Final Escherichia Coli Complete 11/09/20 23:45 Stool Clostridium difficile Toxin Assay - Final Complete 11/08/20 04:49 Nasal Nares MRSA Culture - Final NO METHICILLIN RESISTANT STAPH AUREUS... Complete Microbiology Date/Time Source Procedure Growth Status 11/10/20 05:09 Blood Blood Culture - Final Escherichia Coli Complete 11/10/20 05:00 Blood Blood Culture - Final Escherichia Coli Complete 11/09/20 23:45 Stool Clostridium difficile Toxin Assay - Final Complete Laboratory Tests Test 11/12/20 06:11 11/12/20 16:17 White Blood Count 40.9 K/UL (4.8-10.8) *H Red Blood Count 2.90 M/UL (4.20-5.40) L Hemoglobin 7.7 G/DL (12.0-16.0) L Hematocrit 25.0 % (37.0-47.0) L Mean Corpuscular Volume 86 FL (80-99) Mean Corpuscular Hemoglobin 26.5 PG (27.0-31.0) L Mean Corpuscular Hemoglobin Concent 30.7 G/DL (32.0-36.0) L Red Cell Distribution Width 17.6 % (11.6-14.8) H Platelet Count 48 K/UL (150-450) L Mean Platelet Volume 10.0 FL (6.5-10.1) Neutrophils (%) (Auto) % (45.0-75.0) Lymphocytes (%) (Auto) % (20.0-45.0) Monocytes (%) (Auto) % (1.0-10.0) Eosinophils (%) (Auto) % (0.0-3.0) Basophils (%) (Auto) % (0.0-2.0) Differential Total Cells Counted 100 Neutrophils % (Manual) 89 % (45-75) H Lymphocytes % (Manual) 1 % (20-45) L Monocytes % (Manual) 3 % (1-10) Eosinophils % (Manual) 0 % (0-3) Basophils % (Manual) 0 % (0-2) Band Neutrophils 7 % (0-8) Platelet Estimate Decreased L Platelet Morphology Normal Hypochromasia 1+ Anisocytosis 1+ Schistocytes Rare Sodium Level 149 MMOL/L (136-145) H Potassium Level 2.2 MMOL/L (3.5-5.1) *L Chloride Level 116 MMOL/L (98-107) H Carbon Dioxide Level 18 MMOL/L (21-32) L Anion Gap 15 mmol/L (5-15) Blood Urea Nitrogen 34 mg/dL (7-18) H Creatinine 1.6 MG/DL (0.55-1.30) H Estimat Glomerular Filtration Rate 42.4 mL/min (>60) Glucose Level 121 MG/DL (74-106) H Uric Acid 8.6 MG/DL (2.6-7.2) H Calcium Level 7.5 MG/DL (8.5-10.1) L Phosphorus Level 2.2 MG/DL (2.5-4.9) L Magnesium Level 1.9 MG/DL (1.8-2.4) Total Bilirubin 0.8 MG/DL (0.2-1.0) Aspartate Amino Transf (AST/SGOT) 27 U/L (15-37) Alanine Aminotransferase (ALT/SGPT) 33 U/L (12-78) Alkaline Phosphatase 167 U/L (46-116) H Ammonia 20 umol/L (11-32) C-Reactive Protein, Quantitative 32.1 mg/dL (0.00-0.90) H Pro-B-Type Natriuretic Peptide > 92782 pg/mL (0-125) H Total Protein 5.5 G/DL (6.4-8.2) L Albumin 1.7 G/DL (3.4-5.0) L Globulin 3.8 g/dL Albumin/Globulin Ratio 0.4 (1.0-2.7) L Arterial Blood pH Pending Arterial Blood Partial Pressure CO2 Pending Arterial Blood Partial Pressure O2 Pending Arterial Blood HCO3 Pending Arterial Blood Oxygen Saturation Pending Arterial Blood Base Excess Pending Jose Test Pending Current Medications Medications (Trade) Dose Ordered Sig/Bunny Route PRN Reason Start Time Stop Time Status Last Admin Dose Admin Acetaminophen (Tylenol) 650 mg Q4H PRN NG Temp >100.5 11/10/20 05:15 12/10/20 05:14 11/10/20 05:21 Chlorhexidine Gluconate (Carmen-Hex 2%) 1 applic DAILY@2000 TOPIC 11/09/20 20:00 02/07/21 19:59 11/11/20 21:21 Dextrose (Dextrose 50%) 25 ml Q30M PRN IV Hypoglycemia 11/10/20 23:45 02/08/21 23:44 Dextrose (Dextrose 50%) 50 ml Q30M PRN IV Hypoglycemia 11/10/20 23:45 02/08/21 23:44 Dextrose/ Electrolytes 1,000 ml @ 75 mls/hr [id number] IV 11/11/20 15:00 12/11/20 14:59 11/12/20 04:16 Doxycycline Hyclate 100 mg/ Dextrose 110 ml @ 110 mls/hr Q12HR IV 11/10/20 21:00 11/17/20 20:59 11/12/20 09:10 Hydrocortisone (Solu-CORTEF) 100 mg EVERY 8 HOURS IV 11/08/20 22:00 02/06/21 21:59 11/12/20 13:18 Iron Sucrose 100 mg/Sodium Chloride 60 ml @ 240 mls/hr BEDTIME IVPB 11/10/20 21:00 11/14/20 21:14 11/11/20 21:20 Meropenem 1 gm/ Sodium Chloride 100 ml @ 200 mls/hr Q12H IVPB 11/09/20 16:00 11/14/20 15:59 11/12/20 16:21 Pantoprazole (Protonix) 40 mg Q12HR IVP 11/09/20 21:00 12/09/20 08:59 11/12/20 09:10 Sodium Citrate (Bicitra) 30 ml EVERY 6 HOURS NG 11/11/20 18:00 12/11/20 17:59 11/12/20 11:21 Tramadol HCl (Ultram) 50 mg Q6H PRN ORAL For Pain 11/08/20 22:15 11/15/20 22:14 11/10/20 20:00 Vancomycin HCl (Vanco pharmacy to dose) 1 ea DAILY PRN MISC Per rx protocol 11/08/20 17:45 12/08/20 17:44 Nat Courtney MD Nov 12, 2020 16:50
[2020-11-12] MEDS: Dyna-Hex 2% Top Sol 2oz TOPIC SCH (20:34)
[2020-11-12] MEDS: Iron Sucrose 100 MG in NS 55 ML IVPB SCH (20:36)
[2020-11-13] VITALS (20 sets, daily range): BP systolic 128–168; BP diastolic 62–99
[2020-11-13] MEDS: Sodium Citrate 30ml NG SCH ×4 (00:11→16:59)
[2020-11-13 04:45] LABS: HEMATOCRIT 25.5 % (37.0-47.0); HEMOGLOBIN 7.7 G/DL (12.0-16.0); MEAN CORPUSCULAR VOLUME 87 FL (80-99); PLATELET COUNT 50 K/UL (150-450); RED BLOOD COUNT 2.92 M/UL (4.20-5.40); RED CELL DISTRIBUTION WIDTH 17.5 % (11.6-14.8)
[2020-11-13 05:01] LABS: ALBUMIN 1.7 G/DL (3.4-5.0); ALBUMIN/GLOBULIN RATIO 0.5 (1.0-2.7); BILIRUBIN,TOTAL 0.7 MG/DL (0.2-1.0); CALCIUM 7.7 MG/DL (8.5-10.1); CREATININE 1.3 MG/DL (0.55-1.30); POTASSIUM 2.9 MMOL/L (3.5-5.1)
[2020-11-13 05:07] LABS: PHOSPHORUS 2.4 MG/DL (2.5-4.9); WHITE BLOOD COUNT 35.9 K/UL (4.8-10.8)
[2020-11-13] MEDS: Hydrocortisone 100mg Inj IV SCH ×3 (05:37→22:43)
[2020-11-13] MEDS ORDERED: Vancomycin 1 GM in NS 275 ML IVPB SCH (06:00)
[2020-11-13] MEDS: D5 1/2NS w/KCl 40meq 1000ml 1,000 ML IV SCH (06:03)
[2020-11-13] MEDS: Pantoprazole Inj IVP SCH ×2 (09:23→21:10)
[2020-11-13] MEDS: Doxycycline Hyclate 100 MG in D5W 110 ML IV SCH ×2 (09:23→21:10)
--- NOTE | 2020-11-13 10:27 | Nephrology Progress Note ---
Assessment/Plan Problem List: (1) VALERIA (acute kidney injury) (2) Septic shock (3) Multiple sclerosis (4) Acute metabolic encephalopathy (5) Anemia (6) Electrolyte imbalance Assessment Acute renal failure Sepsis, shock Acute metabolic encephalopathy Anemia UTI Plan November 13: Labs reviewed. Low potassium and low phosphorus addressed. Discussed with RN. Continue to monitor renal parameters. Serum creatinine now down to 1.3. November 12: Labs reviewed. Potassium 2.2, replacement ordered. Serum creatinine down to 1.6. Discussed with RN. Continue per consultants. Renal parameters. November 11: Labs reviewed. Low potassium replaced. Serum creatinine 1.9. Patient full code. On nasal cannula. Discussed with RN. Continue per consultants. Continue to monitor renal parameters November 10 labs reviewed. Serum creatinine 2. Patient more lethargic today. NG tube and feeding through NG to be initiated. Patient full code. Continue to monitor renal parameters. November 09: Low magnesium replaced. IV iron ordered. Labs reviewed. Albumin bolus given. Serum creatinine higher to 2.3. Continue current management. Patient full code. Previously: ICU Pressors Hydrate Monitor renal parameters and electrolytes Anemia work-up Avoid nephrotoxic's Subjective ROS Limited/Unobtainable: No Constitutional: Reports: malaise, weakness Objective Objective Last 24 Hour Vital Signs Date Time Temp Pulse Resp B/P (MAP) Pulse Ox O2 Delivery O2 Flow Rate FiO2 11/13/20 10:00 80 29 137/86 (103) 95 11/13/20 09:00 60 38 168/99 (122) 100 11/13/20 08:00 Room Air 11/13/20 08:00 98.6 76 30 144/78 (100) 95 11/13/20 07:45 65 11/13/20 07:00 78 28 132/82 (99) 97 11/13/20 06:00 73 29 134/75 (94) 98 11/13/20 05:00 84 24 138/83 (101) 98 11/13/20 04:00 98 11/13/20 04:00 Room Air 11/13/20 04:00 98.5 77 29 142/89 (106) 98 11/13/20 03:00 78 35 134/77 (96) 75 11/13/20 02:00 79 26 133/96 (108) 100 11/13/20 01:00 82 32 133/62 (85) 98 11/13/20 00:00 98.6 85 32 132/91 (105) 97 11/13/20 00:00 Room Air 11/13/20 00:00 98 11/12/20 23:00 80 27 128/81 (97) 99 11/12/20 22:00 79 28 126/76 (93) 99 11/12/20 21:00 98 11/12/20 21:00 82 33 127/79 (95) 95 11/12/20 20:00 80 11/12/20 20:00 97.8 86 32 127/74 (91) 100 11/12/20 20:00 Room Air 11/12/20 19:00 84 33 134/77 (96) 99 11/12/20 18:00 86 34 128/77 (94) 99 11/12/20 17:00 81 31 133/80 (97) 98 11/12/20 16:00 98 11/12/20 16:00 Room Air 11/12/20 16:00 98.2 93 125/76 (92) 11/12/20 15:00 91 31 127/86 (100) 98 11/12/20 14:00 88 36 119/77 (91) 99 11/12/20 13:00 73 23 126/78 (94) 100 11/12/20 12:00 Room Air 11/12/20 12:00 97.8 88 26 123/71 (88) 100 11/12/20 12:00 102 11/12/20 11:00 73 28 131/79 (96) 100 Intake and Output 11/12/20 11/13/20 19:00 07:00 Intake Total 1370 ml 2270 ml Output Total 635 ml 900 ml Balance 735 ml 1370 ml Intake Oral 240 ml 1100 ml IV Total 1010 ml 1170 ml Tube Feeding 60 ml Other 60 ml Output Urine Total 635 ml 900 ml # Bowel Movements 3 103 Current Medications Medications (Trade) Dose Ordered Sig/Bunny Route PRN Reason Start Time Stop Time Status Last Admin Dose Admin Acetaminophen (Tylenol) 650 mg Q4H PRN NG Temp >100.5 11/10/20 05:15 12/10/20 05:14 11/10/20 05:21 Chlorhexidine Gluconate (Carmen-Hex 2%) 1 applic DAILY@2000 TOPIC 11/09/20 20:00 02/07/21 19:59 11/12/20 20:34 Dextrose (Dextrose 50%) 25 ml Q30M PRN IV Hypoglycemia 11/10/20 23:45 02/08/21 23:44 Dextrose (Dextrose 50%) 50 ml Q30M PRN IV Hypoglycemia 11/10/20 23:45 02/08/21 23:44 Doxycycline Hyclate 100 mg/ Dextrose 110 ml @ 110 mls/hr Q12HR IV 11/10/20 21:00 11/17/20 20:59 11/13/20 09:23 Hydrocortisone (Solu-CORTEF) 100 mg EVERY 8 HOURS IV 11/08/20 22:00 02/06/21 21:59 11/13/20 05:37 Iron Sucrose 100 mg/Sodium Chloride 60 ml @ 240 mls/hr BEDTIME IVPB 11/10/20 21:00 11/14/20 21:14 11/12/20 20:36 Meropenem 1 gm/ Sodium Chloride 100 ml @ 200 mls/hr Q8HR IVPB 11/13/20 14:00 11/18/20 13:59 Pantoprazole (Protonix) 40 mg Q12HR IVP 11/09/20 21:00 12/09/20 08:59 11/13/20 09:23 Potassium Chloride 40 meq/ Dextrose 1,020 ml @ 50 mls/hr [id number] IV 11/13/20 10:30 12/13/20 10:29 Potassium Phosphate 20 mm/ Sodium Chloride 281.6667 ml @ 46.944 m... ONCE IV 11/13/20 11:00 11/13/20 12:30 Potassium Chloride 100 ml @ 50 mls/hr Q2H IVPB 11/13/20 10:00 11/13/20 15:59 Sodium Citrate (Bicitra) 30 ml EVERY 6 HOURS NG 11/11/20 18:00 12/11/20 17:59 11/13/20 05:37 Tramadol HCl (Ultram) 50 mg Q6H PRN ORAL For Pain 11/08/20 22:15 11/15/20 22:14 11/10/20 20:00 Vancomycin HCl (Vanco pharmacy to dose) 1 ea DAILY PRN MISC Per rx protocol 11/08/20 17:45 12/08/20 17:44 Laboratory Tests 11/12/20 16:17: Arterial Blood pH 7.448, Arterial Blood Partial Pressure CO2 28.2L, Arterial Blood Partial Pressure O2 75.8, Arterial Blood HCO3 19.1L, Arterial Blood Oxygen Saturation 94.5L, Arterial Blood Base Excess -4.3L, Jose Test Positive 11/13/20 03:50: White Blood Count 35.9*H, Red Blood Count 2.92L, Hemoglobin 7.7L, Hematocrit 25.5L, Mean Corpuscular Volume 87, Mean Corpuscular Hemoglobin 26.4L, Mean Corpuscular Hemoglobin Concent 30.2L, Red Cell Distribution Width 17.5H, Platelet Count 50L, Mean Platelet Volume 11.7H, Neutrophils (%) (Auto) , Lymphocytes (%) (Auto) , Monocytes (%) (Auto) , Eosinophils (%) (Auto) , Basophils (%) (Auto) , Differential Total Cells Counted 100, Neutrophils % (Manu al) 85H, Lymphocytes % (Manual) 6L, Monocytes % (Manual) 7, Eosinophils % (Manual) 0, Basophils % (Manual) 0, Band Neutrophils 2, Platelet Estimate DecreasedL, Platelet Morphology Normal, Hypochromasia 2+, Anisocytosis 1+, Sodium Level 150H, Potassium Level 2.9L, Chloride Level 117H, Carbon Dioxide Level 21, Anion Gap 12, Blood Urea Nitrogen 32H, Creatinine 1.3, Estimat Rubina merular Filtration Rate 53.9, Glucose Level 117H, Calcium Level 7.7L, Phosphorus Level 2.4L, Magnesium Level 1.8, Total Bilirubin 0.7, Aspartate Amino Transf (AST/SGOT) 22, Alanine Aminotransferase (ALT/SGPT) 27, Alkaline Phosphatase 155H , C-Reactive Protein, Quantitative 12.7H, Pro-B-Type Natriuretic Peptide 29993L, Total Protein 5.4L, Albumin 1.7L, Globulin 3.7, Albumin/Globulin Ratio 0.5L, Random Vancomycin Level 8.5 Height (Feet): 5 Height (Inches): 5.00 Weight (Pounds): 165 General Appearance: lethargic, mild distress Cardiovascular: normal rate Respiratory/Chest: decreased breath sounds Abdomen: distended Bridger Mari MD Nov 13, 2020 10:27
[2020-11-13] MEDS ORDERED: Potassium Phosphate 20 MM in NS 275 ML IV SCH (11:00)
[2020-11-13] MEDS: traMADol 50mg tab ORAL PRN (11:11)
--- NOTE | 2020-11-13 11:34 | Pulmonology Progress Note ---
Subjective ROS Limited/Unobtainable: No Interval Events: Saturating well on low flow O2 Constitutional: Reports: fatigue, other - off pressors ; Denies: fever HEENT: Repors: no symptoms Respiratory: Reports: no symptoms Cardiovascular: Reports: no symptoms Gastrointestinal/Abdominal: Reports: diarrhea - less; Denies: nausea, vomiting Psychiatric: Reports: other - NA Skin: Denies: rash Musculoskeletal: Reports: other - NA Allergies: Coded Allergies: No Known Allergies (Unverified , 11/08/20) Objective Last 24 Hour Vital Signs Date Time Temp Pulse Resp B/P (MAP) Pulse Ox O2 Delivery O2 Flow Rate FiO2 11/13/20 10:00 80 29 137/86 (103) 95 11/13/20 09:00 60 38 168/99 (122) 100 11/13/20 08:00 Room Air 11/13/20 08:00 98.6 76 30 144/78 (100) 95 11/13/20 07:55 100 Room Air 21 11/13/20 07:45 65 11/13/20 07:00 78 28 132/82 (99) 97 11/13/20 06:00 73 29 134/75 (94) 98 11/13/20 05:00 84 24 138/83 (101) 98 11/13/20 04:00 98 11/13/20 04:00 Room Air 11/13/20 04:00 98.5 77 29 142/89 (106) 98 11/13/20 03:00 78 35 134/77 (96) 75 11/13/20 02:00 79 26 133/96 (108) 100 11/13/20 01:00 82 32 133/62 (85) 98 11/13/20 00:00 98.6 85 32 132/91 (105) 97 11/13/20 00:00 Room Air 11/13/20 00:00 98 11/12/20 23:00 80 27 128/81 (97) 99 11/12/20 22:00 79 28 126/76 (93) 99 11/12/20 21:00 98 11/12/20 21:00 82 33 127/79 (95) 95 11/12/20 20:00 80 11/12/20 20:00 97.8 86 32 127/74 (91) 100 11/12/20 20:00 Room Air 11/12/20 19:00 84 33 134/77 (96) 99 11/12/20 18:00 86 34 128/77 (94) 99 11/12/20 17:00 81 31 133/80 (97) 98 11/12/20 16:00 98 11/12/20 16:00 Room Air 11/12/20 16:00 98.2 93 125/76 (92) 11/12/20 15:00 91 31 127/86 (100) 98 11/12/20 14:00 88 36 119/77 (91) 99 11/12/20 13:00 73 23 126/78 (94) 100 11/12/20 12:00 Room Air 11/12/20 12:00 97.8 88 26 123/71 (88) 100 11/12/20 12:00 102 Intake and Output 11/12/20 11/13/20 19:00 07:00 Intake Total 1370 ml 2270 ml Output Total 635 ml 900 ml Balance 735 ml 1370 ml Intake Oral 240 ml 1100 ml IV Total 1010 ml 1170 ml Tube Feeding 60 ml Other 60 ml Output Urine Total 635 ml 900 ml # Bowel Movements 3 103 General Appearance: WD/WN HEENT: normocephalic Respiratory: chest wall non-tender Cardiovascular: normal peripheral pulses Abdomen: soft, non tender Laboratory Tests 11/12/20 16:17: Arterial Blood pH 7.448, Arterial Blood Partial Pressure CO2 28.2L, Arterial Blood Partial Pressure O2 75.8, Arterial Blood HCO3 19.1L, Arterial Blood Oxygen Saturation 94.5L, Arterial Blood Base Excess -4.3L, Jose Test Positive 11/13/20 03:50: White Blood Count 35.9*H, Red Blood Count 2.92L, Hemoglobin 7.7L, Hematocrit 25.5L, Mean Corpuscular Volume 87, Mean Corpuscular Hemoglobin 26.4L, Mean Corpuscular Hemoglobin Concent 30.2L, Red Cell Distribution Width 17.5H, Platelet Count 50L, Mean Platelet Volume 11.7H, Neutrophils (%) (Auto) , Lymphocytes (%) (Auto) , Monocytes (%) (Auto) , Eosinophils (%) (Auto) , Basophils (%) (Auto) , Differential Total Cells Counted 100, Neutrophils % (Manual) 85H, Lymphocytes % (Manual) 6L, Monocytes % (Manual) 7, Eosinophils % (Manual) 0, Basophils % (Manual) 0, Band Neutrophils 2, Platelet Estimate DecreasedL, Platelet Morphology Normal, Hypochromasia 2+, Anisocytosis 1+, Sodium Level 150H, Potassium Level 2.9L, Chloride Level 117H, Carbon Dioxide Level 21, Anion Gap 12, Blood Urea Nitrogen 32H, Creatinine 1.3, Estimat Glomerular Filtration Rate 53.9, Glucose Level 117H, Calcium Level 7.7L, Phosphorus Level 2.4L, Magnesium Level 1.8, Total Bilirubin 0.7, Aspartate Amino Transf (AST/SGOT) 22, Alanine Aminotransferase (ALT/SGPT) 27, Alkaline Phosphatase 155H, C-Reactive Protein, Quantitative 12.7H, Pro-B-Type Natriuretic Peptide [id number], Total Protein 5.4L, Albumin 1.7L, Globulin 3.7, Albumin/Globulin Ratio 0.5L, Random Vancomycin Level 8.5 Current Medications Medications (Trade) Dose Ordered Sig/Bunny Route PRN Reason Start Time Stop Time Status Last Admin Dose Admin Acetaminophen (Tylenol) 650 mg Q4H PRN NG Temp >100.5 11/10/20 05:15 12/10/20 05:14 11/10/20 05:21 Chlorhexidine Gluconate (Carmen-Hex 2%) 1 applic DAILY@2000 TOPIC 11/09/20 20:00 02/07/21 19:59 11/12/20 20:34 Dextrose (Dextrose 50%) 25 ml Q30M PRN IV Hypoglycemia 11/10/20 23:45 02/08/21 23:44 Dextrose (Dextrose 50%) 50 ml Q30M PRN IV Hypoglycemia 11/10/20 23:45 02/08/21 23:44 Doxycycline Hyclate 100 mg/ Dextrose 110 ml @ 110 mls/hr Q12HR IV 11/10/20 21:00 11/17/20 20:59 11/13/20 09:23 Hydrocortisone (Solu-CORTEF) 100 mg EVERY 8 HOURS IV 11/08/20 22:00 02/06/21 21:59 11/13/20 05:37 Iron Sucrose 100 mg/Sodium Chloride 60 ml @ 240 mls/hr BEDTIME IVPB 11/10/20 21:00 11/14/20 21:14 11/12/20 20:36 Meropenem 1 gm/ Sodium Chloride 100 ml @ 200 mls/hr Q8HR IVPB 11/13/20 14:00 11/18/20 13:59 Pantoprazole (Protonix) 40 mg Q12HR IVP 11/09/20 21:00 12/09/20 08:59 11/13/20 09:23 Potassium Chloride 40 meq/ Dextrose 1,020 ml @ 50 mls/hr [id number] IV 11/13/20 10:30 12/13/20 10:29 11/13/20 10:32 Potassium Phosphate 20 mm/ Sodium Chloride 281.6667 ml @ 46.944 m... ONCE IV 11/13/20 11:00 11/13/20 12:30 11/13/20 11:10 Potassium Chloride 100 ml @ 50 mls/hr Q2H IVPB 11/13/20 10:00 11/13/20 15:59 11/13/20 10:25 Sodium Citrate (Bicitra) 30 ml EVERY 6 HOURS NG 11/11/20 18:00 12/11/20 17:59 11/13/20 05:37 Tramadol HCl (Ultram) 50 mg Q6H PRN ORAL For Pain 11/08/20 22:15 11/15/20 22:14 11/13/20 11:11 Vancomycin HCl (Vanco pharmacy to dose) 1 ea DAILY PRN MISC Per rx protocol 11/08/20 17:45 12/08/20 17:44 Assessment/Plan Assessment/Plan IMPRESSION: 1. Septic shock. Resolved 2. Hypotension. 3. Status post central line placement. 4. Multiple sclerosis. 5. Diarrhea, ruled out for C. difficile colitis. 6. E. coli bacteremia; on Meropenem DISCUSSION: Now off pressors. On PO bicarb supplementation. Continue broad-spectrum antibiotics. DVT prophylaxis. Susan Vigil Omar Syed MD Nov 13, 2020 11:34
--- NOTE | 2020-11-13 16:50 | Cardiology Progress Note ---
Assessment/Plan Assessment/Plan 1. Septic shock. 2. Bacteremia, gram-negative rods. 3. Renal failure/ hypokalemic 4. Lactic acidosis. 5. Renal failure, probably acute. 6. Profound iron deficiency. 7. Leukemoid reaction. 8. Anemia. 9. Covid 19 infection 10. abnormal trop demand vs covid related 11. Thrombocytopenia wbc improved bcx remain + despite abxas of yest no new bx cx done , id following echo showed normal lv systolic function will repeat ekg and trop in am off anticoagulation du to profound thrombocytopenia bp seems fine and is afebrile yest cxr adn u/s reviewed tele reviewed: sinus cv seem stable Subjective Subjective per rn pt awake and alert on ra no c/o sob o2 sat 99% taking fluid well iv rt femoral tlc site good reposition and suction Objective Last 24 Hour Vital Signs Date Time Temp Pulse Resp B/P (MAP) Pulse Ox O2 Delivery O2 Flow Rate FiO2 11/13/20 16:00 99.0 72 26 135/82 (99) 100 11/13/20 16:00 Room Air 11/13/20 16:00 72 11/13/20 15:00 71 25 132/77 (95) 97 11/13/20 14:00 71 30 140/78 (98) 99 11/13/20 13:00 73 31 133/82 (99) 100 11/13/20 12:00 99.0 86 33 128/80 (96) 99 11/13/20 12:00 Room Air 11/13/20 12:00 75 11/13/20 11:00 100 29 154/92 (112) 97 11/13/20 10:00 80 29 137/86 (103) 95 11/13/20 09:00 60 38 168/99 (122) 100 11/13/20 08:00 Room Air 11/13/20 08:00 98.6 76 30 144/78 (100) 95 11/13/20 07:55 100 Room Air 11/13/20 07:45 65 11/13/20 07:00 78 28 132/82 (99) 97 11/13/20 06:00 73 29 134/75 (94) 98 11/13/20 05:00 84 24 138/83 (101) 98 11/13/20 04:00 98 11/13/20 04:00 Room Air 11/13/20 04:00 98.5 77 29 142/89 (106) 98 11/13/20 03:00 78 35 134/77 (96) 75 11/13/20 02:00 79 26 133/96 (108) 100 11/13/20 01:00 82 32 133/62 (85) 98 11/13/20 00:00 98.6 85 32 132/91 (105) 97 11/13/20 00:00 Room Air 11/13/20 00:00 98 11/12/20 23:00 80 27 128/81 (97) 99 11/12/20 22:00 79 28 126/76 (93) 99 11/12/20 21:00 98 11/12/20 21:00 82 33 127/79 (95) 95 11/12/20 20:00 80 11/12/20 20:00 97.8 86 32 127/74 (91) 100 11/12/20 20:00 Room Air 11/12/20 19:00 84 33 134/77 (96) 99 11/12/20 18:00 86 34 128/77 (94) 99 11/12/20 17:00 81 31 133/80 (97) 98 Intake and Output 11/12/20 11/13/20 19:00 07:00 Intake Total 1370 ml 2270 ml Output Total 635 ml 900 ml Balance 735 ml 1370 ml Intake Oral 240 ml 1100 ml IV Total 1010 ml 1170 ml Tube Feeding 60 ml Other 60 ml Output Urine Total 635 ml 900 ml # Bowel Movements 3 103 Laboratory Tests Test 11/13/20 03:50 White Blood Count 35.9 K/UL (4.8-10.8) *H Red Blood Count 2.92 M/UL (4.20-5.40) L Hemoglobin 7.7 G/DL (12.0-16.0) L Hematocrit 25.5 % (37.0-47.0) L Mean Corpuscular Volume 87 FL (80-99) Mean Corpuscular Hemoglobin 26.4 PG (27.0-31.0) L Mean Corpuscular Hemoglobin Concent 30.2 G/DL (32.0-36.0) L Red Cell Distribution Width 17.5 % (11.6-14.8) H Platelet Count 50 K/UL (150-450) L Mean Platelet Volume 11.7 FL (6.5-10.1) H Neutrophils (%) (Auto) % (45.0-75.0) Lymphocytes (%) (Auto) % (20.0-45.0) Monocytes (%) (Auto) % (1.0-10.0) Eosinophils (%) (Auto) % (0.0-3.0) Basophils (%) (Auto) % (0.0-2.0) Differential Total Cells Counted 100 Neutrophils % (Manual) 85 % (45-75) H Lymphocytes % (Manual) 6 % (20-45) L Monocytes % (Manual) 7 % (1-10) Eosinophils % (Manual) 0 % (0-3) Basophils % (Manual) 0 % (0-2) Band Neutrophils 2 % (0-8) Platelet Estimate Decreased L Platelet Morphology Normal Hypochromasia 2+ Anisocytosis 1+ Sodium Level 150 MMOL/L (136-145) H Potassium Level 2.9 MMOL/L (3.5-5.1) L Chloride Level 117 MMOL/L (98-107) H Carbon Dioxide Level 21 MMOL/L (21-32) Anion Gap 12 mmol/L (5-15) Blood Urea Nitrogen 32 mg/dL (7-18) H Creatinine 1.3 MG/DL (0.55-1.30) Estimat Glomerular Filtration Rate 53.9 mL/min (>60) Glucose Level 117 MG/DL (74-106) H Calcium Level 7.7 MG/DL (8.5-10.1) L Phosphorus Level 2.4 MG/DL (2.5-4.9) L Magnesium Level 1.8 MG/DL (1.8-2.4) Total Bilirubin 0.7 MG/DL (0.2-1.0) Aspartate Amino Transf (AST/SGOT) 22 U/L (15-37) Alanine Aminotransferase (ALT/SGPT) 27 U/L (12-78) Alkaline Phosphatase 155 U/L (46-116) H C-Reactive Protein, Quantitative 12.7 mg/dL (0.00-0.90) H Pro-B-Type Natriuretic Peptide 99378 pg/mL (0-125) H Total Protein 5.4 G/DL (6.4-8.2) L Albumin 1.7 G/DL (3.4-5.0) L Globulin 3.7 g/dL Albumin/Globulin Ratio 0.5 (1.0-2.7) L Random Vancomycin Level 8.5 ug/mL Objective pt with acute covid infection , inorder tominimize chance of tranmission examination is limited to observation form outside the room and review of other physician notes who may have seen pt Neno Grant MD Nov 13, 2020 16:50
--- NOTE | 2020-11-13 17:20 | Surgery Progress Note ---
Surgery Progress Note Subjective Symptoms: tolerating diet Additional Comments leukocytosis improving seems better no n/v responsive us noted Objective Last 24 Hour Vital Signs Date Time Temp Pulse Resp B/P (MAP) Pulse Ox O2 Delivery O2 Flow Rate FiO2 11/13/20 17:00 77 32 142/80 (100) 98 11/13/20 16:00 99.0 72 26 135/82 (99) 100 11/13/20 16:00 Room Air 11/13/20 16:00 72 11/13/20 15:00 71 25 132/77 (95) 97 11/13/20 14:00 71 30 140/78 (98) 99 11/13/20 13:00 73 31 133/82 (99) 100 11/13/20 12:00 99.0 86 33 128/80 (96) 99 11/13/20 12:00 Room Air 11/13/20 12:00 75 11/13/20 11:00 100 29 154/92 (112) 97 11/13/20 10:00 80 29 137/86 (103) 95 11/13/20 09:00 60 38 168/99 (122) 100 11/13/20 08:00 Room Air 11/13/20 08:00 98.6 76 30 144/78 (100) 95 11/13/20 07:55 100 Room Air 11/13/20 07:45 65 11/13/20 07:00 78 28 132/82 (99) 97 11/13/20 06:00 73 29 134/75 (94) 98 11/13/20 05:00 84 24 138/83 (101) 98 11/13/20 04:00 98 11/13/20 04:00 Room Air 11/13/20 04:00 98.5 77 29 142/89 (106) 98 11/13/20 03:00 78 35 134/77 (96) 75 11/13/20 02:00 79 26 133/96 (108) 100 11/13/20 01:00 82 32 133/62 (85) 98 11/13/20 00:00 98.6 85 32 132/91 (105) 97 11/13/20 00:00 Room Air 11/13/20 00:00 98 11/12/20 23:00 80 27 128/81 (97) 99 11/12/20 22:00 79 28 126/76 (93) 99 11/12/20 21:00 98 11/12/20 21:00 82 33 127/79 (95) 95 11/12/20 20:00 80 11/12/20 20:00 97.8 86 32 127/74 (91) 100 11/12/20 20:00 Room Air 11/12/20 19:00 84 33 134/77 (96) 99 11/12/20 18:00 86 34 128/77 (94) 99 I&O Intake and Output 11/12/20 11/13/20 19:00 07:00 Intake Total 1370 ml 2270 ml Output Total 635 ml 900 ml Balance 735 ml 1370 ml Intake Oral 240 ml 1100 ml IV Total 1010 ml 1170 ml Tube Feeding 60 ml Other 60 ml Output Urine Total 635 ml 900 ml # Bowel Movements 3 103 Cardiovascular: RSR Respiratory: clear, decreased breath sounds Abdomen: soft, distended, non-tender, present bowel sounds Extremities: no edema, no tenderness, no cyanosis Laboratory Tests Test 11/13/20 03:50 White Blood Count 35.9 K/UL (4.8-10.8) *H Red Blood Count 2.92 M/UL (4.20-5.40) L Hemoglobin 7.7 G/DL (12.0-16.0) L Hematocrit 25.5 % (37.0-47.0) L Mean Corpuscular Volume 87 FL (80-99) Mean Corpuscular Hemoglobin 26.4 PG (27.0-31.0) L Mean Corpuscular Hemoglobin Concent 30.2 G/DL (32.0-36.0) L Red Cell Distribution Width 17.5 % (11.6-14.8) H Platelet Count 50 K/UL (150-450) L Mean Platelet Volume 11.7 FL (6.5-10.1) H Neutrophils (%) (Auto) % (45.0-75.0) Lymphocytes (%) (Auto) % (20.0-45.0) Monocytes (%) (Auto) % (1.0-10.0) Eosinophils (%) (Auto) % (0.0-3.0) Basophils (%) (Auto) % (0.0-2.0) Differential Total Cells Counted 100 Neutrophils % (Manual) 85 % (45-75) H Lymphocytes % (Manual) 6 % (20-45) L Monocytes % (Manual) 7 % (1-10) Eosinophils % (Manual) 0 % (0-3) Basophils % (Manual) 0 % (0-2) Band Neutrophils 2 % (0-8) Platelet Estimate Decreased L Platelet Morphology Normal Hypochromasia 2+ Anisocytosis 1+ Sodium Level 150 MMOL/L (136-145) H Potassium Level 2.9 MMOL/L (3.5-5.1) L Chloride Level 117 MMOL/L (98-107) H Carbon Dioxide Level 21 MMOL/L (21-32) Anion Gap 12 mmol/L (5-15) Blood Urea Nitrogen 32 mg/dL (7-18) H Creatinine 1.3 MG/DL (0.55-1.30) Estimat Glomerular Filtration Rate 53.9 mL/min (>60) Glucose Level 117 MG/DL (74-106) H Calcium Level 7.7 MG/DL (8.5-10.1) L Phosphorus Level 2.4 MG/DL (2.5-4.9) L Magnesium Level 1.8 MG/DL (1.8-2.4) Total Bilirubin 0.7 MG/DL (0.2-1.0) Aspartate Amino Transf (AST/SGOT) 22 U/L (15-37) Alanine Aminotransferase (ALT/SGPT) 27 U/L (12-78) Alkaline Phosphatase 155 U/L (46-116) H C-Reactive Protein, Quantitative 12.7 mg/dL (0.00-0.90) H Pro-B-Type Natriuretic Peptide 25786 pg/mL (0-125) H Total Protein 5.4 G/DL (6.4-8.2) L Albumin 1.7 G/DL (3.4-5.0) L Globulin 3.7 g/dL Albumin/Globulin Ratio 0.5 (1.0-2.7) L Random Vancomycin Level 8.5 ug/mL Plan Problems: (1) Anemia (2) Sepsis Assessment & Plan: 44-year-old female with altered mental status, lactic acidosis, leukocytosis, sepsis. Vitals currently stable. Abdominal exam mild distention but limited. Will obtain imaging. Labs noted UTI on antibiotics fluid resuscitation trend labs we will follow with examination and recommendations. CT head reviewed. much improved now responsive states well no abd symptoms okay for diet labs noted exam stable diet as tolerated trend labs iv fluids No acute intracranial hemorrhage. No midline shift or mass effect. The territorial hassan-white matter differentiation is maintained throughout. The ventricles and sulci are commensurate with age. The visualized orbits appear grossly unremarkable. The calvarium is intact. The visualized paranasal sinuses and mastoid air cells are grossly clear. CT noted Liver: Unremarkable Gallbladder and bile ducts: Cholelithiasis and nonspecific gallbladder wall edema in light of the third spacing. Pancreas: Stranding around the pancreas, could be from pancreatitis or the third spacing. Correlate with amylase or lipase values as clinically appropriate. Spleen: Unremarkable. Adrenals: Unremarkable. Kidneys and ureters: Right nephrolithiasis. Stomach and bowel: Nonspecific bowel gas pattern. Nonspecific thickening of the GI tract in light of the third spacing. PELVIS: Appendix: No findings to suggest acute appendicitis. Bladder: Duffy catheter. Reproductive: Exophytic fibroid versus complex left adnexal lesion measuring approximately 4.1 cm. Subperitoneal space: Presacral edema. ABDOMEN and PELVIS: Intraperitoneal space: Edema throughout the peritoneal cavity. Small amounts of fluid in the peritoneal cavity. Bones/joints: No acute fracture. Soft tissues: Anasarca Vasculature: Unremarkable. No abdominal aortic aneurysm. Lymph nodes: No enlarged lymph nodes. Tubes, lines and devices: Rectal tube. Right femoral central line. Enteric tube in the stomach. IMPRESSION: 1. Cholelithiasis and nonspecific gallbladder wall edema in light of the third spacing. 2. Nonspecific bowel gas pattern. There is a small amount of pleural fluid bilaterally. Gallbladder is unremarkable, without stones, wall thickening. There is trace pericholecystic Fluid. Sonographic Fregoso's sign is negative. Common bile duct measures 3 mm in diameter. No intrahepatic biliary ductal dilatation. Liver demonstrates normal echogenicity, no focal abnormality. Portal vein and hepatic veins are patent. Pancreas is unremarkable. Spleen is unremarkable. Left kidney measures 10.6 cm in length. Right kidney measures 10 cm length. Both kidneys demonstrate normal echoge nicity. There is no hydronephrosis. There is a small right renal cyst. Echogenic focus in the right kidney likely represents one of the calculi demonstrated on recent CT scan . Abdominal aorta is partially obscured by bowel gas, visualized portions are non-aneurysmal . Impression: Negative for gallstones or dilated bile ducts. Trace pericholecystic fluid probably represents free intraperitoneal fluid. Bilateral pleural effusions Nonobstructive right renal calculus, also reported on recent CT scan. Incidental finding small right renal cyst But incomplete visualization of the abdominal aorta (3) UTI (urinary tract infection) (4) VALERIA (acute kidney injury) (5) Acute metabolic encephalopathy Archie Saavedra Nov 13, 2020 17:20
--- NOTE | 2020-11-13 18:44 | Internal Med Progress Note ---
Subjective Date of Service: Nov 13, 2020 Physician Name Jad Sarabia Attending Physician Kris Cormier MD Current Medications Medications (Trade) Dose Ordered Sig/Bunny Route PRN Reason Start Time Stop Time Status Last Admin Dose Admin Acetaminophen (Tylenol) 650 mg Q4H PRN NG Temp >100.5 11/10/20 05:15 12/10/20 05:14 11/10/20 05:21 Chlorhexidine Gluconate (Carmen-Hex 2%) 1 applic DAILY@2000 TOPIC 11/09/20 20:00 02/07/21 19:59 11/12/20 20:34 Dextrose (Dextrose 50%) 25 ml Q30M PRN IV Hypoglycemia 11/10/20 23:45 02/08/21 23:44 Dextrose (Dextrose 50%) 50 ml Q30M PRN IV Hypoglycemia 11/10/20 23:45 02/08/21 23:44 Doxycycline Hyclate 100 mg/ Dextrose 110 ml @ 110 mls/hr Q12HR IV 11/10/20 21:00 11/17/20 20:59 11/13/20 09:23 Hydrocortisone (Solu-CORTEF) 100 mg EVERY 8 HOURS IV 11/08/20 22:00 02/06/21 21:59 11/13/20 13:17 Iron Sucrose 100 mg/Sodium Chloride 60 ml @ 240 mls/hr BEDTIME IVPB 11/10/20 21:00 11/14/20 21:14 11/12/20 20:36 Meropenem 1 gm/ Sodium Chloride 100 ml @ 200 mls/hr Q8HR IVPB 11/13/20 14:00 11/18/20 13:59 11/13/20 13:17 Pantoprazole (Protonix) 40 mg Q12HR IVP 11/09/20 21:00 12/09/20 08:59 11/13/20 09:23 Potassium Chloride 40 meq/ Dextrose 1,020 ml @ 50 mls/hr [id number] IV 11/13/20 10:30 12/13/20 10:29 11/13/20 10:32 Sodium Citrate (Bicitra) 30 ml EVERY 6 HOURS NG 11/11/20 18:00 12/11/20 17:59 11/13/20 16:59 Tramadol HCl (Ultram) 50 mg Q6H PRN ORAL For Pain 11/08/20 22:15 11/15/20 22:14 11/13/20 11:11 Vancomycin HCl ([facility] pharmacy to dose) 1 ea DAILY PRN MISC Per rx protocol 11/08/20 17:45 12/08/20 17:44 Allergies: Coded Allergies: No Known Allergies (Unverified , 11/08/20) ROS Limited/Unobtainable: Yes Subjective 44 YO F admitted with altered mental status. Now sepsis. Cover for Int Med-DR Cormier. ICU Objective Last Vital Signs Date Time Temp Pulse Resp B/P (MAP) Pulse Ox O2 Delivery O2 Flow Rate FiO2 11/13/20 18:00 78 31 140/86 (104) 97 11/13/20 16:00 99.0 11/13/20 16:00 Room Air 11/13/20 07:55 21 11/12/20 00:00 2.0 Laboratory Tests Test 11/13/20 03:50 White Blood Count 35.9 K/UL (4.8-10.8) *H Red Blood Count 2.92 M/UL (4.20-5.40) L Hemoglobin 7.7 G/DL (12.0-16.0) L Hematocrit 25.5 % (37.0-47.0) L Mean Corpuscular Volume 87 FL (80-99) Mean Corpuscular Hemoglobin 26.4 PG (27.0-31.0) L Mean Corpuscular Hemoglobin Concent 30.2 G/DL (32.0-36.0) L Red Cell Distribution Width 17.5 % (11.6-14.8) H Platelet Count 50 K/UL (150-450) L Mean Platelet Volume 11.7 FL (6.5-10.1) H Neutrophils (%) (Auto) % (45.0-75.0) Lymphocytes (%) (Auto) % (20.0-45.0) Monocytes (%) (Auto) % (1.0-10.0) Eosinophils (%) (Auto) % (0.0-3.0) Basophils (%) (Auto) % (0.0-2.0) Differential Total Cells Counted 100 Neutrophils % (Manual) 85 % (45-75) H Lymphocytes % (Manual) 6 % (20-45) L Monocytes % (Manual) 7 % (1-10) Eosinophils % (Manual) 0 % (0-3) Basophils % (Manual) 0 % (0-2) Band Neutrophils 2 % (0-8) Platelet Estimate Decreased L Platelet Morphology Normal Hypochromasia 2+ Anisocytosis 1+ Sodium Level 150 MMOL/L (136-145) H Potassium Level 2.9 MMOL/L (3.5-5.1) L Chloride Level 117 MMOL/L (98-107) H Carbon Dioxide Level 21 MMOL/L (21-32) Anion Gap 12 mmol/L (5-15) Blood Urea Nitrogen 32 mg/dL (7-18) H Creatinine 1.3 MG/DL (0.55-1.30) Estimat Glomerular Filtration Rate 53.9 mL/min (>60) Glucose Level 117 MG/DL (74-106) H Calcium Level 7.7 MG/DL (8.5-10.1) L Phosphorus Level 2.4 MG/DL (2.5-4.9) L Magnesium Level 1.8 MG/DL (1.8-2.4) Total Bilirubin 0.7 MG/DL (0.2-1.0) Aspartate Amino Transf (AST/SGOT) 22 U/L (15-37) Alanine Aminotransferase (ALT/SGPT) 27 U/L (12-78) Alkaline Phosphatase 155 U/L (46-116) H C-Reactive Protein, Quantitative 12.7 mg/dL (0.00-0.90) H Pro-B-Type Natriuretic Peptide 59177 pg/mL (0-125) H Total Protein 5.4 G/DL (6.4-8.2) L Albumin 1.7 G/DL (3.4-5.0) L Globulin 3.7 g/dL Albumin/Globulin Ratio 0.5 (1.0-2.7) L Random Vancomycin Level 8.5 ug/mL Intake and Output 11/12/20 11/13/20 19:00 07:00 Intake Total 1370 ml 2270 ml Output Total 635 ml 900 ml Balance 735 ml 1370 ml Intake Oral 240 ml 1100 ml IV Total 1010 ml 1170 ml Tube Feeding 60 ml Other 60 ml Output Urine Total 635 ml 900 ml # Bowel Movements 3 103 Objective PHYSICAL EXAMINATION: GENERAL: Patient is altered, unresponsive, cannot follow commands. HEAD AND NECK: Pupils are equal and reactive to light. Anicteric. Neck was supple. No JVD. LUNGS: Good air entry. No wheezing or rhonchi. Decreased air in the bases. HEART: S1, S2. No murmur or gallops. ABDOMEN: Soft, nondistended, nontender. Positive bowel sounds. EXTREMITIES: No cyanosis, clubbing, or edema. NEUROLOGIC: Very limited secondary to patient's status. Cannot follow commands. However, moving extremities spontaneously. SKIN: No rashes were identified. Assessment/Plan Assessment/Plan Assessment/Plan Assessment/Plan 1. Septic shock=ESBL E. coli 2. Sepsis secondary to urinary tract infection, but can not R/O intraabdominal i nfection yet. 3. Dehydration and hypokalemia. 4. Altered mental status, most likely secondary to toxic metabolic encephalopathy. 5. Acute kidney injury. 6. Anemia. 7. History of multiple sclerosis. 8. COVID 19 pos-H/O COVID POS in Aug 2020. Repeat testing 11/08/20=positive. ?repeat infection? 9. Hypokalemia PLAN: In ICU. IV hydration. Monitor laboratory and cultures. DVT prophylaxis: heparin subcutaneous. 2D echo. Code status: Full Code. Abx: Meropenem IV, Flagyl, and Amikacin On hydrocortisone IV. Pressors: Phenylephrine , Levophed, and Vasopressor Dr. Kline from Pul[facility], Dr. Nat Courtney from ID, Dr. Grant from Cardiology Dr. Bridger Mari from Nephrology. Repeat COVID 19 ?false positive? Replace KCL IV Jad Sarabia MD Nov 13, 2020 18:44
[2020-11-13] MEDS: Dyna-Hex 2% Top Sol 2oz TOPIC SCH (21:10)
[2020-11-13] MEDS: Iron Sucrose 100 MG in NS 55 ML IVPB SCH (21:11)
[2020-11-13] MEDS ORDERED: Tubing IV Secondary IV ONE (21:45)
[2020-11-13] MEDS ORDERED: NS 275ml ONE (21:45)
[2020-11-13] MEDS ORDERED: D5 1/2NS 1000ml IV ONE (21:45)
[2020-11-13] MEDS ORDERED: 1/2 NS 1000ml IV ONE (21:46)
[2020-11-14] VITALS: BP 139/83
[2020-11-14 04:00] VITALS: BP 130/85
[2020-11-14 04:27] LABS: HEMATOCRIT 27.1 % (37.0-47.0); HEMOGLOBIN 8.2 G/DL (12.0-16.0); MEAN CORPUSCULAR VOLUME 86 FL (80-99); PLATELET COUNT 54 K/UL (150-450); RED BLOOD COUNT 3.16 M/UL (4.20-5.40); RED CELL DISTRIBUTION WIDTH 18.2 % (11.6-14.8)
[2020-11-14 05:00] LABS: ALANINE AMINOTRANSFERASE 23 U/L (12-78); ALBUMIN 1.6 G/DL (3.4-5.0); ALBUMIN/GLOBULIN RATIO 0.4 (1.0-2.7); ALKALINE PHOSPHATASE 149 U/L (46-116); ANION GAP 9 mmol/L (5-15); ASPARTATE AMINO TRANSFERASE 23 U/L (15-37); BILIRUBIN,TOTAL 0.7 MG/DL (0.2-1.0); BLOOD UREA NITROGEN 27 mg/dL (7-18); CALCIUM 7.5 MG/DL (8.5-10.1); CARBON DIOXIDE 23 MMOL/L (21-32); CHLORIDE 117 MMOL/L (98-107); CREATININE 1.1 MG/DL (0.55-1.30); POTASSIUM 3.5 MMOL/L (3.5-5.1); SODIUM 149 MMOL/L (136-145)
[2020-11-14] MEDS: Sodium Citrate 30ml NG SCH ×4 (05:24→18:19)
[2020-11-14] MEDS: Hydrocortisone 100mg Inj IV SCH ×3 (05:25→21:37)
[2020-11-14 08:00] VITALS: BP 149/87
[2020-11-14] MEDS: Pantoprazole Inj IVP SCH ×2 (08:26→21:41)
[2020-11-14] MEDS: Vancomycin 750mg/NS 275ml IVPB SCH ×4 (08:27→21:32)
[2020-11-14] MEDS: Doxycycline Hyclate 100 MG in D5W 110 ML IV SCH ×2 (08:31→21:32)
[2020-11-14 11:48] VITALS: BP 158/89
--- NOTE | 2020-11-14 12:33 | Surgery Progress Note ---
Surgery Progress Note Subjective Additional Comments no acute events resting comfortable no n/v labs noted exam stable wants to go home leukocytosis worsening Objective Last 24 Hour Vital Signs Date Time Temp Pulse Resp B/P (MAP) Pulse Ox O2 Delivery O2 Flow Rate FiO2 11/14/20 11:55 Room Air 11/14/20 11:48 98.4 66 24 158/89 (112) 100 11/14/20 11:41 63 11/14/20 08:00 98.8 74 26 149/87 (107) 97 11/14/20 08:00 Room Air 11/14/20 07:38 67 11/14/20 04:00 71 11/14/20 04:00 Room Air 11/14/20 04:00 98.4 78 20 130/85 (100) 97 11/14/20 00:00 78 11/14/20 00:00 Room Air 11/14/20 00:00 98.3 70 20 139/83 (101) 97 11/13/20 20:00 99.9 74 24 145/90 (108) 98 11/13/20 20:00 80 11/13/20 20:00 Room Air 11/13/20 18:00 78 31 140/86 (104) 97 11/13/20 17:00 77 32 142/80 (100) 98 11/13/20 16:00 99.0 72 26 135/82 (99) 100 11/13/20 16:00 Room Air 11/13/20 16:00 72 11/13/20 15:00 71 25 132/77 (95) 97 11/13/20 14:00 71 30 140/78 (98) 99 11/13/20 13:00 73 31 133/82 (99) 100 I&O Intake and Output 11/13/20 11/14/20 19:00 07:00 Intake Total 1364.9997 ml 600 ml Output Total 1070 ml 800 ml Balance 294.9997 ml -200 ml IV Total 1364.9997 ml 600 ml Output Urine Total 920 ml 800 ml Stool Total 150 ml # Bowel Movements 3 4 Cardiovascular: RSR Respiratory: decreased breath sounds Abdomen: soft, flat, non-tender, present bowel sounds, decreased bowel sounds Extremities: no edema, no tenderness, no cyanosis Laboratory Tests Test 11/14/20 02:45 11/14/20 10:45 White Blood Count 45.0 K/UL (4.8-10.8) *H Red Blood Count 3.16 M/UL (4.20-5.40) L Hemoglobin 8.2 G/DL (12.0-16.0) L Hematocrit 27.1 % (37.0-47.0) L Mean Corpuscular Volume 86 FL (80-99) Mean Corpuscular Hemoglobin 25.9 PG (27.0-31.0) L Mean Corpuscular Hemoglobin Concent 30.1 G/DL (32.0-36.0) L Red Cell Distribution Width 18.2 % (11.6-14.8) H Platelet Count 54 K/UL (150-450) L Mean Platelet Volume 10.9 FL (6.5-10.1) H Neutrophils (%) (Auto) % (45.0-75.0) Lymphocytes (%) (Auto) % (20.0-45.0) Monocytes (%) (Auto) % (1.0-10.0) Eosinophils (%) (Auto) % (0.0-3.0) Basophils (%) (Auto) % (0.0-2.0) Differential Total Cells Counted 100 Neutrophils % (Manual) 75 % (45-75) Lymphocytes % (Manual) 9 % (20-45) L Monocytes % (Manual) 5 % (1-10) Eosinophils % (Manual) 0 % (0-3) Basophils % (Manual) 0 % (0-2) Band Neutrophils 11 % (0-8) H Platelet Estimate Decreased L Platelet Morphology Normal Hypochromasia 1+ Anisocytosis 1+ Sodium Level 149 MMOL/L (136-145) H Potassium Level 3.5 MMOL/L (3.5-5.1) Chloride Level 117 MMOL/L (98-107) H Carbon Dioxide Level 23 MMOL/L (21-32) Anion Gap 9 mmol/L (5-15) Blood Urea Nitrogen 27 mg/dL (7-18) H Creatinine 1.1 MG/DL (0.55-1.30) Estimat Glomerular Filtration Rate > 60 mL/min (>60) Glucose Level 95 MG/DL (74-106) Calcium Level 7.5 MG/DL (8.5-10.1) L Total Bilirubin 0.7 MG/DL (0.2-1.0) Aspartate Amino Transf (AST/SGOT) 23 U/L (15-37) Alanine Aminotransferase (ALT/SGPT) 23 U/L (12-78) Alkaline Phosphatase 149 U/L (46-116) H Troponin I 0.053 ng/mL (0.000-0.056) Total Protein 5.2 G/DL (6.4-8.2) L Albumin 1.6 G/DL (3.4-5.0) L Globulin 3.6 g/dL Albumin/Globulin Ratio 0.4 (1.0-2.7) L Random Vancomycin Level 9.4 ug/mL Stool Occult Blood Positive (NEGATIVE) Plan Problems: (1) Anemia (2) Sepsis Assessment & Plan: 44-year-old female with altered mental status, lactic acidosis, leukocytosis, sepsis. Vitals currently stable. Abdominal exam mild distention but limited. Will obtain imaging. Labs noted UTI on antibiotics fluid resuscitation trend labs we will follow with examination and recommendat ions. CT head reviewed. much improved now responsive states well no abd symptoms okay for diet labs noted exam stable diet as tolerated trend labs iv fluids No acute intracranial hemorrhage. No midline shift or mass effect. The territorial hassan-white matter differentiation is maintained throughout. The ventricles and sulci are commensurate with age. The visualized orbits appear grossly unremarkable. The calvarium is intact. The visualized paranasal sinuses and mastoid air cells are grossly clear. CT noted Liver: Unremarkable Gallbladder and bile ducts: Cholelithiasis and nonspecific gallbladder wall edema in light of the third spacing. Pancreas: Stranding around the pancreas, could be from pancreatitis or the third spacing. Correlate with amylase or lipase values as clinically appropriate. Spleen: Unremarkable. Adrenals: Unremarkable. Kidneys and ureters: Right nephrolithiasis. Stomach and bowel: Nonspecific bowel gas pattern. Nonspecific thickening of the GI tract in light of the third spacing. PELVIS: Appendix: No findings to suggest acute appendicitis. Bladder: Duffy catheter. Reproductive: Exophytic fibroid versus complex left adnexal lesion measuring approximately 4.1 cm. Subperitoneal space: Presacral edema. ABDOMEN and PELVIS: Intraperitoneal space: Edema throughout the peritoneal cavity. Small amounts of fluid in the peritoneal cavity. Bones/joints: No acute fracture. Soft tissues: Anasarca Vasculature: Unremarkable. No abdominal aortic aneurysm. Lymph nodes: No enlarged lymph nodes. Tubes, lines and devices: Rectal tube. Right femoral central line. Enteric tube in the stomach. IMPRESSION: 1. Cholelithiasis and nonspecific gallbladder wall edema in light of the third spacing. 2. Nonspecific bowel gas pattern. There is a small amount of pleural fluid bilaterally. Gallbladder is unremarkable, without stones, wall thickening. There is trace pericholecystic Fluid. Sonographic Fregoso's sign is negative. Common bile duct measures 3 mm in diameter. No intrahepatic biliary ductal dilatation. Liver demonstrates normal echogenicity, no focal abnormality. Portal vein and hepatic veins are patent. Pancreas is unremarkable. Spleen is unremarkable. Left kidney measures 10.6 cm in length. Right kidney measures 10 cm length. Both kidneys demonstrate normal echogenicity. There is no hydronephrosis. There is a small right renal cyst. Echogenic focus in the right kidney likely represents one of the calculi demonstrated on recent CT scan . Abdominal aorta is partially obscured by bowel gas, visualized portions are non-aneurysmal . Impression: Negative for gallstones or dilated bile ducts. Trace pericholecystic fluid probably represents free intraperitoneal fluid. Bilateral pleural effusions Nonobstructive right renal calculus, also reported on recent CT scan. Incidental finding small right renal cyst But incomplete visualization of the abdominal aorta (3) UTI (urinary tract infection) (4) VALERIA (acute kidney injury) (5) Acute metabolic encephalopathy Archie Saavedra Nov 14, 2020 12:33
--- NOTE | 2020-11-14 12:38 | Internal Med Progress Note ---
Subjective Date of Service: Nov 14, 2020 Physician Name Jad Sarabia Attending Physician Kris Cormier MD Current Medications Medications (Trade) Dose Ordered Sig/Bunny Route PRN Reason Start Time Stop Time Status Last Admin Dose Admin Acetaminophen (Tylenol) 650 mg Q4H PRN NG Temp >100.5 11/10/20 05:15 12/10/20 05:14 11/10/20 05:21 Chlorhexidine Gluconate (Carmen-Hex 2%) 1 applic DAILY@2000 TOPIC 11/09/20 20:00 02/07/21 19:59 11/13/20 21:10 Dextrose (Dextrose 50%) 25 ml Q30M PRN IV Hypoglycemia 11/10/20 23:45 02/08/21 23:44 Dextrose (Dextrose 50%) 50 ml Q30M PRN IV Hypoglycemia 11/10/20 23:45 02/08/21 23:44 Doxycycline Hyclate 100 mg/ Dextrose 110 ml @ 110 mls/hr Q12HR IV 11/10/20 21:00 11/17/20 20:59 11/14/20 08:31 Hydrocortisone (Solu-CORTEF) 100 mg EVERY 8 HOURS IV 11/08/20 22:00 02/06/21 21:59 11/14/20 05:25 Iron Sucrose 100 mg/Sodium Chloride 60 ml @ 240 mls/hr BEDTIME IVPB 11/10/20 21:00 11/14/20 21:14 11/13/20 21:11 Meropenem 1 gm/ Sodium Chloride 100 ml @ 200 mls/hr Q8HR IVPB 11/13/20 14:00 11/18/20 13:59 11/14/20 05:25 Pantoprazole (Protonix) 40 mg Q12HR IVP 11/09/20 21:00 12/09/20 08:59 11/14/20 08:26 Potassium Chloride 40 meq/ Dextrose 1,020 ml @ 50 mls/hr [id number] IV 11/13/20 10:30 12/13/20 10:29 11/14/20 07:21 Sodium Citrate (Bicitra) 30 ml EVERY 6 HOURS NG 11/11/20 18:00 12/11/20 17:59 11/13/20 16:59 Tramadol HCl (Ultram) 50 mg Q6H PRN ORAL For Pain 11/08/20 22:15 11/15/20 22:14 11/13/20 11:11 Vancomycin HCl ([facility] pharmacy to dose) 1 ea DAILY PRN MISC Per rx protocol 11/08/20 17:45 12/08/20 17:44 Vancomycin HCl 750 mg/Sodium Chloride 275 ml @ 183.333 mls/hr Q12HR@0800,2000 IVPB 11/14/20 08:00 11/19/20 07:59 11/14/20 08:27 Allergies: Coded Allergies: No Known Allergies (Unverified , 11/08/20) ROS Limited/Unobtainable: Yes Subjective 44 YO F admitted with altered mental status. Now sepsis. Cover for Int Med-DR Cormier. Step down unit Objective Last Vital Signs Date Time Temp Pulse Resp B/P (MAP) Pulse Ox O2 Delivery O2 Flow Rate FiO2 11/14/20 11:55 Room Air 11/14/20 11:48 98.4 66 24 158/89 (112) 100 11/13/20 07:55 21 11/12/20 00:00 2.0 Laboratory Tests Test 11/14/20 02:45 11/14/20 10:45 White Blood Count 45.0 K/UL (4.8-10.8) *H Red Blood Count 3.16 M/UL (4.20-5.40) L Hemoglobin 8.2 G/DL (12.0-16.0) L Hematocrit 27.1 % (37.0-47.0) L Mean Corpuscular Volume 86 FL (80-99) Mean Corpuscular Hemoglobin 25.9 PG (27.0-31.0) L Mean Corpuscular Hemoglobin Concent 30.1 G/DL (32.0-36.0) L Red Cell Distribution Width 18.2 % (11.6-14.8) H Platelet Count 54 K/UL (150-450) L Mean Platelet Volume 10.9 FL (6.5-10.1) H Neutrophils (%) (Auto) % (45.0-75.0) Lymphocytes (%) (Auto) % (20.0-45.0) Monocytes (%) (Auto) % (1.0-10.0) Eosinophils (%) (Auto) % (0.0-3.0) Basophils (%) (Auto) % (0.0-2.0) Differential Total Cells Counted 100 Neutrophils % (Manual) 75 % (45-75) Lymphocytes % (Manual) 9 % (20-45) L Monocytes % (Manual) 5 % (1-10) Eosinophils % (Manual) 0 % (0-3) Basophils % (Manual) 0 % (0-2) Band Neutrophils 11 % (0-8) H Platelet Estimate Decreased L Platelet Morphology Normal Hypochromasia 1+ Anisocytosis 1+ Sodium Level 149 MMOL/L (136-145) H Potassium Level 3.5 MMOL/L (3.5-5.1) Chloride Level 117 MMOL/L (98-107) H Carbon Dioxide Level 23 MMOL/L (21-32) Anion Gap 9 mmol/L (5-15) Blood Urea Nitrogen 27 mg/dL (7-18) H Creatinine 1.1 MG/DL (0.55-1.30) Estimat Glomerular Filtration Rate > 60 mL/min (>60) Glucose Level 95 MG/DL (74-106) Calcium Level 7.5 MG/DL (8.5-10.1) L Total Bilirubin 0.7 MG/DL (0.2-1.0) Aspartate Amino Transf (AST/SGOT) 23 U/L (15-37) Alanine Aminotransferase (ALT/SGPT) 23 U/L (12-78) Alkaline Phosphatase 149 U/L (46-116) H Troponin I 0.053 ng/mL (0.000-0.056) Total Protein 5.2 G/DL (6.4-8.2) L Albumin 1.6 G/DL (3.4-5.0) L Globulin 3.6 g/dL Albumin/Globulin Ratio 0.4 (1.0-2.7) L Random Vancomycin Level 9.4 ug/mL Stool Occult Blood Positive (NEGATIVE) Microbiology Date/Time Source Procedure Growth Status 11/13/20 03:55 Blood Blood Culture - Preliminary NO GROWTH AFTER 24 HOURS Resulted 11/13/20 03:50 Blood Blood Culture - Preliminary NO GROWTH AFTER 24 HOURS Resulted 11/12/20 09:35 Nasopharynx Coronavirus COVID-19 PCR ([facility]) - Final Complete Intake and Output 11/13/20 11/14/20 19:00 07:00 Intake Total 1364.9997 ml 600 ml Output Total 1070 ml 800 ml Balance 294.9997 ml -200 ml IV Total 1364.9997 ml 600 ml Output Urine Total 920 ml 800 ml Stool Total 150 ml # Bowel Movements 3 4 Objective PHYSICAL EXAMINATION: GENERAL: Patient is altered, unresponsive, cannot follow commands. HEAD AND NECK: Pupils are equal and reactive to light. Anicteric. Neck was supple. No JVD. LUNGS: Good air entry. No wheezing or rhonchi. Decreased air in the bases. HEART: S1, S2. No murmur or gallops. ABDOMEN: Soft, nondistended, nontender. Positive bowel sounds. EXTREMITIES: No cyanosis, clubbing, or edema. NEUROLOGIC: Very limited secondary to patient's status. Cannot follow commands. However, moving extremities spontaneously. SKIN: No rashes were identified. Assessment/Plan Assessment/Plan Assessment/Plan Assessment/Plan 1. Septic shock=ESBL E. coli 2. Sepsis secondary to urinary tract infection, but can not R/O intraabdominal infection yet. 3. Dehydration and hypokalemia. 4. Altered mental status, most likely secondary to toxic metabolic encep halopathy. 5. Acute kidney injury. 6. Anemia. 7. History of multiple sclerosis. 8. COVID 19 pos-H/O COVID POS in Aug 2020. Repeat testing 11/08/20=positive. ?repeat infection? 9. Hypokalemia PLAN: In SDU IV hydration. Monitor laboratory and cultures. DVT prophylaxis: heparin subcutaneous. 2D echo. Code status: Full Code. Abx: Meropenem and vanco On hydrocortisone IV. Dr. Kline from Pulmonary Critical Care, Dr. Nat Courtney from ID, Dr. Grant from Cardiology Dr. Bridger Mari from Nephrology. Repeat COVID 19 ?false positive? Replace KCL IV Jad Sarabia MD Nov 14, 2020 12:38
--- NOTE | 2020-11-14 14:09 | Nephrology Progress Note ---
Assessment/Plan Problem List: (1) VALERIA (acute kidney injury) (2) Septic shock (3) Multiple sclerosis (4) Acute metabolic encephalopathy (5) Anemia (6) Electrolyte imbalance Assessment Acute renal failure Sepsis, shock Acute metabolic encephalopathy Anemia UTI Plan November 14: Labs reviewed. Abnormal electrolytes much improved. Discussed with RN Afsoon. Serum creatinine normalized. Continue per consultants. November 13: Labs reviewed. Low potassium and low phosphorus addressed. Discussed with RN. Continue to monitor renal parameters. Serum creatinine now down to 1.3. November 12: Labs reviewed. Potassium 2.2, replacement ordered. Serum creatinine down to 1.6. Discussed with RN. Continue per consultants. Renal parameters. November 11: Labs reviewed. Low potassium replaced. Serum creatinine 1.9. Patient full code. On nasal cannula. Discussed with RN. Continue per consultants. Continue to monitor renal parameters November 10 labs reviewed. Serum creatinine 2. Patient more lethargic today. NG tube and feeding through NG to be initiated. Patient full code. Continue to monitor renal parameters. November 09: Low magnesium replaced. IV iron ordered. Labs reviewed. Albumin bolus given. Serum creatinine higher to 2.3. Continue current management. Patient full code. Previously: ICU Pressors Hydrate Monitor renal parameters and electrolytes Anemia work-up Avoid nephrotoxic's Subjective ROS Limited/Unobtainable: No Constitutional: Reports: malaise, weakness Objective Objective Last 24 Hour Vital Signs Date Time Temp Pulse Resp B/P (MAP) Pulse Ox O2 Delivery O2 Flow Rate FiO2 11/14/20 11:55 Room Air 11/14/20 11:48 98.4 66 24 158/89 (112) 100 11/14/20 11:41 63 11/14/20 08:00 98.8 74 26 149/87 (107) 97 11/14/20 08:00 Room Air 11/14/20 07:38 67 11/14/20 04:00 71 11/14/20 04:00 Room Air 11/14/20 04:00 98.4 78 20 130/85 (100) 97 11/14/20 00:00 78 11/14/20 00:00 Room Air 11/14/20 00:00 98.3 70 20 139/83 (101) 97 11/13/20 20:00 99.9 74 24 145/90 (108) 98 11/13/20 20:00 80 11/13/20 20:00 Room Air 11/13/20 18:00 78 31 140/86 (104) 97 11/13/20 17:00 77 32 142/80 (100) 98 11/13/20 16:00 99.0 72 26 135/82 (99) 100 11/13/20 16:00 Room Air 11/13/20 16:00 72 11/13/20 15:00 71 25 132/77 (95) 97 Intake and Output 11/13/20 11/14/20 19:00 07:00 Intake Total 1364.9997 ml 600 ml Output Total 1070 ml 800 ml Balance 294.9997 ml -200 ml IV Total 1364.9997 ml 600 ml Output Urine Total 920 ml 800 ml Stool Total 150 ml # Bowel Movements 3 4 Current Medications Medications (Trade) Dose Ordered Sig/Bunny Route PRN Reason Start Time Stop Time Status Last Admin Dose Admin Acetaminophen (Tylenol) 650 mg Q4H PRN NG Temp >100.5 11/10/20 05:15 12/10/20 05:14 11/10/20 05:21 Chlorhexidine Gluconate (Carmen-Hex 2%) 1 applic DAILY@2000 TOPIC 11/09/20 20:00 02/07/21 19:59 11/13/20 21:10 Dextrose (Dextrose 50%) 25 ml Q30M PRN IV Hypoglycemia 11/10/20 23:45 02/08/21 23:44 Dextrose (Dextrose 50%) 50 ml Q30M PRN IV Hypoglycemia 11/10/20 23:45 02/08/21 23:44 Doxycycline Hyclate 100 mg/ Dextrose 110 ml @ 110 mls/hr Q12HR IV 11/10/20 21:00 11/17/20 20:59 11/14/20 08:31 Hydrocortisone (Solu-CORTEF) 100 mg EVERY 8 HOURS IV 11/08/20 22:00 02/06/21 21:59 11/14/20 13:47 Iron Sucrose 100 mg/Sodium Chloride 60 ml @ 240 mls/hr BEDTIME IVPB 11/10/20 21:00 11/14/20 21:14 11/13/20 21:11 Meropenem 1 gm/ Sodium Chloride 100 ml @ 200 mls/hr Q8HR IVPB 11/13/20 14:00 11/18/20 13:59 11/14/20 13:47 Pantoprazole (Protonix) 40 mg Q12HR IVP 11/09/20 21:00 12/09/20 08:59 11/14/20 08:26 Potassium Chloride 40 meq/ Dextrose 1,020 ml @ 50 mls/hr [id number] IV 11/13/20 10:30 12/13/20 10:29 11/14/20 07:21 Sodium Citrate (Bicitra) 30 ml EVERY 6 HOURS NG 11/11/20 18:00 12/11/20 17:59 11/13/20 16:59 Tramadol HCl (Ultram) 50 mg Q6H PRN ORAL For Pain 11/08/20 22:15 11/15/20 22:14 11/13/20 11:11 Vancomycin HCl ([facility] pharmacy to dose) 1 ea DAILY PRN MISC Per rx protocol 11/08/20 17:45 12/08/20 17:44 Vancomycin HCl 750 mg/Sodium Chloride 275 ml @ 183.333 mls/hr Q12HR@0800,2000 IVPB 11/14/20 08:00 11/19/20 07:59 11/14/20 08:27 Laboratory Tests 11/14/20 02:45: White Blood Count 45.0*H, Red Blood Count 3.16L, Hemoglobin 8.2L, Hematocrit 27.1L, Mean Corpuscular Volume 86, Mean Corpuscular Hemoglobin 25.9L, Mean Corpuscular Hemoglobin Concent 30.1L, Red Cell Distribution Width 18.2H, Platelet Count 54L, Mean Platelet Volume 10.9H, Neutrophils (%) (Auto) , Lymphocytes (%) (Auto) , Monocytes (%) (Auto) , Eosinophils (%) (Auto) , Basophils (%) (Auto) , Differential Total Cells Counted 100, Neutrophils % (Manual) 75, Lymphocytes % (Manual) 9L, Monocytes % (Manual) 5, Eosinophils % (Manual) 0, Basophils % (Manual) 0, Band Neutrophils 11H, Platelet Estimate DecreasedL, Platelet Morphology Normal, Hypochromasia 1+, Anisocytosis 1+, Sodium Level 149H, Potassium Level 3.5, Chloride Level 117H, Carbon Dioxide Level 23, Anion Gap 9, Blood Urea Nitrogen 27H, Creatinine 1.1, Estimat Glomerular Filtration Rate > 60, Glucose Level 95, Calcium Level 7.5L, Total Bilirubin 0.7, Aspartate Amino Transf (AST/SGOT) 23, Alanine Aminotransferase (ALT/SGPT) 23, Alkaline Phosphatase 149H, Troponin I 0.053, Total Protein 5.2L, Albumin 1.6L, Globulin 3.6, Albumin/Globulin Ratio 0.4L, Random Vancomycin Level 9.4 11/14/20 10:45: Stool Occult Blood Positive Height (Feet): 5 Height (Inches): 5.00 Weight (Pounds): 165 General Appearance: no apparent distress, confused Cardiovascular: normal rate Respiratory/Chest: decreased breath sounds Abdomen: distended Bridger Mari MD Nov 14, 2020 14:09
--- NOTE | 2020-11-14 14:13 | Diagnostic Imaging Report ---
Indication: Shortness of breath Technique: One view of the chest Comparison: 11/12/2020 Findings: Bilateral pleural effusions, bilateral interstitial and airspace edema persist, unchanged. Nasogastric tube is been removed. Impression: Interim nasogastric tube removal. Otherwise little change advisor 2 days
[2020-11-14] MEDS ORDERED: Varibar Honey 250ml MC PRN (14:30)
[2020-11-14] MEDS ORDERED: Varibar Nectar 240ml MC PRN (14:30)
[2020-11-14] MEDS ORDERED: Varibar Pudding 230ml MC PRN (14:30)
[2020-11-14] MEDS ORDERED: Varibar Thin Liquid powder 148gm MC PRN (14:30)
[2020-11-14 16:00] VITALS: BP 155/97
--- NOTE | 2020-11-14 16:17 | Pulmonology Progress Note ---
Subjective ROS Limited/Unobtainable: No Interval Events: Saturating well on low flow O2 Constitutional: Reports: fatigue, other - off pressors ; Denies: fever HEENT: Repors: no symptoms Respiratory: Reports: no symptoms Cardiovascular: Reports: no symptoms Gastrointestinal/Abdominal: Reports: diarrhea - less; Denies: nausea, vomiting Psychiatric: Reports: other - NA Skin: Denies: rash Musculoskeletal: Reports: other - NA Allergies: Coded Allergies: No Known Allergies (Unverified , 11/08/20) Objective Last 24 Hour Vital Signs Date Time Temp Pulse Resp B/P (MAP) Pulse Ox O2 Delivery O2 Flow Rate FiO2 11/14/20 15:27 64 11/14/20 11:55 Room Air 11/14/20 11:48 98.4 66 24 158/89 (112) 100 11/14/20 11:41 63 11/14/20 08:00 98.8 74 26 149/87 (107) 97 11/14/20 08:00 Room Air 11/14/20 07:38 67 11/14/20 04:00 71 11/14/20 04:00 Room Air 11/14/20 04:00 98.4 78 20 130/85 (100) 97 11/14/20 00:00 78 11/14/20 00:00 Room Air 11/14/20 00:00 98.3 70 20 139/83 (101) 97 11/13/20 20:00 99.9 74 24 145/90 (108) 98 11/13/20 20:00 80 11/13/20 20:00 Room Air 11/13/20 18:00 78 31 140/86 (104) 97 11/13/20 17:00 77 32 142/80 (100) 98 Intake and Output 11/13/20 11/14/20 19:00 07:00 Intake Total 1364.9997 ml 600 ml Output Total 1070 ml 800 ml Balance 294.9997 ml -200 ml IV Total 1364.9997 ml 600 ml Output Urine Total 920 ml 800 ml Stool Total 150 ml # Bowel Movements 3 4 General Appearance: WD/WN HEENT: normocephalic Respiratory: chest wall non-tender Cardiovascular: normal peripheral pulses Abdomen: soft, non tender Microbiology Date/Time Source Procedure Growth Status 11/13/20 03:55 Blood Blood Culture - Preliminary NO GROWTH AFTER 24 HOURS Resulted 11/13/20 03:50 Blood Blood Culture - Preliminary NO GROWTH AFTER 24 HOURS Resulted 11/12/20 09:35 Nasopharynx Coronavirus COVID-19 PCR ([facility]) - Final Complete Laboratory Tests 11/14/20 02:45: White Blood Count 45.0*H, Red Blood Count 3.16L, Hemoglobin 8.2L, Hematocrit 27.1L, Mean Corpuscular Volume 86, Mean Corpuscular Hemoglobin 25.9L, Mean Corpuscular Hemoglobin Concent 30.1L, Red Cell Distribution Width 18.2H, Platelet Count 54L, Mean Platelet Volume 10.9H, Neutrophils (%) (Auto) , Lymphocytes (%) (Auto) , Monocytes (%) (Auto) , Eosinophils (%) (Auto) , Basophils (%) (Auto) , Differential Total Cells Counted 100, Neutrophils % (Manual) 75, Lymphocytes % (Manual) 9L, Monocytes % (Manual) 5, Eosinophils % (Manual) 0, Basophils % (Manual) 0, Band Neutrophils 11H, Platelet Estimate DecreasedL, Platelet Morphology Normal, Hypochromasia 1+, Anisocytosis 1+, Sodium Level 149H, Potassium Level 3.5, Chloride Level 117H, Carbon Dioxide Level 23, Anion Gap 9, Blood Urea Nitrogen 27H, Creatinine 1.1, Estimat G lomerular Filtration Rate > 60, Glucose Level 95, Calcium Level 7.5L, Total Bilirubin 0.7, Aspartate Amino Transf (AST/SGOT) 23, Alanine Aminotransferase (ALT/SGPT) 23, Alkaline Phosphatase 149H, Troponin I 0.053, Total Protein 5.2L, Albumin 1.6L, Globulin 3.6, Albumin/Globulin Ratio 0.4L, Random Vancomycin Level 9.4 11/14/20 10:45: Stool Occult Blood Positive Current Medications Medications (Trade) Dose Ordered Sig/Bunny Route PRN Reason Start Time Stop Time Status Last Admin Dose Admin Acetaminophen (Tylenol) 650 mg Q4H PRN NG Temp >100.5 11/10/20 05:15 12/10/20 05:14 11/10/20 05:21 Barium Sulfate (Varibar Honey) 250 ml NOW PRN MC RAD 11/14/20 14:30 11/17/20 14:18 Barium Sulfate (Varibar Kake) 240 ml NOW PRN MC RAD 11/14/20 14:30 11/17/20 14:18 Barium Sulfate (Varibar Pudding) 230 ml NOW PRN MC RAD 11/14/20 14:30 11/17/20 14:18 Barium Sulfate (Varibar Thin Liquid powder) 148 gm NOW PRN RAD 11/14/20 14:30 11/17/20 14:18 Chlorhexidine Gluconate (Carmen-Hex 2%) 1 applic DAILY@2000 TOPIC 11/09/20 20:00 02/07/21 19:59 11/13/20 21:10 Dextrose (Dextrose 50%) 25 ml Q30M PRN IV Hypoglycemia 11/10/20 23:45 02/08/21 23:44 Dextrose (Dextrose 50%) 50 ml Q30M PRN IV Hypoglycemia 11/10/20 23:45 02/08/21 23:44 Doxycycline Hyclate 100 mg/ Dextrose 110 ml @ 110 mls/hr Q12HR IV 11/10/20 21:00 11/17/20 20:59 11/14/20 08:31 Hydrocortisone (Solu-CORTEF) 100 mg EVERY 8 HOURS IV 11/08/20 22:00 02/06/21 21:59 11/14/20 13:47 Iron Sucrose 100 mg/Sodium Chloride 60 ml @ 240 mls/hr BEDTIME IVPB 11/10/20 21:00 11/14/20 21:14 11/13/20 21:11 Meropenem 1 gm/ Sodium Chloride 100 ml @ 200 mls/hr Q8HR IVPB 11/13/20 14:00 11/18/20 13:59 11/14/20 13:47 Pantoprazole (Protonix) 40 mg Q12HR IVP 11/09/20 21:00 12/09/20 08:59 11/14/20 08:26 Potassium Chloride 40 meq/ Dextrose 1,020 ml @ 50 mls/hr [id number] IV 11/13/20 10:30 12/13/20 10:29 11/14/20 07:21 Sodium Citrate (Bicitra) 30 ml BID NG 11/14/20 18:00 12/11/20 17:59 Tramadol HCl (Ultram) 50 mg Q6H PRN ORAL For Pain 11/08/20 22:15 11/15/20 22:14 11/13/20 11:11 Vancomycin HCl ([facility] pharmacy to dose) 1 ea DAILY PRN MISC Per rx protocol 11/08/20 17:45 12/08/20 17:44 Vancomycin HCl 750 mg/Sodium Chloride 275 ml @ 183.333 mls/hr Q12HR@0800,2000 IVPB 11/14/20 08:00 11/19/20 07:59 11/14/20 08:27 Assessment/Plan Assessment/Plan 1. Septic shock. Resolved 2. Hypotension. 3. Status post central line placement. 4. Multiple sclerosis. 5. Diarrhea, ruled out for C. difficile colitis. 6. E. coli bacteremia; on Meropenem DISCUSSION: Now off pressors. On PO bicarb supplementation. Continue broad-spectrum antibiotics. DVT prophylaxis. The care of this patient was discussed with my supervising physician Time spent for this encounter was approximately 31 minutes Wolfgang Montoya Nov 14, 2020 16:17
--- NOTE | 2020-11-14 16:44 | Consultation ---
DATE OF CONSULTATION: 11/14/2020 CHIEF COMPLAINT: Rectal bleeding. HISTORY OF PRESENT ILLNESS: Most of history per chart. This is a 44-year-old female, residential patient with past medical history of multiple sclerosis, history of chronic pain syndrome, came to the hospital initially on 11/08/2020 complaining of altered mental status. The patient was recently in ICU, had an NG tube which she pulled it out and she is transferred to step down. Nurses noted this morning that she had some blood in the rectum so GI consult requested for further evaluation. PAST MEDICAL HISTORY: 1. History of COVID positive pneumonia. 2. Multiple sclerosis. 3. Chronic pain syndrome. ALLERGIES: No known drug allergies. MEDICATIONS: Please see medication reconciliation list. FAMILY HISTORY: Noncontributory. SOCIAL HISTORY: Currently lives in a residential. No history of tobacco, alcohol, or drug abuse. REVIEW OF SYSTEMS: Unable to obtain. PHYSICAL EXAMINATION: VITAL SIGNS: Temperature 98.4, pulse , respirations 24, blood pressure 158/89. HEENT: Normocephalic and atraumatic. Sclerae anicteric. NECK: Supple. No evidence of obvious lymphadenopathy. CARDIOVASCULAR: Regular rate and rhythm. Plus S1, S2. LUNGS: Decreased breath sounds bilaterally based on supine exam. ABDOMEN: Soft, nontender. No rebound. No guarding. No peritoneal sign. EXTREMITIES: No cyanosis, no clubbing, no edema. LABORATORY AND DIAGNOSTIC DATA: White count is 45,000, hemoglobin 8, hematocrit 27, and platelet count 54. Chem-7, sodium 149, potassium 3.5, BUN is 27, creatinine is 1.1. ASSESSMENT AND PLAN: This is a 44-year-old female with numerous medical problems. At this time, the main problem would be sepsis. I am not sure if it is COVID related with a high white count and thrombocytopenia, most probably from the sepsis. The patient had some rectal bleeding, but not significant. According to the nurses, it was just blood tinged stool from the rectal tube. Given her current medical condition, given evidence of sepsis and thrombocytopenia, we are going to hold off on doing any GI procedures at this time. We will recommend continuing on Protonix. We ordered blood test for tomorrow including PT and PTT and consider GI procedures if the patient shows signs and symptoms of active bleeding. I want to thank, Dr. Kris Cormier for this kind referral. Gold Sears M.D. DR: Chance JOB#: [id number] CC: Kris Cormier M.D.; Fax#: [phone]
--- NOTE | 2020-11-14 17:09 | Infectious Diseases Prog Note ---
Assessment/Plan Assessment/Plan ASSESSMENT AND PLAN: 1. e.coli bacteremia, sepsis, shock, pna, hx covid-19 infection/recovered, ? aspiration pna, hcap, ? cap, uti, c.diff. negative, leukocytosis, fevers, sirs, ? GI source, CT abdomen and pelvis and US noted - meropenem, vancomycin and doxycycline - day # 5 abx - on hydrocortisone - likely contributing to elevated wbc - monitor clinically, labs and chest x-ray - surveillance blood cultures negative - clinically improved - d/w RN 2. History of COVID infection - in isolation currently, on steroids 3. Multiple sclerosis. 4. Weakness. 5. Acute kidney injury, elevated creatinine. 6. Hypertension. 7. Anemia. 8. Steroids. 9. No history of diabetes. 10. Continue treatment with primary consultants. 11. No known drug allergies. 12. Social history negative. 13. Family history is noncontributory. 14. MAR is noted. 15. Case was discussed with RN. 16. ICU care. 17. Skin care protocol. 18. Currently off pressors. 19. No vent currently. Subjective Constitutional: Reports: fatigue; Denies: fever HEENT: Denies: congestion Respiratory: Denies: shortness of breath Cardiovascular: Denies: chest pain Gastrointestinal/Abdominal: Denies: nausea, vomiting, diarrhea Genitourinary: Reports: other - no harrison Neurologic: Denies: headache Psychiatric: Denies: depression Skin: Denies: rash Hematologic: Denies: bleeding Musculoskeletal: Denies: pain Allergies: Coded Allergies: No Known Allergies (Unverified , 11/08/20) Objective Last 24 Hour Vital Signs Date Time Temp Pulse Resp B/P (MAP) Pulse Ox O2 Delivery O2 Flow Rate FiO2 11/14/20 16:00 Room Air 11/14/20 15:27 64 11/14/20 11:55 Room Air 11/14/20 11:48 98.4 66 24 158/89 (112) 100 11/14/20 11:41 63 11/14/20 08:00 98.8 74 26 149/87 (107) 97 11/14/20 08:00 Room Air 11/14/20 07:38 67 11/14/20 04:00 71 11/14/20 04:00 Room Air 11/14/20 04:00 98.4 78 20 130/85 (100) 97 11/14/20 00:00 78 11/14/20 00:00 Room Air 11/14/20 00:00 98.3 70 20 139/83 (101) 97 11/13/20 20:00 99.9 74 24 145/90 (108) 98 11/13/20 20:00 80 11/13/20 20:00 Room Air 11/13/20 18:00 78 31 140/86 (104) 97 11/13/20 17:00 77 32 142/80 (100) 98 Height (Feet): 5 Height (Inches): 5.00 Weight (Pounds): 165 General Appearance: no acute distress HEENT: normocephalic, atraumatic, anicteric, mucous membranes moist Respiratory/Chest: no respiratory distress, no accessory muscle use, crackles/rales, rhonchi - bilaterally Cardiovascular: normal rate, regular rhythm, no gallop/murmur Abdomen: normal bowel sounds, soft, non tender, no organomegaly, non distended Genitourinary: other - no harrison Extremities: no cyanosis Skin: no rash 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 There is suggestion of small bilateral pleural effusions, not evident previously. Impression: Stable slightly increased bilateral infiltrates versus edema Satisfactory nasogastric intubation New bilateral small pleural effusions Chest x-ray - 11/14/20 - Procedure: XRAY Chest 1v Indication: Shortness of breath Technique: One view of the chest Comparison: 11/12/2020 Findings: Bilateral pleural effusions, bilateral interstitial and airspace edema persist, unchanged. Nasogastric tube is been removed. Impression: Interim nasogastric tube removal. 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 Trace pericholecystic fluid probably represents free intraperitoneal fluid. Bilateral pleural effusions Nonobstructive right renal calculus, also reported on recent CT scan. Incidental finding small right renal cyst But incomplete visualization of the abdominal aorta CT scan of abdomen and pelvis: IMPRESSION: 1. Cholelithiasis and nonspecific gallbladder wall edema in light of the third spacing. 2. Nonspecific bowel gas pattern. Microbiology Date/Time Source Procedure Growth Status 11/13/20 03:55 Blood Blood Culture - Preliminary NO GROWTH AFTER 24 HOURS Resulted 11/12/20 09:35 Nasopharynx Coronavirus COVID-19 PCR ([facility]) - Final Complete 11/09/20 23:45 Stool Clostridium difficile Toxin Assay - Final Complete Microbiology Date/Time Source Procedure Growth Status 11/13/20 03:55 Blood Blood Culture - Preliminary NO GROWTH AFTER 24 HOURS Resulted 11/13/20 03:50 Blood Blood Culture - Preliminary NO GROWTH AFTER 24 HOURS Resulted 11/12/20 09:35 Nasopharynx Coronavirus COVID-19 PCR ([facility]) - Final Complete Laboratory Tests Test 11/14/20 02:45 11/14/20 10:45 White Blood Count 45.0 K/UL (4.8-10.8) *H Red Blood Count 3.16 M/UL (4.20-5.40) L Hemoglobin 8.2 G/DL (12.0-16.0) L Hematocrit 27.1 % (37.0-47.0) L Mean Corpuscular Volume 86 FL (80-99) Mean Corpuscular Hemoglobin 25.9 PG (27.0-31.0) L Mean Corpuscular Hemoglobin Concent 30.1 G/DL (32.0-36.0) L Red Cell Distribution Width 18.2 % (11.6-14.8) H Platelet Count 54 K/UL (150-450) L Mean Platelet Volume 10.9 FL (6.5-10.1) H Neutrophils (%) (Auto) % (45.0-75.0) Lymphocytes (%) (Auto) % (20.0-45.0) Monocytes (%) (Auto) % (1.0-10.0) Eosinophils (%) (Auto) % (0.0-3.0) Basophils (%) (Auto) % (0.0-2.0) Differential Total Cells Counted 100 Neutrophils % (Manual) 75 % (45-75) Lymphocytes % (Manual) 9 % (20-45) L Monocytes % (Manual) 5 % (1-10) Eosinophils % (Manual) 0 % (0-3) Basophils % (Manual) 0 % (0-2) Band Neutrophils 11 % (0-8) H Platelet Estimate Decreased L Platelet Morphology Normal Hypochromasia 1+ Anisocytosis 1+ Sodium Level 149 MMOL/L (136-145) H Potassium Level 3.5 MMOL/L (3.5-5.1) Chloride Level 117 MMOL/L (98-107) H Carbon Dioxide Level 23 MMOL/L (21-32) Anion Gap 9 mmol/L (5-15) Blood Urea Nitrogen 27 mg/dL (7-18) H Creatinine 1.1 MG/DL (0.55-1.30) Estimat Glomerular Filtration Rate > 60 mL/min (>60) Glucose Level 95 MG/DL (74-106) Calcium Level 7.5 MG/DL (8.5-10.1) L Total Bilirubin 0.7 MG/DL (0.2-1.0) Aspartate Amino Transf (AST/SGOT) 23 U/L (15-37) Alanine Aminotransferase (ALT/SGPT) 23 U/L (12-78) Alkaline Phosphatase 149 U/L (46-116) H Troponin I 0.053 ng/mL (0.000-0.056) Total Protein 5.2 G/DL (6.4-8.2) L Albumin 1.6 G/DL (3.4-5.0) L Globulin 3.6 g/dL Albumin/Globulin Ratio 0.4 (1.0-2.7) L Random Vancomycin Level 9.4 ug/mL Stool Occult Blood Positive (NEGATIVE) Current Medications Medications (Trade) Dose Ordered Sig/Bunny Route PRN Reason Start Time Stop Time Status Last Admin Dose Admin Acetaminophen (Tylenol) 650 mg Q4H PRN NG Temp >100.5 11/10/20 05:15 12/10/20 05:14 11/10/20 05:21 Barium Sulfate (Varibar Honey) 250 ml NOW PRN MC RAD 11/14/20 14:30 11/17/20 14:18 Barium Sulfate (Varibar [place]) 240 ml NOW PRN MC RAD 11/14/20 14:30 11/17/20 14:18 Barium Sulfate (Varibar Pudding) 230 ml NOW PRN MC RAD 11/14/20 14:30 11/17/20 14:18 Barium Sulfate (Varibar Thin Liquid powder) 148 gm NOW PRN MC RAD 11/14/20 14:30 11/17/20 14:18 Chlorhexidine Gluconate (Carmen-Hex 2%) 1 applic DAILY@2000 TOPIC 11/09/20 20:00 02/07/21 19:59 11/13/20 21:10 Dextrose (Dextrose 50%) 25 ml Q30M PRN IV Hypoglycemia 11/10/20 23:45 02/08/21 23:44 Dextrose (Dextrose 50%) 50 ml Q30M PRN IV Hypoglycemia 11/10/20 23:45 02/08/21 23:44 Doxycycline Hyclate 100 mg/ Dextrose 110 ml @ 110 mls/hr Q12HR IV 11/10/20 21:00 11/17/20 20:59 11/14/20 08:31 Hydrocortisone (Solu-CORTEF) 100 mg EVERY 8 HOURS IV 11/08/20 22:00 02/06/21 21:59 11/14/20 13:47 Iron Sucrose 100 mg/Sodium Chloride 60 ml @ 240 mls/hr BEDTIME IVPB 11/10/20 21:00 11/14/20 21:14 11/13/20 21:11 Meropenem 1 gm/ Sodium Chloride 100 ml @ 200 mls/hr Q8HR IVPB 11/13/20 14:00 11/18/20 13:59 11/14/20 13:47 Pantoprazole (Protonix) 40 mg Q12HR IVP 11/09/20 21:00 12/09/20 08:59 11/14/20 08:26 Potassium Chloride 40 meq/ Dextrose 1,020 ml @ 50 mls/hr [id number] IV 11/13/20 10:30 12/13/20 10:29 11/14/20 07:21 Sodium Citrate (Bicitra) 30 ml BID NG 11/14/20 18:00 12/11/20 17:59 Tramadol HCl (Ultram) 50 mg Q6H PRN ORAL For Pain 11/08/20 22:15 11/15/20 22:14 11/13/20 11:11 Vancomycin HCl (Vanco pharmacy to dose) 1 ea DAILY PRN MISC Per rx protocol 11/08/20 17:45 12/08/20 17:44 Vancomycin HCl 750 mg/Sodium Chloride 275 ml @ 183.333 mls/hr Q12HR@0800,1999 IVPB 11/14/20 08:00 11/19/20 07:59 11/14/20 08:27 Nat Courtney MD Nov 14, 2020 17:09
--- NOTE | 2020-11-14 18:01 | Cardiology Progress Note ---
Assessment/Plan Assessment/Plan 1. Septic shock. 2. Bacteremia, gram-negative rods. 3. Renal failure/ hypokalemic 4. Lactic acidosis. 5. Renal failure, probably acute. 6. Profound iron deficiency. 7. Leukemoid reaction. 8. Anemia. 9. Covid 19 infection 10. abnormal trop demand vs covid related 11. Thrombocytopenia wbc high plt low bcx now ng echo showed normal lv systolic function will repeat ekg and trop in am off anticoagulation du to profound thrombocytopenia bp high will str ton low dose med not clear if need ivf and or iv steroid consider taper and dc bothe rmya be contributing to htn tele reviewed: sinus cv seem stable Subjective Subjective pt in covid isolation per rn t is awake and alert, pt is in RA, no SOB or acute respiratory distress noted, Pt is on continues heart monitoring. pt has intact PICC R Femoral TLC IV fluid is running well. pt has Duffy cath in place is working well. Objective Last 24 Hour Vital Signs Date Time Temp Pulse Resp B/P (MAP) Pulse Ox O2 Delivery O2 Flow Rate FiO2 11/14/20 16:00 99.9 79 23 155/97 (116) 100 11/14/20 16:00 Room Air 11/14/20 15:27 64 11/14/20 11:55 Room Air 11/14/20 11:48 98.4 66 24 158/89 (112) 100 11/14/20 11:41 63 11/14/20 08:00 98.8 74 26 149/87 (107) 97 11/14/20 08:00 Room Air 11/14/20 07:38 67 11/14/20 04:00 71 11/14/20 04:00 Room Air 11/14/20 04:00 98.4 78 20 130/85 (100) 97 11/14/20 00:00 78 11/14/20 00:00 Room Air 11/14/20 00:00 98.3 70 20 139/83 (101) 97 11/13/20 20:00 99.9 74 24 145/90 (108) 98 11/13/20 20:00 80 11/13/20 20:00 Room Air 11/13/20 18:00 78 31 140/86 (104) 97 Intake and Output 11/13/20 11/14/20 19:00 07:00 Intake Total 1364.9997 ml 600 ml Output Total 1070 ml 800 ml Balance 294.9997 ml -200 ml IV Total 1364.9997 ml 600 ml Output Urine Total 920 ml 800 ml Stool Total 150 ml # Bowel Movements 3 4 Laboratory Tests Test 11/14/20 02:45 11/14/20 10:45 White Blood Count 45.0 K/UL (4.8-10.8) *H Red Blood Count 3.16 M/UL (4.20-5.40) L Hemoglobin 8.2 G/DL (12.0-16.0) L Hematocrit 27.1 % (37.0-47.0) L Mean Corpuscular Volume 86 FL (80-99) Mean Corpuscular Hemoglobin 25.9 PG (27.0-31.0) L Mean Corpuscular Hemoglobin Concent 30.1 G/DL (32.0-36.0) L Red Cell Distribution Width 18.2 % (11.6-14.8) H Platelet Count 54 K/UL (150-450) L Mean Platelet Volume 10.9 FL (6.5-10.1) H Neutrophils (%) (Auto) % (45.0-75.0) Lymphocytes (%) (Auto) % (20.0-45.0) Monocytes (%) (Auto) % (1.0-10.0) Eosinophils (%) (Auto) % (0.0-3.0) Basophils (%) (Auto) % (0.0-2.0) Differential Total Cells Counted 100 Neutrophils % (Manual) 75 % (45-75) Lymphocytes % (Manual) 9 % (20-45) L Monocytes % (Manual) 5 % (1-10) Eosinophils % (Manual) 0 % (0-3) Basophils % (Manual) 0 % (0-2) Band Neutrophils 11 % (0-8) H Platelet Estimate Decreased L Platelet Morphology Normal Hypochromasia 1+ Anisocytosis 1+ Sodium Level 149 MMOL/L (136-145) H Potassium Level 3.5 MMOL/L (3.5-5.1) Chloride Level 117 MMOL/L (98-107) H Carbon Dioxide Level 23 MMOL/L (21-32) Anion Gap 9 mmol/L (5-15) Blood Urea Nitrogen 27 mg/dL (7-18) H Creatinine 1.1 MG/DL (0.55-1.30) Estimat Glomerular Filtration Rate > 60 mL/min (>60) Glucose Level 95 MG/DL (74-106) Calcium Level 7.5 MG/DL (8.5-10.1) L Total Bilirubin 0.7 MG/DL (0.2-1.0) Aspartate Amino Transf (AST/SGOT) 23 U/L (15-37) Alanine Aminotransferase (ALT/SGPT) 23 U/L (12-78) Alkaline Phosphatase 149 U/L (46-116) H Troponin I 0.053 ng/mL (0.000-0.056) Total Protein 5.2 G/DL (6.4-8.2) L Albumin 1.6 G/DL (3.4-5.0) L Globulin 3.6 g/dL Albumin/Globulin Ratio 0.4 (1.0-2.7) L Random Vancomycin Level 9.4 ug/mL Stool Occult Blood Positive (NEGATIVE) Microbiology Date/Time Source Procedure Growth Status 11/13/20 03:55 Blood Blood Culture - Preliminary NO GROWTH AFTER 24 HOURS Resulted 11/13/20 03:50 Blood Blood Culture - Preliminary NO GROWTH AFTER 24 HOURS Resulted 11/12/20 09:35 Nasopharynx Coronavirus COVID-19 PCR ([facility]) - Final Complete Objective pt with acute covid infection , inorder tominimize chance of tranmission examination is limited to observation form outside the room and review of other physician notes who may have seen pt Neno Grant MD Nov 14, 2020 18:01
[2020-11-14 20:00] VITALS: BP 156/87
[2020-11-14] MEDS: Dyna-Hex 2% Top Sol 2oz TOPIC SCH (21:31)
[2020-11-14] MEDS: Iron Sucrose 100 MG in NS 55 ML IVPB SCH (21:33)
[2020-11-14] MEDS: traMADol 50mg tab ORAL PRN (23:10)
[2020-11-15] VITALS (7 sets, daily range): BP systolic 127–143; BP diastolic 80–93
[2020-11-15] MEDS: Hydrocortisone 100mg Inj IV SCH ×3 (05:28→21:45)
[2020-11-15] MEDS: traMADol 50mg tab ORAL PRN ×3 (05:38→23:56)
[2020-11-15] MEDS: Vancomycin 750mg/NS 275ml IVPB SCH ×4 (07:35→20:29)
[2020-11-15 07:46] LABS: HEMATOCRIT 31.2 % (37.0-47.0); HEMOGLOBIN 9.4 G/DL (12.0-16.0); MEAN CORPUSCULAR VOLUME 86 FL (80-99); PLATELET COUNT 101 K/UL (150-450); RED BLOOD COUNT 3.61 M/UL (4.20-5.40); RED CELL DISTRIBUTION WIDTH 18.7 % (11.6-14.8)
[2020-11-15 07:49] LABS: INR 1.2 (0.9-1.1)
[2020-11-15 07:50] LABS: ALANINE AMINOTRANSFERASE 21 U/L (12-78); ALBUMIN 1.8 G/DL (3.4-5.0); ALBUMIN/GLOBULIN RATIO 0.5 (1.0-2.7); ALKALINE PHOSPHATASE 160 U/L (46-116); ANION GAP 8 mmol/L (5-15); ASPARTATE AMINO TRANSFERASE 35 U/L (15-37); BLOOD UREA NITROGEN 26 mg/dL (7-18); CALCIUM 7.6 MG/DL (8.5-10.1); CARBON DIOXIDE 24 MMOL/L (21-32); CHLORIDE 115 MMOL/L (98-107); POTASSIUM 3.3 MMOL/L (3.5-5.1); SODIUM 147 MMOL/L (136-145); WHITE BLOOD COUNT 45.9 K/UL (4.8-10.8)
[2020-11-15 07:52] LABS: PHOSPHORUS 2.5 MG/DL (2.5-4.9)
[2020-11-15] MEDS: Sodium Citrate 30ml NG SCH ×2 (08:58→17:03)
[2020-11-15] MEDS: Pantoprazole Inj IVP SCH ×2 (08:58→21:02)
[2020-11-15] MEDS: Doxycycline Hyclate 100 MG in D5W 110 ML IV SCH ×2 (08:58→21:02)
[2020-11-15] MEDS ORDERED: Dyna-Hex 2% Top Sol 2oz TOPIC SCH ×2 (09:00→20:00)
--- NOTE | 2020-11-15 10:20 | Surgery Progress Note ---
Surgery Progress Note Subjective Symptoms: improved, tolerating diet Additional Comments doing very well no n/v/f/c comfortable no complaints wbc elevated needs picc and fem line out Objective Last 24 Hour Vital Signs Date Time Temp Pulse Resp B/P (MAP) Pulse Ox O2 Delivery O2 Flow Rate FiO2 11/15/20 08:58 100 136/80 11/15/20 08:00 98.2 79 20 140/92 (108) 98 11/15/20 07:25 71 11/15/20 04:00 98.8 80 20 136/80 (98) 99 11/15/20 04:00 Room Air 11/15/20 04:00 100 11/15/20 00:00 76 11/15/20 00:00 Room Air 11/15/20 00:00 98.0 79 20 129/81 (97) 99 11/14/20 20:00 97.6 56 18 156/87 (110) 100 11/14/20 20:00 81 11/14/20 20:00 Room Air 11/14/20 18:19 79 155/97 11/14/20 16:00 99.9 79 23 155/97 (116) 100 11/14/20 16:00 Room Air 11/14/20 15:27 64 11/14/20 11:55 Room Air 11/14/20 11:48 98.4 66 24 158/89 (112) 100 11/14/20 11:41 63 I&O Intake and Output 11/14/20 11/15/20 19:00 07:00 Intake Total 1205.000 ml 1325.000 ml Output Total 1400 ml 1200 ml Balance -195.000 ml 125.000 ml Intake Oral 120 ml 240 ml IV Total 1085.000 ml 1085.000 ml Output Urine Total 1400 ml 1200 ml Stool Total 0 ml Dressing: dry Wound: clean Cardiovascular: RSR Respiratory: clear Abdomen: soft, non-tender, present bowel sounds, non-distended Extremities: no edema, no tenderness, no cyanosis Laboratory Tests Test 11/14/20 10:45 11/15/20 07:00 Stool Occult Blood Positive (NEGATIVE) White Blood Count 45.9 K/UL (4.8-10.8) *H Red Blood Count 3.61 M/UL (4.20-5.40) L Hemoglobin 9.4 G/DL (12.0-16.0) L Hematocrit 31.2 % (37.0-47.0) L Mean Corpuscular Volume 86 FL (80-99) Mean Corpuscular Hemoglobin 26.2 PG (27.0-31.0) L Mean Corpuscular Hemoglobin Concent 30.3 G/DL (32.0-36.0) L Red Cell Distribution Width 18.7 % (11.6-14.8) H Platelet Count 101 K/UL (150-450) #L Mean Platelet Volume 14.0 FL (6.5-10.1) H Neutrophils (%) (Auto) % (45.0-75.0) Lymphocytes (%) (Auto) % (20.0-45.0) Monocytes (%) (Auto) % (1.0-10.0) Eosinophils (%) (Auto) % (0.0-3.0) Basophils (%) (Auto) % (0.0-2.0) Differential Total Cells Counted 100 Neutrophils % (Manual) 90 % (45-75) H Lymphocytes % (Manual) 2 % (20-45) L Monocytes % (Manual) 4 % (1-10) Eosinophils % (Manual) 0 % (0-3) Basophils % (Manual) 0 % (0-2) Band Neutrophils 4 % (0-8) Platelet Estimate Decreased L Platelet Morphology Normal Hypochromasia 1+ Anisocytosis 1+ Prothrombin Time 13.1 SEC (9.30-11.50) H Prothromb Time International Ratio 1.2 (0.9-1.1) H Activated Partial Thromboplast Time 29 SEC (23-33) Sodium Level 147 MMOL/L (136-145) H Potassium Level 3.3 MMOL/L (3.5-5.1) L Chloride Level 115 MMOL/L (98-107) H Carbon Dioxide Level 24 MMOL/L (21-32) Anion Gap 8 mmol/L (5-15) Blood Urea Nitrogen 26 mg/dL (7-18) H Creatinine 1.0 MG/DL (0.55-1.30) Estimat Glomerular Filtration Rate > 60 mL/min (>60) Glucose Level 95 MG/DL (74-106) Calcium Level 7.6 MG/DL (8.5-10.1) L Phosphorus Level 2.5 MG/DL (2.5-4.9) Magnesium Level 1.6 MG/DL (1.8-2.4) L Total Bilirubin 1.0 MG/DL (0.2-1.0) Aspartate Amino Transf (AST/SGOT) 35 U/L (15-37) Alanine Aminotransferase (ALT/SGPT) 21 U/L (12-78) Alkaline Phosphatase 160 U/L (46-116) H C-Reactive Protein, Quantitative 2.9 mg/dL (0.00-0.90) H Pro-B-Type Natriuretic Peptide 31476 pg/mL (0-125) H Total Protein 5.6 G/DL (6.4-8.2) L Albumin 1.8 G/DL (3.4-5.0) L Globulin 3.8 g/dL Albumin/Globulin Ratio 0.5 (1.0-2.7) L Plan Problems: (1) Anemia (2) Sepsis Assessment & Plan: 44-year-old female with altered mental status, lactic acidosis, leukocytosis, sepsis. Vitals currently stable. Abdominal exam mild distention but limited. Will obtain imaging. Labs noted UTI on antibiotics fluid resuscitation trend labs we will follow with examination and recommendations. CT head reviewed. much improved now responsive states well no abd symptoms okay for diet labs noted exam stable diet as tolerated trend labs iv fluids No acute intracranial hemorrhage. No midline shift or mass effect. The territorial hassan-white matter differentiation is maintained throughout. The ventricles and sulci are commensurate with age. The visualized orbits appear grossly unremarkable. The calvarium is intact. The visualized paranasal sinuses and mastoid air cells are grossly clear. CT noted Liver: Unremarkable Gallbladder and bile ducts: Cholelithiasis and nonspecific gallbladder wall edema in light of the third spacing. Pancreas: Stranding around the pancreas, could be from pancreatitis or the third spacing. Correlate with amylase or lipase values as clinically appropriate. Spleen: Unremarkable. Adrenals: Unremarkable. Kidneys and ureters: Right nephrolithiasis. Stomach and bowel: Nonspecific bowel gas pattern. Nonspecific thickening of the GI tract in light of the third spacing. PELVIS: Appendix: No findings to suggest acute appendicitis. Bladder: Duffy catheter. Reproductive: Exophytic fibroid versus complex left adnexal lesion measuring approximately 4.1 cm. Subperitoneal space: Presacral edema. ABDOMEN and PELVIS: Intraperitoneal space: Edema throughout the peritoneal cavity. Small amounts of fluid in the peritoneal cavity. Bones/joints: No acute fracture. Soft tissues: Anasarca Vasculature: Unremarkable. No abdominal aortic aneurysm. Lymph nodes: No enlarged lymph nodes. Tubes, lines and devices: Rectal tube. Right femoral central line. Enteric tube in the stomach. IMPRESSION: 1. Cholelithiasis and nonspecific gallbladder wall edema in light of the third spacing. 2. Nonspecific bowel gas pattern. There is a small amount of pleural fluid bilaterally. Gallbladder is unremarkable, without stones, wall thickening. There is trace pericholecystic Fluid. Sonographic Fregoso's sign is negative. Common bile duct measures 3 mm in diameter. No intrahepatic biliary ductal dilatation. Liver demonstrates normal echogenicity, no focal abnormality. Portal vein and hepatic veins are patent. Pancreas is unremarkable. Spleen is unremarkable. Left kidney measures 10.6 cm in length. Right kidney measures 10 cm length. Both kidneys demonstrate normal echogenicity. There is no hydronephrosis. There is a small right renal cyst. Echogenic focus in the right kidney likely represents one of the calculi demonstrated on recent CT scan . Abdominal aorta is partially obscured by bowel gas, visualized portions are non-aneurysmal . Impression: Negative for gallstones or dilated bile ducts. Trace pericholecystic fluid probably represents free intraperitoneal fluid. Bilateral pleural effusions Nonobstructive right renal calculus, also reported on recent CT scan. Incidental finding small right renal cyst But incomplete visualization of the abdominal aorta (3) UTI (urinary tract infection) (4) VALERIA (acute kidney injury) (5) Acute metabolic encephalopathy Archie Saavedra Nov 15, 2020 10:20
[2020-11-15] MEDS ORDERED: Heparin1,000 units/500ml Premix(Conc:2 units/ml) IV PRN (10:30)
[2020-11-15] MEDS ORDERED: Lidocaine 1% Plain 30 ml INJ PRN (10:30)
--- NOTE | 2020-11-15 11:30 | Pulmonology Progress Note ---
Subjective ROS Limited/Unobtainable: No Interval Events: Saturating well on room air Constitutional: Reports: fatigue; Denies: fever HEENT: Repors: no symptoms Respiratory: Reports: no symptoms Cardiovascular: Reports: no symptoms Gastrointestinal/Abdominal: Denies: nausea, vomiting, diarrhea Psychiatric: Denies: depression Skin: Denies: rash Musculoskeletal: Denies: pain Allergies: Coded Allergies: No Known Allergies (Unverified , 11/08/20) Objective Last 24 Hour Vital Signs Date Time Temp Pulse Resp B/P (MAP) Pulse Ox O2 Delivery O2 Flow Rate FiO2 11/15/20 10:40 Room Air 11/15/20 08:58 100 136/80 11/15/20 08:00 98.2 79 20 140/92 (108) 98 11/15/20 07:25 71 11/15/20 04:00 98.8 80 20 136/80 (98) 99 11/15/20 04:00 Room Air 11/15/20 04:00 100 11/15/20 00:00 76 11/15/20 00:00 Room Air 11/15/20 00:00 98.0 79 20 129/81 (97) 99 11/14/20 20:00 97.6 56 18 156/87 (110) 100 11/14/20 20:00 81 11/14/20 20:00 Room Air 11/14/20 18:19 79 155/97 11/14/20 16:00 99.9 79 23 155/97 (116) 100 11/14/20 16:00 Room Air 11/14/20 15:27 64 11/14/20 11:55 Room Air 11/14/20 11:48 98.4 66 24 158/89 (112) 100 11/14/20 11:41 63 Intake and Output 11/14/20 11/15/20 19:00 07:00 Intake Total 1205.000 ml 1325.000 ml Output Total 1400 ml 1200 ml Balance -195.000 ml 125.000 ml Intake Oral 120 ml 240 ml IV Total 1085.000 ml 1085.000 ml Output Urine Total 1400 ml 1200 ml Stool Total 0 ml General Appearance: WD/WN HEENT: normocephalic Respiratory: chest wall non-tender Cardiovascular: normal peripheral pulses Abdomen: soft, non tender Microbiology Date/Time Source Procedure Growth Status 11/13/20 03:55 Blood Blood Culture - Preliminary NO GROWTH AFTER 24 HOURS Resulted 11/13/20 03:50 Blood Blood Culture - Preliminary NO GROWTH AFTER 24 HOURS Resulted Laboratory Tests 11/15/20 07:00: White Blood Count 45.9*H, Red Blood Count 3.61L, Hemoglobin 9.4L, Hematocrit 31.2L, Mean Corpuscular Volume 86, Mean Corpuscular Hemoglobin 26.2L, Mean Corpuscular Hemoglobin Concent 30.3L, Red Cell Distribution Width 18.7H, Platelet Count 101#L, Mean Platelet Volume 14.0H, Neutrophils (%) (Auto) , Lymphocytes (%) (Auto) , Monocytes (%) (Auto) , Eosinophils (%) (Auto) , Basophils (%) (Auto) , Differential Total Cells Counted 100, Neutrophils % (Manual) 90H, Lymphocytes % (Manual) 2L, Monocytes % (Manual) 4, Eosinophils % (Manual) 0, Basophils % (Manual) 0, Band Neutrophils 4, Platelet Estimate DecreasedL, Platelet Morphology Normal, Hypochromasia 1+, Anisocytosis 1+, Prothrombin Time 13.1H, Prothromb Time International Ratio 1.2H, Activated Partial Thromboplast Time 29, Sodium Level 147H, Potassium Level 3.3L, Chloride Level 115H, Carbon Dioxide Level 24, Anion Gap 8, Blood Urea Nitrogen 26H, Creatinine 1.0, Estimat Glomerular Filtration Rate > 60, Glucose Level 95, Calcium Level 7.6L, Phosphorus Level 2.5, Magnesium Level 1.6L, Total Bilirubin 1.0, Aspartate Amino Transf (AST/SGOT) 35, Alanine Aminotransferase (ALT/SGPT) 21, Alkaline Phosphatase 160H, C-Reactive Protein, Quantitative 2.9H, Pro-B-Type Natriuretic Peptide 04509P, Total Protein 5.6L, Albumin 1.8L, Globulin 3.8, Albumin/Globulin Ratio 0.5L Current Medications Medications (Trade) Dose Ordered Sig/Bunny Route PRN Reason Start Time Stop Time Status Last Admin Dose Admin Acetaminophen (Tylenol) 650 mg Q4H PRN NG Temp >100.5 11/10/20 05:15 12/10/20 05:14 11/10/20 05:21 Amlodipine Besylate (Norvasc) 2.5 mg DAILY ORAL 11/14/20 18:15 12/14/20 18:14 11/15/20 08:58 Barium Sulfate (Varibar Honey) 250 ml NOW PRN MC RAD 11/14/20 14:30 11/17/20 14:18 Barium Sulfate (Varibar [place]) 240 ml NOW PRN MC RAD 11/14/20 14:30 11/17/20 14:18 Barium Sulfate (Varibar Pudding) 230 ml NOW PRN MC RAD 11/14/20 14:30 11/17/20 14:18 Barium Sulfate (Varibar Thin Liquid powder) 148 gm NOW PRN MC RAD 11/14/20 14:30 11/17/20 14:18 Chlorhexidine Gluconate (Carmen-Hex 2%) 1 applic DAILY@2000 TOPIC 11/15/20 20:00 02/13/21 19:59 Dextrose (Dextrose 50%) 25 ml Q30M PRN IV Hypoglycemia 11/10/20 23:45 02/08/21 23:44 Dextrose (Dextrose 50%) 50 ml Q30M PRN IV Hypoglycemia 11/10/20 23:45 02/08/21 23:44 Doxycycline Hyclate 100 mg/ Dextrose 110 ml @ 110 mls/hr Q12HR IV 11/10/20 21:00 11/17/20 20:59 11/15/20 08:58 Heparin Sodium/ Sodium Chloride (Heparin 1000 units/500ml Premix) 1,000 unit ONCE PRN IV PICC PLACEMENT 11/15/20 10:30 11/16/20 23:59 Hydrocortisone (Solu-CORTEF) 50 mg EVERY 8 HOURS IV 11/14/20 22:00 02/12/21 21:59 11/15/20 05:28 Lidocaine HCl (Xylocaine 1% 30ml) 30 ml ONCE PRN INJ PICC PLACEMENT 11/15/20 10:30 11/16/20 23:59 Magnesium Sulfate 100 ml @ 100 mls/hr Q1H IVPB 11/15/20 10:00 11/15/20 11:59 11/15/20 10:26 Meropenem 1 gm/ Sodium Chloride 100 ml @ 200 mls/hr Q8HR IVPB 11/13/20 14:00 11/18/20 13:59 11/15/20 05:28 Pantoprazole (Protonix) 40 mg Q12HR IVP 11/09/20 21:00 12/09/20 08:59 11/15/20 08:58 Potassium Chloride 40 meq/ Dextrose 1,020 ml @ 50 mls/hr [id number] IV 11/13/20 10:30 12/13/20 10:29 11/15/20 01:58 Potassium Chloride 100 ml @ 50 mls/hr ONCE IVPB 11/15/20 09:45 11/15/20 12:00 11/15/20 10:27 Sodium Citrate (Bicitra) 30 ml BID NG 11/14/20 18:00 12/11/20 17:59 11/15/20 08:58 Tramadol HCl (Ultram) 50 mg Q6H PRN ORAL For Pain 11/08/20 22:15 11/15/20 22:14 11/15/20 05:38 Vancomycin HCl (Vanco pharmacy to dose) 1 ea DAILY PRN MISC Per rx protocol 11/08/20 17:45 12/08/20 17:44 Vancomycin HCl 750 mg/Sodium Chloride 275 ml @ 183.333 mls/hr Q12HR@0800,2000 IVPB 11/14/20 08:00 11/19/20 07:59 11/15/20 07:35 Assessment/Plan Assessment/Plan 1. Septic shock. Resolved 2. Hypotension. -Resolved 3. Status post central line placement. 4. Multiple sclerosis. 5. Diarrhea, ruled out for C. difficile colitis. 6. E. coli bacteremia; on Meropenem 7. DVT prophylaxis. -We will order D-dimer DISCUSSION: Now off pressors. s/p PO bicarb supplementation. Continue broad-spectrum antibiotics. The care of this patient was discussed with my supervising physician Time spent for this encounter was approximately 31 minutes Wolfgang Montoya Nov 15, 2020 11:29
--- NOTE | 2020-11-15 12:12 | General Progress Note ---
Subjective ROS Limited/Unobtainable: No Allergies: Coded Allergies: No Known Allergies (Unverified , 11/08/20) Objective Last 24 Hour Vital Signs Date Time Temp Pulse Resp B/P (MAP) Pulse Ox O2 Delivery O2 Flow Rate FiO2 11/15/20 11:31 108 11/15/20 10:40 Room Air 11/15/20 08:58 100 136/80 11/15/20 08:00 98.2 79 20 140/92 (108) 98 11/15/20 07:25 71 11/15/20 04:00 98.8 80 20 136/80 (98) 99 11/15/20 04:00 Room Air 11/15/20 04:00 100 11/15/20 00:00 76 11/15/20 00:00 Room Air 11/15/20 00:00 98.0 79 20 129/81 (97) 99 11/14/20 20:00 97.6 56 18 156/87 (110) 100 11/14/20 20:00 81 11/14/20 20:00 Room Air 11/14/20 18:19 79 155/97 11/14/20 16:00 99.9 79 23 155/97 (116) 100 11/14/20 16:00 Room Air 11/14/20 15:27 64 Intake and Output 11/14/20 11/15/20 19:00 07:00 Intake Total 1205.000 ml 1325.000 ml Output Total 1400 ml 1200 ml Balance -195.000 ml 125.000 ml Intake Oral 120 ml 240 ml IV Total 1085.000 ml 1085.000 ml Output Urine Total 1400 ml 1200 ml Stool Total 0 ml Laboratory Tests 11/15/20 07:00: White Blood Count 45.9*H, Red Blood Count 3.61L, Hemoglobin 9.4L, Hematocrit 31.2L, Mean Corpuscular Volume 86, Mean Corpuscular Hemoglobin 26.2L, Mean Corpuscular Hemoglobin Concent 30.3L, Red Cell Distribution Width 18.7H, Platelet Count 101#L, Mean Platelet Volume 14.0H, Neutrophils (%) (Auto) , Lymphocytes (%) (Auto) , Monocytes (%) (Auto) , Eosinophils (%) (Auto) , Basophils (%) (Auto) , Differential Total Cells Counted 100, Neutrophils % (Manual) 90H, Lymphocytes % (Manual) 2L, Monocytes % (Manual) 4, Eosinophils % (Manual) 0, Basophils % (Manual) 0, Band Neutrophils 4, Platelet Estimate DecreasedL, Platelet Morphology Normal, Hypochromasia 1+, Anisocytosis 1+, Prothrombin Time 13.1H, Prothromb Time International Ratio 1.2H, Activated Partial Thromboplast Time 29, Sodium Level 147H, Potassium Level 3.3L, Chloride Level 115H, Carbon Dioxide Level 24, Anion Gap 8, Blood Urea Nitrogen 26H, Creatinine 1.0, Estimat Glomerular Filtration Rate > 60, Glucose Level 95, Calcium Level 7.6L, Phosphorus Level 2.5, Magnesium Level 1.6L, Total Bilirubin 1.0, Aspartate Amino Transf (AST/SGOT) 35, Alanine Aminotransferase (ALT/SGPT) 21, Alkaline Phosphatase 160H, C-Reactive Protein, Quantitative 2.9H, Pro-B-Type Natriuretic Peptide 48991E, Total Protein 5.6L, Albumin 1.8L, Globulin 3.8, Albumin/Globulin Ratio 0.5L Height (Feet): 5 Height (Inches): 5.00 Weight (Pounds): 165 General Appearance: no apparent distress EENT: normal ENT inspection Neck: supple Cardiovascular: normal rate Respiratory/Chest: decreased breath sounds Abdomen: hypoactive bowel sounds Assessment/Plan Problem List: (1) Rectal bleeding ICD Codes: K62.5 - Hemorrhage of anus and rectum SNOMED: 67239684 (2) Sepsis ICD Codes: A41.9 - Sepsis, unspecified organism SNOMED: 14232866, 429092433 Qualifiers: Qualified Codes: A41.9 - Sepsis, unspecified organism; R65.20 - Severe sepsis without septic shock; G93.40 - Encephalopathy, unspecified (3) Electrolyte imbalance ICD Codes: E87.8 - Other disorders of electrolyte and fluid balance, not elsewhere classified SNOMED: 627918099 (4) Acute metabolic encephalopathy ICD Codes: G93.41 - Metabolic encephalopathy SNOMED: 01702351, 243643992 (5) Anemia ICD Codes: D64.9 - Anemia, unspecified SNOMED: 656068756 Qualifiers: Qualified Codes: D64.9 - Anemia, unspecified (6) Septic shock ICD Codes: A41.9 - Sepsis, unspecified organism; R65.21 - Severe sepsis with septic shock SNOMED: 23677087 (7) Diarrhea ICD Codes: R19.7 - Diarrhea, unspecified SNOMED: 58234337 Qualifiers: Qualified Codes: R19.7 - Diarrhea, unspecified Assessment/Plan: C.diff neg abx per ID no recurrent rectal bleed monitor H&H will fu Gold Sears MD Nov 15, 2020 12:12
--- NOTE | 2020-11-15 13:12 | Nephrology Progress Note ---
Assessment/Plan Problem List: (1) VALERIA (acute kidney injury) (2) Septic shock (3) Multiple sclerosis (4) Acute metabolic encephalopathy (5) Anemia (6) Electrolyte imbalance Assessment Acute renal failure Sepsis, shock Acute metabolic encephalopathy Anemia UTI Plan November 15: Labs reviewed. Abnormal electrolytes addressed. Continue per current treatment plan. Leukocytosis persists. November 14: Labs reviewed. Abnormal electrolytes much improved. Discussed with RN Afsoon. Serum creatinine normalized. Continue per consultants. November 13: Labs reviewed. Low potassium and low phosphorus addressed. Discussed with RN. Continue to monitor renal parameters. Serum creatinine now down to 1.3. November 12: Labs reviewed. Potassium 2.2, replacement ordered. Serum creatinine down to 1.6. Discussed with RN. Continue per consultants. Renal parameters. November 11: Labs reviewed. Low potassium replaced. Serum creatinine 1.9. Perry piña full code. On nasal cannula. Discussed with RN. Continue per consultants. Continue to monitor renal parameters November 10 labs reviewed. Serum creatinine 2. Patient more lethargic today. NG tube and feeding through NG to be initiated. Patient full code. Continue to monitor renal parameters. November 09: Low magnesium replaced. IV iron ordered. Labs reviewed. Albumin bolus given. Serum creatinine higher to 2.3. Continue current management. Patient full code. Previously: ICU Pressors Hydrate Monitor renal parameters and electrolytes Anemia work-up Avoid nephrotoxic's Subjective ROS Limited/Unobtainable: No Constitutional: Reports: malaise, weakness Objective Objective Last 24 Hour Vital Signs Date Time Temp Pulse Resp B/P (MAP) Pulse Ox O2 Delivery O2 Flow Rate FiO2 11/15/20 12:00 97.7 94 22 127/88 (101) 100 11/15/20 11:31 108 11/15/20 10:40 Room Air 11/15/20 08:58 100 136/80 11/15/20 08:00 98.2 79 20 140/92 (108) 98 11/15/20 07:25 71 11/15/20 04:00 98.8 80 20 136/80 (98) 99 11/15/20 04:00 Room Air 11/15/20 04:00 100 11/15/20 00:00 76 11/15/20 00:00 Room Air 11/15/20 00:00 98.0 79 20 129/81 (97) 99 11/14/20 20:00 97.6 56 18 156/87 (110) 100 11/14/20 20:00 81 11/14/20 20:00 Room Air 11/14/20 18:19 79 155/97 11/14/20 16:00 99.9 79 23 155/97 (116) 100 11/14/20 16:00 Room Air 11/14/20 15:27 64 Intake and Output 11/14/20 11/15/20 19:00 07:00 Intake Total 1205.000 ml 1325.000 ml Output Total 1400 ml 1200 ml Balance -195.000 ml 125.000 ml Intake Oral 120 ml 240 ml IV Total 1085.000 ml 1085.000 ml Output Urine Total 1400 ml 1200 ml Stool Total 0 ml Current Medications Medications (Trade) Dose Ordered Sig/Bunny Route PRN Reason Start Time Stop Time Status Last Admin Dose Admin Acetaminophen (Tylenol) 650 mg Q4H PRN NG Temp >100.5 11/10/20 05:15 12/10/20 05:14 11/10/20 05:21 Amlodipine Besylate (Norvasc) 2.5 mg DAILY ORAL 11/14/20 18:15 12/14/20 18:14 11/15/20 08:58 Barium Sulfate (Varibar Honey) 250 ml NOW PRN MC RAD 11/14/20 14:30 11/17/20 14:18 Barium Sulfate (Varibar [place]) 240 ml NOW PRN MC RAD 11/14/20 14:30 11/17/20 14:18 Barium Sulfate (Varibar Pudding) 230 ml NOW PRN MC RAD 11/14/20 14:30 11/17/20 14:18 Barium Sulfate (Varibar Thin Liquid powder) 148 gm NOW PRN MC RAD 11/14/20 14:30 11/17/20 14:18 Chlorhexidine Gluconate (Carmen-Hex 2%) 1 applic DAILY@2000 TOPIC 11/15/20 20:00 02/13/21 19:59 Dextrose (Dextrose 50%) 25 ml Q30M PRN IV Hypoglycemia 11/10/20 23:45 02/08/21 23:44 Dextrose (Dextrose 50%) 50 ml Q30M PRN IV Hypoglycemia 11/10/20 23:45 02/08/21 23:44 Doxycycline Hyclate 100 mg/ Dextrose 110 ml @ 110 mls/hr Q12HR IV 11/10/20 21:00 11/17/20 20:59 11/15/20 08:58 Heparin Sodium/ Sodium Chloride (Heparin 1000 units/500ml Premix) 1,000 unit ONCE PRN IV PICC PLACEMENT 11/15/20 10:30 11/16/20 23:59 Hydrocortisone (Solu-CORTEF) 50 mg EVERY 8 HOURS IV 11/14/20 22:00 02/12/21 21:59 11/15/20 05:28 Lidocaine HCl (Xylocaine 1% 30ml) 30 ml ONCE PRN INJ PICC PLACEMENT 11/15/20 10:30 11/16/20 23:59 Meropenem 1 gm/ Sodium Chloride 100 ml @ 200 mls/hr Q8HR IVPB 11/13/20 14:00 11/18/20 13:59 11/15/20 05:28 Pantoprazole (Protonix) 40 mg Q12HR IVP 11/09/20 21:00 12/09/20 08:59 11/15/20 08:58 Potassium Chloride 40 meq/ Dextrose 1,020 ml @ 50 mls/hr [id number] IV 11/13/20 10:30 12/13/20 10:29 11/15/20 01:58 Sodium Citrate (Bicitra) 30 ml BID NG 11/14/20 18:00 12/11/20 17:59 11/15/20 08:58 Tramadol HCl (Ultram) 50 mg Q6H PRN ORAL For Pain 11/08/20 22:15 11/15/20 22:14 11/15/20 05:38 Vancomycin HCl (Vanco pharmacy to dose) 1 ea DAILY PRN MISC Per rx protocol 11/08/20 17:45 12/08/20 17:44 Vancomycin HCl 750 mg/Sodium Chloride 275 ml @ 183.333 mls/hr Q12HR@0800,2000 IVPB 11/14/20 08:00 11/19/20 07:59 11/15/20 07:35 Laboratory Tests 11/15/20 07:00: White Blood Count 45.9*H, Red Blood Count 3.61L, Hemoglobin 9.4L, Hematocrit 31.2L, Mean Corpuscular Volume 86, Mean Corpuscular Hemoglobin 26.2L, Mean Corpuscular Hemoglobin Concent 30.3L, Red Cell Distribution Width 18.7H, Platel et Count 101#L, Mean Platelet Volume 14.0H, Neutrophils (%) (Auto) , Lymphocytes (%) (Auto) , Monocytes (%) (Auto) , Eosinophils (%) (Auto) , Basophils (%) (Auto) , Differential Total Cells Counted 100, Neutrophils % (Manual) 90H, Lymphocytes % (Manual) 2L, Monocytes % (Manual) 4, Eosinophils % (Manual) 0, Bas ophils % (Manual) 0, Band Neutrophils 4, Platelet Estimate DecreasedL, Platelet Morphology Normal, Hypochromasia 1+, Anisocytosis 1+, Prothrombin Time 13.1H, Prothromb Time International Ratio 1.2H, Activated Partial Thromboplast Time 29, Sodium Level 147H, Potassium Level 3.3L, Chloride Level 115H, Carbon Dioxide Level 24, Anion Gap 8, Blood Urea Nitrogen 26H, Creatinine 1.0, Estimat Glomerular Filtration Rate > 60, Glucose Level 95, Calcium Level 7.6L, Phosphorus Level 2.5, Magnesium Level 1.6L, Total Bilirubin 1.0, Aspartate Amino Transf (AST/SGOT) 35, Alanine Aminotransferase (ALT/SGPT) 21, Alkaline Phosphatase 160H, C-Reactive Protein, Quantitative 2.9H, Pro-B-Type Natriuretic Peptide 46366Z, Total Protein 5.6L, Albumin 1.8L, Globulin 3.8, Albumin/Globulin Ratio 0.5L Height (Feet): 5 Height (Inches): 5.00 Weight (Pounds): 165 General Appearance: no apparent distress, lethargic Cardiovascular: tachycardia Respiratory/Chest: decreased breath sounds Abdomen: distended Bridger Mari MD Nov 15, 2020 13:12
--- NOTE | 2020-11-15 14:30 | Internal Med Progress Note ---
Subjective Physician Name Kris Cormier Attending Physician Kris Cormier MD Current Medications Medications (Trade) Dose Ordered Sig/Bunny Route PRN Reason Start Time Stop Time Status Last Admin Dose Admin Acetaminophen (Tylenol) 650 mg Q4H PRN NG Temp >100.5 11/10/20 05:15 12/10/20 05:14 11/10/20 05:21 Amlodipine Besylate (Norvasc) 2.5 mg DAILY ORAL 11/14/20 18:15 12/14/20 18:14 11/15/20 08:58 Barium Sulfate (Varibar Honey) 250 ml NOW PRN MC RAD 11/14/20 14:30 11/17/20 14:18 Barium Sulfate (Varibar [place]) 240 ml NOW PRN MC RAD 11/14/20 14:30 11/17/20 14:18 Barium Sulfate (Varibar Pudding) 230 ml NOW PRN MC RAD 11/14/20 14:30 11/17/20 14:18 Barium Sulfate (Varibar Thin Liquid powder) 148 gm NOW PRN MC RAD 11/14/20 14:30 11/17/20 14:18 Chlorhexidine Gluconate (Carmen-Hex 2%) 1 applic DAILY@2000 TOPIC 11/15/20 20:00 02/13/21 19:59 Dextrose (Dextrose 50%) 25 ml Q30M PRN IV Hypoglycemia 11/10/20 23:45 02/08/21 23:44 Dextrose (Dextrose 50%) 50 ml Q30M PRN IV Hypoglycemia 11/10/20 23:45 02/08/21 23:44 Doxycycline Hyclate 100 mg/ Dextrose 110 ml @ 110 mls/hr Q12HR IV 11/10/20 21:00 11/17/20 20:59 11/15/20 08:58 Heparin Sodium/ Sodium Chloride (Heparin 1000 units/500ml Premix) 1,000 unit ONCE PRN IV PICC PLACEMENT 11/15/20 10:30 11/16/20 23:59 Hydrocortisone (Solu-CORTEF) 50 mg EVERY 8 HOURS IV 11/14/20 22:00 02/12/21 21:59 11/15/20 13:15 Lidocaine HCl (Xylocaine 1% 30ml) 30 ml ONCE PRN INJ PICC PLACEMENT 11/15/20 10:30 11/16/20 23:59 Meropenem 1 gm/ Sodium Chloride 100 ml @ 200 mls/hr Q8HR IVPB 11/13/20 14:00 11/18/20 13:59 11/15/20 13:16 Pantoprazole (Protonix) 40 mg Q12HR IVP 11/09/20 21:00 12/09/20 08:59 11/15/20 08:58 Potassium Chloride 40 meq/ Dextrose 1,020 ml @ 50 mls/hr [id number] IV 11/13/20 10:30 12/13/20 10:29 11/15/20 01:58 Sodium Citrate (Bicitra) 30 ml BID NG 11/14/20 18:00 12/11/20 17:59 11/15/20 08:58 Tramadol HCl (Ultram) 50 mg Q6H PRN ORAL For Pain 11/08/20 22:15 11/15/20 22:14 11/15/20 05:38 [facility] 1 ea DAILY PRN MISC Per rx protocol 11/08/20 17:45 12/08/20 17:44 Vancomycin HCl 750 mg/Sodium Chloride 275 ml @ 183.333 mls/hr Q12HR@0800,2000 IVPB 11/14/20 08:00 11/19/20 07:59 11/15/20 07:35 Allergies: Coded Allergies: No Known Allergies (Unverified , 11/08/20) Subjective In step down unit, awake, alert, responsive, WBC:45.9 Objective Last Vital Signs Date Time Temp Pulse Resp B/P (MAP) Pulse Ox O2 Delivery O2 Flow Rate FiO2 11/15/20 12:00 97.7 94 22 127/88 (101) 100 11/15/20 10:40 Room Air 11/13/20 07:55 21 11/12/20 00:00 2.0 Laboratory Tests Test 11/15/20 07:00 White Blood Count 45.9 K/UL (4.8-10.8) *H Red Blood Count 3.61 M/UL (4.20-5.40) L Hemoglobin 9.4 G/DL (12.0-16.0) L Hematocrit 31.2 % (37.0-47.0) L Mean Corpuscular Volume 86 FL (80-99) Mean Corpuscular Hemoglobin 26.2 PG (27.0-31.0) L Mean Corpuscular Hemoglobin Concent 30.3 G/DL (32.0-36.0) L Red Cell Distribution Width 18.7 % (11.6-14.8) H Platelet Count 101 K/UL (150-450) #L Mean Platelet Volume 14.0 FL (6.5-10.1) H Neutrophils (%) (Auto) % (45.0-75.0) Lymphocytes (%) (Auto) % (20.0-45.0) Monocytes (%) (Auto) % (1.0-10.0) Eosinophils (%) (Auto) % (0.0-3.0) Basophils (%) (Auto) % (0.0-2.0) Differential Total Cells Counted 100 Neutrophils % (Manual) 90 % (45-75) H Lymphocytes % (Manual) 2 % (20-45) L Monocytes % (Manual) 4 % (1-10) Eosinophils % (Manual) 0 % (0-3) Basophils % (Manual) 0 % (0-2) Band Neutrophils 4 % (0-8) Platelet Estimate Decreased L Platelet Morphology Normal Hypochromasia 1+ Anisocytosis 1+ Prothrombin Time 13.1 SEC (9.30-11.50) H Prothromb Time International Ratio 1.2 (0.9-1.1) H Activated Partial Thromboplast Time 29 SEC (23-33) Sodium Level 147 MMOL/L (136-145) H Potassium Level 3.3 MMOL/L (3.5-5.1) L Chloride Level 115 MMOL/L (98-107) H Carbon Dioxide Level 24 MMOL/L (21-32) Anion Gap 8 mmol/L (5-15) Blood Urea Nitrogen 26 mg/dL (7-18) H Creatinine 1.0 MG/DL (0.55-1.30) Estimat Glomerular Filtration Rate > 60 mL/min (>60) Glucose Level 95 MG/DL (74-106) Calcium Level 7.6 MG/DL (8.5-10.1) L Phosphorus Level 2.5 MG/DL (2.5-4.9) Magnesium Level 1.6 MG/DL (1.8-2.4) L Total Bilirubin 1.0 MG/DL (0.2-1.0) Aspartate Amino Transf (AST/SGOT) 35 U/L (15-37) Alanine Aminotransferase (ALT/SGPT) 21 U/L (12-78) Alkaline Phosphatase 160 U/L (46-116) H C-Reactive Protein, Quantitative 2.9 mg/dL (0.00-0.90) H Pro-B-Type Natriuretic Peptide 22680 pg/mL (0-125) H Total Protein 5.6 G/DL (6.4-8.2) L Albumin 1.8 G/DL (3.4-5.0) L Globulin 3.8 g/dL Albumin/Globulin Ratio 0.5 (1.0-2.7) L Microbiology Date/Time Source Procedure Growth Status 11/13/20 03:55 Blood Blood Culture - Preliminary NO GROWTH AFTER 24 HOURS Resulted 11/13/20 03:50 Blood Blood Culture - Preliminary NO GROWTH AFTER 24 HOURS Resulted Intake and Output 11/14/20 11/15/20 19:00 07:00 Intake Total 1205.000 ml 1325.000 ml Output Total 1400 ml 1200 ml Balance -195.000 ml 125.000 ml Intake Oral 120 ml 240 ml IV Total 1085.000 ml 1085.000 ml Output Urine Total 1400 ml 1200 ml Stool Total 0 ml Objective GENERAL: awake, alert, responsive, no acute distress, Follow up with commands. HEAD AND NECK: Pupils are equal and reactive to light. Anicteric. Neck was supple. No JVD. LUNGS: Fair inspiratory affords, No wheezing or rhonchi. Decreased air in the bases. HEART: S1, S2 RR. No murmur or gallops. ABDOMEN: Soft, nondistended, nontender. Positive bowel sounds, Obesity. EXTREMITIES: No cyanosis, clubbing, +1 LE's edema. NEUROLOGIC: CN 2-12 intact. right upper extremity 3/5, left upper extremity 5/5, bilateral lower extremity 2/5 motor activities. SKIN: No rashes were identified. Assessment/Plan Assessment/Plan 1. Septic shock resolved. 2. Sepsis secondary to E. coli ESBL urinary tract infection. 3. Dehydration and hypokalemia. 4. Altered mental status, most likely secondary to toxic metabolic encephalopathy. 5. Acute kidney injury. 6. Anemia. 7. History of multiple sclerosis. 8. COVID-19 infection PLAN: In Step down unit. Monitor laboratory and cultures. DVT prophylaxis: heparin subcutaneous. Code status: Full Code. Abx: Meropenem IV, vancomycin IV, Doxycycline. On hydrocortisone IV. Dr. Kline from Pulmonary Critical Care, Dr. Nat Courtney from ID, Dr. Grant from Cardiology, and Dr. Bridger Mari from Nephrology. Kris Cormier MD Nov 15, 2020 14:30
--- NOTE | 2020-11-15 19:32 | Cardiology Progress Note ---
Assessment/Plan Assessment/Plan 1. Septic shock. 2. Bacteremia, gram-negative rods. 3. Renal failure/ hypokalemic 4. Lactic acidosis. 5. Renal failure, probably acute. 6. Profound iron deficiency. 7. Leukemoid reaction. 8. Anemia. 9. Covid 19 infection 10. abnormal trop demand vs covid related 11. Thrombocytopenia wbc high plt low bcx now ng echo showed normal lv systolic function off anticoagulation du to profound thrombocytopenia bp high now on norvasc not clear if need ivf and or iv steroid consider taper and dc bothe rmya be contributing to htn i have been tapering this medication tele reviewed: sinus cv seem stable Subjective Subjective pt in covid isolation Sleeping intermittently. Easily awakened. Respirations even and unlabored. SR on monitoring coordinator. In no apparent distress. Objective Last 24 Hour Vital Signs Date Time Temp Pulse Resp B/P (MAP) Pulse Ox O2 Delivery O2 Flow Rate FiO2 11/15/20 16:00 97.8 74 20 143/93 (110) 100 11/15/20 16:00 67 11/15/20 12:00 97.7 94 22 127/88 (101) 100 11/15/20 11:31 108 11/15/20 10:40 Room Air 11/15/20 08:58 100 136/80 11/15/20 08:00 98.2 79 20 140/92 (108) 98 11/15/20 07:25 71 11/15/20 04:00 98.8 80 20 136/80 (98) 99 11/15/20 04:00 Room Air 11/15/20 04:00 100 11/15/20 00:00 76 11/15/20 00:00 Room Air 11/15/20 00:00 98.0 79 20 129/81 (97) 99 11/14/20 20:00 97.6 56 18 156/87 (110) 100 11/14/20 20:00 81 11/14/20 20:00 Room Air Intake and Output 11/14/20 11/15/20 19:00 07:00 Intake Total 1205.000 ml 1325.000 ml Output Total 1400 ml 1200 ml Balance -195.000 ml 125.000 ml Intake Oral 120 ml 240 ml IV Total 1085.000 ml 1085.000 ml Output Urine Total 1400 ml 1200 ml Stool Total 0 ml Laboratory Tests Test 11/15/20 07:00 2/18/21 19:05 White Blood Count 45.9 K/UL (4.8-10.8) *H Red Blood Count 3.61 M/UL (4.20-5.40) L Hemoglobin 9.4 G/DL (12.0-16.0) L Hematocrit 31.2 % (37.0-47.0) L Mean Corpuscular Volume 86 FL (80-99) Mean Corpuscular Hemoglobin 26.2 PG (27.0-31.0) L Mean Corpuscular Hemoglobin Concent 30.3 G/DL (32.0-36.0) L Red Cell Distribution Width 18.7 % (11.6-14.8) H Platelet Count 101 K/UL (150-450) #L Mean Platelet Volume 14.0 FL (6.5-10.1) H Neutrophils (%) (Auto) % (45.0-75.0) Lymphocytes (%) (Auto) % (20.0-45.0) Monocytes (%) (Auto) % (1.0-10.0) Eosinophils (%) (Auto) % (0.0-3.0) Basophils (%) (Auto) % (0.0-2.0) Differential Total Cells Counted 100 Neutrophils % (Manual) 90 % (45-75) H Lymphocytes % (Manual) 2 % (20-45) L Monocytes % (Manual) 4 % (1-10) Eosinophils % (Manual) 0 % (0-3) Basophils % (Manual) 0 % (0-2) Band Neutrophils 4 % (0-8) Platelet Estimate Decreased L Platelet Morphology Normal Hypochromasia 1+ Anisocytosis 1+ Prothrombin Time 13.1 SEC (9.30-11.50) H Prothromb Time International Ratio 1.2 (0.9-1.1) H Activated Partial Thromboplast Time 29 SEC (23-33) Sodium Level 147 MMOL/L (136-145) H Potassium Level 3.3 MMOL/L (3.5-5.1) L Chloride Level 115 MMOL/L (98-107) H Carbon Dioxide Level 24 MMOL/L (21-32) Anion Gap 8 mmol/L (5-15) Blood Urea Nitrogen 26 mg/dL (7-18) H Creatinine 1.0 MG/DL (0.55-1.30) Estimat Glomerular Filtration Rate > 60 mL/min (>60) Glucose Level 95 MG/DL (74-106) Calcium Level 7.6 MG/DL (8.5-10.1) L Phosphorus Level 2.5 MG/DL (2.5-4.9) Magnesium Level 1.6 MG/DL (1.8-2.4) L Total Bilirubin 1.0 MG/DL (0.2-1.0) Aspartate Amino Transf (AST/SGOT) 35 U/L (15-37) Alanine Aminotransferase (ALT/SGPT) 21 U/L (12-78) Alkaline Phosphatase 160 U/L (46-116) H C-Reactive Protein, Quantitative 2.9 mg/dL (0.00-0.90) H Pro-B-Type Natriuretic Peptide 71314 pg/mL (0-125) H Total Protein 5.6 G/DL (6.4-8.2) L Albumin 1.8 G/DL (3.4-5.0) L Globulin 3.8 g/dL Albumin/Globulin Ratio 0.5 (1.0-2.7) L Vancomycin Level Trough Pending Microbiology Date/Time Source Procedure Growth Status 11/13/20 03:55 Blood Blood Culture - Preliminary NO GROWTH AFTER 24 HOURS Resulted 11/13/20 03:50 Blood Blood Culture - Preliminary NO GROWTH AFTER 24 HOURS Resulted Objective pt with acute covid infection , inorder tominimize chance of tranmission examination is limited to observation form outside the room and review of other physician notes who may have seen pt Neno Grant MD Nov 15, 2020 19:32
[2020-11-15] MEDS: Dyna-Hex 2% Top Sol 2oz TOPIC SCH (20:29)
[2020-11-16] VITALS: BP 151/79
[2020-11-16 04:00] VITALS: BP 140/76
[2020-11-16] MEDS: Hydrocortisone 100mg Inj IV SCH ×3 (05:48→21:10)
[2020-11-16 08:00] VITALS: BP 159/84
[2020-11-16] MEDS: Vancomycin 750mg/NS 275ml IVPB SCH ×4 (08:06→20:26)
[2020-11-16] MEDS: Doxycycline Hyclate 100 MG in D5W 110 ML IV SCH (08:06)
[2020-11-16] MEDS: Sodium Citrate 30ml NG SCH (08:08)
--- NOTE | 2020-11-16 10:46 | Cardiology Report ---
APPROVED REPORT EKG Measurement Heart [id number] <Conclusion> Normal sinus rhythm with sinus arrhythmia Low voltage QRS Borderline ECG
--- NOTE | 2020-11-16 10:55 | Pulmonology Progress Note ---
Subjective ROS Limited/Unobtainable: No Interval Events: Saturating well on room air Constitutional: Reports: fatigue; Denies: fever HEENT: Repors: no symptoms Respiratory: Reports: no symptoms Cardiovascular: Reports: no symptoms Gastrointestinal/Abdominal: Denies: nausea, vomiting, diarrhea Psychiatric: Denies: depression Skin: Denies: rash Musculoskeletal: Denies: pain Allergies: Coded Allergies: No Known Allergies (Unverified , 11/08/20) Objective Last 24 Hour Vital Signs Date Time Temp Pulse Resp B/P (MAP) Pulse Ox O2 Delivery O2 Flow Rate FiO2 11/16/20 08:08 75 159/84 11/16/20 04:00 97.9 77 20 140/76 (97) 98 11/16/20 04:00 69 11/16/20 00:00 68 11/16/20 00:00 99.0 74 18 151/79 (103) 97 11/15/20 20:00 71 11/15/20 20:00 98.6 71 18 142/80 (100) 99 11/15/20 16:00 97.8 74 20 143/93 (110) 100 11/15/20 16:00 67 11/15/20 12:00 97.7 94 22 127/88 (101) 100 11/15/20 11:31 108 Intake and Output 11/15/20 11/16/20 19:00 07:00 Intake Total 610 ml 1135.000 ml Output Total 1100 ml 1300 ml Balance -490 ml -165.000 ml Intake Oral 400 ml 300 ml IV Total 210 ml 835.000 ml Output Urine Total 1100 ml 1300 ml # Bowel Movements 2 1 General Appearance: WD/WN HEENT: normocephalic Respiratory: chest wall non-tender Cardiovascular: normal peripheral pulses Abdomen: soft, non tender Laboratory Tests 11/15/20 19:05: Vancomycin Level Trough 17.6H Current Medications Medications (Trade) Dose Ordered Sig/Bunny Route PRN Reason Start Time Stop Time Status Last Admin Dose Admin Acetaminophen (Tylenol) 650 mg Q4H PRN NG Temp >100.5 11/10/20 05:15 12/10/20 05:14 11/10/20 05:21 Amlodipine Besylate (Norvasc) 2.5 mg DAILY ORAL 11/14/20 18:15 12/14/20 18:14 11/16/20 08:08 Barium Sulfate (Varibar Honey) 250 ml NOW PRN MC RAD 11/14/20 14:30 11/17/20 14:18 Barium Sulfate (Varibar [place]) 240 ml NOW PRN MC RAD 11/14/20 14:30 11/17/20 14:18 Barium Sulfate (Varibar Pudding) 230 ml NOW PRN MC RAD 11/14/20 14:30 11/17/20 14:18 Barium Sulfate (Varibar Thin Liquid powder) 148 gm NOW PRN MC RAD 11/14/20 14:30 11/17/20 14:18 Chlorhexidine Gluconate (Carmen-Hex 2%) 1 applic DAILY@2000 TOPIC 11/15/20 20:00 02/13/21 19:59 11/15/20 20:29 Dextrose (Dextrose 50%) 25 ml Q30M PRN IV Hypoglycemia 11/10/20 23:45 02/08/21 23:44 Dextrose (Dextrose 50%) 50 ml Q30M PRN IV Hypoglycemia 11/10/20 23:45 02/08/21 23:44 Doxycycline Hyclate 100 mg/ Dextrose 110 ml @ 110 mls/hr Q12HR IV 11/10/20 21:00 11/17/20 20:59 11/16/20 08:06 Famotidine (Pepcid I.v.) 20 mg BID IVP 11/16/20 09:00 12/16/20 08:59 11/16/20 08:10 Heparin Sodium/ Sodium Chloride (Heparin 1000 units/500ml Premix) 1,000 unit ONCE PRN IV PICC PLACEMENT 11/15/20 10:30 11/16/20 23:59 Hydrocortisone (Solu-CORTEF) 25 mg EVERY 8 HOURS IV 11/15/20 22:00 02/13/21 21:59 11/16/20 05:48 Lidocaine HCl (Xylocaine 1% 30ml) 30 ml ONCE PRN INJ PICC PLACEMENT 11/15/20 10:30 11/16/20 23:59 Meropenem 1 gm/ Sodium Chloride 100 ml @ 200 mls/hr Q8HR IVPB 11/13/20 14:00 11/18/20 13:59 11/16/20 05:49 Potassium Chloride 40 meq/ Dextrose 1,020 ml @ 50 mls/hr [id number] IV 11/13/20 10:30 12/13/20 10:29 11/15/20 23:56 Sodium Citrate (Bicitra) 30 ml BID NG 11/14/20 18:00 12/11/20 17:59 11/16/20 08:08 Tramadol HCl (Ultram) 50 mg Q6H PRN ORAL For Pain 11/15/20 23:30 11/22/20 23:29 11/15/20 23:56 Vancomycin HCl (Vanco pharmacy to dose) 1 ea DAILY PRN MISC Per rx protocol 11/08/20 17:45 12/08/20 17:44 Vancomycin HCl 750 mg/Sodium Chloride 275 ml @ 183.333 mls/hr Q12HR@0800,2000 IVPB 11/14/20 08:00 11/19/20 07:59 11/16/20 08:06 Assessment/Plan Assessment/Plan 1. Septic shock. Resolved 2. Hypotension. -Resolved 3. Status post central line placement. 4. Multiple sclerosis. 5. Diarrhea, ruled out for C. difficile colitis. 6. E. coli bacteremia; on Meropenem 7. DVT prophylaxis. -We will order D-dimer DISCUSSION: Now off pressors. s/p PO bicarb supplementation. Continue broad-spectrum antibiotics. The care of this patient was discussed with my supervising physician Time spent for this encounter was approximately 31 minutes Wolfgang Montoya Nov 16, 2020 10:55
[2020-11-16 11:10] LABS: HEMATOCRIT 28.7 % (37.0-47.0); HEMOGLOBIN 8.8 G/DL (12.0-16.0); MEAN CORPUSCULAR VOLUME 85 FL (80-99); PLATELET COUNT 76 K/UL (150-450); RED CELL DISTRIBUTION WIDTH 19.5 % (11.6-14.8)
[2020-11-16 11:23] LABS: ANION GAP 11 mmol/L (5-15); BLOOD UREA NITROGEN 22 mg/dL (7-18); CALCIUM 7.6 MG/DL (8.5-10.1); CARBON DIOXIDE 23 MMOL/L (21-32); CHLORIDE 112 MMOL/L (98-107); CREATININE 0.9 MG/DL (0.55-1.30); SODIUM 146 MMOL/L (136-145)
--- NOTE | 2020-11-16 11:25 | Surgery Progress Note ---
Surgery Progress Note Subjective Symptoms: improved Additional Comments picc line today groin line out after Objective Last 24 Hour Vital Signs Date Time Temp Pulse Resp B/P (MAP) Pulse Ox O2 Delivery O2 Flow Rate FiO2 11/16/20 08:08 75 159/84 11/16/20 04:00 97.9 77 20 140/76 (97) 98 11/16/20 04:00 69 11/16/20 00:00 68 11/16/20 00:00 99.0 74 18 151/79 (103) 97 11/15/20 20:00 71 11/15/20 20:00 98.6 71 18 142/80 (100) 99 11/15/20 16:00 97.8 74 20 143/93 (110) 100 11/15/20 16:00 67 11/15/20 12:00 97.7 94 22 127/88 (101) 100 11/15/20 11:31 108 I&O Intake and Output 11/15/20 11/16/20 19:00 07:00 Intake Total 610 ml 1135.000 ml Output Total 1100 ml 1300 ml Balance -490 ml -165.000 ml Intake Oral 400 ml 300 ml IV Total 210 ml 835.000 ml Output Urine Total 1100 ml 1300 ml # Bowel Movements 2 1 Dressing: dry Cardiovascular: RSR Respiratory: decreased breath sounds Abdomen: soft, non-tender, present bowel sounds, non-distended Extremities: no edema, no tenderness, no cyanosis Laboratory Tests Test 11/15/20 19:05 11/16/20 10:55 Vancomycin Level Trough 17.6 ug/mL (5.0-12.0) H White Blood Count 43.0 K/UL (4.8-10.8) *H Red Blood Count 3.40 M/UL (4.20-5.40) L Hemoglobin 8.8 G/DL (12.0-16.0) L Hematocrit 28.7 % (37.0-47.0) L Mean Corpuscular Volume 85 FL (80-99) Mean Corpuscular Hemoglobin 26.0 PG (27.0-31.0) L Mean Corpuscular Hemoglobin Concent 30.7 G/DL (32.0-36.0) L Red Cell Distribution Width 19.5 % (11.6-14.8) H Platelet Count 76 K/UL (150-450) L Mean Platelet Volume 11.7 FL (6.5-10.1) H Neutrophils (%) (Auto) % (45.0-75.0) Lymphocytes (%) (Auto) % (20.0-45.0) Monocytes (%) (Auto) % (1.0-10.0) Eosinophils (%) (Auto) % (0.0-3.0) Basophils (%) (Auto) % (0.0-2.0) Neutrophils % (Manual) Pending Lymphocytes % (Manual) Pending Platelet Estimate Pending Platelet Morphology Pending Erythrocyte Sedimentation Rate Pending Prothrombin Time Pending Prothromb Time International Ratio Pending Activated Partial Thromboplast Time Pending D-Dimer Pending Sodium Level Pending Potassium Level Pending Chloride Level Pending Carbon Dioxide Level Pending Blood Urea Nitrogen Pending Creatinine Pending Estimat Glomerular Filtration Rate Pending Glucose Level Pending Lactic Acid Level Pending Uric Acid Pending Calcium Level Pending Phosphorus Level Pending Magnesium Level Pending Total Bilirubin Pending Aspartate Amino Transf (AST/SGOT) Pending Alanine Aminotransferase (ALT/SGPT) Pending Alkaline Phosphatase Pending C-Reactive Protein, Quantitative Pending Pro-B-Type Natriuretic Peptide Pending Total Protein Pending Albumin Pending Globulin Pending Amylase Level Pending Lipase Pending Plan Problems: (1) Anemia (2) Sepsis Assessment & Plan: 44-year-old female with altered mental status, lactic acidosis, leukocytosis, sepsis. Vitals currently stable. Abdominal exam mild distention but limited. Will obtain imaging. Labs noted UTI on antibiotics fluid resuscitation trend labs we will follow with examination and recommendations. CT head reviewed. much improved now responsive states well no abd symptoms okay for diet labs noted exam stable diet as tolerated trend labs iv fluids Possible higher level of care for cardiac work up and intervention noted. She is off Biap and on nasal cannula saturation ok at her bedside. Work of breathing noted. Creatine continued to be rising 1.7 today. Interpretation/Plan/Recommendation: 1. Very high risk of aspiration insetting of Advanced heart failure with onset of multiorgan failure 2. If she is going higher level of care within 24 hours, Hold PO except medication, 3. If she will stay, recommend goal of care and place PO with pureed and N ectar thick liquid No acute intracranial hemorrhage. No midline shift or mass effect. The territorial hassan-white matter differentiation is maintained throughout. The ventricles and sulci are commensurate with age. The visualized orbits appear grossly unremarkable. The calvarium is intact. The visualized paranasal sinuses and mastoid air cells are grossly clear. CT noted Liver: Unremarkable Gallbladder and bile ducts: Cholelithiasis and nonspecific gallbladder wall edema in light of the third spacing. Pancreas: Stranding around the pancreas, could be from pancreatitis or the third spacing. Correlate with amylase or lipase values as clinically appropriate. Spleen: Unremarkable. Adrenals: Unremarkable. Kidneys and ureters: Right nephrolithiasis. Stomach and bowel: Nonspecific bowel gas pattern. Nonspecific thickening of the GI tract in light of the third spacing. PELVIS: Appendix: No findings to suggest acute appendicitis. Bladder: Duffy catheter. Reproductive: Exophytic fibroid versus complex left adnexal lesion measuring approximately 4.1 cm. Subperitoneal space: Presacral edema. ABDOMEN and PELVIS: Intraperitoneal space: Edema throughout the peritoneal cavity. Small amounts of fluid in the peritoneal cavity. Bones/joints: No acute fracture. Soft tissues: Anasarca Vasculature: Unremarkable. No abdominal aortic aneurysm. Lymph nodes: No enlarged lymph nodes. Tubes, lines and devices: Rectal tube. Right femoral central line. Enteric tube in the stomach. IMPRESSION: 1. Cholelithiasis and nonspecific gallbladder wall edema in light of the third spacing. 2. Nonspecific bowel gas pattern. There is a small amount of pleural fluid bilaterally. Gallbladder is unremarkable, without stones, wall thickening. There is trace pericholecystic Fluid. Sonographic Fregoso's sign is negative. Common bile duct measures 3 mm in diameter. No intrahepatic biliary ductal dilatation. Liver demonstrates normal echogenicity, no focal abnormality. Portal vein and hepatic veins are patent. Pancreas is unremarkable. Spleen is unremarkable. Left kidney measures 10.6 cm in length. Right kidney measures 10 cm length. Both kidneys demonstrate normal echogenicity. There is no hydronephrosis. There is a small right renal cyst. Echogenic focus in the right kidney likely represents one of the calculi demonstrated on recent CT scan . Abdominal aorta is partially obscured by bowel gas, visualized portions are non-aneurysmal . Impression: Negative for gallstones or dilated bile ducts. Trace pericholecystic fluid probably represents free intraperitoneal fluid. Bilateral pleural effusions Nonobstructive right renal calculus, also reported on recent CT scan. Incidental finding small right renal cyst But incomplete visualization of the abdominal aorta (3) UTI (urinary tract infection) (4) VALERIA (acute kidney injury) (5) Acute metabolic encephalopathy (6) Diarrhea (7) Multiple sclerosis (8) Septic shock (9) Electrolyte imbalance (10) Rectal bleeding Archie Saavedra Nov 16, 2020 11:25
[2020-11-16 11:27] LABS: INR 1.1 (0.9-1.1)
[2020-11-16 11:34] LABS: PHOSPHORUS 2.7 MG/DL (2.5-4.9)
[2020-11-16 11:35] LABS: ALANINE AMINOTRANSFERASE 22 U/L (12-78); ALBUMIN 1.9 G/DL (3.4-5.0); ALBUMIN/GLOBULIN RATIO 0.5 (1.0-2.7); ALKALINE PHOSPHATASE 137 U/L (46-116); ASPARTATE AMINO TRANSFERASE 28 U/L (15-37); BILIRUBIN,TOTAL 0.7 MG/DL (0.2-1.0)
[2020-11-16 11:36] LABS: AMYLASE 426 U/L (25-115)
[2020-11-16 12:00] VITALS: BP 123/74
--- NOTE | 2020-11-16 13:21 | Nephrology Progress Note ---
Assessment/Plan Problem List: (1) VALERIA (acute kidney injury) (2) Septic shock (3) Multiple sclerosis (4) Acute metabolic encephalopathy (5) Anemia (6) Electrolyte imbalance Assessment Acute renal failure Sepsis, shock Acute metabolic encephalopathy Anemia UTI Plan November 16: Labs reviewed. Abnormal electrolyte addressed. Blood pressure medication adjusted. Continue per consultants. Leukocytosis persists. November 15: Labs reviewed. Abnormal electrolytes addressed. Continue per current treatment plan. Leukocytosis persists. November 14: Labs reviewed. Abnormal electrolytes much improved. Discussed with RN Afsoon. Serum creatinine normalized. Continue per consultants. November 13: Labs reviewed. Low potassium and low phosphorus addressed. Discussed with RN. Continue to monitor renal parameters. Serum creatinine now down to 1.3. November 12: Labs reviewed. Potassium 2.2, replacement ordered. Serum creatinine down to 1.6. Discussed with RN. Continue per consultants. Renal parameters. November 11: Labs reviewed. Low potassium replaced. Serum creatinine 1.9. Patient full code. On nasal cannula. Discussed with RN. Continue per consultants. Continue to monitor renal parameters November 10 labs reviewed. Serum creatinine 2. Patient more lethargic today. NG tube and feeding through NG to be initiated. Patient full code. Continue to monitor renal parameters. November 09: Low magnesium replaced. IV iron ordered. Labs reviewed. Albumin bolus given. Serum creatinine higher to 2.3. Continue current management. Patient full code. Previously: ICU Pressors Hydrate Monitor renal parameters and electrolytes Anemia work-up Avoid nephrotoxic's Subjective ROS Limited/Unobtainable: No Constitutional: Reports: malaise, weakness Objective Objective Last 24 Hour Vital Signs Date Time Temp Pulse Resp B/P (MAP) Pulse Ox O2 Delivery O2 Flow Rate FiO2 11/16/20 08:08 75 159/84 11/16/20 08:00 87 11/16/20 08:00 Room Air 11/16/20 08:00 98.4 75 20 159/84 (109) 100 11/16/20 04:00 97.9 77 20 140/76 (97) 98 11/16/20 04:00 69 11/16/20 00:00 68 11/16/20 00:00 99.0 74 18 151/79 (103) 97 11/15/20 20:00 71 11/15/20 20:00 98.6 71 18 142/80 (100) 99 11/15/20 16:00 97.8 74 20 143/93 (110) 100 11/15/20 16:00 67 Intake and Output 11/15/20 11/16/20 19:00 07:00 Intake Total 610 ml 1135.000 ml Output Total 1100 ml 1300 ml Balance -490 ml -165.000 ml Intake Oral 400 ml 300 ml IV Total 210 ml 835.000 ml Output Urine Total 1100 ml 1300 ml # Bowel Movements 2 1 Current Medications Medications (Trade) Dose Ordered Sig/Bunny Route PRN Reason Start Time Stop Time Status Last Admin Dose Admin Acetaminophen (Tylenol) 650 mg Q4H PRN NG Temp >100.5 11/10/20 05:15 12/10/20 05:14 11/10/20 05:21 Amlodipine Besylate (Norvasc) 2.5 mg DAILY ORAL 11/14/20 18:15 12/14/20 18:14 11/16/20 08:08 Barium Sulfate (Varibar Honey) 250 ml NOW PRN MC RAD 11/14/20 14:30 11/17/20 14:18 Barium Sulfate (Varibar [place]) 240 ml NOW PRN MC RAD 11/14/20 14:30 11/17/20 14:18 Barium Sulfate (Varibar Pudding) 230 ml NOW PRN MC RAD 11/14/20 14:30 11/17/20 14:18 Barium Sulfate (Varibar Thin Liquid powder) 148 gm NOW PRN MC RAD 11/14/20 14:30 11/17/20 14:18 Chlorhexidine Gluconate (Carmen-Hex 2%) 1 applic DAILY@2000 TOPIC 11/15/20 20:00 02/13/21 19:59 11/15/20 20:29 Dextrose (Dextrose 50%) 25 ml Q30M PRN IV Hypoglycemia 11/10/20 23:45 02/08/21 23:44 Dextrose (Dextrose 50%) 50 ml Q30M PRN IV Hypoglycemia 11/10/20 23:45 02/08/21 23:44 Doxycycline Hyclate 100 mg/ Dextrose 110 ml @ 110 mls/hr Q12HR IV 11/10/20 21:00 11/17/20 20:59 11/16/20 08:06 Famotidine (Pepcid I.v.) 20 mg BID IVP 11/16/20 09:00 12/16/20 08:59 11/16/20 08:10 Heparin Sodium/ Sodium Chloride (Heparin 1000 units/500ml Premix) 1,000 unit ONCE PRN IV PICC PLACEMENT 11/15/20 10:30 11/16/20 23:59 Hydrocortisone (Solu-CORTEF) 25 mg EVERY 8 HOURS IV 11/15/20 22:00 02/13/21 21:59 11/16/20 05:48 Lidocaine HCl (Xylocaine 1% 30ml) 30 ml ONCE PRN INJ PICC PLACEMENT 11/15/20 10:30 11/16/20 23:59 Meropenem 1 gm/ Sodium Chloride 100 ml @ 200 mls/hr Q8HR IVPB 11/13/20 14:00 11/18/20 13:59 11/16/20 05:49 Potassium Chloride 40 meq/ Dextrose 1,020 ml @ 50 mls/hr [id number] IV 11/13/20 10:30 12/13/20 10:29 11/15/20 23:56 Potassium Chloride 100 ml @ 100 mls/hr Q1HR IVPB 11/16/20 14:00 11/16/20 17:59 UNV Tramadol HCl (Ultram) 50 mg Q6H PRN ORAL For Pain 11/15/20 23:30 11/22/20 23:29 11/15/20 23:56 Vancomycin HCl (Vanco pharmacy to dose) 1 ea DAILY PRN MISC Per rx protocol 11/08/20 17:45 12/08/20 17:44 Vancomycin HCl 750 mg/Sodium Chloride 275 ml @ 183.333 mls/hr Q12HR@0800,2000 IVPB 11/14/20 08:00 11/19/20 07:59 11/16/20 08:06 Laboratory Tests 11/15/20 19:05: Vancomycin Level Trough 17.6H 11/16/20 10:55: White Blood Count 43.0*H, Red Blood Count 3.40L, Hemoglobin 8.8L, Hematocrit 28.7L, Mean Corpuscular Volume 85, Mean Corpuscular Hemoglobin 26.0L, Mean Corpuscular Hemoglobin Concent 30.7L, Red Cell Distribution Width 19.5H, Platelet Count 76L, Mean Platelet Volume 11.7H, Neutrophils (%) (Auto) , Lymphocytes (%) (Auto) , Monocytes (%) (Auto) , Eosinophils (%) (Auto) , Basophils (%) (Auto) , Differential Total Cells Counted 100, Neutrophils % (Manual) 91H, Lymphocytes % (Manual) 5L, Monocytes % (Manual) 3, Eosinophils % (Manual) 0, Basophils % (Manual) 0, Band Neutrophils 1, Platelet Estimate DecreasedL, Platelet Morphology Normal, Polychromasia 1+, Hypochromasia 1+, Anisocytosis 2+, Schistocytes Occasional, Erythrocyte Sedimentation Rate 55H, Prothrombin Time 11.6H, Prothromb Time International Ratio 1.1, Activated Partial Thromboplast Time 26, D-Dimer 11.50H, Sodium Level 146H, Potassium Level 3.0L, Chloride Level 112H, Carbon Dioxide Level 23, Anion Gap 11, Blood Urea Nitrogen 22H, Creatinine 0.9, Estimat Glomerular Filtration Rate > 60, Glucose Level 152H, Lactic Acid Level 2.20H, Uric Acid 6.5, Calcium Level 7.6L, Phosphorus Level 2.7, Magnesium Level 1.6L, Total Bilirubin 0.7, Aspartate Amino Transf (AST/SGOT) 28, Alanine Aminotransferase (ALT/SGPT) 22, Alkaline Phosphatase 137H, C-Reactive Protein, Quantitative 1.7H, Pro-B-Type Natriuretic Peptide 90258F, Total Protein 5.5L, Albumin 1.9L, Globulin 3.6, Albumin/Globulin Ratio 0.5L, Amylase Level 426H, Lipase > 2000H Height (Feet): 5 Height (Inches): 5.00 Weight (Pounds): 165 General Appearance: no apparent distress, lethargic Cardiovascular: normal rate Respiratory/Chest: decreased breath sounds Abdomen: distended Bridger Mari MD Nov 16, 2020 13:21
--- NOTE | 2020-11-16 13:46 | Infectious Diseases Prog Note ---
Assessment/Plan Assessment/Plan ASSESSMENT AND PLAN: 1. e.coli bacteremia, sepsis, shock, pna, hx covid-19 infection/recovered, ? aspiration pna, hcap, ? cap, uti, c.diff. negative, leukocytosis, fevers, sirs, ? GI source, CT abdomen and pelvis and US noted, on steroids ? femoral line infection - meropenem, vancomycin - day # 7 abx - on iv hydrocortisone - being tapered - monitor clinically, labs and chest x-ray - surveillance blood cultures negative - clinically improved but still with significant leukocytosis - d/w RN - femoral line to be removed - picc to be placed - d/w Dr. Cormier - jaci care 2. History of COVID infection - in isolation currently, on steroids 3. Multiple sclerosis. 4. Weakness. 5. Acute kidney injury, elevated creatinine. 6. Hypertension. 7. Anemia. 8. Steroids. 9. No history of diabetes. 10. Continue treatment with primary consultants. 11. No known drug allergies. 12. Social history negative. 13. Family history is noncontributory. 14. MAR is noted. 15. Case was discussed with RN. 16. ICU care. 17. Skin care protocol. 18. Currently off pressors. 19. No vent currently. Subjective Constitutional: Reports: fatigue, other; Denies: fever HEENT: Denies: congestion Respiratory: Denies: shortness of breath Cardiovascular: Denies: chest pain Gastrointestinal/Abdominal: Denies: nausea, vomiting, diarrhea Genitourinary: Reports: other - + harrison Neurologic: Denies: headache Psychiatric: Denies: depression Skin: Denies: rash Hematologic: Denies: bleeding Musculoskeletal: Denies: pain Allergies: Coded Allergies: No Known Allergies (Unverified , 11/08/20) Objective Last 24 Hour Vital Signs Date Time Temp Pulse Resp B/P (MAP) Pulse Ox O2 Delivery O2 Flow Rate FiO2 11/16/20 08:08 75 159/84 11/16/20 08:00 87 11/16/20 08:00 Room Air 11/16/20 08:00 98.4 75 20 159/84 (109) 100 11/16/20 04:00 97.9 77 20 140/76 (97) 98 11/16/20 04:00 69 11/16/20 00:00 68 11/16/20 00:00 99.0 74 18 151/79 (103) 97 11/15/20 20:00 71 11/15/20 20:00 98.6 71 18 142/80 (100) 99 11/15/20 16:00 97.8 74 20 143/93 (110) 100 11/15/20 16:00 67 Height (Feet): 5 Height (Inches): 5.00 Weight (Pounds): 165 General Appearance: no acute distress HEENT: normocephalic, atraumatic, anicteric, mucous membranes moist Respiratory/Chest: no respiratory distress, no accessory muscle use, crackles/rales, rhonchi - bilaterally Cardiovascular: normal rate, regular rhythm Abdomen: normal bowel sounds, soft, non tender, no organomegaly, non distended Genitourinary: other - + harrison - urine slt cloudy Extremities: no cyanosis Skin: no rash Neurologic/Psychiatric: facilities custodian II-XII grossly normal, alert, responsive Lymphatic: no neck adenopathy Musculoskeletal: no effusion Chest x-ray - 11/12/20 - Procedure: XRAY Chest 1v Indication: Shortness of breath Technique: One view of the chest Comparison: 11/09/2020 Findings: Bilateral streaky and patchy infiltrates are unchanged or progressed slightly increased. There is suggestion of small bilateral pleural effusions, not evident previously. Impression: Stable slightly increased bilateral infiltrates versus edema Satisfactory nasogastric intubation New bilateral small pleural effusions Chest x-ray - 11/14/20 - Procedure: XRAY Chest 1v Indication: Shortness of breath Technique: One view of the chest Comparison: 11/12/2020 Findings: Bilateral pleural effusions, bilateral interstitial and airspace edema persist, unchanged. Nasogastric tube is been removed. Impression: Interim nasogastric tube removal. Otherwise little change management specialist 2 days Abdominal US - Impression: Negative for gallstones or dilated bile ducts. Trace pericholecystic fluid probably represents free intraperitoneal fluid. Bilateral pleural effusions Nonobstructive right renal calculus, also reported on recent CT scan. Incidental finding small right renal cyst But incomplete visualization of the abdominal aorta CT scan of abdomen and pelvis: IMPRESSION: 1. Cholelithiasis and nonspecific gallbladder wall edema in light of the third spacing. 2. Nonspecific bowel gas pattern. Microbiology Date/Time Source Procedure Growth Status 11/13/20 03:55 Blood Blood Culture - Preliminary NO GROWTH AFTER 48 HOURS Resulted 11/12/20 09:35 Nasopharynx Coronavirus COVID-19 PCR ([facility]) - Final Complete 11/09/20 23:45 Stool Clostridium difficile Toxin Assay - Final Complete Microbiology Date/Time Source Procedure Growth Status 11/13/20 03:55 Blood Blood Culture - Preliminary NO GROWTH AFTER 48 HOURS Resulted 11/12/20 09:35 Nasopharynx Coronavirus COVID-19 PCR ([facility]) - Final Complete 11/09/20 23:45 Stool Clostridium difficile Toxin Assay - Final Complete Laboratory Tests Test 11/15/20 19:05 11/16/20 10:55 Vancomycin Level Trough 17.6 ug/mL (5.0-12.0) H White Blood Count 43.0 K/UL (4.8-10.8) *H Red Blood Count 3.40 M/UL (4.20-5.40) L Hemoglobin 8.8 G/DL (12.0-16.0) L Hematocrit 28.7 % (37.0-47.0) L Mean Corpuscular Volume 85 FL (80-99) Mean Corpuscular Hemoglobin 26.0 PG (27.0-31.0) L Mean Corpuscular Hemoglobin Concent 30.7 G/DL (32.0-36.0) L Red Cell Distribution Width 19.5 % (11.6-14.8) H Platelet Count 76 K/UL (150-450) L Mean Platelet Volume 11.7 FL (6.5-10.1) H Neutrophils (%) (Auto) % (45.0-75.0) Lymphocytes (%) (Auto) % (20.0-45.0) Monocytes (%) (Auto) % (1.0-10.0) Eosinophils (%) (Auto) % (0.0-3.0) Basophils (%) (Auto) % (0.0-2.0) Differential Total Cells Counted 100 Neutrophils % (Manual) 91 % (45-75) H Lymphocytes % (Manual) 5 % (20-45) L Monocytes % (Manual) 3 % (1-10) Eosinophils % (Manual) 0 % (0-3) Basophils % (Manual) 0 % (0-2) Band Neutrophils 1 % (0-8) Platelet Estimate Decreased L Platelet Morphology Normal Polychromasia 1+ Hypochromasia 1+ Anisocytosis 2+ Schistocytes Occasional Erythrocyte Sedimentation Rate 55 MM/HR (0-20) H Prothrombin Time 11.6 SEC (9.30-11.50) H Prothromb Time International Ratio 1.1 (0.9-1.1) Activated Partial Thromboplast Time 26 SEC (23-33) D-Dimer 11.50 mg/L FEU (0.00-0.49) H Sodium Level 146 MMOL/L (136-145) H Potassium Level 3.0 MMOL/L (3.5-5.1) L Chloride Level 112 MMOL/L (98-107) H Carbon Dioxide Level 23 MMOL/L (21-32) Anion Gap 11 mmol/L (5-15) Blood Urea Nitrogen 22 mg/dL (7-18) H Creatinine 0.9 MG/DL (0.55-1.30) Estimat Glomerular Filtration Rate > 60 mL/min (>60) Glucose Level 152 MG/DL (74-106) H Lactic Acid Level 2.20 mmol/L (0.4-2.0) H Uric Acid 6.5 MG/DL (2.6-7.2) Calcium Level 7.6 MG/DL (8.5-10.1) L Phosphorus Level 2.7 MG/DL (2.5-4.9) Magnesium Level 1.6 MG/DL (1.8-2.4) L Total Bilirubin 0.7 MG/DL (0.2-1.0) Aspartate Amino Transf (AST/SGOT) 28 U/L (15-37) Alanine Aminotransferase (ALT/SGPT) 22 U/L (12-78) Alkaline Phosphatase 137 U/L (46-116) H C-Reactive Protein, Quantitative 1.7 mg/dL (0.00-0.90) H Pro-B-Type Natriuretic Peptide 45528 pg/mL (0-125) H Total Protein 5.5 G/DL (6.4-8.2) L Albumin 1.9 G/DL (3.4-5.0) L Globulin 3.6 g/dL Albumin/Globulin Ratio 0.5 (1.0-2.7) L Amylase Level 426 U/L (25-115) H Lipase > 2000 U/L (73-393) H Current Medications Medications (Trade) Dose Ordered Sig/Bunny Route PRN Reason Start Time Stop Time Status Last Admin Dose Admin Acetaminophen (Tylenol) 650 mg Q4H PRN NG Temp >100.5 11/10/20 05:15 12/10/20 05:14 11/10/20 05:21 Amlodipine Besylate (Norvasc) 2.5 mg BID ORAL 11/16/20 18:00 12/14/20 18:14 Barium Sulfate (Varibar Honey) 250 ml NOW PRN MC RAD 11/14/20 14:30 11/17/20 14:18 Barium Sulfate (Varibar [place]) 240 ml NOW PRN MC RAD 11/14/20 14:30 11/17/20 14:18 Barium Sulfate (Varibar Pudding) 230 ml NOW PRN MC RAD 11/14/20 14:30 11/17/20 14:18 Barium Sulfate (Varibar Thin Liquid powder) 148 gm NOW PRN MC RAD 11/14/20 14:30 11/17/20 14:18 Chlorhexidine Gluconate (Carmen-Hex 2%) 1 applic DAILY@2000 TOPIC 11/15/20 20:00 02/13/21 19:59 11/15/20 20:29 Dextrose (Dextrose 50%) 25 ml Q30M PRN IV Hypoglycemia 11/10/20 23:45 02/08/21 23:44 Dextrose (Dextrose 50%) 50 ml Q30M PRN IV Hypoglycemia 11/10/20 23:45 02/08/21 23:44 Doxycycline Hyclate 100 mg/ Dextrose 110 ml @ 110 mls/hr Q12HR IV 11/10/20 21:00 11/17/20 20:59 11/16/20 08:06 Famotidine (Pepcid I.v.) 20 mg BID IVP 11/16/20 09:00 12/16/20 08:59 11/16/20 08:10 Heparin Sodium/ Sodium Chloride (Heparin 1000 units/500ml Premix) 1,000 unit ONCE PRN IV PICC PLACEMENT 11/15/20 10:30 11/16/20 23:59 Hydrocortisone (Solu-CORTEF) 25 mg EVERY 8 HOURS IV 11/15/20 22:00 02/13/21 21:59 11/16/20 05:48 Lidocaine HCl (Xylocaine 1% 30ml) 30 ml ONCE PRN INJ PICC PLACEMENT 11/15/20 10:30 11/16/20 23:59 Magnesium Sulfate 100 ml @ 100 mls/hr Q1H IVPB 11/16/20 13:30 11/16/20 15:29 Meropenem 1 gm/ Sodium Chloride 100 ml @ 200 mls/hr Q8HR IVPB 11/13/20 14:00 11/18/20 13:59 11/16/20 05:49 Potassium Chloride 40 meq/ Dextrose 1,020 ml @ 50 mls/hr [id number] IV 11/13/20 10:30 12/13/20 10:29 11/15/20 23:56 Potassium Chloride 100 ml @ 100 mls/hr Q1HR IVPB 11/16/20 14:00 11/16/20 17:59 Tramadol HCl (Ultram) 50 mg Q6H PRN ORAL For Pain 11/15/20 23:30 11/22/20 23:29 11/15/20 23:56 Vancomycin HCl ([facility] pharmacy to dose) 1 ea DAILY PRN MISC Per rx protocol 11/08/20 17:45 12/08/20 17:44 Vancomycin HCl 750 mg/Sodium Chloride 275 ml @ 183.333 mls/hr Q12HR@0800,2000 IVPB 11/14/20 08:00 11/19/20 07:59 11/16/20 08:06 Nat Courtney MD Nov 16, 2020 13:46
--- NOTE | 2020-11-16 14:08 | General Progress Note ---
Subjective ROS Limited/Unobtainable: Yes Allergies: Coded Allergies: No Known Allergies (Unverified , 11/08/20) Objective Last 24 Hour Vital Signs Date Time Temp Pulse Resp B/P (MAP) Pulse Ox O2 Delivery O2 Flow Rate FiO2 11/16/20 08:08 75 159/84 11/16/20 08:00 87 11/16/20 08:00 Room Air 11/16/20 08:00 98.4 75 20 159/84 (109) 100 11/16/20 04:00 97.9 77 20 140/76 (97) 98 11/16/20 04:00 69 11/16/20 00:00 68 11/16/20 00:00 99.0 74 18 151/79 (103) 97 11/15/20 20:00 71 11/15/20 20:00 98.6 71 18 142/80 (100) 99 11/15/20 16:00 97.8 74 20 143/93 (110) 100 11/15/20 16:00 67 Intake and Output 11/15/20 11/16/20 19:00 07:00 Intake Total 610 ml 1135.000 ml Output Total 1100 ml 1300 ml Balance -490 ml -165.000 ml Intake Oral 400 ml 300 ml IV Total 210 ml 835.000 ml Output Urine Total 1100 ml 1300 ml # Bowel Movements 2 1 Laboratory Tests 11/15/20 19:05: Vancomycin Level Trough 17.6H 11/16/20 10:55: White Blood Count 43.0*H, Red Blood Count 3.40L, Hemoglobin 8.8L, Hematocrit 28.7L, Mean Corpuscular Volume 85, Mean Corpuscular Hemoglobin 26.0L, Mean Corpuscular Hemoglobin Concent 30.7L, Red Cell Distribution Width 19.5H, Platelet Count 76L, Mean Platelet Volume 11.7H, Neutrophils (%) (Auto) , Lymphocytes (%) (Auto) , Monocytes (%) (Auto) , Eosinophils (%) (Auto) , Basophils (%) (Auto) , Differential Total Cells Counted 100, Neutrophils % (Ma nual) 91H, Lymphocytes % (Manual) 5L, Monocytes % (Manual) 3, Eosinophils % (Manual) 0, Basophils % (Manual) 0, Band Neutrophils 1, Platelet Estimate DecreasedL, Platelet Morphology Normal, Polychromasia 1+, Hypochromasia 1+, Anisocytosis 2+, Schistocytes Occasional, Erythrocyte Sedimentation Rate 55H, Prothrombin Time 11.6H, Prothromb Time International Ratio 1.1, Activated Partial Thromboplast Time 26, D-Dimer 11.50H, Sodium Level 146H, Potassium Level 3.0L, Chloride Level 112H, Carbon Dioxide Level 23, Anion Gap 11, Blood Urea Nitrogen 22H, Creatinine 0.9, Estimat Glomerular Filtration Rate > 60, Glucose Level 152H, Lactic Acid Level 2.20H, Uric Acid 6.5, Calcium Level 7.6L, Phosphorus Level 2.7, Magnesium Level 1.6L, Total Bilirubin 0.7, Aspartate Amino Transf (AST/SGOT) 28, Alanine Aminotransferase (ALT/SGPT) 22, Alkaline Phosphatase 137H, C-Reactive Protein, Quantitative 1.7H, Pro-B-Type Natriuretic Peptide 41234P, Total Protein 5.5L, Albumin 1.9L, Globulin 3.6, Albumin/Globulin Ratio 0.5L, Amylase Level 426H, Lipase > 2000H Height (Feet): 5 Height (Inches): 5.00 Weight (Pounds): 165 General Appearance: no apparent distress EENT: normal ENT inspection Neck: supple Cardiovascular: normal rate Respiratory/Chest: decreased breath sounds Abdomen: normal bowel sounds, non tender, soft Extremities: non-tender Assessment/Plan Problem List: (1) Rectal bleeding ICD Codes: K62.5 - Hemorrhage of anus and rectum SNOMED: 66147397 (2) Sepsis ICD Codes: A41.9 - Sepsis, unspecified organism SNOMED: 27887847, 331933578 Qualifiers: Qualified Codes: A41.9 - Sepsis, unspecified organism; R65.20 - Severe seps is without septic shock; G93.40 - Encephalopathy, unspecified (3) Electrolyte imbalance ICD Codes: E87.8 - Other disorders of electrolyte and fluid balance, not elsewhere classified SNOMED: 690192431 (4) Acute metabolic encephalopathy ICD Codes: G93.41 - Metabolic encephalopathy SNOMED: 58010525, 249640074 (5) Anemia ICD Codes: D64.9 - Anemia, unspecified SNOMED: 951230363 Qualifiers: Qualified Codes: D64.9 - Anemia, unspecified (6) Septic shock ICD Codes: A41.9 - Sepsis, unspecified organism; R65.21 - Severe sepsis with septic shock SNOMED: 72301590 (7) Diarrhea ICD Codes: R19.7 - Diarrhea, unspecified SNOMED: 72986554 Qualifiers: Qualified Codes: R19.7 - Diarrhea, unspecified Assessment/Plan: C.diff neg abx per ID no recurrent rectal bleed monitor H&H advance diet will fu Gold Sears MD Nov 16, 2020 14:08
--- NOTE | 2020-11-16 14:27 | Brief Operative Note ---
Immediate Post Operative Note Operative Note Pre-op Diagnosis: needs IV access Procedure: PICC Post-op Diagnosis: same as pre-op Surgeon: Tre Encinas Anesthesia: local Specimen: none Complications: none Fluids: none Implant(s) used?: No Joshua Encinas MD Nov 16, 2020 14:27
--- NOTE | 2020-11-16 14:45 | Diagnostic Imaging Report ---
Indications: Needs long-term IV access Technique: Procedure performed at bedside. Procedural timeout performed. Ultrasound confirms patent compressible right brachial vein. Total sterile technique, including sterile probe cover and sterile gel, sterile gloves, hand hygiene, hat, mask,, sterile gown, large sterile drape, and preparation with 2% chlorhexidine utilized. Local anesthesia with 1% lidocaine. Under real-time ultrasound guidance, puncture axial vein using 21-gauge needle, passage 0.018 guidewire, exchange for 4 Divehi peel-away sheath. 4 Dive[place] Bard dual-lumen power PICC cut to 37 cm. It was inserted through the peel-away sheath. Peel-away sheath and guidewire removed. Catheter fixed to the skin. Both catheter ports aspirated and flushed. Patient tolerated procedure well, without immediate complication. Followup chest x-ray obtained, documents catheter tip position at the mid superior vena cava Impression: Successful bedside placement of right arm PICC under sonographic guidance, as described above.
--- NOTE | 2020-11-16 15:56 | Internal Med Progress Note ---
Subjective Physician Name Kris Cormier Attending Physician Kris Cormier MD Current Medications Medications (Trade) Dose Ordered Sig/Bunny Route PRN Reason Start Time Stop Time Status Last Admin Dose Admin Acetaminophen (Tylenol) 650 mg Q4H PRN NG Temp >100.5 11/10/20 05:15 12/10/20 05:14 11/10/20 05:21 Amlodipine Besylate (Norvasc) 2.5 mg BID ORAL 11/16/20 18:00 12/14/20 18:14 Barium Sulfate (Varibar Honey) 250 ml NOW PRN MC RAD 11/14/20 14:30 11/17/20 14:18 Barium Sulfate (Varibar [place]) 240 ml NOW PRN MC RAD 11/14/20 14:30 11/17/20 14:18 Barium Sulfate (Varibar Pudding) 230 ml NOW PRN MC RAD 11/14/20 14:30 11/17/20 14:18 Barium Sulfate (Varibar Thin Liquid powder) 148 gm NOW PRN MC RAD 11/14/20 14:30 11/17/20 14:18 Chlorhexidine Gluconate (Carmen-Hex 2%) 1 applic DAILY@1999 TOPIC 11/15/20 20:00 02/13/21 19:59 11/15/20 20:29 Dextrose (Dextrose 50%) 25 ml Q30M PRN IV Hypoglycemia 11/10/20 23:45 02/08/21 23:44 Dextrose (Dextrose 50%) 50 ml Q30M PRN IV Hypoglycemia 11/10/20 23:45 02/08/21 23:44 Famotidine (Pepcid I.v.) 20 mg BID IVP 11/16/20 09:00 12/16/20 08:59 11/16/20 08:10 Heparin Sodium/ Sodium Chloride (Heparin 1000 units/500ml Premix) 1,000 unit ONCE PRN IV PICC PLACEMENT 11/15/20 10:30 11/16/20 23:59 Hydrocortisone (Solu-CORTEF) 25 mg EVERY 8 HOURS IV 11/15/20 22:00 02/13/21 21:59 11/16/20 15:07 Lidocaine HCl (Xylocaine 1% 30ml) 30 ml ONCE PRN INJ PICC PLACEMENT 11/15/20 10:30 11/16/20 23:59 Meropenem 1 gm/ Sodium Chloride 100 ml @ 200 mls/hr Q8HR IVPB 11/16/20 14:00 11/21/20 13:59 11/16/20 15:08 Potassium Chloride 40 meq/ Dextrose 1,020 ml @ 50 mls/hr [id number] IV 11/13/20 10:30 12/13/20 10:29 11/15/20 23:56 Potassium Chloride 100 ml @ 100 mls/hr Q1HR IVPB 11/16/20 14:00 11/16/20 17:59 11/16/20 15:06 Tramadol HCl (Ultram) 50 mg Q6H PRN ORAL For Pain 11/15/20 23:30 11/22/20 23:29 11/15/20 23:56 Vancomycin HCl ([facility] pharmacy to dose) 1 ea DAILY PRN MISC Per rx protocol 11/08/20 17:45 12/08/20 17:44 Vancomycin HCl 750 mg/Sodium Chloride 275 ml @ 183.333 mls/hr Q12HR@0800,2000 IVPB 11/14/20 08:00 11/19/20 07:59 11/16/20 08:06 Allergies: Coded Allergies: No Known Allergies (Unverified , 11/08/20) Subjective In step down unit, awake, alert, responsive, no acute distress, WBC:43.0 Objective Last Vital Signs Date Time Temp Pulse Resp B/P (MAP) Pulse Ox O2 Delivery O2 Flow Rate FiO2 11/16/20 08:08 75 159/84 11/16/20 08:00 Room Air 11/16/20 08:00 98.4 20 100 11/13/20 07:55 21 11/12/20 00:00 2.0 Laboratory Tests Test 11/15/20 19:05 11/16/20 10:55 Vancomycin Level Trough 17.6 ug/mL (5.0-12.0) H White Blood Count 43.0 K/UL (4.8-10.8) *H Red Blood Count 3.40 M/UL (4.20-5.40) L Hemoglobin 8.8 G/DL (12.0-16.0) L Hematocrit 28.7 % (37.0-47.0) L Mean Corpuscular Volume 85 FL (80-99) Mean Corpuscular Hemoglobin 26.0 PG (27.0-31.0) L Mean Corpuscular Hemoglobin Concent 30.7 G/DL (32.0-36.0) L Red Cell Distribution Width 19.5 % (11.6-14.8) H Platelet Count 76 K/UL (150-450) L Mean Platelet Volume 11.7 FL (6.5-10.1) H Neutrophils (%) (Auto) % (45.0-75.0) Lymphocytes (%) (Auto) % (20.0-45.0) Monocytes (%) (Auto) % (1.0-10.0) Eosinophils (%) (Auto) % (0.0-3.0) Basophils (%) (Auto) % (0.0-2.0) Differential Total Cells Counted 100 Neutrophils % (Manual) 91 % (45-75) H Lymphocytes % (Manual) 5 % (20-45) L Monocytes % (Manual) 3 % (1-10) Eosinophils % (Manual) 0 % (0-3) Basophils % (Manual) 0 % (0-2) Band Neutrophils 1 % (0-8) Platelet Estimate Decreased L Platelet Morphology Normal Polychromasia 1+ Hypochromasia 1+ Anisocytosis 2+ Schistocytes Occasional Erythrocyte Sedimentation Rate 55 MM/HR (0-20) H Prothrombin Time 11.6 SEC (9.30-11.50) H Prothromb Time International Ratio 1.1 (0.9-1.1) Activated Partial Thromboplast Time 26 SEC (23-33) D-Dimer 11.50 mg/L FEU (0.00-0.49) H Sodium Level 146 MMOL/L (136-145) H Potassium Level 3.0 MMOL/L (3.5-5.1) L Chloride Level 112 MMOL/L (98-107) H Carbon Dioxide Level 23 MMOL/L (21-32) Anion Gap 11 mmol/L (5-15) Blood Urea Nitrogen 22 mg/dL (7-18) H Creatinine 0.9 MG/DL (0.55-1.30) Estimat Glomerular Filtration Rate > 60 mL/min (>60) Glucose Level 152 MG/DL (74-106) H Lactic Acid Level 2.20 mmol/L (0.4-2.0) H Uric Acid 6.5 MG/DL (2.6-7.2) Calcium Level 7.6 MG/DL (8.5-10.1) L Phosphorus Level 2.7 MG/DL (2.5-4.9) Magnesium Level 1.6 MG/DL (1.8-2.4) L Total Bilirubin 0.7 MG/DL (0.2-1.0) Aspartate Amino Transf (AST/SGOT) 28 U/L (15-37) Alanine Aminotransferase (ALT/SGPT) 22 U/L (12-78) Alkaline Phosphatase 137 U/L (46-116) H C-Reactive Protein, Quantitative 1.7 mg/dL (0.00-0.90) H Pro-B-Type Natriuretic Peptide 22881 pg/mL (0-125) H Total Protein 5.5 G/DL (6.4-8.2) L Albumin 1.9 G/DL (3.4-5.0) L Globulin 3.6 g/dL Albumin/Globulin Ratio 0.5 (1.0-2.7) L Amylase Level 426 U/L (25-115) H Lipase > 2000 U/L (73-393) H Intake and Output 11/15/20 11/16/20 19:00 07:00 Intake Total 610 ml 1135.000 ml Output Total 1100 ml 1300 ml Balance -490 ml -165.000 ml Intake Oral 400 ml 300 ml IV Total 210 ml 835.000 ml Output Urine Total 1100 ml 1300 ml # Bowel Movements 2 1 Objective GENERAL: awake, alert, responsive, no acute distress, Follow up with commands. HEAD AND NECK: Pupils are equal and reactive to light. Anicteric. Neck was supple. No JVD. LUNGS: Fair inspiratory affords, No wheezing or rhonchi. Decreased air in the bases. HEART: S1, S2 RR. No murmur or gallops. ABDOMEN: Soft, nondistended, nontender. Positive bowel sounds, Obesity. EXTREMITIES: No cyanosis, clubbing, +1 LE's edema. NEUROLOGIC: CN 2-12 intact. right upper extremity 3/5, left upper extremity 5/5, bilateral lower extremity 2/5 motor activities. SKIN: No rashes were identified. Assessment/Plan Assessment/Plan 1. Septic shock resolved. 2. Sepsis secondary to E. coli ESBL urinary tract infection. 3. Dehydration and hypokalemia. 4. Altered mental status, most likely secondary to toxic metabolic encephalopathy. 5. Acute kidney injury. 6. Anemia. 7. History of multiple sclerosis. 8. COVID-19 infection PLAN: In Step down unit. Monitor laboratory and cultures. DVT prophylaxis: heparin subcutaneous. Code status: Full Code. Abx: Meropenem IV, vancomycin IV, DC Doxycycline. Taper down hydrocortisone 50mg IV Q8. Dr. Kline from Pulmonary Critical Care, Dr. Nat Courtney from ID, Dr. Grant from Cardiology, and Dr. Bridger Mari from Nephrology. Kris Cormier MD Nov 16, 2020 15:56
[2020-11-16 16:00] VITALS: BP 145/88
[2020-11-16 20:00] VITALS: BP 125/75
[2020-11-16] MEDS: Dyna-Hex 2% Top Sol 2oz TOPIC SCH (20:34)
[2020-11-16] MEDS: traMADol 50mg tab ORAL PRN (20:36)
[2020-11-17] VITALS: BP 153/87
[2020-11-17] MEDS: Hydrocortisone 100mg Inj IV SCH ×2 (05:54→17:18)
[2020-11-17 06:28] LABS: HEMATOCRIT 24.7 % (37.0-47.0); HEMOGLOBIN 8.1 G/DL (12.0-16.0); MEAN CORPUSCULAR VOLUME 86 FL (80-99); PLATELET COUNT 79 K/UL (150-450); RED BLOOD COUNT 2.88 M/UL (4.20-5.40); RED CELL DISTRIBUTION WIDTH 19.5 % (11.6-14.8)
[2020-11-17 06:39] LABS: WHITE BLOOD COUNT 28.2 K/UL (4.8-10.8)
[2020-11-17 06:59] LABS: ALANINE AMINOTRANSFERASE 21 U/L (12-78); ALBUMIN 1.8 G/DL (3.4-5.0); ALBUMIN/GLOBULIN RATIO 0.6 (1.0-2.7); ALKALINE PHOSPHATASE 115 U/L (46-116); ANION GAP 9 mmol/L (5-15); ASPARTATE AMINO TRANSFERASE 29 U/L (15-37); BILIRUBIN,TOTAL 0.7 MG/DL (0.2-1.0); BLOOD UREA NITROGEN 20 mg/dL (7-18); CALCIUM 7.4 MG/DL (8.5-10.1); CARBON DIOXIDE 25 MMOL/L (21-32); CHLORIDE 115 MMOL/L (98-107); CREATININE 0.9 MG/DL (0.55-1.30); POTASSIUM 2.9 MMOL/L (3.5-5.1); SODIUM 149 MMOL/L (136-145)
[2020-11-17 07:05] LABS: PHOSPHORUS 2.4 MG/DL (2.5-4.9)
--- NOTE | 2020-11-17 07:26 | General Progress Note ---
Subjective ROS Limited/Unobtainable: Yes Allergies: Coded Allergies: No Known Allergies (Unverified , 11/08/20) Objective Last 24 Hour Vital Signs Date Time Temp Pulse Resp B/P (MAP) Pulse Ox O2 Delivery O2 Flow Rate FiO2 11/17/20 04:38 85 11/17/20 00:00 75 11/17/20 00:00 97.9 74 20 153/87 (109) 97 11/16/20 20:00 97.9 92 20 125/75 (92) 95 11/16/20 20:00 90 11/16/20 18:00 79 145/88 11/16/20 16:00 95 11/16/20 16:00 99.0 79 22 145/88 (107) 98 11/16/20 16:00 Room Air 11/16/20 12:00 Room Air 11/16/20 12:00 97.9 78 20 123/74 (90) 100 11/16/20 11:47 80 11/16/20 08:08 75 159/84 11/16/20 08:00 87 11/16/20 08:00 Room Air 11/16/20 08:00 98.4 75 20 159/84 (109) 100 Intake and Output 11/16/20 11/17/20 19:00 07:00 Intake Total 1635.00 ml 1001.221 ml Output Total 850 ml Balance 785.00 ml 1001.221 ml Intake Oral 400 ml 64 ml IV Total 1235.00 ml 937.221 ml Output Urine Total 850 ml Laboratory Tests 11/16/20 10:55: White Blood Count 43.0*H, Red Blood Count 3.40L, Hemoglobin 8.8L, Hematocrit 28.7L, Mean Corpuscular Volume 85, Mean Corpuscular Hemoglobin 26.0L, Mean Corpuscular Hemoglobin Concent 30.7L, Red Cell Distribution Width 19.5H, Platelet Count 76L, Mean Platelet Volume 11.7H, Neutrophils (%) (Auto) , Lymphocytes (%) (Auto) , Monocytes (%) (Auto) , Eosinophils (%) (Auto) , Basophils (%) (Auto) , Differential Total Cells Counted 100, Neutrophils % (Manual) 91H, Lymphocytes % (Manual) 5L, Monocytes % (Manual) 3, Eosinophils % (Manual) 0, Basophils % (Manual) 0, Band Neutrophils 1, Platelet Estimate DecreasedL, Platelet Morphology Normal, Polychromasia 1+, Hypochromasia 1+, Anisocytosis 2+, Schistocytes Occasional, Erythrocyte Sedimentation Rate 55H, Prothrombin Time 11.6H, Prothromb Time International Ratio 1.1, Activated Partial Thromboplast Time 26, D-Dimer 11.50H, Sodium Level 146H, Potassium Level 3.0L, Chloride Level 112H, Carbon Dioxide Level 23, Anion Gap 11, Blood Urea Nitrogen 22H, Creatinine 0.9, Estimat Glomerular Filtration Rate > 60, Glucose Level 152H, Lactic Acid Level 2.20H, Uric Acid 6.5, Calcium Level 7.6L, Phosphorus Level 2.7, Magnesium Level 1.6L, Total Bilirubin 0.7, Aspartate Amino Transf (AST/SGOT) 28, Alanine Aminotransferase (ALT/SGPT) 22, Alkaline Phosphatase 137H, C-Reactive Protein, Quantitative 1.7H, Pro-B-Type Natriuretic Peptide 84847G, Total Protein 5.5L, Albumin 1.9L, Globulin 3.6, Albumin/Globulin Ratio 0.5L, Amylase Level 426H, Lipase > 2000H 11/17/20 05:30: White Blood Count 28.2*H, Red Blood Count 2.88L, Hemoglobin 8.1L, Hematocrit 24.7L, Mean Corpuscular Volume 86, Mean Corpuscular Hemoglobin 28.1, Mean Corpuscular Hemoglobin Concent 32.7, Red Cell Distribution Width 19.5H, Platelet Count 79L, Mean Platelet Volume 11.7H, Neutrophils (%) (Auto) , Lymphocytes (%) (Auto) , Monocytes (%) (Auto) , Eosinophils (%) (Auto) , Basophils (%) (Auto) , Neutrophils % (Manual) [Pending], Lymphocytes % (Manual) [Pending], Platelet Estimate [Pending], Platelet Morphology [Pending], Sodium Level 149H, Potassium Level 2.9L, Chloride Level 115H, Carbon Dioxide Level 25, Anion Gap 9, Blood Urea Nitrogen 20H, Creatinine 0.9, Estimat Glomerular Filtration Rate > 60, Glucose Level 88, Calcium Level 7.4L, Phosphorus Level 2.4L, Magnesium Level 1.5L, Total Bilirubin 0.7, Aspartate Amino Transf (AST/SGOT) 29, Alanine Glaser otransferase (ALT/SGPT) 21, Alkaline Phosphatase 115, C-Reactive Protein, Quantitative 0.6, Pro-B-Type Natriuretic Peptide 7594H, Total Protein 5.0L, Albumin 1.8L, Globulin 3.2, Albumin/Globulin Ratio 0.6L Height (Feet): 5 Height (Inches): 5.00 Weight (Pounds): 165 General Appearance: no apparent distress EENT: normal ENT inspection Neck: supple Cardiovascular: regular rhythm Respiratory/Chest: decreased breath sounds Abdomen: hypoactive bowel sounds Extremities: non-tender Assessment/Plan Problem List: (1) Rectal bleeding ICD Codes: K62.5 - Hemorrhage of anus and rectum SNOMED: 06209224 (2) Sepsis ICD Codes: A41.9 - Sepsis, unspecified organism SNOMED: 81907397, 449028193 Qualifiers: Qualified Codes: A41.9 - Sepsis, unspecified organism; R65.20 - Severe sepsis without septic shock; G93.40 - Encephalopathy, unspecified (3) Electrolyte imbalance ICD Codes: E87.8 - Other disorders of electrolyte and fluid balance, not e lsewhere classified SNOMED: 397494912 (4) Acute metabolic encephalopathy ICD Codes: G93.41 - Metabolic encephalopathy SNOMED: 38158325, 647650340 (5) Anemia ICD Codes: D64.9 - Anemia, unspecified SNOMED: 113613671 Qualifiers: Qualified Codes: D64.9 - Anemia, unspecified (6) Septic shock ICD Codes: A41.9 - Sepsis, unspecified organism; R65.21 - Severe sepsis with septic shock SNOMED: 97486922 (7) Diarrhea ICD Codes: R19.7 - Diarrhea, unspecified SNOMED: 84014705 Qualifiers: Qualified Codes: R19.7 - Diarrhea, unspecified Assessment/Plan: C.diff neg abx per ID for severe UTI stool ob positive and drop in H&H rectal bleed on admission plan EGD and colonoscopy this week if WBC improves repeat cbc and stool ob replace [place] MD Nov 17, 2020 07:26
[2020-11-17 08:00] VITALS: BP 133/86
[2020-11-17] MEDS: Vancomycin 750mg/NS 275ml IVPB SCH ×4 (09:20→20:07)
--- NOTE | 2020-11-17 10:06 | Surgery Progress Note ---
Surgery Progress Note Subjective Additional Comments right fem TLC removed picc okay feels much better Objective Last 24 Hour Vital Signs Date Time Temp Pulse Resp B/P (MAP) Pulse Ox O2 Delivery O2 Flow Rate FiO2 11/17/20 09:30 84 133/86 11/17/20 08:00 98.2 84 18 133/86 (102) 97 11/17/20 04:38 85 11/17/20 00:00 75 11/17/20 00:00 97.9 74 20 153/87 (109) 97 11/16/20 20:00 97.9 92 20 125/75 (92) 95 11/16/20 20:00 90 11/16/20 18:00 79 145/88 11/16/20 16:00 95 11/16/20 16:00 99.0 79 22 145/88 (107) 98 11/16/20 16:00 Room Air 11/16/20 12:00 Room Air 11/16/20 12:00 97.9 78 20 123/74 (90) 100 11/16/20 11:47 80 I&O Intake and Output 11/16/20 11/17/20 19:00 07:00 Intake Total 1635.00 ml 1001.221 ml Output Total 850 ml Balance 785.00 ml 1001.221 ml Intake Oral 400 ml 64 ml IV Total 1235.00 ml 937.221 ml Output Urine Total 850 ml Dressing: dry Wound: clean Cardiovascular: RSR Respiratory: clear Abdomen: soft, non-tender, present bowel sounds Extremities: no edema, no tenderness, no cyanosis Laboratory Tests Test 11/16/20 10:55 11/17/20 05:30 White Blood Count 43.0 K/UL (4.8-10.8) *H 28.2 K/UL (4.8-10.8) *H Red Blood Count 3.40 M/UL (4.20-5.40) L 2.88 M/UL (4.20-5.40) L Hemoglobin 8.8 G/DL (12.0-16.0) L 8.1 G/DL (12.0-16.0) L Hematocrit 28.7 % (37.0-47.0) L 24.7 % (37.0-47.0) L Mean Corpuscular Volume 85 FL (80-99) 86 FL (80-99) Mean Corpuscular Hemoglobin 26.0 PG (27.0-31.0) L 28.1 PG (27.0-31.0) Mean Corpuscular Hemoglobin Concent 30.7 G/DL (32.0-36.0) L 32.7 G/DL (32.0-36.0) Red Cell Distribution Width 19.5 % (11.6-14.8) H 19.5 % (11.6-14.8) H Platelet Count 76 K/UL (150-450) L 79 K/UL (150-450) L Mean Platelet Volume 11.7 FL (6.5-10.1) H 11.7 FL (6.5-10.1) H Neutrophils (%) (Auto) % (45.0-75.0) % (45.0-75.0) Lymphocytes (%) (Auto) % (20.0-45.0) % (20.0-45.0) Monocytes (%) (Auto) % (1.0-10.0) % (1.0-10.0) Eosinophils (%) (Auto) % (0.0-3.0) % (0.0-3.0) Basophils (%) (Auto) % (0.0-2.0) % (0.0-2.0) Differential Total Cells Counted 100 100 Neutrophils % (Manual) 91 % (45-75) H 82 % (45-75) H Lymphocytes % (Manual) 5 % (20-45) L 9 % (20-45) L Monocytes % (Manual) 3 % (1-10) 6 % (1-10) Eosinophils % (Manual) 0 % (0-3) 0 % (0-3) Basophils % (Manual) 0 % (0-2) 0 % (0-2) Band Neutrophils 1 % (0-8) 3 % (0-8) Platelet Estimate Decreased L Decreased L Platelet Morphology Normal Normal Polychromasia 1+ 1+ Hypochromasia 1+ Anisocytosis 2+ 2+ Schistocytes Occasional 1+ Erythrocyte Sedimentation Rate 55 MM/HR (0-20) H Prothrombin Time 11.6 SEC (9.30-11.50) H Prothromb Time International Ratio 1.1 (0.9-1.1) Activated Partial Thromboplast Time 26 SEC (23-33) D-Dimer 11.50 mg/L FEU (0.00-0.49) H Sodium Level 146 MMOL/L (136-145) H 149 MMOL/L (136-145) H Potassium Level 3.0 MMOL/L (3.5-5.1) L 2.9 MMOL/L (3.5-5.1) L Chloride Level 112 MMOL/L (98-107) H 115 MMOL/L (98-107) H Carbon Dioxide Level 23 MMOL/L (21-32) 25 MMOL/L (21-32) Anion Gap 11 mmol/L (5-15) 9 mmol/L (5-15) Blood Urea Nitrogen 22 mg/dL (7-18) H 20 mg/dL (7-18) H Creatinine 0.9 MG/DL (0.55-1.30) 0.9 MG/DL (0.55-1.30) Estimat Glomerular Filtration Rate > 60 mL/min (>60) > 60 mL/min (>60) Glucose Level 152 MG/DL (74-106) H 88 MG/DL (74-106) Lactic Acid Level 2.20 mmol/L (0.4-2.0) H Uric Acid 6.5 MG/DL (2.6-7.2) Calcium Level 7.6 MG/DL (8.5-10.1) L 7.4 MG/DL (8.5-10.1) L Phosphorus Level 2.7 MG/DL (2.5-4.9) 2.4 MG/DL (2.5-4.9) L Magnesium Level 1.6 MG/DL (1.8-2.4) L 1.5 MG/DL (1.8-2.4) L Total Bilirubin 0.7 MG/DL (0.2-1.0) 0.7 MG/DL (0.2-1.0) Aspartate Amino Transf (AST/SGOT) 28 U/L (15-37) 29 U/L (15-37) Alanine Aminotransferase (ALT/SGPT) 22 U/L (12-78) 21 U/L (12-78) Alkaline Phosphatase 137 U/L (46-116) H 115 U/L (46-116) C-Reactive Protein, Quantitative 1.7 mg/dL (0.00-0.90) H 0.6 mg/dL (0.00-0.90) Pro-B-Type Natriuretic Peptide 93005 pg/mL (0-125) H 7594 pg/mL (0-125) H Total Protein 5.5 G/DL (6.4-8.2) L 5.0 G/DL (6.4-8.2) L Albumin 1.9 G/DL (3.4-5.0) L 1.8 G/DL (3.4-5.0) L Globulin 3.6 g/dL 3.2 g/dL Albumin/Globulin Ratio 0.5 (1.0-2.7) L 0.6 (1.0-2.7) L Amylase Level 426 U/L (25-115) H Lipase > 2000 U/L (73-393) H Nucleated Red Blood Cells 4 /100 WBC Microcytosis 1+ Plan Problems: (1) Anemia (2) Sepsis Assessment & Plan: 44-year-old female with altered mental status, lactic acidosis, leukocytosis, sepsis. Vitals currently stable. Abdominal exam mild distention but limited. Will obtain imaging. Labs noted UTI on antibiotics fluid resuscitation trend labs we will follow with examination and recommendations. CT head reviewed. much improved now responsive states well no abd symptoms okay for diet labs noted exam stable diet as tolerated trend labs iv fluids Possible higher level of care for cardiac work up and intervention noted. She is off Biap and on nasal cannula saturation ok at her bedside. Work of breathing noted. Creatine continued to be rising 1.7 today. Interpretation/Plan/Recommendation: 1. Very high risk of aspiration insetting of Advanced heart failure with onset of multiorgan failure 2. If she is going higher level of care within 24 hours, Hold PO except medication, 3. If she will stay, recommend goal of care and place PO with pureed and Ivor thick liquid No acute intracranial hemorrhage. No midline shift or mass effect. The territorial hassan-white matter differentiation is maintained throughout. The ventricles and sulci are commensurate with age. The visualized orbits appear grossly unremarkable. The calvarium is intact. The visualized paranasal sinuses and mastoid air cells are grossly clear. CT noted Liver: Unremarkable Gallbladder and bile ducts: Cholelithiasis and nonspecific gallbladder wall edema in light of the third spacing. Pancreas: Stranding around the pancreas, could be from pancreatitis or the third spacing. Correlate with amylase or lipase values as clinically appropriate. Spleen: Unremarkable. Adrenals: Unremarkable. Kidneys and ureters: Right nephrolithiasis. Stomach and bowel: Nonspecific bowel gas pattern. Nonspecific thickening of the GI tract in light of the third spacing. PELVIS: Appendix: No findings to suggest acute appendicitis. Bladder: Duffy catheter. Reproductive: Exophytic fibroid versus complex left adnexal lesion measuring approximately 4.1 cm. Subperitoneal space: Presacral edema. ABDOMEN and PELVIS: Intraperitoneal space: Edema throughout the peritoneal cavity. Small amounts of fluid in the peritoneal cavity. Bones/joints: No acute fracture. Soft tissues: Anasarca Vasculature: Unremarkable. No abdominal aortic aneurysm. Lymph nodes: No enlarged lymph nodes. Tubes, lines and devices: Rectal tube. Right femoral central line. Enteric tube in the stomach. IMPRESSION: 1. Cholelithiasis and nonspecific gallbladder wall edema in light of the third spacing. 2. Nonspecific bowel gas pattern. There is a small amount of pleural fluid bilaterally. Gallbladder is unremarkable, without stones, wall thickening. There is trace pericholecystic Fluid. Sonographic Fregoso's sign is negative. Common bile duct measures 3 mm in diameter. No intrahepatic biliary ductal dilatation. Liver demonstrates normal echogenicity, no focal abnormality. Portal vein and hepatic veins are patent. Pancreas is unremarkable. Spleen is unremarkable. Left kidney measures 10.6 cm in length. Right kidney measures 10 cm length. Both kidneys demonstrate normal echogenicity. There is no hydronephrosis. There is a small right renal cyst. Echogenic focus in the right kidney likely represents one of the calculi demonstrated on recent CT scan . Abdominal aorta is partially obscured by bowel gas, visualized portions are non-aneurysmal . Impression: Negative for gallstones or dilated bile ducts. Trace pericholecystic fluid probably represents free intraperitoneal fluid. Bilateral pleural effusions Nonobstructive right renal calculus, also reported on recent CT scan. Incidental finding small right renal cyst But incomplete visualization of the abdominal aorta (3) UTI (urinary tract infection) (4) VALERIA (acute kidney injury) (5) Acute metabolic encephalopathy (6) Diarrhea (7) Multiple sclerosis (8) Septic shock (9) Electrolyte imbalance (10) Rectal bleeding Archie Saavedra Nov 17, 2020 10:06
[2020-11-17] MEDS: traMADol 50mg tab ORAL PRN ×2 (10:09→20:08)
--- NOTE | 2020-11-17 11:38 | Pulmonology Progress Note ---
Subjective ROS Limited/Unobtainable: Yes Interval Events: Saturating well on room air Constitutional: Reports: fatigue, other; Denies: fever HEENT: Repors: no symptoms Respiratory: Reports: no symptoms Cardiovascular: Reports: no symptoms Gastrointestinal/Abdominal: Denies: nausea, vomiting, diarrhea Psychiatric: Denies: depression Skin: Denies: rash Musculoskeletal: Denies: pain Allergies: Coded Allergies: No Known Allergies (Unverified , 11/08/20) Objective Last 24 Hour Vital Signs Date Time Temp Pulse Resp B/P (MAP) Pulse Ox O2 Delivery O2 Flow Rate FiO2 11/17/20 09:30 84 133/86 11/17/20 08:00 74 11/17/20 08:00 98.2 84 18 133/86 (102) 97 11/17/20 04:38 85 11/17/20 00:00 75 11/17/20 00:00 97.9 74 20 153/87 (109) 97 11/16/20 20:00 97.9 92 20 125/75 (92) 95 11/16/20 20:00 90 11/16/20 18:00 79 145/88 11/16/20 16:00 95 11/16/20 16:00 99.0 79 22 145/88 (107) 98 11/16/20 16:00 Room Air 11/16/20 12:00 Room Air 11/16/20 12:00 97.9 78 20 123/74 (90) 100 11/16/20 11:47 80 Intake and Output 11/16/20 11/17/20 19:00 07:00 Intake Total 1635.00 ml 1001.221 ml Output Total 850 ml Balance 785.00 ml 1001.221 ml Intake Oral 400 ml 64 ml IV Total 1235.00 ml 937.221 ml Output Urine Total 850 ml General Appearance: WD/WN HEENT: normocephalic Respiratory: chest wall non-tender Cardiovascular: normal peripheral pulses Abdomen: soft, non tender Laboratory Tests 11/17/20 05:30: White Blood Count 28.2*H, Red Blood Count 2.88L, Hemoglobin 8.1L, Hematocrit 24.7L, Mean Corpuscular Volume 86, Mean Corpuscular Hemoglobin 28.1, Mean Corpuscular Hemoglobin Concent 32.7, Red Cell Distribution Width 19.5H, Platelet Count 79L, Mean Platelet Volume 11.7H, Neutrophils (%) (Auto) , Lymphocytes (%) (Auto) , Monocytes (%) (Auto) , Eosinophils (%) (Auto) , Basophils (%) (Auto) , Differential Total Cells Counted 100, Neutrophils % (Manual) 82H, Lymphocytes % (Manual) 9L, Monocytes % (Manual) 6, Eosinophils % (Manual) 0, Basophils % (Manual) 0, Band Neutrophils 3, Nucleated Red Blood Cells 4, Platelet Estimate DecreasedL, Platelet Morphology Normal, Polychromasia 1+, Anisocytosis 2+, Microcytosis 1+, Schistocytes 1+, Sodium Level 149H, Potassium Level 2.9L, Chloride Level 115H, Carbon Dioxide Level 25, Anion Gap 9, Blood Urea Nitrogen 20H, Creatinine 0.9, Estimat Glomerular Filtration Rate > 60, Glucose Level 88, Calcium Level 7.4L, Phosphorus Level 2.4L, Magnesium Level 1.5L, Total Bilirubin 0.7, Aspartate Amino Transf (AST/SGOT) 29, Alanine Aminotransferase (ALT/SGPT) 21, Alkaline Phosphatase 115, C-Reactive Protein, Quantitative 0.6, Pro-B-Type Natriuretic Peptide 7594H, Total Protein 5.0L, Albumin 1.8L, Globulin 3.2, Albumin/Globulin Ratio 0.6L Current Medications Medications (Trade) Dose Ordered Sig/Bunny Route PRN Reason Start Time Stop Time Status Last Admin Dose Admin Acetaminophen (Tylenol) 650 mg Q4H PRN NG Temp >100.5 11/10/20 05:15 12/10/20 05:14 11/10/20 05:21 Amlodipine Besylate (Norvasc) 2.5 mg BID ORAL 11/16/20 18:00 12/14/20 18:14 11/17/20 09:30 Barium Sulfate (Varibar Honey) 250 ml NOW PRN MC RAD 11/14/20 14:30 11/17/20 14:18 Barium Sulfate (Varibar [place]) 240 ml NOW PRN MC RAD 11/14/20 14:30 11/17/20 14:18 Barium Sulfate (Varibar Pudding) 230 ml NOW PRN MC RAD 11/14/20 14:30 11/17/20 14:18 Barium Sulfate (Varibar Thin Liquid powder) 148 gm NOW PRN MC RAD 11/14/20 14:30 11/17/20 14:18 Chlorhexidine Gluconate (Carmen-Hex 2%) 1 applic DAILY@1999 TOPIC 11/15/20 20:00 02/13/21 19:59 11/16/20 20:34 Dextrose (Dextrose 50%) 25 ml Q30M PRN IV Hypoglycemia 11/10/20 23:45 02/08/21 23:44 Dextrose (Dextrose 50%) 50 ml Q30M PRN IV Hypoglycemia 11/10/20 23:45 02/08/21 23:44 Hydrocortisone (Solu-CORTEF) 25 mg EVERY 8 HOURS IV 11/15/20 22:00 02/13/21 21:59 11/17/20 05:54 Magnesium Sulfate 100 ml @ 100 mls/hr Q1H IVPB 11/17/20 11:00 11/17/20 14:59 11/17/20 10:47 Meropenem 1 gm/ Sodium Chloride 100 ml @ 200 mls/hr Q8HR IVPB 11/16/20 14:00 11/21/20 13:59 11/17/20 05:55 Potassium Chloride 40 meq/ Dextrose 1,020 ml @ 50 mls/hr [id number] IV 11/13/20 10:30 12/13/20 10:29 11/16/20 20:34 Potassium Chloride 100 ml @ 50 mls/hr NOW ONCE IVPB 11/17/20 12:00 11/17/20 13:59 Potassium Chloride 100 ml @ 50 mls/hr Q2H IVPB 11/17/20 08:00 11/17/20 11:59 11/17/20 10:08 Tramadol HCl (Ultram) 50 mg Q6H PRN ORAL For Pain 11/15/20 23:30 11/22/20 23:29 11/17/20 10:09 Vancomycin HCl (Vanco pharmacy to dose) 1 ea DAILY PRN MISC Per rx protocol 11/08/20 17:45 12/08/20 17:44 Vancomycin HCl 750 mg/Sodium Chloride 275 ml @ 183.333 mls/hr Q12HR@0800,1999 IVPB 11/14/20 08:00 11/19/20 07:59 11/17/20 09:20 Assessment/Plan Assessment/Plan 1. Septic shock. Resolved 2. Hypotension. Resolved 3. Status post central line placement. 4. Multiple sclerosis. 5. Diarrhea, ruled out for C. difficile colitis. 6. E. coli bacteremia; on Meropenem 7. DVT prophylaxis. DISCUSSION: Now off pressors. s/p PO bicarb supplementation. Continue broad-spectrum antibiotics. Susan Vigil Omar Syed MD Nov 17, 2020 11:38
[2020-11-17 12:00] VITALS: BP 139/86
--- NOTE | 2020-11-17 12:28 | Nephrology Progress Note ---
Assessment/Plan Problem List: (1) VALERIA (acute kidney injury) (2) Septic shock (3) Multiple sclerosis (4) Acute metabolic encephalopathy (5) Anemia (6) Electrolyte imbalance Assessment Acute renal failure Sepsis, shock Acute metabolic encephalopathy Anemia UTI Plan November 17: Labs reviewed. Abnormal electrolytes addressed. IV fluid changed to D5W at 75 cc an hour. Continue to monitor renal parameters. Continue per consultants. Discussed with RN. November 16: Labs reviewed. Abnormal electrolyte addressed. Blood pressure medication adjusted. Continue per consultants. Leukocytosis persists. November 15: Labs reviewed. Abnormal electrolytes addressed. Continue per current treatment plan. Leukocytosis persists. November 14: Labs reviewed. Abnormal electrolytes much improved. Discussed with RN Afsoon. Serum creatinine normalized. Continue per consultants. November 13: Labs reviewed. Low potassium and low phosphorus addressed. Discussed with RN. Continue to monitor renal parameters. Serum creatinine now down to 1.3. November 12: Labs reviewed. Potassium 2.2, replacement ordered. Serum creatinine down to 1.6. Discussed with RN. Continue per consultants. Renal parameters. November 11: Labs reviewed. Low potassium replaced. Serum creatinine 1.9. Patient full code. On nasal cannula. Discussed with RN. Continue per consultants. Continue to monitor renal parameters November 10 labs reviewed. Serum creatinine 2. Patient more lethargic today. NG tube and feeding through NG to be initiated. Patient full code. Continue to monitor renal parameters. November 09: Low magnesium replaced. IV iron ordered. Labs reviewed. Albumin bolus given. Serum creatinine higher to 2.3. Continue current management. Patient full code. Previously: ICU Pressors Hydrate Monitor renal parameters and electrolytes Anemia work-up Avoid nephrotoxic's Subjective ROS Limited/Unobtainable: No Constitutional: Reports: malaise Objective Objective Last 24 Hour Vital Signs Date Time Temp Pulse Resp B/P (MAP) Pulse Ox O2 Delivery O2 Flow Rate FiO2 11/17/20 09:30 84 133/86 11/17/20 08:00 74 11/17/20 08:00 98.2 84 18 133/86 (102) 97 11/17/20 04:38 85 11/17/20 00:00 75 11/17/20 00:00 97.9 74 20 153/87 (109) 97 11/16/20 20:00 97.9 92 20 125/75 (92) 95 11/16/20 20:00 90 2/19/21 18:00 79 145/88 11/16/20 16:00 95 11/16/20 16:00 99.0 79 22 145/88 (107) 98 11/16/20 16:00 Room Air Intake and Output 11/16/20 11/17/20 19:00 07:00 Intake Total 1635.00 ml 1001.221 ml Output Total 850 ml Balance 785.00 ml 1001.221 ml Intake Oral 400 ml 64 ml IV Total 1235.00 ml 937.221 ml Output Urine Total 850 ml Current Medications Medications (Trade) Dose Ordered Sig/Bunny Route PRN Reason Start Time Stop Time Status Last Admin Dose Admin Acetaminophen (Tylenol) 650 mg Q4H PRN NG Temp >100.5 11/10/20 05:15 12/10/20 05:14 11/10/20 05:21 Amlodipine Besylate (Norvasc) 2.5 mg BID ORAL 11/16/20 18:00 12/14/20 18:14 11/17/20 09:30 Barium Sulfate (Varibar Honey) 250 ml NOW PRN MC RAD 11/14/20 14:30 11/17/20 14:18 Barium Sulfate (Varibar Caney) 240 ml NOW PRN MC RAD 11/14/20 14:30 11/17/20 14:18 Barium Sulfate (Varibar Pudding) 230 ml NOW PRN MC RAD 11/14/20 14:30 11/17/20 14:18 Barium Sulfate (Varibar Thin Liquid powder) 148 gm NOW PRN MC RAD 11/14/20 14:30 11/17/20 14:18 Chlorhexidine Gluconate (Carmen-Hex 2%) 1 applic DAILY@2000 TOPIC 11/15/20 20:00 02/13/21 19:59 11/16/20 20:34 Dextrose 1,000 ml @ 75 mls/hr [id number] IV 11/17/20 12:30 12/17/20 12:29 UNV Dextrose (Dextrose 50%) 25 ml Q30M PRN IV Hypoglycemia 11/10/20 23:45 02/08/21 23:44 Dextrose (Dextrose 50%) 50 ml Q30M PRN IV Hypoglycemia 11/10/20 23:45 02/08/21 23:44 Hydrocortisone (Solu-CORTEF) 25 mg EVERY 8 HOURS IV 11/15/20 22:00 02/13/21 21:59 11/17/20 05:54 Magnesium Sulfate 100 ml @ 100 mls/hr Q1H IVPB 11/17/20 11:00 11/17/20 14:59 11/17/20 12:02 Meropenem 1 gm/ Sodium Chloride 100 ml @ 200 mls/hr Q8HR IVPB 11/16/20 14:00 11/21/20 13:59 11/17/20 05:55 Potassium Chloride 100 ml @ 50 mls/hr NOW ONCE IVPB 11/17/20 12:00 11/17/20 13:59 11/17/20 12:02 Tramadol HCl (Ultram) 50 mg Q6H PRN ORAL For Pain 11/15/20 23:30 11/22/20 23:29 11/17/20 10:09 Vancomycin HCl (Vanco pharmacy to dose) 1 ea DAILY PRN MISC Per rx protocol 11/08/20 17:45 12/08/20 17:44 Vancomycin HCl 750 mg/Sodium Chloride 275 ml @ 183.333 mls/hr Q12HR@0800,2000 IVPB 11/14/20 08:00 11/19/20 07:59 11/17/20 09:20 Laboratory Tests 11/17/20 05:30: White Blood Count 28.2*H, Red Blood Count 2.88L, Hemoglobin 8.1L, Hematocrit 24.7L, Mean Corpuscular Volume 86, Mean Corpuscular Hemoglobin 28.1, Mean Corpuscular Hemoglobin Concent 32.7, Red Cell Distribution Width 19.5H, Platelet Count 79L, Mean Platelet Volume 11.7H, Neutrophils (%) (Auto) , Lymphocytes (%) (Auto) , Monocytes (%) (Auto) , Eosinophils (%) (Auto) , Basophils (%) (Auto) , Differential Total Cells Counted 100, Neutrophils % (Manual) 82H, Lymphocytes % (Manual) 9L, Monocytes % (Manual) 6, Eosinophils % (Manual) 0, Basophils % (Manual) 0, Band Neutrophils 3, Nucleated Red Blood Cells 4, Platelet Estimate DecreasedL, Platelet Morphology Normal, Polychromasia 1+, Anisocytosis 2+, Microcytosis 1+, Schistocytes 1+, Sodium Level 149H, Potassium Level 2.9L, Chloride Level 115H, Carbon Dioxide Level 25, Anion Gap 9, Blood Urea Nitrogen 20H, Creatinine 0.9, Estimat Glomerular Filtration Rate > 60, Glucose Level 88, Calcium Level 7.4L, Phosphorus Level 2.4L, Magnesium Level 1.5L, Total Bilirubin 0.7, Aspartate Amino Transf (AST/SGOT) 29, Alanine Aminotransferase (ALT/SGPT) 21, Alkaline Phosphatase 115, C-Reactive Protein, Quantitative 0.6, Pro-B-Type Natriuretic Peptide 7594H, Total Protein 5.0L, Albumin 1.8L, Globulin 3.2, Albumin/Globulin Ratio 0.6L Height (Feet): 5 Height (Inches): 5.00 Weight (Pounds): 165 General Appearance: no apparent distress Cardiovascular: tachycardia Respiratory/Chest: decreased breath sounds Abdomen: distended Bridger Mari MD Nov 17, 2020 12:28
--- NOTE | 2020-11-17 13:04 | Cardiology Progress Note ---
Assessment/Plan Assessment/Plan 1. Septic shock. 2. Bacteremia, gram-negative rods. 3. Renal failure/ hypokalemic 4. Lactic acidosis. 5. Renal failure, probably acute. 6. Profound iron deficiency. 7. Leukemoid reaction. 8. Anemia. 9. Covid 19 infection 10. abnormal trop demand vs covid related 11. Thrombocytopenia wbc better bcx now ng echo showed normal lv systolic function off anticoagulation du to profound thrombocytopenia bp high now on norvasc not clear if need ivf and or iv steroid consider taper and dc bothe rmya be contributing to htn i have been tapering this medication tele reviewed: sinus cv seem stable Subjective Subjective pt in covid isolation Pt is lying in bed, asleep, not in acute distress, on room air. Sinus Rhythm on the laboratory monitor. Duffy catheter 16F intact and patent. Right UA PICC line intact and patent. R femoral PICC line is to taken out today. Objective Last 24 Hour Vital Signs Date Time Temp Pulse Resp B/P (MAP) Pulse Ox O2 Delivery O2 Flow Rate FiO2 11/17/20 12:00 86 11/17/20 09:30 84 133/86 11/17/20 08:00 74 11/17/20 08:00 98.2 84 18 133/86 (102) 97 11/17/20 04:38 85 11/17/20 00:00 75 11/17/20 00:00 97.9 74 20 153/87 (109) 97 11/16/20 20:00 97.9 92 20 125/75 (92) 95 11/16/20 20:00 90 11/16/20 18:00 79 145/88 11/16/20 16:00 95 11/16/20 16:00 99.0 79 22 145/88 (107) 98 11/16/20 16:00 Room Air Intake and Output 11/16/20 11/17/20 19:00 07:00 Intake Total 1635.00 ml 1001.221 ml Output Total 850 ml Balance 785.00 ml 1001.221 ml Intake Oral 400 ml 64 ml IV Total 1235.00 ml 937.221 ml Output Urine Total 850 ml Laboratory Tests Test 11/17/20 05:30 White Blood Count 28.2 K/UL (4.8-10.8) *H Red Blood Count 2.88 M/UL (4.20-5.40) L Hemoglobin 8.1 G/DL (12.0-16.0) L Hematocrit 24.7 % (37.0-47.0) L Mean Corpuscular Volume 86 FL (80-99) Mean Corpuscular Hemoglobin 28.1 PG (27.0-31.0) Mean Corpuscular Hemoglobin Concent 32.7 G/DL (32.0-36.0) Red Cell Distribution Width 19.5 % (11.6-14.8) H Platelet Count 79 K/UL (150-450) L Mean Platelet Volume 11.7 FL (6.5-10.1) H Neutrophils (%) (Auto) % (45.0-75.0) Lymphocytes (%) (Auto) % (20.0-45.0) Monocytes (%) (Auto) % (1.0-10.0) Eosinophils (%) (Auto) % (0.0-3.0) Basophils (%) (Auto) % (0.0-2.0) Differential Total Cells Counted 100 Neutrophils % (Manual) 82 % (45-75) H Lymphocytes % (Manual) 9 % (20-45) L Monocytes % (Manual) 6 % (1-10) Eosinophils % (Manual) 0 % (0-3) Basophils % (Manual) 0 % (0-2) Band Neutrophils 3 % (0-8) Nucleated Red Blood Cells 4 /100 WBC Platelet Estimate Decreased L Platelet Morphology Normal Polychromasia 1+ Anisocytosis 2+ Microcytosis 1+ Schistocytes 1+ Sodium Level 149 MMOL/L (136-145) H Potassium Level 2.9 MMOL/L (3.5-5.1) L Chloride Level 115 MMOL/L (98-107) H Carbon Dioxide Level 25 MMOL/L (21-32) Anion Gap 9 mmol/L (5-15) Blood Urea Nitrogen 20 mg/dL (7-18) H Creatinine 0.9 MG/DL (0.55-1.30) Estimat Glomerular Filtration Rate > 60 mL/min (>60) Glucose Level 88 MG/DL (74-106) Calcium Level 7.4 MG/DL (8.5-10.1) L Phosphorus Level 2.4 MG/DL (2.5-4.9) L Magnesium Level 1.5 MG/DL (1.8-2.4) L Total Bilirubin 0.7 MG/DL (0.2-1.0) Aspartate Amino Transf (AST/SGOT) 29 U/L (15-37) Alanine Aminotransferase (ALT/SGPT) 21 U/L (12-78) Alkaline Phosphatase 115 U/L (46-116) C-Reactive Protein, Quantitative 0.6 mg/dL (0.00-0.90) Pro-B-Type Natriuretic Peptide 7594 pg/mL (0-125) H Total Protein 5.0 G/DL (6.4-8.2) L Albumin 1.8 G/DL (3.4-5.0) L Globulin 3.2 g/dL Albumin/Globulin Ratio 0.6 (1.0-2.7) L Objective pt with acute covid infection , inorder tominimize chance of tranmission examination is limited to observation form outside the room and review of other physician notes who may have seen pt Neno Grant MD Nov 17, 2020 13:04
[2020-11-17 16:00] VITALS: BP 129/78
--- NOTE | 2020-11-17 17:27 | Internal Med Progress Note ---
Subjective Date of Service: Nov 17, 2020 Physician Name Jad Sarabia Attending Physician Kris Cormier MD Current Medications Medications (Trade) Dose Ordered Sig/Bunny Route PRN Reason Start Time Stop Time Status Last Admin Dose Admin Acetaminophen (Tylenol) 650 mg Q4H PRN NG Temp >100.5 11/10/20 05:15 12/10/20 05:14 11/10/20 05:21 Amlodipine Besylate (Norvasc) 2.5 mg BID ORAL 11/16/20 18:00 12/14/20 18:14 11/17/20 17:20 Chlorhexidine Gluconate (Carmen-Hex 2%) 1 applic DAILY@2000 TOPIC 11/15/20 20:00 02/13/21 19:59 11/16/20 20:34 Ciprofloxacin (Ciloxan Opth Soln) 2 drop Q4HR LEFT EYE 11/17/20 18:00 11/24/20 17:59 Dextrose 1,000 ml @ 75 mls/hr [id number] IV 11/17/20 12:30 12/17/20 12:29 11/17/20 13:12 Dextrose (Dextrose 50%) 25 ml Q30M PRN IV Hypoglycemia 11/10/20 23:45 02/08/21 23:44 Dextrose (Dextrose 50%) 50 ml Q30M PRN IV Hypoglycemia 11/10/20 23:45 02/08/21 23:44 Hydrocortisone (Solu-CORTEF) 25 mg Q12H IV 11/17/20 18:00 02/15/21 17:59 11/17/20 17:18 Meropenem 1 gm/ Sodium Chloride 100 ml @ 200 mls/hr Q8HR IVPB 11/16/20 14:00 11/21/20 13:59 11/17/20 14:54 Potassium Chloride (K-Dur) 40 meq TWICE A DAY ORAL 11/17/20 18:00 02/15/21 17:59 11/17/20 17:19 Tramadol HCl (Ultram) 50 mg Q6H PRN ORAL For Pain 11/15/20 23:30 11/22/20 23:29 11/17/20 10:09 Vancomycin HCl (Vanco pharmacy to dose) 1 ea DAILY PRN MISC Per rx protocol 11/08/20 17:45 12/08/20 17:44 Vancomycin HCl 750 mg/Sodium Chloride 275 ml @ 183.333 mls/hr Q12HR@0800,1999 IVPB 11/14/20 08:00 11/19/20 07:59 11/17/20 09:20 Allergies: Coded Allergies: No Known Allergies (Unverified , 11/08/20) ROS Limited/Unobtainable: No Constitutional: Reports: no symptoms HEENT: Reports: no symptoms Cardiovascular: Reports: no symptoms Respiratory: Reports: no symptoms Gastrointestinal/Abdominal: Reports: no symptoms Genitourinary: Reports: no symptoms Neurologic/Psychiatric: Reports: no symptoms Subjective 44 YO F admitted with altered mental status. Now sepsis. Cover for Int Kody-DR Cormier. Step down unit Objective Last Vital Signs Date Time Temp Pulse Resp B/P (MAP) Pulse Ox O2 Delivery O2 Flow Rate FiO2 11/17/20 17:20 84 131/84 11/17/20 16:00 98.0 18 98 11/16/20 16:00 Room Air 11/13/20 07:55 21 11/12/20 00:00 2.0 Laboratory Tests Test 11/17/20 05:30 White Blood Count 28.2 K/UL (4.8-10.8) *H Red Blood Count 2.88 M/UL (4.20-5.40) L Hemoglobin 8.1 G/DL (12.0-16.0) L Hematocrit 24.7 % (37.0-47.0) L Mean Corpuscular Volume 86 FL (80-99) Mean Corpuscular Hemoglobin 28.1 PG (27.0-31.0) Mean Corpuscular Hemoglobin Concent 32.7 G/DL (32.0-36.0) Red Cell Distribution Width 19.5 % (11.6-14.8) H Platelet Count 79 K/UL (150-450) L Mean Platelet Volume 11.7 FL (6.5-10.1) H Neutrophils (%) (Auto) % (45.0-75.0) Lymphocytes (%) (Auto) % (20.0-45.0) Monocytes (%) (Auto) % (1.0-10.0) Eosinophils (%) (Auto) % (0.0-3.0) Basophils (%) (Auto) % (0.0-2.0) Differential Total Cells Counted 100 Neutrophils % (Manual) 82 % (45-75) H Lymphocytes % (Manual) 9 % (20-45) L Monocytes % (Manual) 6 % (1-10) Eosinophils % (Manual) 0 % (0-3) Basophils % (Manual) 0 % (0-2) Band Neutrophils 3 % (0-8) Nucleated Red Blood Cells 4 /100 WBC Platelet Estimate Decreased L Platelet Morphology Normal Polychromasia 1+ Anisocytosis 2+ Microcytosis 1+ Schistocytes 1+ Sodium Level 149 MMOL/L (136-145) H Potassium Level 2.9 MMOL/L (3.5-5.1) L Chloride Level 115 MMOL/L (98-107) H Carbon Dioxide Level 25 MMOL/L (21-32) Anion Gap 9 mmol/L (5-15) Blood Urea Nitrogen 20 mg/dL (7-18) H Creatinine 0.9 MG/DL (0.55-1.30) Estimat Glomerular Filtration Rate > 60 mL/min (>60) Glucose Level 88 MG/DL (74-106) Calcium Level 7.4 MG/DL (8.5-10.1) L Phosphorus Level 2.4 MG/DL (2.5-4.9) L Magnesium Level 1.5 MG/DL (1.8-2.4) L Total Bilirubin 0.7 MG/DL (0.2-1.0) Aspartate Amino Transf (AST/SGOT) 29 U/L (15-37) Alanine Aminotransferase (ALT/SGPT) 21 U/L (12-78) Alkaline Phosphatase 115 U/L (46-116) C-Reactive Protein, Quantitative 0.6 mg/dL (0.00-0.90) Pro-B-Type Natriuretic Peptide 7594 pg/mL (0-125) H Total Protein 5.0 G/DL (6.4-8.2) L Albumin 1.8 G/DL (3.4-5.0) L Globulin 3.2 g/dL Albumin/Globulin Ratio 0.6 (1.0-2.7) L Intake and Output 11/16/20 11/17/20 19:00 07:00 Intake Total 1635.00 ml 1001.221 ml Output Total 850 ml Balance 785.00 ml 1001.221 ml Intake Oral 400 ml 64 ml IV Total 1235.00 ml 937.221 ml Output Urine Total 850 ml Objective PHYSICAL EXAMINATION: GENERAL: Patient is altered, unresponsive, cannot follow commands. HEAD AND NECK: Pupils are equal and reactive to light. Anicteric. Neck was supple. No JVD. LUNGS: Good air entry. No wheezing or rhonchi. Decreased air in the bases. HEART: S1, S2. No murmur or gallops. ABDOMEN: Soft, nondistended, nontender. Positive bowel sounds. EXTREMITIES: No cyanosis, clubbing, or edema. NEUROLOGIC: Very limited secondary to patient's status. Cannot follow commands. However, moving extremities spontaneously. SKIN: No rashes were identified. Assessment/Plan Assessment/Plan Assessment/Plan Assessment/Plan 1. Septic shock=ESBL E. coli 2. Sepsis secondary to urinary tract infection, but can not R/O intraabdominal infection yet. 3. Dehydration and hypokalemia. 4. Altered mental status, most likely secondary to toxic metabolic encephalopathy. 5. Acute kidney injury. 6. Anemia. 7. History of multiple sclerosis. 8. COVID 19 pos-H/O COVID POS in Aug 2020. Repeat testing 11/08/20=positive. ?repeat infection? 9. Hypokalemia PLAN: In SDU IV hydration. Monitor laboratory and cultures. DVT prophylaxis: heparin subcutaneous. 2D echo. Code status: Full Code. Abx: Meropenem and vanco On hydrocortisone IV. Dr. Kline from [facility], Dr. Nat Courtney from ID, Dr. Grant from Cardiology Dr. Bridger Mari from Nephrology. Repeat COVID 19 ?false positive? Replace KCL IV Jad Sarabia MD Nov 17, 2020 17:27
[2020-11-17] MEDS: Ciprofloxacin Opth Soln 5ml LEFT EYE SCH ×2 (17:34→20:09)
[2020-11-17 20:00] VITALS: BP 129/89
[2020-11-17] MEDS: Dyna-Hex 2% Top Sol 2oz TOPIC SCH (20:07)
[2020-11-18] VITALS: BP 124/65
[2020-11-18] MEDS: Ciprofloxacin Opth Soln 5ml LEFT EYE SCH ×6 (00:16→21:29)
[2020-11-18 04:00] VITALS: BP 145/77
[2020-11-18] MEDS: Hydrocortisone 100mg Inj IV SCH ×2 (04:59→17:24)
[2020-11-18] MEDS: traMADol 50mg tab ORAL PRN ×3 (05:16→19:51)
[2020-11-18 08:00] VITALS: BP 126/72
--- NOTE | 2020-11-18 08:07 | Pulmonology Progress Note ---
Subjective ROS Limited/Unobtainable: No Interval Events: Saturating well on room air Constitutional: Reports: fatigue, other; Denies: fever HEENT: Repors: no symptoms Respiratory: Reports: no symptoms Cardiovascular: Reports: no symptoms Gastrointestinal/Abdominal: Denies: nausea, vomiting, diarrhea Psychiatric: Denies: depression Skin: Denies: rash Musculoskeletal: Denies: pain Allergies: Coded Allergies: No Known Allergies (Unverified , 11/08/20) Objective Last 24 Hour Vital Signs Date Time Temp Pulse Resp B/P (MAP) Pulse Ox O2 Delivery O2 Flow Rate FiO2 11/18/20 04:00 70 11/18/20 04:00 98.6 66 17 145/77 (99) 100 11/18/20 00:00 98.6 75 21 124/65 (84) 98 11/18/20 00:00 74 11/17/20 20:00 83 11/17/20 20:00 99.1 74 18 129/89 (102) 99 11/17/20 18:00 Room Air 11/17/20 17:20 84 131/84 11/17/20 16:00 77 11/17/20 16:00 98.0 85 18 129/78 (95) 98 11/17/20 12:00 86 11/17/20 12:00 98.6 81 20 139/86 (103) 98 11/17/20 09:30 84 133/86 Intake and Output 11/17/20 11/18/20 19:00 07:00 Intake Total 1540.555 ml 1050 ml Output Total 3000 ml 3200 ml Balance -1459.445 ml -2150 ml Intake Oral 500 ml 300 ml IV Total 1040.555 ml 750 ml Output Urine Total 3000 ml 3200 ml # Bowel Movements 2 General Appearance: WD/WN HEENT: normocephalic Respiratory: chest wall non-tender Cardiovascular: normal peripheral pulses Abdomen: soft, non tender Laboratory Tests 11/17/20 18:00: Stool Occult Blood Negative Current Medications Medications (Trade) Dose Ordered Sig/Bunny Route PRN Reason Start Time Stop Time Status Last Admin Dose Admin Acetaminophen (Tylenol) 650 mg Q4H PRN NG Temp >100.5 11/10/20 05:15 12/10/20 05:14 11/10/20 05:21 Amlodipine Besylate (Norvasc) 2.5 mg BID ORAL 11/16/20 18:00 12/14/20 18:14 11/17/20 17:20 Chlorhexidine Gluconate (Carmen-Hex 2%) 1 applic DAILY@1999 TOPIC 11/15/20 20:00 02/13/21 19:59 11/17/20 20:07 Ciprofloxacin (Ciloxan Opth Soln) 2 drop Q4HR LEFT EYE 11/17/20 18:00 11/24/20 17:59 11/18/20 05:00 Dextrose 1,000 ml @ 75 mls/hr [id number] IV 11/17/20 12:30 12/17/20 12:29 11/18/20 01:50 Dextrose (Dextrose 50%) 25 ml Q30M PRN IV Hypoglycemia 11/10/20 23:45 02/08/21 23:44 Dextrose (Dextrose 50%) 50 ml Q30M PRN IV Hypoglycemia 11/10/20 23:45 02/08/21 23:44 Hydrocortisone (Solu-CORTEF) 25 mg Q12H IV 11/17/20 18:00 02/15/21 17:59 11/18/20 04:59 Meropenem 1 gm/ Sodium Chloride 100 ml @ 200 mls/hr Q8HR IVPB 11/16/20 14:00 11/21/20 13:59 11/18/20 04:59 Potassium Chloride (K-Dur) 40 meq TWICE A DAY ORAL 11/17/20 18:00 02/15/21 17:59 11/17/20 17:19 Tramadol HCl (Ultram) 50 mg Q6H PRN ORAL For Pain 11/15/20 23:30 11/22/20 23:29 11/18/20 05:16 Vancomycin HCl (Vanco pharmacy to dose) 1 ea DAILY PRN MISC Per rx protocol 11/08/20 17:45 12/08/20 17:44 Vancomycin HCl 750 mg/Sodium Chloride 275 ml @ 183.333 mls/hr Q12HR@799,1999 IVPB 11/14/20 08:00 11/19/20 07:59 11/17/20 20:07 Assessment/Plan Assessment/Plan 1. Septic shock. Resolved 2. Hypotension. Resolved 3. Status post central line placement. 4. Multiple sclerosis. 5. Diarrhea, ruled out for C. difficile colitis. 6. E. coli bacteremia; on Meropenem 7. DVT prophylaxis. DISCUSSION: Now off pressors. s/p PO bicarb supplementation. Continue broad-spectrum antibiotics. Susan Vigil Omar Syed MD Nov 18, 2020 08:07
[2020-11-18] MEDS: Vancomycin 750mg/NS 275ml IVPB SCH ×2 (08:31)
[2020-11-18 09:25] LABS: HEMATOCRIT 26.3 % (37.0-47.0); HEMOGLOBIN 7.9 G/DL (12.0-16.0); MEAN CORPUSCULAR VOLUME 91 FL (80-99); PLATELET COUNT 83 K/UL (150-450); RED BLOOD COUNT 2.88 M/UL (4.20-5.40); RED CELL DISTRIBUTION WIDTH 26.8 % (11.6-14.8); WHITE BLOOD COUNT 17.3 K/UL (4.8-10.8)
--- NOTE | 2020-11-18 09:25 | General Progress Note ---
Subjective ROS Limited/Unobtainable: Yes Allergies: Coded Allergies: No Known Allergies (Unverified , 11/08/20) Objective Last 24 Hour Vital Signs Date Time Temp Pulse Resp B/P (MAP) Pulse Ox O2 Delivery O2 Flow Rate FiO2 11/18/20 08:33 95 126/72 11/18/20 08:00 98.1 95 20 126/72 (90) 97 11/18/20 04:00 70 11/18/20 04:00 98.6 66 17 145/77 (99) 100 11/18/20 00:00 98.6 75 21 124/65 (84) 98 11/18/20 00:00 74 11/17/20 20:00 83 11/17/20 20:00 99.1 74 18 129/89 (102) 99 11/17/20 18:00 Room Air 11/17/20 17:20 84 131/84 11/17/20 16:00 77 11/17/20 16:00 98.0 85 18 129/78 (95) 98 11/17/20 12:00 86 11/17/20 12:00 98.6 81 20 139/86 (103) 98 11/17/20 09:30 84 133/86 Intake and Output 11/17/20 11/18/20 19:00 07:00 Intake Total 1540.555 ml 1050 ml Output Total 3000 ml 3200 ml Balance -1459.445 ml -2150 ml Intake Oral 500 ml 300 ml IV Total 1040.555 ml 750 ml Output Urine Total 3000 ml 3200 ml # Bowel Movements 2 Laboratory Tests 11/17/20 18:00: Stool Occult Blood Negative 11/18/20 08:00: White Blood Count [Pending], Red Blood Count [Pending], Hemoglobin [Pending], Hematocrit [Pending], Mean Corpuscular Volume [Pending], Mean Corpuscular Hemoglobin [Pending], Mean Corpuscular Hemoglobin Concent [Pending], Red Cell Distribution Width [Pending], Platelet Count [Pending], Mean Platelet Volume [Pending], Neutrophils (%) (Auto) [Pending], Lymphocytes (%) (Auto) [Pending], Monocytes (%) (Auto) [Pending], Eosinophils (%) (Auto) [Pending], Basophils (%) (Auto) [Pending], Sodium Level [Pending], Potassium Level [Pending], Chloride Level [Pending], Carbon Dioxide Level [Pending], Blood Urea Nitrogen [Pending], Creatinine [Pending], Estimat Glomerular Filtration Rate [Pending], Glucose Level [Pending], Calcium Level [Pending], Total Bilirubin [Pending], Aspartate Amino Transf (AST/SGOT) [Pending], Alanine Aminotransferase (ALT/SGPT) [Pending], Alkaline Phosphatase [Pending], Total Protein [Pending], Albumin [Pending], Globulin [Pending] Height (Feet): 5 Height (Inches): 5.00 Weight (Pounds): 165 General Appearance: no apparent distress EENT: normal ENT inspection Neck: supple Cardiovascular: normal rate Respiratory/Chest: decreased breath sounds Abdomen: normal bowel sounds, non tender, soft Extremities: non-tender Assessment/Plan Problem List: (1) Rectal bleeding ICD Codes: K62.5 - Hemorrhage of anus and rectum SNOMED: 12251567 (2) Sepsis ICD Codes: A41.9 - Sepsis, unspecified organism SNOMED: 19427855, 933296847 Qualifiers: Qualified Codes: A41.9 - Sepsis, unspecified organism; R65.20 - Severe s epsis without septic shock; G93.40 - Encephalopathy, unspecified (3) Electrolyte imbalance ICD Codes: E87.8 - Other disorders of electrolyte and fluid balance, not elsewhere classified SNOMED: 107541361 (4) Acute metabolic encephalopathy ICD Codes: G93.41 - Metabolic encephalopathy SNOMED: 54646148, 148406252 (5) Anemia ICD Codes: D64.9 - Anemia, unspecified SNOMED: 024312042 Qualifiers: Qualified Codes: D64.9 - Anemia, unspecified (6) Septic shock ICD Codes: A41.9 - Sepsis, unspecified organism; R65.21 - Severe sepsis with septic shock SNOMED: 49347187 (7) Diarrhea ICD Codes: R19.7 - Diarrhea, unspecified SNOMED: 80898782 Qualifiers: Qualified Codes: R19.7 - Diarrhea, unspecified Assessment/Plan: C.diff neg abx per ID for severe UTI stool ob positive and drop in H&H rectal bleed on admission plan EGD and colonoscopy this week if WBC improves repeat cbc repeat stool ob neg Gold Sears MD Nov 18, 2020 09:25
[2020-11-18 09:54] LABS: ALANINE AMINOTRANSFERASE 24 U/L (12-78); ALBUMIN 1.9 G/DL (3.4-5.0); ALBUMIN/GLOBULIN RATIO 0.6 (1.0-2.7); ALKALINE PHOSPHATASE 107 U/L (46-116); ASPARTATE AMINO TRANSFERASE 27 U/L (15-37); BILIRUBIN,TOTAL 0.8 MG/DL (0.2-1.0); BLOOD UREA NITROGEN 14 mg/dL (7-18); CALCIUM 7.5 MG/DL (8.5-10.1); CARBON DIOXIDE 27 MMOL/L (21-32); CREATININE 0.9 MG/DL (0.55-1.30)
[2020-11-18 10:06] LABS: CHLORIDE 114 MMOL/L (98-107); POTASSIUM 2.9 MMOL/L (3.5-5.1); SODIUM 149 MMOL/L (136-145)
[2020-11-18 12:00] VITALS: BP 138/76
[2020-11-18 12:09] LABS: PHOSPHORUS 2.7 MG/DL (2.5-4.9)
--- NOTE | 2020-11-18 13:03 | Surgery Progress Note ---
Surgery Progress Note Subjective Additional Comments improved no complaints doing well no n/v no hematoma Objective Last 24 Hour Vital Signs Date Time Temp Pulse Resp B/P (MAP) Pulse Ox O2 Delivery O2 Flow Rate FiO2 11/18/20 12:00 99.5 71 18 138/76 (96) 99 11/18/20 11:49 75 11/18/20 08:33 95 126/72 11/18/20 08:00 98.1 95 20 126/72 (90) 97 11/18/20 07:28 84 11/18/20 04:00 70 11/18/20 04:00 98.6 66 17 145/77 (99) 100 11/18/20 00:00 98.6 75 21 124/65 (84) 98 11/18/20 00:00 74 11/17/20 20:00 83 11/17/20 20:00 99.1 74 18 129/89 (102) 99 11/17/20 18:00 Room Air 11/17/20 17:20 84 131/84 11/17/20 16:00 77 11/17/20 16:00 98.0 85 18 129/78 (95) 98 I&O Intake and Output 11/17/20 11/18/20 19:00 07:00 Intake Total 1540.555 ml 1050 ml Output Total 3000 ml 3200 ml Balance -1459.445 ml -2150 ml Intake Oral 500 ml 300 ml IV Total 1040.555 ml 750 ml Output Urine Total 3000 ml 3200 ml # Bowel Movements 2 Dressing: saturated Cardiovascular: RSR Respiratory: clear, decreased breath sounds Abdomen: soft, non-tender, present bowel sounds, non-distended Extremities: no edema, no tenderness, no cyanosis Laboratory Tests Test 11/17/20 18:00 11/18/20 08:00 Stool Occult Blood Negative (NEGATIVE) White Blood Count 17.3 K/UL (4.8-10.8) H Red Blood Count 2.88 M/UL (4.20-5.40) L Hemoglobin 7.9 G/DL (12.0-16.0) L Hematocrit 26.3 % (37.0-47.0) L Mean Corpuscular Volume 91 FL (80-99) Mean Corpuscular Hemoglobin 27.4 PG (27.0-31.0) Mean Corpuscular Hemoglobin Concent 30.1 G/DL (32.0-36.0) L Red Cell Distribution Width 26.8 % (11.6-14.8) H Platelet Count 83 K/UL (150-450) L Mean Platelet Volume 10.2 FL (6.5-10.1) H Neutrophils (%) (Auto) % (45.0-75.0) Lymphocytes (%) (Auto) % (20.0-45.0) Monocytes (%) (Auto) % (1.0-10.0) Eosinophils (%) (Auto) % (0.0-3.0) Basophils (%) (Auto) % (0.0-2.0) Differential Total Cells Counted 100 Neutrophils % (Manual) 77 % (45-75) H Lymphocytes % (Manual) 16 % (20-45) L Monocytes % (Manual) 6 % (1-10) Eosinophils % (Manual) 1 % (0-3) Basophils % (Manual) 0 % (0-2) Band Neutrophils 0 % (0-8) Platelet Estimate Decreased L Platelet Morphology Normal Polychromasia 1+ Hypochromasia 1+ Anisocytosis 3+ Schistocytes Occasional Sodium Level 149 MMOL/L (136-145) H Potassium Level 2.9 MMOL/L (3.5-5.1) L Chloride Level 114 MMOL/L (98-107) H Carbon Dioxide Level 27 MMOL/L (21-32) Blood Urea Nitrogen 14 mg/dL (7-18) Creatinine 0.9 MG/DL (0.55-1.30) Estimat Glomerular Filtration Rate > 60 mL/min (>60) Glucose Level 67 MG/DL (74-106) L Calcium Level 7.5 MG/DL (8.5-10.1) L Phosphorus Level 2.7 MG/DL (2.5-4.9) Magnesium Level 1.8 MG/DL (1.8-2.4) Total Bilirubin 0.8 MG/DL (0.2-1.0) Aspartate Amino Transf (AST/SGOT) 27 U/L (15-37) Alanine Aminotransferase (ALT/SGPT) 24 U/L (12-78) Alkaline Phosphatase 107 U/L (46-116) Total Protein 4.9 G/DL (6.4-8.2) L Albumin 1.9 G/DL (3.4-5.0) L Globulin 3.0 g/dL Albumin/Globulin Ratio 0.6 (1.0-2.7) L Plan Problems: (1) Anemia (2) Sepsis Assessment & Plan: 44-year-old female with altered mental status, lactic acidosis, leukocytosis, sepsis. Vitals currently stable. Abdominal exam mild distention but limited. Will obtain imaging. Labs noted UTI on antibiotics fluid resuscitation trend labs we will follow with examination and recommendations. CT head reviewed. much improved now responsive states well no abd symptoms okay for diet labs noted exam stable diet as tolerated trend labs iv fluids Possible higher level of care for cardiac work up and intervention noted. She is off Biap and on nasal cannula saturation ok at her bedside. Work of breathing noted. Creatine continued to be rising 1.7 today. Interpretation/Plan/Recommendation: 1. Very high risk of aspiration insetting of Advanced heart failure with onset of multiorgan failure 2. If she is going higher level of care within 24 hours, Hold PO except medication, 3. If she will stay, recommend goal of care and place PO with pureed and N ectar thick liquid No acute intracranial hemorrhage. No midline shift or mass effect. The territorial hassan-white matter differentiation is maintained throughout. The ventricles and sulci are commensurate with age. The visualized orbits appear grossly unremarkable. The calvarium is intact. The visualized paranasal sinuses and mastoid air cells are grossly clear. CT noted Liver: Unremarkable Gallbladder and bile ducts: Cholelithiasis and nonspecific gallbladder wall edema in light of the third spacing. Pancreas: Stranding around the pancreas, could be from pancreatitis or the third spacing. Correlate with amylase or lipase values as clinically appropriate. Spleen: Unremarkable. Adrenals: Unremarkable. Kidneys and ureters: Right nephrolithiasis. Stomach and bowel: Nonspecific bowel gas pattern. Nonspecific thickening of the GI tract in light of the third spacing. PELVIS: Appendix: No findings to suggest acute appendicitis. Bladder: Duffy catheter. Reproductive: Exophytic fibroid versus complex left adnexal lesion measuring approximately 4.1 cm. Subperitoneal space: Presacral edema. ABDOMEN and PELVIS: Intraperitoneal space: Edema throughout the peritoneal cavity. Small amounts of fluid in the peritoneal cavity. Bones/joints: No acute fracture. Soft tissues: Anasarca Vasculature: Unremarkable. No abdominal aortic aneurysm. Lymph nodes: No enlarged lymph nodes. Tubes, lines and devices: Rectal tube. Right femoral central line. Enteric tube in the stomach. IMPRESSION: 1. Cholelithiasis and nonspecific gallbladder wall edema in light of the third spacing. 2. Nonspecific bowel gas pattern. There is a small amount of pleural fluid bilaterally. Gallbladder is unremarkable, without stones, wall thickening. There is trace pericholecystic Fluid. Sonographic Fregoso's sign is negative. Common bile duct measures 3 mm in diameter. No intrahepatic biliary ductal dilatation. Liver demonstrates normal echogenicity, no focal abnormality. Portal vein and hepatic veins are patent. Pancreas is unremarkable. Spleen is unremarkable. Left kidney measures 10.6 cm in length. Right kidney measures 10 cm length. Both kidneys demonstrate normal echogenicity. There is no hydronephrosis. There is a small right renal cyst. Echogenic focus in the right kidney likely represents one of the calculi demonstrated on recent CT scan . Abdominal aorta is partially obscured by bowel gas, visualized portions are non-aneurysmal . Impression: Negative for gallstones or dilated bile ducts. Trace pericholecystic fluid probably represents free intraperitoneal fluid. Bilateral pleural effusions Nonobstructive right renal calculus, also reported on recent CT scan. Incidental finding small right renal cyst But incomplete visualization of the abdominal aorta (3) UTI (urinary tract infection) (4) VALERIA (acute kidney injury) (5) Acute metabolic encephalopathy (6) Diarrhea (7) Multiple sclerosis (8) Septic shock (9) Electrolyte imbalance (10) Rectal bleeding Archie Saavedra Nov 18, 2020 13:03
--- NOTE | 2020-11-18 13:27 | Nephrology Progress Note ---
Assessment/Plan Problem List: (1) VALERIA (acute kidney injury) (2) Septic shock (3) Multiple sclerosis (4) Acute metabolic encephalopathy (5) Anemia (6) Electrolyte imbalance Assessment Acute renal failure Sepsis, shock Acute metabolic encephalopathy Anemia UTI Plan November 18: Labs reviewed. Low potassium addressed. Continue to monitor electrolytes. Discussed with RN. November 17: Labs reviewed. Abnormal electrolytes addressed. IV fluid changed to D5W at 75 cc an hour. Continue to monitor renal parameters. Continue per consultants. Discussed with RN. November 16: Labs reviewed. Abnormal electrolyte addressed. Blood pressure medication adjusted. Continue per consultants. Leukocytosis persists. November 15: Labs reviewed. Abnormal electrolytes addressed. Continue per current treatment plan. Leukocytosis persists. November 14: Labs reviewed. Abnormal electrolytes much improved. Discussed with RN Afsoon. Serum creatinine normalized. Continue per consultants. November 13: Labs reviewed. Low potassium and low phosphorus addressed. Discussed with RN. Continue to monitor renal parameters. Serum creatinine now down to 1.3. November 12: Labs reviewed. Potassium 2.2, replacement ordered. Serum creatinine down to 1.6. Discussed with RN. Continue per consultants. Renal parameters. November 11: Labs reviewed. Low potassium replaced. Serum creatinine 1.9. Patient full code. On nasal cannula. Discussed with RN. Continue per consultants. Continue to monitor renal parameters November 10 labs reviewed. Serum creatinine 2. Patient more lethargic today. NG tube and feeding through NG to be initiated. Patient full code. Continue to monitor renal parameters. November 09: Low magnesium replaced. IV iron ordered. Labs reviewed. Albumin bolus given. Serum creatinine higher to 2.3. Continue current management. Patient full code. Previously: ICU Pressors Hydrate Monitor renal parameters and electrolytes Anemia work-up Avoid nephrotoxic's Subjective ROS Limited/Unobtainable: No Constitutional: Reports: malaise, weakness Objective Objective Last 24 Hour Vital Signs Date Time Temp Pulse Resp B/P (MAP) Pulse Ox O2 Delivery O2 Flow Rate FiO2 11/18/20 12:00 99.5 71 18 138/76 (96) 99 11/18/20 11:49 75 11/18/20 08:33 95 126/72 11/18/20 08:00 98.1 95 20 126/72 (90) 97 11/18/20 07:28 84 11/18/20 04:00 70 11/18/20 04:00 98.6 66 17 145/77 (99) 100 11/18/20 00:00 98.6 75 21 124/65 (84) 98 11/18/20 00:00 74 11/17/20 20:00 83 11/17/20 20:00 99.1 74 18 129/89 (102) 99 11/17/20 18:00 Room Air 11/17/20 17:20 84 131/84 11/17/20 16:00 77 11/17/20 16:00 98.0 85 18 129/78 (95) 98 Intake and Output 11/17/20 11/18/20 19:00 07:00 Intake Total 1540.555 ml 1050 ml Output Total 3000 ml 3200 ml Balance -1459.445 ml -2150 ml Intake Oral 500 ml 300 ml IV Total 1040.555 ml 750 ml Output Urine Total 3000 ml 3200 ml # Bowel Movements 2 Current Medications Medications (Trade) Dose Ordered Sig/Bunny Route PRN Reason Start Time Stop Time Status Last Admin Dose Admin Acetaminophen (Tylenol) 650 mg Q4H PRN NG Temp >100.5 11/10/20 05:15 12/10/20 05:14 11/10/20 05:21 Amlodipine Besylate (Norvasc) 2.5 mg BID ORAL 11/16/20 18:00 12/14/20 18:14 11/18/20 08:33 Chlorhexidine Gluconate (Carmen-Hex 2%) 1 applic DAILY@2000 TOPIC 11/15/20 20:00 02/13/21 19:59 11/17/20 20:07 Ciprofloxacin (Ciloxan Opth Soln) 2 drop Q4HR LEFT EYE 11/17/20 18:00 11/24/20 17:59 11/18/20 08:31 Dextrose 1,000 ml @ 75 mls/hr [id number] IV 11/17/20 12:30 12/17/20 12:29 11/18/20 01:50 Dextrose (Dextrose 50%) 25 ml Q30M PRN IV Hypoglycemia 11/10/20 23:45 02/08/21 23:44 Dextrose (Dextrose 50%) 50 ml Q30M PRN IV Hypoglycemia 11/10/20 23:45 02/08/21 23:44 Hydrocortisone (Solu-CORTEF) 25 mg Q12H IV 11/17/20 18:00 02/15/21 17:59 11/18/20 04:59 Meropenem 1 gm/ Sodium Chloride 100 ml @ 200 mls/hr Q8HR IVPB 11/16/20 14:00 11/21/20 13:59 11/18/20 04:59 Potassium Chloride 100 ml @ 100 mls/hr Q1HR IVPB 11/18/20 12:00 11/18/20 15:59 11/18/20 12:41 Potassium Chloride (K-Dur) 40 meq TWICE A DAY ORAL 11/17/20 18:00 02/15/21 17:59 11/18/20 08:33 Tramadol HCl (Ultram) 50 mg Q6H PRN ORAL For Pain 11/15/20 23:30 11/22/20 23:29 11/18/20 12:50 Laboratory Tests 11/17/20 18:00: Stool Occult Blood Negative 11/18/20 08:00: White Blood Count 17.3H, Red Blood Count 2.88L, Hemoglobin 7.9L, Hematocrit 26.3L, Mean Corpuscular Volume 91, Mean Corpuscular Hemoglobin 27.4, Mean Corpuscular Hemoglobin Concent 30.1L, Red Cell Distribution Width 26.8H, Platelet Count 83L, Mean Platelet Volume 10.2H, Neutrophils (%) (Auto) , Lymphocytes (%) (Auto) , Monocytes (%) (Auto) , Eosinophils (%) (Auto) , Basophils (%) (Auto) , Differential Total Cells Counted 100, Neutrophils % (Manual) 77H, Lymphocytes % (Manual) 16L, Monocytes % (Manual) 6, Eosinophils % (Manual) 1, Basophils % (Manual) 0, Band Neutrophils 0, Platelet Estimate DecreasedL, Platelet Morphology Normal, Polychromasia 1+, Hypochromasia 1+, Anisocytosis 3+, Schistocytes Occasional, Sodium Level 149H, Potassium Level 2.9L, Chloride Level 114H, Carbon Dioxide Level 27, Blood Urea Nitrogen 14, Creatinine 0.9, Estimat Glomerular Filtration Rate > 60, Glucose Level 67L, Calcium Level 7.5L, Phosphorus Level 2.7, Magnesium Level 1.8, Total Bilirubin 0.8, Aspartate Amino Transf (AST/SGOT) 27, Alanine Aminotransferase (ALT/SGPT) 24, Alkaline Phosphatase 107, Total Protein 4.9L, Albumin 1.9L, Globulin 3.0, Albumin/Globulin Ratio 0.6L Height (Feet): 5 Height (Inches): 5.00 Weight (Pounds): 165 General Appearance: no apparent distress Cardiovascular: normal rate Respiratory/Chest: decreased breath sounds Abdomen: distended Bridger Mari MD Nov 18, 2020 13:27
[2020-11-18] MEDS ORDERED: Spironolactone 25mg tab ORAL SCH (14:30)
--- NOTE | 2020-11-18 14:36 | Internal Med Progress Note ---
Subjective Date of Service: Nov 18, 2020 Physician Name SarabiaJad Attending Physician Kris Cormier MD Current Medications Medications (Trade) Dose Ordered Sig/Bunny Route PRN Reason Start Time Stop Time Status Last Admin Dose Admin Acetaminophen (Tylenol) 650 mg Q4H PRN NG Temp >100.5 11/10/20 05:15 12/10/20 05:14 11/10/20 05:21 Amlodipine Besylate (Norvasc) 2.5 mg BID ORAL 11/16/20 18:00 12/14/20 18:14 11/18/20 08:33 Chlorhexidine Gluconate (Carmen-Hex 2%) 1 applic DAILY@2000 TOPIC 11/15/20 20:00 02/13/21 19:59 11/17/20 20:07 Ciprofloxacin (Ciloxan Opth Soln) 2 drop Q4HR LEFT EYE 11/17/20 18:00 11/24/20 17:59 11/18/20 13:59 Dextrose 1,000 ml @ 75 mls/hr [id number] IV 11/17/20 12:30 12/17/20 12:29 11/18/20 01:50 Dextrose (Dextrose 50%) 25 ml Q30M PRN IV Hypoglycemia 11/10/20 23:45 02/08/21 23:44 Dextrose (Dextrose 50%) 50 ml Q30M PRN IV Hypoglycemia 11/10/20 23:45 02/08/21 23:44 Hydrocortisone (Solu-CORTEF) 25 mg Q12H IV 11/17/20 18:00 02/15/21 17:59 11/18/20 04:59 Meropenem 1 gm/ Sodium Chloride 100 ml @ 200 mls/hr Q8HR IVPB 11/16/20 14:00 11/21/20 13:59 11/18/20 14:09 Potassium Chloride 100 ml @ 100 mls/hr Q1HR IVPB 11/18/20 12:00 11/18/20 15:59 11/18/20 13:59 Potassium Chloride (K-Dur) 40 meq TWICE A DAY ORAL 11/17/20 18:00 02/15/21 17:59 11/18/20 08:33 Spironolactone (Aldactone) 25 mg DAILY ORAL 11/19/20 09:00 12/19/20 08:59 Spironolactone (Aldactone) 25 mg ONCE ORAL 11/18/20 14:30 11/18/20 16:00 Tramadol HCl (Ultram) 50 mg Q6H PRN ORAL For Pain 11/15/20 23:30 11/22/20 23:29 11/18/20 12:50 Allergies: Coded Allergies: No Known Allergies (Unverified , 11/08/20) ROS Limited/Unobtainable: No Constitutional: Reports: no symptoms HEENT: Reports: no symptoms Cardiovascular: Reports: no symptoms Respiratory: Reports: no symptoms Gastrointestinal/Abdominal: Reports: no symptoms Genitourinary: Reports: no symptoms Neurologic/Psychiatric: Reports: no symptoms Subjective 44 YO F admitted with altered mental status. Now sepsis. Cover for Int Kody-DR Cormier. Step down unit Objective Last Vital Signs Date Time Temp Pulse Resp B/P (MAP) Pulse Ox O2 Delivery O2 Flow Rate FiO2 11/18/20 13:20 99.5 11/18/20 12:00 71 18 138/76 (96) 99 11/17/20 18:00 Room Air 11/13/20 07:55 21 11/12/20 00:00 2.0 Laboratory Tests Test 11/17/20 18:00 11/18/20 08:00 Stool Occult Blood Negative (NEGATIVE) White Blood Count 17.3 K/UL (4.8-10.8) H Red Blood Count 2.88 M/UL (4.20-5.40) L Hemoglobin 7.9 G/DL (12.0-16.0) L Hematocrit 26.3 % (37.0-47.0) L Mean Corpuscular Volume 91 FL (80-99) Mean Corpuscular Hemoglobin 27.4 PG (27.0-31.0) Mean Corpuscular Hemoglobin Concent 30.1 G/DL (32.0-36.0) L Red Cell Distribution Width 26.8 % (11.6-14.8) H Platelet Count 83 K/UL (150-450) L Mean Platelet Volume 10.2 FL (6.5-10.1) H Neutrophils (%) (Auto) % (45.0-75.0) Lymphocytes (%) (Auto) % (20.0-45.0) Monocytes (%) (Auto) % (1.0-10.0) Eosinophils (%) (Auto) % (0.0-3.0) Basophils (%) (Auto) % (0.0-2.0) Differential Total Cells Counted 100 Neutrophils % (Manual) 77 % (45-75) H Lymphocytes % (Manual) 16 % (20-45) L Monocytes % (Manual) 6 % (1-10) Eosinophils % (Manual) 1 % (0-3) Basophils % (Manual) 0 % (0-2) Band Neutrophils 0 % (0-8) Platelet Estimate Decreased L Platelet Morphology Normal Polychromasia 1+ Hypochromasia 1+ Anisocytosis 3+ Schistocytes Occasional Sodium Level 149 MMOL/L (136-145) H Potassium Level 2.9 MMOL/L (3.5-5.1) L Chloride Level 114 MMOL/L (98-107) H Carbon Dioxide Level 27 MMOL/L (21-32) Blood Urea Nitrogen 14 mg/dL (7-18) Creatinine 0.9 MG/DL (0.55-1.30) Estimat Glomerular Filtration Rate > 60 mL/min (>60) Glucose Level 67 MG/DL (74-106) L Calcium Level 7.5 MG/DL (8.5-10.1) L Phosphorus Level 2.7 MG/DL (2.5-4.9) Magnesium Level 1.8 MG/DL (1.8-2.4) Total Bilirubin 0.8 MG/DL (0.2-1.0) Aspartate Amino Transf (AST/SGOT) 27 U/L (15-37) Alanine Aminotransferase (ALT/SGPT) 24 U/L (12-78) Alkaline Phosphatase 107 U/L (46-116) Total Protein 4.9 G/DL (6.4-8.2) L Albumin 1.9 G/DL (3.4-5.0) L Globulin 3.0 g/dL Albumin/Globulin Ratio 0.6 (1.0-2.7) L Intake and Output 11/17/20 11/18/20 19:00 07:00 Intake Total 1540.555 ml 1125 ml Output Total 3000 ml 3200 ml Balance -1459.445 ml -2075 ml Intake Oral 500 ml 300 ml IV Total 1040.555 ml 825 ml Output Urine Total 3000 ml 3200 ml # Bowel Movements 2 Objective PHYSICAL EXAMINATION: GENERAL: Patient is altered, unresponsive, cannot follow commands. HEAD AND NECK: Pupils are equal and reactive to light. Anicteric. Neck was supple. No JVD. LUNGS: Good air entry. No wheezing or rhonchi. Decreased air in the bases. HEART: S1, S2. No murmur or gallops. ABDOMEN: Soft, nondistended, nontender. Positive bowel sounds. EXTREMITIES: No cyanosis, clubbing, or edema. NEUROLOGIC: Very limited secondary to patient's status. Cannot follow commands. However, moving extremities spontaneously. SKIN: No rashes were identified. Assessment/Plan Assessment/Plan Assessment/Plan Assessment/Plan 1. Septic shock=ESBL E. coli 2. Sepsis secondary to urinary tract infection, but can not R/O intraabdominal infection yet. 3. Dehydration and hypokalemia. 4. Altered mental status, most likely secondary to toxic metabolic encephalopathy. 5. Acute kidney injury. 6. Anemia. 7. History of multiple sclerosis. 8. COVID 19 pos-H/O COVID POS in Aug 2020. Repeat testing 11/08/20=positive. 11/12/20=COVID neg 9. Hypokalemia PLAN: In SDU IV hydration. Monitor laboratory and cultures. DVT prophylaxis: heparin subcutaneous. 2D echo. Code status: Full Code. Abx: Meropenem and vanco On hydrocortisone IV. Dr. Kline from Pul[facility] Critical [facility], Dr. Nat Courtney from ID, Dr. Grant from Cardiology Dr. Bridger Mari from Nephrology. Repeat COVID 19 ?false positive? Replace KCL IV Jad Sarabia MD Nov 18, 2020 14:36
[2020-11-18 16:00] VITALS: BP 125/71
--- NOTE | 2020-11-18 19:09 | Infectious Diseases Prog Note ---
Assessment/Plan Assessment/Plan ASSESSMENT AND PLAN: 1. e.coli bacteremia, sepsis, shock, pna, hx covid-19 infection/recovered, ? aspiration pna, hcap, ? cap, uti, c.diff. negative, leukocytosis, fevers, sirs, ? GI source, CT abdomen and pelvis and US noted, on steroids ? femoral line infection - femoral line changed to picc line - meropenem - day # 9 abx, discontinue vancomycin - on iv hydrocortisone - being tapered - monitor clinically, labs and chest x-ray - surveillance blood cultures negative - clinically improved, leukocytosis improving - d/w RN 2. History of COVID infection - in isolation currently, on steroids 3. Multiple sclerosis. 4. Weakness. 5. Acute kidney injury, elevated creatinine. 6. Hypertension. 7. Anemia. 8. Steroids. 9. No history of diabetes. 10. Continue treatment with primary consultants. 11. No known drug allergies. 12. Social history negative. 13. Family history is noncontributory. 14. MAR is noted. 15. Case was discussed with RN. 16. ICU care. 17. Skin care protocol. 18. Currently off pressors. 19. No vent currently. Subjective Constitutional: Reports: fever - low grade temperature , fatigue, other - feels better HEENT: Denies: congestion Respiratory: Denies: shortness of breath Cardiovascular: Denies: chest pain Gastrointestinal/Abdominal: Denies: nausea, vomiting, diarrhea Genitourinary: Reports: other - + harrison Neurologic: Denies: headache Psychiatric: Denies: depression Skin: Denies: rash Hematologic: Denies: bleeding Musculoskeletal: Denies: pain Allergies: Coded Allergies: No Known Allergies (Unverified , 11/08/20) Objective Last 24 Hour Vital Signs Date Time Temp Pulse Resp B/P (MAP) Pulse Ox O2 Delivery O2 Flow Rate FiO2 11/18/20 18:00 Room Air 11/18/20 17:21 88 125/71 11/18/20 16:00 99.0 88 20 125/71 (89) 98 11/18/20 15:13 79 11/18/20 13:20 99.5 11/18/20 12:00 99.5 71 18 138/76 (96) 99 11/18/20 11:49 75 11/18/20 08:33 95 126/72 11/18/20 08:00 98.1 95 20 126/72 (90) 97 11/18/20 07:28 84 11/18/20 04:00 70 11/18/20 04:00 98.6 66 17 145/77 (99) 100 11/18/20 00:00 98.6 75 21 124/65 (84) 98 11/18/20 00:00 74 11/17/20 20:00 83 11/17/20 20:00 99.1 74 18 129/89 (102) 99 Height (Feet): 5 Height (Inches): 5.00 Weight (Pounds): 165 General Appearance: no acute distress HEENT: normocephalic, atraumatic, anicteric, mucous membranes moist Respiratory/Chest: crackles/rales, rhonchi - bilaterally Cardiovascular: normal rate, regular rhythm, no gallop/murmur Abdomen: normal bowel sounds, soft, non tender, no organomegaly, non distended Genitourinary: other - + harrison - urine clearer Extremities: no cyanosis Skin: no rash 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 There is suggestion of small bilateral pleural effusions, not evident previously. Impression: Stable slightly increased bilateral infiltrates versus edema Satisfactory nasogastric intubation New bilateral small pleural effusions Chest x-ray - 11/14/20 - Procedure: XRAY Chest 1v Indication: Shortness of breath Technique: One view of the chest Comparison: 11/12/2020 Findings: Bilateral pleural effusions, bilateral interstitial and airspace edema persist, unchanged. Nasogastric tube is been removed. Impression: Interim nasogastric tube removal. 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 Trace pericholecystic fluid probably represents free intraperitoneal fluid. Bilateral pleural effusions Nonobstructive right renal calculus, also reported on recent CT scan. Incidental finding small right renal cyst But incomplete visualization of the abdominal aorta CT scan of abdomen and pelvis: IMPRESSION: 1. Cholelithiasis and nonspecific gallbladder wall edema in light of the third spacing. 2. Nonspecific bowel gas pattern. Microbiology Date/Time Source Procedure Growth Status 11/13/20 03:55 Blood Blood Culture - Preliminary NO GROWTH AFTER 72 HOURS Resulted 11/12/20 09:35 Nasopharynx Coronavirus COVID-19 PCR ([facility]) - Final Complete 11/09/20 23:45 Stool Clostridium difficile Toxin Assay - Final Complete Laboratory Tests Test 11/18/20 08:00 White Blood Count 17.3 K/UL (4.8-10.8) H Red Blood Count 2.88 M/UL (4.20-5.40) L Hemoglobin 7.9 G/DL (12.0-16.0) L Hematocrit 26.3 % (37.0-47.0) L Mean Corpuscular Volume 91 FL (80-99) Mean Corpuscular Hemoglobin 27.4 PG (27.0-31.0) Mean Corpuscular Hemoglobin Concent 30.1 G/DL (32.0-36.0) L Red Cell Distribution Width 26.8 % (11.6-14.8) H Platelet Count 83 K/UL (150-450) L Mean Platelet Volume 10.2 FL (6.5-10.1) H Neutrophils (%) (Auto) % (45.0-75.0) Lymphocytes (%) (Auto) % (20.0-45.0) Monocytes (%) (Auto) % (1.0-10.0) Eosinophils (%) (Auto) % (0.0-3.0) Basophils (%) (Auto) % (0.0-2.0) Differential Total Cells Counted 100 Neutrophils % (Manual) 77 % (45-75) H Lymphocytes % (Manual) 16 % (20-45) L Monocytes % (Manual) 6 % (1-10) Eosinophils % (Manual) 1 % (0-3) Basophils % (Manual) 0 % (0-2) Band Neutrophils 0 % (0-8) Platelet Estimate Decreased L Platelet Morphology Normal Polychromasia 1+ Hypochromasia 1+ Anisocytosis 3+ Schistocytes Occasional Sodium Level 149 MMOL/L (136-145) H Potassium Level 2.9 MMOL/L (3.5-5.1) L Chloride Level 114 MMOL/L (98-107) H Carbon Dioxide Level 27 MMOL/L (21-32) Blood Urea Nitrogen 14 mg/dL (7-18) Creatinine 0.9 MG/DL (0.55-1.30) Estimat Glomerular Filtration Rate > 60 mL/min (>60) Glucose Level 67 MG/DL (74-106) L Calcium Level 7.5 MG/DL (8.5-10.1) L Phosphorus Level 2.7 MG/DL (2.5-4.9) Magnesium Level 1.8 MG/DL (1.8-2.4) Total Bilirubin 0.8 MG/DL (0.2-1.0) Aspartate Amino Transf (AST/SGOT) 27 U/L (15-37) Alanine Aminotransferase (ALT/SGPT) 24 U/L (12-78) Alkaline Phosphatase 107 U/L (46-116) Total Protein 4.9 G/DL (6.4-8.2) L Albumin 1.9 G/DL (3.4-5.0) L Globulin 3.0 g/dL Albumin/Globulin Ratio 0.6 (1.0-2.7) L Current Medications Medications (Trade) Dose Ordered Sig/Bunny Route PRN Reason Start Time Stop Time Status Last Admin Dose Admin Acetaminophen (Tylenol) 650 mg Q4H PRN NG Temp >100.5 11/10/20 05:15 12/10/20 05:14 11/10/20 05:21 Amlodipine Besylate (Norvasc) 2.5 mg BID ORAL 11/16/20 18:00 12/14/20 18:14 11/18/20 17:21 Chlorhexidine Gluconate (Carmen-Hex 2%) 1 applic DAILY@2000 TOPIC 11/15/20 20:00 02/13/21 19:59 11/17/20 20:07 Ciprofloxacin (Ciloxan Opth Soln) 2 drop Q4HR LEFT EYE 11/17/20 18:00 11/24/20 17:59 11/18/20 17:19 Dextrose 1,000 ml @ 75 mls/hr [id number] IV 11/17/20 12:30 12/17/20 12:29 11/18/20 15:32 Dextrose (Dextrose 50%) 25 ml Q30M PRN IV Hypoglycemia 11/10/20 23:45 02/08/21 23:44 Dextrose (Dextrose 50%) 50 ml Q30M PRN IV Hypoglycemia 11/10/20 23:45 02/08/21 23:44 Hydrocortisone (Solu-CORTEF) 25 mg Q12H IV 11/17/20 18:00 02/15/21 17:59 11/18/20 17:24 Meropenem 1 gm/ Sodium Chloride 100 ml @ 200 mls/hr Q8HR IVPB 11/16/20 14:00 11/21/20 13:59 11/18/20 14:09 Potassium Chloride (K-Dur) 40 meq TWICE A DAY ORAL 11/17/20 18:00 02/15/21 17:59 11/18/20 17:20 Spironolactone (Aldactone) 25 mg DAILY ORAL 11/19/20 09:00 12/19/20 08:59 Tramadol HCl (Ultram) 50 mg Q6H PRN ORAL For Pain 11/15/20 23:30 11/22/20 23:29 11/18/20 12:50 Nat Courtney MD Nov 18, 2020 19:09
--- NOTE | 2020-11-18 19:49 | Cardiology Report ---
APPROVED REPORT EKG Measurement Heart [id number] DC 130P61 [id number] <Conclusion> Sinus tachycardia Otherwise normal ECG
[2020-11-18] MEDS: Dyna-Hex 2% Top Sol 2oz TOPIC SCH (19:50)
[2020-11-18 20:00] VITALS: BP 145/90
[2020-11-19] VITALS: BP 138/87
[2020-11-19] MEDS: Ciprofloxacin Opth Soln 5ml LEFT EYE SCH ×6 (00:47→21:37)
[2020-11-19 04:00] VITALS: BP 161/89
[2020-11-19] MEDS: Hydrocortisone 100mg Inj IV SCH ×2 (05:09→17:07)
--- NOTE | 2020-11-19 06:24 | General Progress Note ---
Subjective ROS Limited/Unobtainable: No Allergies: Coded Allergies: No Known Allergies (Unverified , 11/08/20) Objective Last 24 Hour Vital Signs Date Time Temp Pulse Resp B/P (MAP) Pulse Ox O2 Delivery O2 Flow Rate FiO2 11/19/20 04:00 98.1 65 21 161/89 (113) 99 11/19/20 03:41 69 11/19/20 00:00 70 11/19/20 00:00 98.2 75 20 138/87 (104) 98 11/18/20 20:00 75 11/18/20 20:00 98.1 77 20 145/90 (108) 97 11/18/20 18:00 Room Air 11/18/20 17:21 88 125/71 11/18/20 16:00 99.0 88 20 125/71 (89) 98 11/18/20 15:13 79 11/18/20 13:20 99.5 11/18/20 12:00 99.5 71 18 138/76 (96) 99 11/18/20 11:49 75 11/18/20 08:33 95 126/72 11/18/20 08:00 98.1 95 20 126/72 (90) 97 11/18/20 07:28 84 Intake and Output 11/18/20 11/19/20 19:00 07:00 Intake Total 1260 ml 700 ml Output Total 2500 ml 4500 ml Balance -1240 ml -3800 ml Intake Oral 360 ml 100 ml IV Total 900 ml 600 ml Output Urine Total 2500 ml 4500 ml Laboratory Tests 11/18/20 08:00: White Blood Count 17.3H, Red Blood Count 2.88L, Hemoglobin 7.9L, Hematocrit 26.3L, Mean Corpuscular Volume 91, Mean Corpuscular Hemoglobin 27.4, Mean Corpuscular Hemoglobin Concent 30.1L, Red Cell Distribution Width 26.8H, Platelet Count 83L, Mean Platelet Volume 10.2H, Neutrophils (%) (Auto) , Lymphocytes (%) (Auto) , Monocytes (%) (Auto) , Eosinophils (%) (Auto) , Basophils (%) (Auto) , Differential Total Cells Counted 100, Neutrophils % (Manual) 77H, Lymphocytes % (Manual) 16L, Monocytes % (Manual) 6, Eosinophils % (Manual) 1, Basophils % (Manual) 0, Band Neutrophils 0, Platelet Estimate DecreasedL, Platelet Morphology Normal, Polychromasia 1+, Hypochromasia 1+, Anisocytosis 3+, Schistocytes Occasional, Sodium Level 149H, Potassium Level 2.9L, Chloride Level 114H, Carbon Dioxide Level 27, Blood Urea Nitrogen 14, Creatinine 0.9, Estimat Glomerular Filtration Rate > 60, Glucose Level 67L, Calcium Level 7.5L, Phosphorus Level 2.7, Magnesium Level 1.8, Total Bilirubin 0.8, Aspartate Amino Transf (AST/SGOT) 27, Alanine Aminotransferase (ALT/SGPT) 24, Alkaline Phosphatase 107, Total Protein 4.9L, Albumin 1.9L, Globulin 3.0, Albumin/Globulin Ratio 0.6L 11/19/20 04:39: White Blood Count [Pending], Red Blood Count [Pending], Hemoglobin [Pending], Hematocrit [Pending], Mean Corpuscular Volume [Pending], Mean Corpuscular Hemoglobin [Pending], Mean Corpuscular Hemoglobin Concent [Pending], Red Cell Distribution Width [Pending], Platelet Count [Pending], Mean Platelet Volume [Pending], Neutrophils (%) (Auto) [Pending], Lymphocytes (%) (Auto) [Pending], Monocytes (%) (Auto) [Pending], Eosinophils (%) (Auto) [Pending], Basophils (%) (Auto) [Pending], Sodium Level [Pending], Potassium Level [Pending], Chloride Level [Pending], Carbon Dioxide Level [Pending], Blood Urea Nitrogen [Pending], Creatinine [Pending], Estimat Glomerular Filtration Rate [Pending], Glucose Level [Pending], Calcium Level [Pending], Phosphorus Level [Pending], Magnesium Level [Pending], Total Bilirubin [Pending], Aspartate Amino Transf (AST/SGOT) [Pending], Alanine Aminotransferase (ALT/SGPT) [Pending], Alkaline Phosphatase [Pending], Total Protein [Pending], Albumin [Pending], Globulin [Pending] Height (Feet): 5 Height (Inches): 5.00 Weight (Pounds): 165 General Appearance: no apparent distress EENT: normal ENT inspection Neck: supple Cardiovascular: normal rate Respiratory/Chest: decreased breath sounds Extremities: non-tender Assessment/Plan Problem List: (1) Rectal bleeding ICD Codes: K62.5 - Hemorrhage of anus and rectum SNOMED: 06787708 (2) Sepsis ICD Codes: A41.9 - Sepsis, unspecified organism SNOMED: 54195483, 024077620 Qualifiers: Qualified Codes: A41.9 - Sepsis, unspecified organism; R65.20 - Severe sepsis without septic shock; G93.40 - Encephalopathy, unspecified (3) Electrolyte imbalance ICD Codes: E87.8 - Other disorders of electrolyte and fluid balance, not elsewhere classified SNOMED: 572932522 (4) Acute metabolic encephalopathy ICD Codes: G93.41 - Metabolic encephalopathy SNOMED: 18074778, 164229763 (5) Anemia ICD Codes: D64.9 - Anemia, unspecified SNOMED: 107931314 Qualifiers: Qualified Codes: D64.9 - Anemia, unspecified (6) Septic shock ICD Codes: A41.9 - Sepsis, unspecified organism; R65.21 - Severe sepsis with septic shock SNOMED: 94318721 (7) Diarrhea ICD Codes: R19.7 - Diarrhea, unspecified SNOMED: 22797644 Qualifiers: Qualified Codes: R19.7 - Diarrhea, unspecified Assessment/Plan: C.diff neg abx per ID for severe UTI stool ob positive and drop in H&H rectal bleed on admission plan EGD and colonoscopy this week if WBC improves repeat cbc repeat stool ob neg Gold Sears MD Nov 19, 2020 06:24
[2020-11-19 06:26] LABS: HEMATOCRIT 27.5 % (37.0-47.0); HEMOGLOBIN 8.4 G/DL (12.0-16.0); MEAN CORPUSCULAR VOLUME 92 FL (80-99); PLATELET COUNT 99 K/UL (150-450); RED CELL DISTRIBUTION WIDTH 26.2 % (11.6-14.8)
[2020-11-19 06:53] LABS: PHOSPHORUS 3.1 MG/DL (2.5-4.9)
[2020-11-19 07:15] LABS: ALANINE AMINOTRANSFERASE 25 U/L (12-78); ALBUMIN 2.1 G/DL (3.4-5.0); ALBUMIN/GLOBULIN RATIO 0.6 (1.0-2.7); ALKALINE PHOSPHATASE 105 U/L (46-116); ANION GAP 5 mmol/L (5-15); ASPARTATE AMINO TRANSFERASE 26 U/L (15-37); BILIRUBIN,TOTAL 0.6 MG/DL (0.2-1.0); BLOOD UREA NITROGEN 12 mg/dL (7-18); CALCIUM 7.7 MG/DL (8.5-10.1); CARBON DIOXIDE 30 MMOL/L (21-32); CHLORIDE 112 MMOL/L (98-107); CREATININE 0.8 MG/DL (0.55-1.30); POTASSIUM 3.3 MMOL/L (3.5-5.1); SODIUM 147 MMOL/L (136-145)
[2020-11-19 08:00] VITALS: BP 159/77
[2020-11-19] MEDS: Spironolactone 25mg tab ORAL SCH (09:28)
[2020-11-19] MEDS: traMADol 50mg tab ORAL PRN ×3 (09:34→21:25)
--- NOTE | 2020-11-19 10:13 | Nephrology Progress Note ---
Assessment/Plan Problem List: (1) VALERIA (acute kidney injury) (2) Septic shock (3) Multiple sclerosis (4) Acute metabolic encephalopathy (5) Anemia (6) Electrolyte imbalance Assessment Acute renal failure Sepsis, shock Acute metabolic encephalopathy Anemia UTI Plan November 19: Labs reviewed. Low potassium and low magnesium addressed. IV fluid discontinued. Continue to monitor renal parameters and electrolytes. November 18: Labs reviewed. Low potassium addressed. Continue to monitor electrolytes. Discussed with RN. November 17: Labs reviewed. Abnormal electrolytes addressed. IV fluid changed to D5W at 75 cc an hour. Continue to monitor renal parameters. Continue per consultants. Discussed with RN. November 16: Labs reviewed. Abnormal electrolyte addressed. Blood pressure medication adjusted. Continue per consultants. Leukocytosis persists. November 15: Labs reviewed. Abnormal electrolytes addressed. Continue per current treatment plan. Leukocytosis persists. November 14: Labs reviewed. Abnormal electrolytes much improved. Discussed with RN Afsoon. Serum creatinine normalized. Continue per consultants. November 13: Labs reviewed. Low potassium and low phosphorus addressed. Discussed with RN. Continue to monitor renal parameters. Serum creatinine now down to 1.3. November 12: Labs reviewed. Potassium 2.2, replacement ordered. Serum creatinine down to 1.6. Discussed with RN. Continue per consultants. Renal pa rameters. November 11: Labs reviewed. Low potassium replaced. Serum creatinine 1.9. Patient full code. On nasal cannula. Discussed with RN. Continue per consultants. Continue to monitor renal parameters November 10 labs reviewed. Serum creatinine 2. Patient more lethargic today. NG tube and feeding through NG to be initiated. Patient full code. Continue to monitor renal parameters. November 09: Low magnesium replaced. IV iron ordered. Labs reviewed. Albumin bolus given. Serum creatinine higher to 2.3. Continue current management. Patient full code. Previously: ICU Pressors Hydrate Monitor renal parameters and electrolytes Anemia work-up Avoid nephrotoxic's Subjective ROS Limited/Unobtainable: No Constitutional: Reports: malaise Objective Objective Last 24 Hour Vital Signs Date Time Temp Pulse Resp B/P (MAP) Pulse Ox O2 Delivery O2 Flow Rate FiO2 11/19/20 09:26 68 159/77 11/19/20 08:00 98.4 68 18 159/77 (104) 100 11/19/20 04:00 98.1 65 21 161/89 (113) 99 11/19/20 03:41 69 11/19/20 00:00 70 11/19/20 00:00 98.2 75 20 138/87 (104) 98 11/18/20 20:00 75 11/18/20 20:00 98.1 77 20 145/90 (108) 97 11/18/20 18:00 Room Air 11/18/20 17:21 88 125/71 11/18/20 16:00 99.0 88 20 125/71 (89) 98 11/18/20 15:13 79 11/18/20 13:20 99.5 11/18/20 12:00 99.5 71 18 138/76 (96) 99 11/18/20 11:49 75 Intake and Output 11/18/20 11/19/20 19:00 07:00 Intake Total 1260 ml 700 ml Output Total 2500 ml 4500 ml Balance -1240 ml -3800 ml Intake Oral 360 ml 100 ml IV Total 900 ml 600 ml Output Urine Total 2500 ml 4500 ml Current Medications Medications (Trade) Dose Ordered Sig/Bunny Route PRN Reason Start Time Stop Time Status Last Admin Dose Admin Acetaminophen (Tylenol) 650 mg Q4H PRN NG Temp >100.5 11/10/20 05:15 12/10/20 05:14 11/10/20 05:21 Amlodipine Besylate (Norvasc) 2.5 mg BID ORAL 11/16/20 18:00 12/14/20 18:14 11/19/20 09:26 Chlorhexidine Gluconate (Carmen-Hex 2%) 1 applic DAILY@2000 TOPIC 11/15/20 20:00 02/13/21 19:59 11/18/20 19:50 Ciprofloxacin (Ciloxan Opth Soln) 2 drop Q4HR LEFT EYE 11/17/20 18:00 11/24/20 17:59 11/19/20 09:27 Dextrose 1,000 ml @ 75 mls/hr [id number] IV 11/17/20 12:30 12/17/20 12:29 11/19/20 04:34 Dextrose (Dextrose 50%) 25 ml Q30M PRN IV Hypoglycemia 11/10/20 23:45 02/08/21 23:44 Dextrose (Dextrose 50%) 50 ml Q30M PRN IV Hypoglycemia 11/10/20 23:45 02/08/21 23:44 Hydrocortisone (Solu-CORTEF) 25 mg Q12H IV 11/17/20 18:00 02/15/21 17:59 11/19/20 05:09 Meropenem 1 gm/ Sodium Chloride 100 ml @ 200 mls/hr Q8HR IVPB 11/16/20 14:00 11/21/20 13:59 11/19/20 05:09 Potassium Chloride (K-Dur) 40 meq TWICE A DAY ORAL 11/17/20 18:00 02/15/21 17:59 11/19/20 09:25 Spironolactone (Aldactone) 25 mg DAILY ORAL 11/19/20 09:00 12/19/20 08:59 11/19/20 09:28 Tramadol HCl (Ultram) 50 mg Q6H PRN ORAL For Pain 11/15/20 23:30 11/22/20 23:29 11/19/20 09:34 Laboratory Tests 11/19/20 04:39: White Blood Count 16.0H, Red Blood Count 3.00L, Hemoglobin 8.4L, Hematocrit 27.5L, Mean Corpuscular Volume 92, Mean Corpuscular Hemoglobin 28.1, Mean Corpuscular Hemoglobin Concent 30.7L, Red Cell Distribution Width 26.2H, Platelet Count 99L, Mean Platelet Volume 10.8H, Neutrophils (%) (Auto) , Lymphocytes (%) (Auto) , Monocytes (%) (Auto) , Eosinophils (%) (Auto) , Basophils (%) (Auto) , Differential Total Cells Counted 100, Neutrophils % (Manual) 83H, Lymphocytes % (Manual) 7L, Monocytes % (Manual) 8, Eosinophils % (Manual) 0, Basophils % (Manual) 0, Band Neutrophils 2, Platelet Estimate Dec reasedL, Platelet Morphology , Giant Platelets Occasional, Polychromasia 1+, Hypochromasia 1+, Anisocytosis 3+, Schistocytes 1+, Sodium Level 147H, Potassium Level 3.3L, Chloride Level 112H, Carbon Dioxide Level 30, Anion Gap 5, Blood Urea Nitrogen 12, Creatinine 0.8, Estimat Glomerular Filtration Rate > 60, Glucose Level 108H, Calcium Level 7.7L, Phosphorus Level 3.1, Magnesium Level 1.6L, Total Bilirubin 0.6, Aspartate Amino Transf (AST/SGOT) 26, Alanine Aminotransferase (ALT/SGPT) 25, Alkaline Phosphatase 105, Total Protein 5.5L, Albumin 2.1L, Globulin 3.4, Albumin/Globulin Ratio 0.6L Height (Feet): 5 Height (Inches): 5.00 Weight (Pounds): 165 General Appearance: no apparent distress Cardiovascular: normal rate Respiratory/Chest: decreased breath sounds Abdomen: distended Bridger Mari MD Nov 19, 2020 10:13
--- NOTE | 2020-11-19 11:05 | Surgery Progress Note ---
Surgery Progress Note Subjective Symptoms: improved, tolerating diet, passing flatus Additional Comments wbc improving d/c planning Objective Last 24 Hour Vital Signs Date Time Temp Pulse Resp B/P (MAP) Pulse Ox O2 Delivery O2 Flow Rate FiO2 11/19/20 09:26 68 159/77 11/19/20 08:00 98.4 68 18 159/77 (104) 100 11/19/20 08:00 77 11/19/20 04:00 98.1 65 21 161/89 (113) 99 11/19/20 03:41 69 11/19/20 00:00 70 11/19/20 00:00 98.2 75 20 138/87 (104) 98 11/18/20 20:00 75 11/18/20 20:00 98.1 77 20 145/90 (108) 97 11/18/20 18:00 Room Air 11/18/20 17:21 88 125/71 11/18/20 16:00 99.0 88 20 125/71 (89) 98 11/18/20 15:13 79 11/18/20 13:20 99.5 11/18/20 12:00 99.5 71 18 138/76 (96) 99 11/18/20 11:49 75 I&O Intake and Output 11/18/20 11/19/20 19:00 07:00 Intake Total 1260 ml 700 ml Output Total 2500 ml 4500 ml Balance -1240 ml -3800 ml Intake Oral 360 ml 100 ml IV Total 900 ml 600 ml Output Urine Total 2500 ml 4500 ml Dressing: saturated Wound: clean Cardiovascular: RSR Respiratory: decreased breath sounds Abdomen: soft, non-tender, present bowel sounds, non-distended Extremities: no edema, no tenderness, no cyanosis Laboratory Tests Test 11/19/20 04:39 White Blood Count 16.0 K/UL (4.8-10.8) H Red Blood Count 3.00 M/UL (4.20-5.40) L Hemoglobin 8.4 G/DL (12.0-16.0) L Hematocrit 27.5 % (37.0-47.0) L Mean Corpuscular Volume 92 FL (80-99) Mean Corpuscular Hemoglobin 28.1 PG (27.0-31.0) Mean Corpuscular Hemoglobin Concent 30.7 G/DL (32.0-36.0) L Red Cell Distribution Width 26.2 % (11.6-14.8) H Platelet Count 99 K/UL (150-450) L Mean Platelet Volume 10.8 FL (6.5-10.1) H Neutrophils (%) (Auto) % (45.0-75.0) Lymphocytes (%) (Auto) % (20.0-45.0) Monocytes (%) (Auto) % (1.0-10.0) Eosinophils (%) (Auto) % (0.0-3.0) Basophils (%) (Auto) % (0.0-2.0) Differential Total Cells Counted 100 Neutrophils % (Manual) 83 % (45-75) H Lymphocytes % (Manual) 7 % (20-45) L Monocytes % (Manual) 8 % (1-10) Eosinophils % (Manual) 0 % (0-3) Basophils % (Manual) 0 % (0-2) Band Neutrophils 2 % (0-8) Platelet Estimate Decreased L Platelet Morphology Giant Platelets Occasional Polychromasia 1+ Hypochromasia 1+ Anisocytosis 3+ Schistocytes 1+ Sodium Level 147 MMOL/L (136-145) H Potassium Level 3.3 MMOL/L (3.5-5.1) L Chloride Level 112 MMOL/L (98-107) H Carbon Dioxide Level 30 MMOL/L (21-32) Anion Gap 5 mmol/L (5-15) Blood Urea Nitrogen 12 mg/dL (7-18) Creatinine 0.8 MG/DL (0.55-1.30) Estimat Glomerular Filtration Rate > 60 mL/min (>60) Glucose Level 108 MG/DL (74-106) H Calcium Level 7.7 MG/DL (8.5-10.1) L Phosphorus Level 3.1 MG/DL (2.5-4.9) Magnesium Level 1.6 MG/DL (1.8-2.4) L Total Bilirubin 0.6 MG/DL (0.2-1.0) Aspartate Amino Transf (AST/SGOT) 26 U/L (15-37) Alanine Aminotransferase (ALT/SGPT) 25 U/L (12-78) Alkaline Phosphatase 105 U/L (46-116) Total Protein 5.5 G/DL (6.4-8.2) L Albumin 2.1 G/DL (3.4-5.0) L Globulin 3.4 g/dL Albumin/Globulin Ratio 0.6 (1.0-2.7) L Plan Problems: (1) Anemia (2) Sepsis Assessment & Plan: 44-year-old female with altered mental status, lactic acidosis, leukocytosis, sepsis. Vitals currently stable. Abdominal exam mild distention but limited. Will obtain imaging. Labs noted UTI on antibiotics fluid resuscitation trend labs we will follow with examination and recommendations. CT head reviewed. much improved now responsive states well no abd symptoms okay for diet labs noted exam stable diet as tolerated trend labs iv fluids Possible higher level of care for cardiac work up and intervention noted. She is off Biap and on nasal cannula saturation ok at her bedside. Work of breathing noted. Creatine continued to be rising 1.7 today. improved labs improved d/c planning Interpretation/Plan/Recommendation: 1. Very high risk of aspiration insetting of Advanced heart failure with onset of multiorgan failure 2. If she is going higher level of care within 24 hours, Hold PO except medication, 3. If she will stay, recommend goal of care and place PO with pureed and [place] thick liquid No acute intracranial hemorrhage. No midline shift or mass effect. The territorial hassan-white matter differentiation is maintained throughout. The ventricles and sulci are commensurate with age. The visualized orbits appear grossly unremarkable. The calvarium is intact. The visualized paranasal sinuses and mastoid air cells are grossly clear. CT noted Liver: Unremarkable Gallbladder and bile ducts: Cholelithiasis and nonspecific gallbladder wall edema in light of the third spacing. Pancreas: Stranding around the pancreas, could be from pancreatitis or the third spacing. Correlate with amylase or lipase values as clinically appropriate. Spleen: Unremarkable. Adrenals: Unremarkable. Kidneys and ureters: Right nephrolithiasis. Stomach and bowel: Nonspecific bowel gas pattern. Nonspecific thickening of the GI tract in light of the third spacing. PELVIS: Appendix: No findings to suggest acute appendicitis. Bladder: Duffy catheter. Reproductive: Exophytic fibroid versus complex left adnexal lesion measuring approximately 4.1 cm. Subperitoneal space: Presacral edema. ABDOMEN and PELVIS: Intraperitoneal space: Edema throughout the peritoneal cavity. Small amounts of fluid in the peritoneal cavity. Bones/joints: No acute fracture. Soft tissues: Anasarca Vasculature: Unremarkable. No abdominal aortic aneurysm. Lymph nodes: No enlarged lymph nodes. Tubes, lines and devices: Rectal tube. Right femoral central line. Enteric tube in the stomach. IMPRESSION: 1. Cholelithiasis and nonspecific gallbladder wall edema in light of the third spacing. 2. Nonspecific bowel gas pattern. There is a small amount of pleural fluid bilaterally. Gallbladder is unremarkable, without stones, wall thickening. There is trace pericholecystic Fluid. Sonographic Fregoso's sign is negative. Common bile duct measures 3 mm in diameter. No intrahepatic biliary ductal dilatation. Liver demonstrates normal echo genicity, no focal abnormality. Portal vein and hepatic veins are patent. Pancreas is unremarkable. Spleen is unremarkable. Left kidney measures 10.6 cm in length. Right kidney measures 10 cm length. Both kidneys demonstrate normal echogenicity. There is no hydronephrosis. There is a small right renal cyst. Echogenic focus in the right kidney likely represents one of the calculi demonstrated on recent CT scan . Abdominal aorta is partially obscured by bowel gas, visualized portions are non-aneurysmal . Impression: Negative for gallstones or dilated bile ducts. Trace pericholecystic fluid probably represents free intraperitoneal fluid. Bilateral pleural effusions Nonobstructive right renal calculus, also reported on recent CT scan. Incidental finding small right renal cyst But incomplete visualization of the abdominal aorta (3) UTI (urinary tract infection) (4) VALERIA (acute kidney injury) (5) Acute metabolic encephalopathy (6) Diarrhea (7) Multiple sclerosis (8) Septic shock (9) Electrolyte imbalance (10) Rectal bleeding Archie Saavedra Nov 19, 2020 11:05
--- NOTE | 2020-11-19 11:39 | Pulmonology Progress Note ---
Subjective ROS Limited/Unobtainable: No Interval Events: Saturating well on room air Constitutional: Reports: fever - resolved, fatigue, other - feels better HEENT: Repors: no symptoms Respiratory: Reports: no symptoms Cardiovascular: Reports: no symptoms Gastrointestinal/Abdominal: Denies: nausea, vomiting, diarrhea Psychiatric: Denies: depression Skin: Denies: rash Musculoskeletal: Denies: pain Allergies: Coded Allergies: No Known Allergies (Unverified , 11/08/20) Objective Last 24 Hour Vital Signs Date Time Temp Pulse Resp B/P (MAP) Pulse Ox O2 Delivery O2 Flow Rate FiO2 11/19/20 10:04 98.4 11/19/20 09:26 68 159/77 11/19/20 08:00 98.4 68 18 159/77 (104) 100 11/19/20 08:00 77 11/19/20 04:00 98.1 65 21 161/89 (113) 99 11/19/20 03:41 69 11/19/20 00:00 70 11/19/20 00:00 98.2 75 20 138/87 (104) 98 11/18/20 20:00 75 11/18/20 20:00 98.1 77 20 145/90 (108) 97 11/18/20 18:00 Room Air 11/18/20 17:21 88 125/71 11/18/20 16:00 99.0 88 20 125/71 (89) 98 11/18/20 15:13 79 11/18/20 13:20 99.5 11/18/20 12:00 99.5 71 18 138/76 (96) 99 11/18/20 11:49 75 Intake and Output 11/18/20 11/19/20 19:00 07:00 Intake Total 1260 ml 700 ml Output Total 2500 ml 4500 ml Balance -1240 ml -3800 ml Intake Oral 360 ml 100 ml IV Total 900 ml 600 ml Output Urine Total 2500 ml 4500 ml General Appearance: WD/WN HEENT: normocephalic Respiratory: chest wall non-tender Cardiovascular: normal peripheral pulses Abdomen: soft, non tender Laboratory Tests 11/19/20 04:39: White Blood Count 16.0H, Red Blood Count 3.00L, Hemoglobin 8.4L, Hematocrit 27.5L, Mean Corpuscular Volume 92, Mean Corpuscular Hemoglobin 28.1, Mean Corpuscular Hemoglobin Concent 30.7L, Red Cell Distribution Width 26.2H, Platelet Count 99L, Mean Platelet Volume 10.8H, Neutrophils (%) (Auto) , Lymphocytes (%) (Auto) , Monocytes (%) (Auto) , Eosinophils (%) (Auto) , Basophils (%) (Auto) , Differential Total Cells Counted 100, Neutrophils % (Manual) 83H, Lymphocytes % (Manual) 7L, Monocytes % (Manual) 8, Eosinophils % (Manual) 0, Basophils % (Manual) 0, Band Neutrophils 2, Platelet Estimate DecreasedL, Platelet Morphology , Giant Platelets Occasional, Polychromasia 1+, Hypochromasia 1+, Anisocytosis 3+, Schistocytes 1+, Sodium Level 147H, Potassium Level 3.3L, Chloride Level 112H, Carbon Dioxide Level 30, Anion Gap 5, Blood Urea Nitrogen 12, Creatinine 0.8, Estimat Glomerular Filtration Rate > 60, Glucose Level 108H, Calcium Level 7.7L, Phosphorus Level 3.1, Magnesium Level 1.6L, Total Bilirubin 0.6, Aspartate Amino Transf (AST/SGOT) 26, Alanine Aminotransferase (ALT/SGPT) 25, Alkaline Phosphatase 105, Total Protein 5.5L, Albumin 2.1L, Globulin 3.4, Albumin/Globulin Ratio 0.6L Current Medications Medications (Trade) Dose Ordered Sig/Bunny Route PRN Reason Start Time Stop Time Status Last Admin Dose Admin Acetaminophen (Tylenol) 650 mg Q4H PRN NG Temp >100.5 11/10/20 05:15 12/10/20 05:14 11/10/20 05:21 Amlodipine Besylate (Norvasc) 5 mg BID ORAL 11/19/20 18:00 12/14/20 18:14 Chlorhexidine Gluconate (Carmen-Hex 2%) 1 applic DAILY@1999 TOPIC 11/15/20 20:00 02/13/21 19:59 11/18/20 19:50 Ciprofloxacin (Ciloxan Opth Soln) 2 drop Q4HR LEFT EYE 11/17/20 18:00 11/24/20 17:59 11/19/20 09:27 Dextrose (Dextrose 50%) 25 ml Q30M PRN IV Hypoglycemia 11/10/20 23:45 02/08/21 23:44 Dextrose (Dextrose 50%) 50 ml Q30M PRN IV Hypoglycemia 11/10/20 23:45 02/08/21 23:44 Hydrocortisone (Solu-CORTEF) 25 mg Q12H IV 11/17/20 18:00 02/15/21 17:59 11/19/20 05:09 Magnesium Sulfate 100 ml @ 100 mls/hr Q1H IVPB 11/19/20 10:15 11/19/20 14:14 11/19/20 11:30 Meropenem 1 gm/ Sodium Chloride 100 ml @ 200 mls/hr Q8HR IVPB 11/16/20 14:00 11/21/20 13:59 11/19/20 05:09 Potassium Chloride (K-Dur) 40 meq TWICE A DAY ORAL 11/17/20 18:00 02/15/21 17:59 11/19/20 09:25 Spironolactone (Aldactone) 25 mg DAILY ORAL 11/19/20 09:00 12/19/20 08:59 11/19/20 09:28 Tramadol HCl (Ultram) 50 mg Q6H PRN ORAL For Pain 11/15/20 23:30 11/22/20 23:29 11/19/20 09:34 Assessment/Plan Assessment/Plan 1. Septic shock. Resolved 2. Hypotension. Resolved 3. Status post central line placement. 4. Multiple sclerosis. 5. Diarrhea, ruled out for C. difficile colitis. 6. E. coli bacteremia; on Meropenem 7. DVT prophylaxis. -D-dimer 11.5 - we will start on Lovenox -Venous duplex of legs (11/19) Discussion: Now off pressors. s/p PO bicarb supplementation. Continue broad-spectrum antibiotics. The care of this patient was discussed with my supervising physician Time spent for this encounter was approximately 31 minutes Wolfgang Montoya Nov 19, 2020 11:39
[2020-11-19 12:00] VITALS: BP 162/78
[2020-11-19] MEDS ORDERED: Tubing IV Secondary IV ONE ×2 (12:59→18:15)
[2020-11-19] MEDS ORDERED: NS 275ml ONE ×2 (12:59→18:15)
--- NOTE | 2020-11-19 15:34 | Diagnostic Imaging Report ---
Indication:Leg pain and swelling Technique: Grayscale and duplex Doppler imaging of the veins in both lower extremities performed in real time utilizing compression and augmentation. Comparison: None Findings: Duplex Doppler interrogation of the veins in both lower extremity is performed from the common femoral vein to the popliteal vein. Normal venous compressibility demonstrated throughout. No thrombus identified. Waveform analysis shows good respiratory phasicity and augmentation. IMPRESSION: No evidence of deep venous thrombosis involving the visualized veins of the bilateral lower extremities.
[2020-11-19 16:00] VITALS: BP 139/73
--- NOTE | 2020-11-19 18:45 | Internal Med Progress Note ---
Subjective Date of Service: Nov 19, 2020 Physician Name SarabiaJad treadwell Attending Physician Kris Cormier MD Current Medications Medications (Trade) Dose Ordered Sig/Bunny Route PRN Reason Start Time Stop Time Status Last Admin Dose Admin Acetaminophen (Tylenol) 650 mg Q4H PRN NG Temp >100.5 11/10/20 05:15 12/10/20 05:14 11/10/20 05:21 Amlodipine Besylate (Norvasc) 5 mg BID ORAL 11/19/20 18:00 12/14/20 18:14 11/19/20 17:09 Chlorhexidine Gluconate (Carmen-Hex 2%) 1 applic DAILY@2000 TOPIC 11/15/20 20:00 02/13/21 19:59 11/18/20 19:50 Ciprofloxacin (Ciloxan Opth Soln) 2 drop Q4HR LEFT EYE 11/17/20 18:00 11/24/20 17:59 11/19/20 17:16 Dextrose (Dextrose 50%) 25 ml Q30M PRN IV Hypoglycemia 11/10/20 23:45 02/08/21 23:44 Dextrose (Dextrose 50%) 50 ml Q30M PRN IV Hypoglycemia 11/10/20 23:45 02/08/21 23:44 Enoxaparin Sodium (Lovenox) 40 mg DAILY SUBQ 11/20/20 09:00 02/18/21 08:59 Hydrocortisone (Solu-CORTEF) 25 mg Q12H IV 11/17/20 18:00 02/15/21 17:59 11/19/20 17:07 Meropenem 1 gm/ Sodium Chloride 100 ml @ 200 mls/hr Q8HR IVPB 11/16/20 14:00 11/21/20 13:59 11/19/20 13:29 Potassium Chloride (K-Dur) 40 meq TWICE A DAY ORAL 11/17/20 18:00 02/15/21 17:59 11/19/20 17:08 Spironolactone (Aldactone) 25 mg DAILY ORAL 11/19/20 09:00 12/19/20 08:59 11/19/20 09:28 Tramadol HCl (Ultram) 50 mg Q6H PRN ORAL For Pain 11/15/20 23:30 11/22/20 23:29 11/19/20 15:12 Allergies: Coded Allergies: No Known Allergies (Unverified , 11/08/20) ROS Limited/Unobtainable: Yes Subjective 44 YO F admitted with altered mental status. Now sepsis. Cover for Int Kody-DR Cormier. Step down unit Objective Last Vital Signs Date Time Temp Pulse Resp B/P (MAP) Pulse Ox O2 Delivery O2 Flow Rate FiO2 11/19/20 18:00 Room Air 11/19/20 17:09 78 139/72 11/19/20 16:00 98.1 20 100 11/19/20 07:00 21 11/12/20 00:00 2.0 Laboratory Tests Test 11/19/20 04:39 White Blood Count 16.0 K/UL (4.8-10.8) H Red Blood Count 3.00 M/UL (4.20-5.40) L Hemoglobin 8.4 G/DL (12.0-16.0) L Hematocrit 27.5 % (37.0-47.0) L Mean Corpuscular Volume 92 FL (80-99) Mean Corpuscular Hemoglobin 28.1 PG (27.0-31.0) Mean Corpuscular Hemoglobin Concent 30.7 G/DL (32.0-36.0) L Red Cell Distribution Width 26.2 % (11.6-14.8) H Platelet Count 99 K/UL (150-450) L Mean Platelet Volume 10.8 FL (6.5-10.1) H Neutrophils (%) (Auto) % (45.0-75.0) Lymphocytes (%) (Auto) % (20.0-45.0) Monocytes (%) (Auto) % (1.0-10.0) Eosinophils (%) (Auto) % (0.0-3.0) Basophils (%) (Auto) % (0.0-2.0) Differential Total Cells Counted 100 Neutrophils % (Manual) 83 % (45-75) H Lymphocytes % (Manual) 7 % (20-45) L Monocytes % (Manual) 8 % (1-10) Eosinophils % (Manual) 0 % (0-3) Basophils % (Manual) 0 % (0-2) Band Neutrophils 2 % (0-8) Platelet Estimate Decreased L Platelet Morphology Giant Platelets Occasional Polychromasia 1+ Hypochromasia 1+ Anisocytosis 3+ Schistocytes 1+ Sodium Level 147 MMOL/L (136-145) H Potassium Level 3.3 MMOL/L (3.5-5.1) L Chloride Level 112 MMOL/L (98-107) H Carbon Dioxide Level 30 MMOL/L (21-32) Anion Gap 5 mmol/L (5-15) Blood Urea Nitrogen 12 mg/dL (7-18) Creatinine 0.8 MG/DL (0.55-1.30) Estimat Glomerular Filtration Rate > 60 mL/min (>60) Glucose Level 108 MG/DL (74-106) H Calcium Level 7.7 MG/DL (8.5-10.1) L Phosphorus Level 3.1 MG/DL (2.5-4.9) Magnesium Level 1.6 MG/DL (1.8-2.4) L Total Bilirubin 0.6 MG/DL (0.2-1.0) Aspartate Amino Transf (AST/SGOT) 26 U/L (15-37) Alanine Aminotransferase (ALT/SGPT) 25 U/L (12-78) Alkaline Phosphatase 105 U/L (46-116) Total Protein 5.5 G/DL (6.4-8.2) L Albumin 2.1 G/DL (3.4-5.0) L Globulin 3.4 g/dL Albumin/Globulin Ratio 0.6 (1.0-2.7) L Intake and Output 11/18/20 11/19/20 19:00 07:00 Intake Total 1260 ml 700 ml Output Total 2500 ml 4500 ml Balance -1240 ml -3800 ml Intake Oral 360 ml 100 ml IV Total 900 ml 600 ml Output Urine Total 2500 ml 4500 ml Objective PHYSICAL EXAMINATION: GENERAL: Patient is altered, unresponsive, cannot follow commands. HEAD AND NECK: Pupils are equal and reactive to light. Anicteric. Neck was supple. No JVD. LUNGS: Good air entry. No wheezing or rhonchi. Decreased air in the bases. HEART: S1, S2. No murmur or gallops. ABDOMEN: Soft, nondistended, nontender. Positive bowel sounds. EXTREMITIES: No cyanosis, clubbing, or edema. NEUROLOGIC: Very limited secondary to patient's status. Cannot follow commands. However, moving extremities spontaneously. SKIN: No rashes were identified. Assessment/Plan Assessment/Plan Assessment/Plan Assessment/Plan 1. Septic shock=ESBL E. coli 2. Sepsis secondary to urinary tract infection, but can not R/O intraabdominal infection yet. 3. Dehydration and hypokalemia. 4. Altered mental status, most likely secondary to toxic metabolic encephalopathy. 5. Acute kidney injury. 6. Anemia. 7. History of multiple sclerosis. 8. COVID 19 pos-H/O COVID POS in Aug 2020. Repeat testing 11/08/20=positive. 11/12/20=COVID neg 9. Hypokalemia PLAN: In SDU IV hydration. Monitor laboratory and cultures. DVT prophylaxis: heparin subcutaneous. 2D echo. Code status: Full Code. Abx: Meropenem and vanco On hydrocortisone IV. Dr. Kline from Pul[facility] Critical [facility], Dr. Nat Courtney from ID, Dr. Grant from Cardiology Dr. Bridger Mari from Nephrology. Repeat COVID 19 on 11/12/20=NEG Replace KCL IV Jad Sarabia MD Nov 19, 2020 18:45
[2020-11-19 20:00] VITALS: BP 134/82
[2020-11-19] MEDS: Dyna-Hex 2% Top Sol 2oz TOPIC SCH (21:27)
[2020-11-20] VITALS: BP 136/73
[2020-11-20] MEDS: Ciprofloxacin Opth Soln 5ml LEFT EYE SCH ×4 (02:22→14:39)
[2020-11-20 04:00] VITALS: BP 137/80
[2020-11-20] MEDS: traMADol 50mg tab ORAL PRN ×2 (05:18→11:42)
[2020-11-20 05:40] LABS: BASOPHILS % (AUTO) 0.7 % (0.0-2.0); EOSINOPHILS % (AUTO) 0.1 % (0.0-3.0); HEMATOCRIT 28.2 % (37.0-47.0); HEMOGLOBIN 8.4 G/DL (12.0-16.0); LYMPHOCYTES % (AUTO) 18.9 % (20.0-45.0); MEAN CORPUSCULAR VOLUME 93 FL (80-99); MONOCYTES % (AUTO) 8.6 % (1.0-10.0); NEUTROPHILS % (AUTO) 71.7 % (45.0-75.0); PLATELET COUNT 125 K/UL (150-450); RED BLOOD COUNT 3.03 M/UL (4.20-5.40); RED CELL DISTRIBUTION WIDTH 25.5 % (11.6-14.8); WHITE BLOOD COUNT 14.2 K/UL (4.8-10.8)
[2020-11-20 05:48] LABS: PHOSPHORUS 2.5 MG/DL (2.5-4.9)
[2020-11-20 05:51] LABS: ALANINE AMINOTRANSFERASE 20 U/L (12-78); ALBUMIN 2.2 G/DL (3.4-5.0); ALBUMIN/GLOBULIN RATIO 0.7 (1.0-2.7); ALKALINE PHOSPHATASE 94 U/L (46-116); ANION GAP 5 mmol/L (5-15); ASPARTATE AMINO TRANSFERASE 24 U/L (15-37); BILIRUBIN,TOTAL 0.5 MG/DL (0.2-1.0); BLOOD UREA NITROGEN 11 mg/dL (7-18); CALCIUM 8.1 MG/DL (8.5-10.1); CARBON DIOXIDE 31 MMOL/L (21-32); CHLORIDE 112 MMOL/L (98-107); CREATININE 0.8 MG/DL (0.55-1.30); POTASSIUM 3.5 MMOL/L (3.5-5.1); SODIUM 148 MMOL/L (136-145)
[2020-11-20] MEDS: Hydrocortisone 100mg Inj IV SCH (06:17)
--- NOTE | 2020-11-20 07:30 | General Progress Note ---
Subjective ROS Limited/Unobtainable: Yes Allergies: Coded Allergies: No Known Allergies (Unverified , 11/08/20) Objective Last 24 Hour Vital Signs Date Time Temp Pulse Resp B/P (MAP) Pulse Ox O2 Delivery O2 Flow Rate FiO2 11/20/20 06:17 98.7 11/20/20 04:00 97.4 67 20 137/80 (99) 94 11/20/20 03:40 70 11/20/20 00:00 72 11/20/20 00:00 98.7 78 20 136/73 (94) 96 11/19/20 23:36 98.1 11/19/20 20:00 78 11/19/20 20:00 99.0 78 20 134/82 (99) 98 11/19/20 18:00 Room Air 11/19/20 17:09 78 139/72 11/19/20 16:00 98.1 78 20 139/73 (95) 100 11/19/20 16:00 97 11/19/20 15:42 98.2 11/19/20 12:00 80 11/19/20 12:00 98.2 81 20 162/78 (106) 100 11/19/20 10:04 98.4 11/19/20 09:26 68 159/77 11/19/20 08:00 98.4 68 18 159/77 (104) 100 11/19/20 08:00 77 Intake and Output 11/19/20 11/20/20 19:00 07:00 Intake Total 1500 ml 320 ml Output Total 2400 ml 3500 ml Balance -900 ml -3180 ml Intake Oral 700 ml Free Water 120 ml IV Total 800 ml 200 ml Output Urine Total 2400 ml 3500 ml # Bowel Movements 1 1 Laboratory Tests 11/20/20 05:19: White Blood Count 14.2H, Red Blood Count 3.03L, Hemoglobin 8.4L, Hematocrit 28.2L, Mean Corpuscular Volume 93, Mean Corpuscular Hemoglobin 27.8, Mean Corpuscular Hemoglobin Concent 30.0L, Red Cell Distribution Width 25.5H, Platelet Count 125L, Mean Platelet Volume 9.6, Neutrophils (%) (Auto) 71.7, Lymphocytes (%) (Auto) 18.9L, Monocytes (%) (Auto) 8.6, Eosinophils (%) (Auto) 0.1, Basophils (%) (Auto) 0.7, Sodium Level 148H, Potassium Level 3.5, Chloride Level 112H, Carbon Dioxide Level 31, Anion Gap 5, Blood Urea Nitrogen 11, Creatinine 0.8, Estimat Glomerular Filtration Rate > 60, Glucose Level 78, Calcium Level 8.1L, Phosphorus Level 2.5, Magnesium Level 1.9, Total Bilirubin 0.5, Aspartate Amino Transf (AST/SGOT) 24, Alanine Aminotransferase (ALT/SGPT) 20, Alkaline Phosphatase 94, Total Protein 5.5L, Albumin 2.2L, Globulin 3.3, Albumin/Globulin Ratio 0.7L Height (Feet): 5 Height (Inches): 5.00 Weight (Pounds): 165 General Appearance: no apparent distress EENT: normal ENT inspection Cardiovascular: normal rate Respiratory/Chest: decreased breath sounds Abdomen: normal bowel sounds, non tender, soft Extremities: non-tender Assessment/Plan Problem List: (1) Rectal bleeding ICD Codes: K62.5 - Hemorrhage of anus and rectum SNOMED: 46876681 (2) Sepsis ICD Codes: A41.9 - Sepsis, unspecified organism SNOMED: 81910612, 859859053 Qualifiers: Qualified Codes: A41.9 - Sepsis, unspecified organism; R65.20 - Severe sepsis without septic shock; G93.40 - Encephalopathy, unspecified (3) Electrolyte imbalance ICD Codes: E87.8 - Other disorders of electrolyte and fluid balance, not elsewhere classified SNOMED: 403923279 (4) Acute metabolic encephalopathy ICD Codes: G93.41 - Metabolic encephalopathy SNOMED: 36111298, 797288980 (5) Anemia ICD Codes: D64.9 - Anemia, unspecified SNOMED: 513335426 Qualifiers: Qualified Codes: D64.9 - Anemia, unspecified (6) Septic shock ICD Codes: A41.9 - Sepsis, unspecified organism; R65.21 - Severe sepsis with septic shock SNOMED: 14294558 (7) Diarrhea ICD Codes: R19.7 - Diarrhea, unspecified SNOMED: 06342715 Qualifiers: Qualified Codes: R19.7 - Diarrhea, unspecified Assessment/Plan: C.diff neg abx per ID for severe UTI stool ob positive and drop in H&H rectal bleed on admission EGD and colonoscopy was offered to the patient but she refused. The risk was explained to her she wants out patient GI procedures repeat cbc Gold Sears MD Nov 20, 2020 07:30
[2020-11-20 08:00] VITALS: BP 106/84
[2020-11-20] MEDS: Spironolactone 25mg tab ORAL SCH (08:11)
[2020-11-20] MEDS ORDERED: Enoxaparin 40mg Inj SUBQ SCH (09:00)
--- NOTE | 2020-11-20 10:30 | Nephrology Progress Note ---
Assessment/Plan Problem List: (1) VALERIA (acute kidney injury) (2) Septic shock (3) Multiple sclerosis (4) Acute metabolic encephalopathy (5) Anemia (6) Electrolyte imbalance Assessment Acute renal failure Sepsis, shock Acute metabolic encephalopathy Anemia UTI Plan November 20: Labs reviewed. Electrolytes improved. Stable from renal standpoint to view. November 19: Labs reviewed. Low potassium and low magnesium addressed. IV flu id discontinued. Continue to monitor renal parameters and electrolytes. November 18: Labs reviewed. Low potassium addressed. Continue to monitor electrolytes. Discussed with RN. November 17: Labs reviewed. Abnormal electrolytes addressed. IV fluid changed to D5W at 75 cc an hour. Continue to monitor renal parameters. Continue per consultants. Discussed with RN. November 16: Labs reviewed. Abnormal electrolyte addressed. Blood pressure medication adjusted. Continue per consultants. Leukocytosis persists. November 15: Labs reviewed. Abnormal electrolytes addressed. Continue per current treatment plan. Leukocytosis persists. November 14: Labs reviewed. Abnormal electrolytes much improved. Discussed with RN Afsoon. Serum creatinine normalized. Continue per consultants. November 13: Labs reviewed. Low potassium and low phosphorus addressed. Discussed with RN. Continue to monitor renal parameters. Serum creatinine now down to 1.3. November 12: Labs reviewed. Potassium 2.2, replacement ordered. Serum creatinine down to 1.6. Discussed with RN. Continue per consultants. Renal parameters. November 11: Labs reviewed. Low potassium replaced. Serum creatinine 1.9. Patient full code. On nasal cannula. Discussed with RN. Continue per noa tanedvin. Continue to monitor renal parameters November 10 labs reviewed. Serum creatinine 2. Patient more lethargic today. NG tube and feeding through NG to be initiated. Patient full code. Continue to monitor renal parameters. November 09: Low magnesium replaced. IV iron ordered. Labs reviewed. Albumin bolus given. Serum creatinine higher to 2.3. Continue current management. Patient full code. Previously: ICU Pressors Hydrate Monitor renal parameters and electrolytes Anemia work-up Avoid nephrotoxic's Subjective ROS Limited/Unobtainable: No Objective Objective Last 24 Hour Vital Signs Date Time Temp Pulse Resp B/P (MAP) Pulse Ox O2 Delivery O2 Flow Rate FiO2 11/20/20 08:12 67 102/67 11/20/20 08:00 98.1 67 20 106/84 (91) 96 11/20/20 08:00 99 11/20/20 06:17 98.7 11/20/20 04:00 97.4 67 20 137/80 (99) 94 11/20/20 03:40 70 11/20/20 00:00 72 11/20/20 00:00 98.7 78 20 136/73 (94) 96 11/19/20 23:36 98.1 11/19/20 20:00 78 11/19/20 20:00 99.0 78 20 134/82 (99) 98 11/19/20 18:00 Room Air 11/19/20 17:09 78 139/72 11/19/20 16:00 98.1 78 20 139/73 (95) 100 11/19/20 16:00 97 11/19/20 15:42 98.2 11/19/20 12:00 80 11/19/20 12:00 98.2 81 20 162/78 (106) 100 Intake and Output 11/19/20 11/20/20 19:00 07:00 Intake Total 1500 ml 320 ml Output Total 2400 ml 3500 ml Balance -900 ml -3180 ml Intake Oral 700 ml Free Water 120 ml IV Total 800 ml 200 ml Output Urine Total 2400 ml 3500 ml # Bowel Movements 1 1 Current Medications Medications (Trade) Dose Ordered Sig/Bunny Route PRN Reason Start Time Stop Time Status Last Admin Dose Admin Acetaminophen (Tylenol) 650 mg Q4H PRN NG Temp >100.5 11/10/20 05:15 12/10/20 05:14 11/10/20 05:21 Amlodipine Besylate (Norvasc) 5 mg BID ORAL 11/19/20 18:00 12/14/20 18:14 11/20/20 08:12 Chlorhexidine Gluconate (Carmen-Hex 2%) 1 applic DAILY@2000 TOPIC 11/15/20 20:00 02/13/21 19:59 11/19/20 21:27 Ciprofloxacin (Ciloxan Opth Soln) 2 drop Q4HR LEFT EYE 11/17/20 18:00 11/24/20 17:59 11/20/20 09:49 Dextrose (Dextrose 50%) 25 ml Q30M PRN IV Hypoglycemia 11/10/20 23:45 02/08/21 23:44 Dextrose (Dextrose 50%) 50 ml Q30M PRN IV Hypoglycemia 11/10/20 23:45 02/08/21 23:44 Enoxaparin Sodium (Lovenox) 40 mg DAILY SUBQ 11/20/20 09:00 02/18/21 08:59 11/20/20 08:16 Hydrocortisone (Solu-CORTEF) 25 mg Q12H IV 11/17/20 18:00 02/15/21 17:59 11/20/20 06:17 Meropenem 1 gm/ Sodium Chloride 100 ml @ 200 mls/hr Q8HR IVPB 11/16/20 14:00 11/21/20 13:59 11/20/20 05:11 Potassium Chloride (K-Dur) 40 meq TWICE A DAY ORAL 11/17/20 18:00 02/15/21 17:59 11/20/20 08:14 Spironolactone (Aldactone) 25 mg DAILY ORAL 11/19/20 09:00 12/19/20 08:59 11/20/20 08:11 Tramadol HCl (Ultram) 50 mg Q6H PRN ORAL For Pain 11/15/20 23:30 11/22/20 23:29 11/20/20 05:18 Laboratory Tests 11/20/20 05:19: White Blood Count 14.2H, Red Blood Count 3.03L, Hemoglobin 8.4L, Hematocrit 28.2L, Mean Corpuscular Volume 93, Mean Corpuscular Hemoglobin 27.8, Mean Corpuscular Hemoglobin Concent 30.0L, Red Cell Distribution Width 25.5H, Platelet Count 125L, Mean Platelet Volume 9.6, Neutrophils (%) (Auto) 71.7, Lymphocytes (%) (Auto) 18.9L, Monocytes (%) (Auto) 8.6, Eosinophils (%) (Auto) 0.1, Basophils (%) (Auto) 0.7, Sodium Level 148H, Potassium Level 3.5, Chloride Level 112H, Carbon Dioxide Level 31, Anion Gap 5, Blood Urea Nitrogen 11, Creatinine 0.8, Estimat Glomerular Filtration Rate > 60, Glucose Level 78, Calcium Level 8.1L, Phosphorus Level 2.5, Magnesium Level 1.9, Total Bilirubin 0.5, Aspartate Amino Transf (AST/SGOT) 24, Alanine Aminotransferase (ALT/SGPT) 20, Alkaline Phosphatase 94, Total Protein 5.5L, Albumin 2.2L, Globulin 3.3, Albumin/Globulin Ratio 0.7L Height (Feet): 5 Height (Inches): 5.00 Weight (Pounds): 165 General Appearance: no apparent distress Cardiovascular: normal rate Respiratory/Chest: decreased breath sounds Abdomen: distended Bridger Mari MD Nov 20, 2020 10:30
[2020-11-20 12:00] VITALS: BP 146/88
--- NOTE | 2020-11-20 12:12 | Pulmonology Progress Note ---
Subjective ROS Limited/Unobtainable: No Interval Events: Saturating well on room air Constitutional: Reports: fever - resolved, fatigue, other - feels better HEENT: Repors: no symptoms Respiratory: Reports: no symptoms Cardiovascular: Reports: no symptoms Gastrointestinal/Abdominal: Denies: nausea, vomiting, diarrhea Psychiatric: Denies: depression Skin: Denies: rash Musculoskeletal: Denies: pain Allergies: Coded Allergies: No Known Allergies (Unverified , 11/08/20) Objective Last 24 Hour Vital Signs Date Time Temp Pulse Resp B/P (MAP) Pulse Ox O2 Delivery O2 Flow Rate FiO2 11/20/20 08:12 67 102/67 11/20/20 08:00 98.1 67 20 106/84 (91) 96 11/20/20 08:00 99 11/20/20 06:17 98.7 11/20/20 04:00 97.4 67 20 137/80 (99) 94 11/20/20 03:40 70 11/20/20 00:00 72 11/20/20 00:00 98.7 78 20 136/73 (94) 96 11/19/20 23:36 98.1 11/19/20 20:00 78 11/19/20 20:00 99.0 78 20 134/82 (99) 98 11/19/20 18:00 Room Air 11/19/20 17:09 78 139/72 11/19/20 16:00 98.1 78 20 139/73 (95) 100 11/19/20 16:00 97 11/19/20 15:42 98.2 Intake and Output 11/19/20 11/20/20 19:00 07:00 Intake Total 1500 ml 320 ml Output Total 2400 ml 3500 ml Balance -900 ml -3180 ml Intake Oral 700 ml Free Water 120 ml IV Total 800 ml 200 ml Output Urine Total 2400 ml 3500 ml # Bowel Movements 1 1 General Appearance: WD/WN HEENT: normocephalic Respiratory: chest wall non-tender Cardiovascular: normal peripheral pulses Abdomen: soft, non tender Laboratory Tests 11/20/20 05:19: White Blood Count 14.2H, Red Blood Count 3.03L, Hemoglobin 8.4L, Hematocrit 28.2L, Mean Corpuscular Volume 93, Mean Corpuscular Hemoglobin 27.8, Mean Corpuscular Hemoglobin Concent 30.0L, Red Cell Distribution Width 25.5H, Platelet Count 125L, Mean Platelet Volume 9.6, Neutrophils (%) (Auto) 71.7, Lymphocytes (%) (Auto) 18.9L, Monocytes (%) (Auto) 8.6, Eosinophils (%) (Auto) 0.1, Basophils (%) (Auto) 0.7, Sodium Level 148H, Potassium Level 3.5, Chloride Level 112H, Carbon Dioxide Level 31, Anion Gap 5, Blood Urea Nitrogen 11, Creatinine 0.8, Estimat Glomerular Filtration Rate > 60, Glucose Level 78, Calcium Level 8.1L, Phosphorus Level 2.5, Magnesium Level 1.9, Total Bilirubin 0.5, Aspartate Amino Transf (AST/SGOT) 24, Alanine Aminotransferase (ALT/SGPT) 20, Alkaline Phosphatase 94, Total Protein 5.5L, Albumin 2.2L, Globulin 3.3, Albumin/Globulin Ratio 0.7L Current Medications Medications (Trade) Dose Ordered Sig/Bunny Route PRN Reason Start Time Stop Time Status Last Admin Dose Admin Acetaminophen (Tylenol) 650 mg Q4H PRN NG Temp >100.5 11/10/20 05:15 12/10/20 05:14 11/10/20 05:21 Amlodipine Besylate (Norvasc) 5 mg BID ORAL 11/19/20 18:00 12/14/20 18:14 11/20/20 08:12 Chlorhexidine Gluconate (Carmen-Hex 2%) 1 applic DAILY@2000 TOPIC 11/15/20 20:00 02/13/21 19:59 11/19/20 21:27 Ciprofloxacin (Ciloxan Opth Soln) 2 drop Q4HR LEFT EYE 11/17/20 18:00 11/24/20 17:59 11/20/20 09:49 Dextrose (Dextrose 50%) 25 ml Q30M PRN IV Hypoglycemia 11/10/20 23:45 02/08/21 23:44 Dextrose (Dextrose 50%) 50 ml Q30M PRN IV Hypoglycemia 11/10/20 23:45 02/08/21 23:44 Enoxaparin Sodium (Lovenox) 40 mg DAILY SUBQ 11/20/20 09:00 02/18/21 08:59 11/20/20 08:16 Hydrocortisone (Solu-CORTEF) 25 mg Q12H IV 2/20/21 18:00 02/15/21 17:59 11/20/20 06:17 Meropenem 1 gm/ Sodium Chloride 100 ml @ 200 mls/hr Q8HR IVPB 11/16/20 14:00 11/21/20 13:59 11/20/20 05:11 Potassium Chloride (K-Dur) 40 meq TWICE A DAY ORAL 11/17/20 18:00 02/15/21 17:59 11/20/20 08:14 Spironolactone (Aldactone) 25 mg DAILY ORAL 11/19/20 09:00 12/19/20 08:59 11/20/20 08:11 Tramadol HCl (Ultram) 50 mg Q6H PRN ORAL For Pain 11/15/20 23:30 11/22/20 23:29 11/20/20 11:42 Assessment/Plan Assessment/Plan 1. Septic shock. Resolved 2. Hypotension. Resolved 3. Status post central line placement. 4. Multiple sclerosis. 5. Diarrhea, ruled out for C. difficile colitis. 6. E. coli bacteremia; on Meropenem 7. DVT prophylaxis. -D-dimer 11.5 - we will start on Lovenox -Venous duplex of legs (11/19) negative for DVT Discussion: Now off pressors. s/p PO bicarb supplementation. Continue broad-spectrum antibiotics. The care of this patient was discussed with my supervising physician Time spent for this encounter was approximately 31 minutes Wolfgang Montoya Nov 20, 2020 12:12
--- NOTE | 2020-11-20 15:10 | Infectious Diseases Prog Note ---
Assessment/Plan Assessment/Plan ASSESSMENT AND PLAN: 1. e.coli bacteremia, sepsis, shock, pna, hx covid-19 infection/recovered, ? aspiration pna, hcap, ? cap, uti, c.diff. negative, leukocytosis, fevers, sirs, ? GI source, CT abdomen and pelvis and US noted, on steroids ? femoral line infection - femoral line changed to picc line - change to ertapenem - day # 11/ abx, discontinue meropenem - on iv hydrocortisone - being tapered - monitor clinically, labs and chest x-ray - surveillance blood cultures negative - clinically improved, leukocytosis improving - d/w RN 2. History of COVID infection - in isolation currently, on steroids 3. Multiple sclerosis. 4. Weakness. 5. Acute kidney injury, elevated creatinine. 6. Hypertension. 7. Anemia. 8. Steroids. 9. No history of diabetes. 10. Continue treatment with primary consultants. 11. No known drug allergies. 12. Social history negative. 13. Family history is noncontributory. 14. MAR is noted. 15. Case was discussed with RN. 16. ICU care. 17. Skin care protocol. 18. Currently off pressors. 19. No vent currently. Subjective Constitutional: Denies: fever HEENT: Denies: congestion Respiratory: Denies: shortness of breath Cardiovascular: Denies: chest pain Gastrointestinal/Abdominal: Denies: nausea, vomiting, diarrhea Genitourinary: Reports: other - + harrison Neurologic: Denies: headache Psychiatric: Denies: depression Skin: Denies: rash Hematologic: Denies: bleeding Musculoskeletal: Denies: pain Allergies: Coded Allergies: No Known Allergies (Unverified , 11/08/20) Objective Last 24 Hour Vital Signs Date Time Temp Pulse Resp B/P (MAP) Pulse Ox O2 Delivery O2 Flow Rate FiO2 11/20/20 12:00 92 11/20/20 12:00 99.1 82 18 146/88 (107) 98 11/20/20 08:12 67 102/67 11/20/20 08:00 98.1 67 20 106/84 (91) 96 11/20/20 08:00 99 11/20/20 06:17 98.7 11/20/20 04:00 97.4 67 20 137/80 (99) 94 11/20/20 03:40 70 11/20/20 00:00 72 2/23/21 00:00 98.7 78 20 136/73 (94) 96 11/19/20 23:36 98.1 11/19/20 20:00 78 11/19/20 20:00 99.0 78 20 134/82 (99) 98 11/19/20 18:00 Room Air 11/19/20 17:09 78 139/72 11/19/20 16:00 98.1 78 20 139/73 (95) 100 11/19/20 16:00 97 11/19/20 15:42 98.2 Height (Feet): 5 Height (Inches): 5.00 Weight (Pounds): 165 General Appearance: no acute distress HEENT: normocephalic, atraumatic, anicteric, mucous membranes moist Respiratory/Chest: crackles/rales, rhonchi - bilaterally Cardiovascular: normal rate, regular rhythm, no gallop/murmur, no JVD Abdomen: normal bowel sounds, soft, non tender, no organomegaly, non distended Genitourinary: other - no harrison Extremities: no cyanosis Skin: no rash 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 There is suggestion of small bilateral pleural effusions, not evident previously. Impression: Stable slightly increased bilateral infiltrates versus edema Satisfactory nasogastric intubation New bilateral small pleural effusions Chest x-ray - 11/14/20 - Procedure: XRAY Chest 1v Indication: Shortness of breath Technique: One view of the chest Comparison: 11/12/2020 Findings: Bilateral pleural effusions, bilateral interstitial and airspace edema persist, unchanged. Nasogastric tube is been removed. Impression: Interim nasogastric tube removal. 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 Trace pericholecystic fluid probably represents free intraperitoneal fluid. Bilateral pleural effusions Nonobstructive right renal calculus, also reported on recent CT scan. Incidental finding small right renal cyst But incomplete visualization of the abdominal aorta CT scan of abdomen and pelvis: IMPRESSION: 1. Cholelithiasis and nonspecific gallbladder wall edema in light of the third spacing. 2. Nonspecific bowel gas pattern. Microbiology Date/Time Source Procedure Growth Status 11/13/20 03:55 Blood Blood Culture - Final NO GROWTH AFTER 5 DAYS Complete 11/12/20 09:35 Nasopharynx Coronavirus COVID-19 PCR ([facility]) - Final Complete 11/09/20 23:45 Stool Clostridium difficile Toxin Assay - Final Complete Laboratory Tests Test 11/20/20 05:19 White Blood Count 14.2 K/UL (4.8-10.8) H Red Blood Count 3.03 M/UL (4.20-5.40) L Hemoglobin 8.4 G/DL (12.0-16.0) L Hematocrit 28.2 % (37.0-47.0) L Mean Corpuscular Volume 93 FL (80-99) Mean Corpuscular Hemoglobin 27.8 PG (27.0-31.0) Mean Corpuscular Hemoglobin Concent 30.0 G/DL (32.0-36.0) L Red Cell Distribution Width 25.5 % (11.6-14.8) H Platelet Count 125 K/UL (150-450) L Mean Platelet Volume 9.6 FL (6.5-10.1) Neutrophils (%) (Auto) 71.7 % (45.0-75.0) Lymphocytes (%) (Auto) 18.9 % (20.0-45.0) L Monocytes (%) (Auto) 8.6 % (1.0-10.0) Eosinophils (%) (Auto) 0.1 % (0.0-3.0) Basophils (%) (Auto) 0.7 % (0.0-2.0) Sodium Level 148 MMOL/L (136-145) H Potassium Level 3.5 MMOL/L (3.5-5.1) Chloride Level 112 MMOL/L (98-107) H Carbon Dioxide Level 31 MMOL/L (21-32) Anion Gap 5 mmol/L (5-15) Blood Urea Nitrogen 11 mg/dL (7-18) Creatinine 0.8 MG/DL (0.55-1.30) Estimat Glomerular Filtration Rate > 60 mL/min (>60) Glucose Level 78 MG/DL (74-106) Calcium Level 8.1 MG/DL (8.5-10.1) L Phosphorus Level 2.5 MG/DL (2.5-4.9) Magnesium Level 1.9 MG/DL (1.8-2.4) Total Bilirubin 0.5 MG/DL (0.2-1.0) Aspartate Amino Transf (AST/SGOT) 24 U/L (15-37) Alanine Aminotransferase (ALT/SGPT) 20 U/L (12-78) Alkaline Phosphatase 94 U/L (46-116) Total Protein 5.5 G/DL (6.4-8.2) L Albumin 2.2 G/DL (3.4-5.0) L Globulin 3.3 g/dL Albumin/Globulin Ratio 0.7 (1.0-2.7) L Current Medications Medications (Trade) Dose Ordered Sig/Bunny Route PRN Reason Start Time Stop Time Status Last Admin Dose Admin Acetaminophen (Tylenol) 650 mg Q4H PRN NG Temp >100.5 11/10/20 05:15 12/10/20 05:14 11/10/20 05:21 Amlodipine Besylate (Norvasc) 5 mg BID ORAL 11/19/20 18:00 12/14/20 18:14 11/20/20 08:12 Chlorhexidine Gluconate (Carmen-Hex 2%) 1 applic DAILY@2000 TOPIC 11/15/20 20:00 02/13/21 19:59 11/19/20 21:27 Ciprofloxacin (Ciloxan Opth Soln) 2 drop Q4HR LEFT EYE 11/17/20 18:00 11/24/20 17:59 11/20/20 14:39 Dextrose (Dextrose 50%) 25 ml Q30M PRN IV Hypoglycemia 11/10/20 23:45 02/08/21 23:44 Dextrose (Dextrose 50%) 50 ml Q30M PRN IV Hypoglycemia 11/10/20 23:45 02/08/21 23:44 Enoxaparin Sodium (Lovenox) 40 mg DAILY SUBQ 11/20/20 09:00 02/18/21 08:59 11/20/20 08:16 Hydrocortisone (Solu-CORTEF) 25 mg Q12H IV 11/17/20 18:00 02/15/21 17:59 11/20/20 06:17 Meropenem 1 gm/ Sodium Chloride 100 ml @ 200 mls/hr Q8HR IVPB 11/16/20 14:00 11/21/20 13:59 11/20/20 14:38 Potassium Chloride (K-Dur) 40 meq TWICE A DAY ORAL 11/17/20 18:00 02/15/21 17:59 11/20/20 08:14 Spironolactone (Aldactone) 25 mg DAILY ORAL 11/19/20 09:00 12/19/20 08:59 11/20/20 08:11 Tramadol HCl (Ultram) 50 mg Q6H PRN ORAL For Pain 11/15/20 23:30 11/22/20 23:29 11/20/20 11:42 Nat Courtney MD Nov 20, 2020 15:10
[2020-11-20 16:00] VITALS: BP 136/82
[2020-11-20] MEDS ORDERED: NS 275ml ONE ×2 (16:14)
[2020-11-20] MEDS ORDERED: Tubing IV Secondary IV ONE (16:14)
--- NOTE | 2020-11-20 19:31 | Surgery Progress Note ---
Surgery Progress Note Subjective Additional Comments Patient seen and examined earlier today this note is a late entry. Patient is significantly improved. Labs noted imaging reviewed. Sites monitored. Line in place. Overall good improvement plan for discharge today placement. Objective Last 24 Hour Vital Signs Date Time Temp Pulse Resp B/P (MAP) Pulse Ox O2 Delivery O2 Flow Rate FiO2 11/20/20 16:00 99.1 86 18 136/82 (100) 98 11/20/20 12:00 92 11/20/20 12:00 99.1 82 18 146/88 (107) 98 11/20/20 08:12 67 102/67 11/20/20 08:00 98.1 67 20 106/84 (91) 96 11/20/20 08:00 99 11/20/20 06:17 98.7 11/20/20 04:00 97.4 67 20 137/80 (99) 94 11/20/20 03:40 70 11/20/20 00:00 72 11/20/20 00:00 98.7 78 20 136/73 (94) 96 11/19/20 23:36 98.1 11/19/20 20:00 78 11/19/20 20:00 99.0 78 20 134/82 (99) 98 I&O Intake and Output 11/19/20 11/20/20 19:00 07:00 Intake Total 1500 ml 320 ml Output Total 2400 ml 3500 ml Balance -900 ml -3180 ml Intake Oral 700 ml Free Water 120 ml IV Total 800 ml 200 ml Output Urine Total 2400 ml 3500 ml # Bowel Movements 1 1 Dressing: dry Wound: clean Cardiovascular: RSR Respiratory: clear Abdomen: soft, non-tender, present bowel sounds, non-distended Extremities: no edema, no tenderness, no cyanosis Laboratory Tests Test 11/20/20 05:19 White Blood Count 14.2 K/UL (4.8-10.8) H Red Blood Count 3.03 M/UL (4.20-5.40) L Hemoglobin 8.4 G/DL (12.0-16.0) L Hematocrit 28.2 % (37.0-47.0) L Mean Corpuscular Volume 93 FL (80-99) Mean Corpuscular Hemoglobin 27.8 PG (27.0-31.0) Mean Corpuscular Hemoglobin Concent 30.0 G/DL (32.0-36.0) L Red Cell Distribution Width 25.5 % (11.6-14.8) H Platelet Count 125 K/UL (150-450) L Mean Platelet Volume 9.6 FL (6.5-10.1) Neutrophils (%) (Auto) 71.7 % (45.0-75.0) Lymphocytes (%) (Auto) 18.9 % (20.0-45.0) L Monocytes (%) (Auto) 8.6 % (1.0-10.0) Eosinophils (%) (Auto) 0.1 % (0.0-3.0) Basophils (%) (Auto) 0.7 % (0.0-2.0) Sodium Level 148 MMOL/L (136-145) H Potassium Level 3.5 MMOL/L (3.5-5.1) Chloride Level 112 MMOL/L (98-107) H Carbon Dioxide Level 31 MMOL/L (21-32) Anion Gap 5 mmol/L (5-15) Blood Urea Nitrogen 11 mg/dL (7-18) Creatinine 0.8 MG/DL (0.55-1.30) Estimat Glomerular Filtration Rate > 60 mL/min (>60) Glucose Level 78 MG/DL (74-106) Calcium Level 8.1 MG/DL (8.5-10.1) L Phosphorus Level 2.5 MG/DL (2.5-4.9) Magnesium Level 1.9 MG/DL (1.8-2.4) Total Bilirubin 0.5 MG/DL (0.2-1.0) Aspartate Amino Transf (AST/SGOT) 24 U/L (15-37) Alanine Aminotransferase (ALT/SGPT) 20 U/L (12-78) Alkaline Phosphatase 94 U/L (46-116) Total Protein 5.5 G/DL (6.4-8.2) L Albumin 2.2 G/DL (3.4-5.0) L Globulin 3.3 g/dL Albumin/Globulin Ratio 0.7 (1.0-2.7) L Plan Problems: (1) Anemia (2) Sepsis Assessment & Plan: 44-year-old female with altered mental status, lactic acidosis, leukocytosis, sepsis. Vitals currently stable. Abdominal exam mild distention but limited. Will obtain imaging. Labs noted UTI on antibiotics fluid resuscitation trend labs we will follow with examination and recommendations. CT head reviewed. much improved now responsive states well no abd symptoms okay for diet labs noted exam stable diet as tolerated trend labs iv fluids Possible higher level of care for cardiac work up and intervention noted. She is off Biap and on nasal cannula saturation ok at her bedside. Work of breathing noted. Creatine continued to be rising 1.7 today. improved labs improved d/c planning Interpretation/Plan/Recommendation: 1. Very high risk of aspiration insetting of Advanced heart failure with onset of multiorgan failure 2. If she is going higher level of care within 24 hours, Hold PO except medication, 3. If she will stay, recommend goal of care and place PO with pureed and [place] thick liquid No acute intracranial hemorrhage. No midline shift or mass effect. The territorial hassan-white matter differentiation is maintained throughout. The ventricles and sulci are commensurate with age. The visualized orbits appear grossly unremarkable. The calvarium is intact. The visualized paranasal sinuses and mastoid air cells are grossly clear. CT noted Liver: Unremarkable Gallbladder and bile ducts: Cholelithiasis and nonspecific gallbladder wall edema in light of the third spacing. Pancreas: Stranding around the pancreas, could be from pancreatitis or the third spacing. Correlate with amylase or lipase values as clinically appropriate. Spleen: Unremarkable. Adrenals: Unremarkable. Kidneys and ureters: Right nephrolithiasis. Stomach and bowel: Nonspecific bowel gas pattern. Nonspecific thickening of the GI tract in light of the third spacing. PELVIS: Appendix: No findings to suggest acute appendicitis. Bladder: Duffy catheter. Reproductive: Exophytic fibroid versus complex left adnexal lesion measuring approximately 4.1 cm. Subperitoneal space: Presacral edema. ABDOMEN and PELVIS: Intraperitoneal space: Edema throughout the peritoneal cavity. Small amounts of fluid in the peritoneal cavity. Bones/joints: No acute fracture. Soft tissues: Anasarca Vasculature: Unremarkable. No abdominal aortic aneurysm. Lymph nodes: No enlarged lymph nodes. Tubes, lines and devices: Rectal tube. Right femoral central line. Enteric tube in the stomach. IMPRESSION: 1. Cholelithiasis and nonspecific gallbladder wall edema in light of the third spacing. 2. Nonspecific bowel gas pattern. There is a small amount of pleural fluid bilaterally. Gallbladder is unremarkable, without stones, wall thickening. There is trace pericholecystic Fluid. Sonographic Fregoso's sign is negative. Common bile duct measures 3 mm in diameter. No intrahepatic biliary ductal dilatation. Liver demonstrates normal echogenicity, no focal abnormality. Portal vein and hepatic veins are patent. Pancreas is unremarkable. Spleen is unremarkable. Left kidney measures 10.6 cm in length. Right kidney measures 10 cm length. Both kidneys demonstrate normal echogenicity. There is no hydronephrosis. There is a small right renal cyst. Echogenic focus in the right kidney likely represents one of the calculi demonstrated on recent CT scan . Abdominal aorta is partially obscured by bowel gas, visualized portions are non-aneurysmal . Impression: Negative for gallstones or dilated bile ducts. Trace pericholecystic fluid probably represents free intraperitoneal fluid. Bilateral pleural effusions Nonobstructive right renal calculus, also reported on recent CT scan. Incidental finding small right renal cyst But incomplete visualization of the abdominal aorta (3) UTI (urinary tract infection) (4) VALERIA (acute kidney injury) (5) Acute metabolic encephalopathy (6) Diarrhea (7) Multiple sclerosis (8) Septic shock (9) Electrolyte imbalance (10) Rectal bleeding Archie Saavedra Nov 20, 2020 19:31
--- NOTE | 2020-11-21 14:05 | Discharge Summary ---
Discharge Summary Discharge Summary _ Date of admission: 11/08/2020 Date of discharge: 11/20/[address] Cormier History of Present Illness and Brief Hospital Course Ms. Solano is a 44-year-old female with past medical history of multiple sclerosis and chronic pain syndrome, who was sent to ED from [facility] for evaluation of altered mental status x1 day. Patient was unresponsive on arrival. Her chest x-ray was negative for acute process. Head CT was negative for acute intracranial hemorrhage, midline shift, or mass-effect. Echocardiogram revealed ejection fraction of 50-55%. Urinalysis showed positive nitrites and leukocyte esterase. Patient was admitted to the hospital for further work-up and management. Her presentation was consistent with sepsis. Patient was immediately started on antibiotics and IV fluids. Patient was found to show growth of E. coli in blood cultures. Given elevated D-dimer, patient was started on Lovenox. Patient tested negative for DVT via venous duplex of legs. Patient was found to have rectal bleeding on admission. Stool occult blood was positive. However, her H&H remained stable. A repeat stool OB few days later came back negative. Further work-up with endoscopy and colonoscopy were offered to the patient but she refused. The risk was explained to her. Patient requested outpatient GI procedures. Patient was found to have diarrhea. Patient tested negative for C. difficile. Throughout her hospitalization, patient was treated for bacteremia with antibiotics. Patient was medically stable for discharge and was discharged back to her facility on 11/20/2020. Consultants: Cardiology Dr. Grant Gastroenterology Dr. Sears Infectious disease Dr. Courtney Pulmonology Dr. Kline Surgery Dr. Saavedra Nephrology Dr. Mata Discharge Condition Improved and stable Final diagnoses Septic shock, ESBL E. coli Bacteremia, gram-negative rods Renal failure/hypokalemia Lactic acidosis Leukemoid reaction Anemia Recent COVID-19 infection Thrombocytopenia Leukocytosis History of multiple sclerosis Electrolyte imbalance Diarrhea UTI I have been assigned to dictate discharge summary for this account. Wolfgang Montoya Nov 21, 2020 14:05
== END 2020-11-20 16:15 | DRG 871 ==
LOC: EDBD 04:09 → EMR 04:33 → ICU 06:03 → UNDOADMIN 06:08 → 2W 06:08 → EDBEDREQ 07:07 → 2W 11-13 18:38
PROC: 02HV33Z Insertion of Infusion Device into Superior Vena Cava, Percutaneous Approach (ICD-10-PCS; principal; 2020-11-16)
DX: A41.51 Sepsis due to Escherichia coli [E. coli] (principal); G93.41 Metabolic encephalopathy; R65.21 Severe sepsis with septic shock; U07.1 COVID-19; J12.82 Pneumonia due to coronavirus disease 2019; N17.9 Acute kidney failure, unspecified; N39.0 Urinary tract infection, site not specified; Z16.12 Extended spectrum beta lactamase (ESBL) resistance; K62.5 Hemorrhage of anus and rectum; G35 Multiple sclerosis; Z86.16 Personal history of COVID-19; B96.20 Unspecified Escherichia coli [E. coli] as the cause of diseases classified elsewhere; E86.0 Dehydration; E87.6 Hypokalemia; D64.9 Anemia, unspecified; G89.4 Chronic pain syndrome; D72.823 Leukemoid reaction; D69.6 Thrombocytopenia, unspecified; E87.8 Other disorders of electrolyte and fluid balance, not elsewhere classified; R19.7 Diarrhea, unspecified; Z99.3 Dependence on wheelchair; E61.1 Iron deficiency; K80.20 Calculus of gallbladder without cholecystitis without obstruction
CPT/HCPCS: 36415; 36569; 70450; 71045; 74018; 74176; 76700; 76937; 80053; 80061; 80150; 80202; 81003; 82140; 82150; 82248; 82270; 82306; 82533; 82550; 82553; 82607; 82728; 82746; 82803; 82962; 82977; 83036; 83540; 83550; 83605; 83615; 83690; 83735; 83880; 84100; 84443; 84484; 84550; 85007; 85025; 85379; 85610; 85651; 85730; 86140; 87040; 87081; 87181; 87324; 93005; 93306; 93970; 94640; 96361; 96365; 96367; 99291; J2370; J3490; J7030; J7620; J8499